=== PATIENT | female | born 1990 | race Caucasian/White ===

== ENCOUNTER 2022-05-02 11:35 | Outpatient (CLI) | payer OTHER, SELFPAY ==
[2022-05-02] VITALS (16 sets, daily range): BP systolic 132–166; BP diastolic 73–90; PULSE 69–88; TEMP 36.7; O2SAT 97; BMI 46.3
[2022-05-02 12:42] LABS: Hemoglobin 9.8 g/dL (12.0-15.0); Mean Corp Hgb Conc 31.6 g/dL (32-36); Mean Corpuscular Hgb 28.2 pg (27.0-32.0); Mean Corpuscular Volume 89.1 fL (81-99); Mean Platelet Vol. 10.1 fl (6.2-12.0); Platelet Count 236 K/mm3 (150-450); RBC Distribution Width CV 14.1 % (11.6-14.6); RBC Distribution Width SD 45.1 fl (35.1-43.9); Red Blood Count 3.48 M/mm3 (4.2-5.4)
[2022-05-02 12:54] LABS: Protein, Urine (Random) 7.8 mg/dL (<11.9); Protein:Creat Ratio 371 mg/g CRE (0-200)
[2022-05-02 13:00] LABS: AST(SGOT) 11 U/L (15-37); Alanine Aminotransfer ALT/SGPT 17 U/L (13-56); Creatinine, Serum 0.53 mg/dL (0.55-1.02); EST Glomerular Filtration Rate 143 mL/min (>60); Est Glom Filt Rate - Afr Amer 174 mL/min (>60); Estimated Creatinine Clearance 116.06 ml/min; Uric Acid 4.1 mg/dL (2.6-6.0)
--- NOTE | 2022-05-02 14:06 | OB.TRI.NOTE ---
HPI - General General Date of Service: 05/02/22 Chief Complaint: headaches HPI Narrative JANET DUNN, is a 31 F @ 35.5 WEEKS who presents c/o headache since yesterday with intermittent visual changes. pt reports tried rest and tylenol without improvement. pt reports no abdominal pain, vaginal bleeding, cramping. PFSH PFSH Home Medications aspirin 81 mg chewable tablet 81 mg PO DAILY 05/02/22 [History Last Taken 05/01/22 22:00] ferrous sulfate 143 mg PO DAILY 05/02/22 [History Last Taken 05/01/22 22:00] vitamn-iron carb-folic acid-docusate 95 mg-1 mg-50 mg capsule 1 cap PO DAILY 05/02/22 [History Last Taken 05/01/22 22:00] Allergy/AdvReac Type Severity Reaction Status Date / Time No Known Allergies Allergy Verified 05/02/22 12:17 NST FHR Rate Baby A Baseline: 145 Variability:: Moderate Accelerations:: 15 x 15 Decelerations:: Variable (occasional ) NST Reactive:: Yes FHR Category:: Category I Uterine Activity:: irregular Assessment & Plan (1) 35 weeks gestation of : (2) Headache in : (3) Preeclampsia: PLAN: Plan @ 35.5 weeks- Preeclampsia 1) one severe range pressure- I was in the room personally discussing the plan of care with patient when it was elevated pt reports she might have been nervous discussion delivery at 37 weeks 2) celestone today and repeat tomorrow 3) OFFICE visit thursday scheduled and twice weekly testing until delivery 4) will check BPs at home - instructed when to call or come in 5) will continue to monitor at this time and decide if she will be dc home if no further severe range pressures.
[2022-05-02] MEDS: Betamethasone/Betamethasone 30 MG/5 ML Vial 12 MG IM (15:15)
--- NOTE | 2022-05-02 15:57 | OB.TRI.PN ---
Progress Notes Date of Service: 05/02/22 Progress Note: seen at bedside again- doing well. Laboratory Studies: Laboratory Tests 05/02/22 05/02/22 05/02/22 Range/Units 12:30 12:30 12:30 WBC 11.0 (4.4-11.0) K/mm3 RBC 3.48 L (4.2-5.4) M/mm3 Hgb 9.8 L (12.0-15.0) g/dL Hct 31.0 L (37-47) % MCV 89.1 (81-99) fL MCH 28.2 (27.0-32.0) pg MCHC 31.6 L (32-36) g/dL RDW Std Deviation 45.1 H (35.1-43.9) fl RDW Coeff of Aniket 14.1 (11.6-14.6) % Plt Count 236 (150-450) K/mm3 MPV 10.1 (6.2-12.0) fl Creatinine 0.53 L (0.55-1.02) mg/dL Estim Creat Clear Calc 116.06 ml/min Est GFR (MDRD) Af Amer 174 (>60) mL/min Est GFR (MDRD) Non-Af 143 (>60) mL/min Uric Acid 4.1 (2.6-6.0) mg/dL AST 11 L (15-37) U/L ALT 17 (13-56) U/L U Random Total Protein 7.8 (<11.9) mg/dL Urine Creatinine 21.00 (NO RANGE EST.) mg/dL Protein/Creatinin Ratio 371 H (0-200) mg/g CRE Assessment & Plan (1) Preeclampsia: (2) Headache in : (3) 35 weeks gestation of : PLAN: Plan @ 35.5 weeks- PRE E 1) VS - only one severe range BP (documented when i was discussing plan of care with patient) all other BPs mild range. decision at this time for dc home. Tracing remains CAT 1 reactive. pt was instruted by myself and nursing when to return to hospital - worsening symptoms. Will return for celestone tomorrow and BP check. OFFICE thursday. Pt agrees with PLAN and will monitor BP at home.
== END 2022-05-02 15:59 | disposition home or self-care (01) ==
LOC: WPOUT 11:51 → WP 11:53
PROVIDERS: Referring Provider Advanced Practice Midwife; Visit Provider Advanced Practice Midwife
DX: O14.93 Unspecified pre-eclampsia, third trimester (principal); R51.9 Headache, unspecified; Z3A.35 35 weeks gestation of pregnancy; H53.8 Other visual disturbances
CPT/HCPCS: 36415; 59025; 59050; 82565; 82570; 84156; 84450; 84460; 84550; 85027; 96372; 99221; G0378; J0702

== ENCOUNTER 2022-05-03 16:15 | Inpatient (IN) | payer OTHER, SELFPAY ==
[2022-05-03] VITALS (35 sets, daily range): BP systolic 116–148; BP diastolic 65–82; PULSE 64–95; RESP 16; TEMP 36.8–37.3; O2SAT 84–99; BMI 44.9
[2022-05-03] MEDS: Betamethasone/Betamethasone 30 MG/5 ML Vial 12 MG IM (16:31)
[2022-05-03] MEDS: Lactated Ringers 1,000 ML 50 ML IV (17:00)
[2022-05-03] MEDS: Labetalol (Prefilled) 20 MG/4 ML IV (17:09)
[2022-05-03] MEDS: Magnesium Sulfate 4gm/100mL 4 GM/100 ML IV.SOLN. IV (17:11)
[2022-05-03 17:19] LABS: Absolute Lymphocyte Count 2.35 X10^3/uL (0.83-4.51); Absolute Neutrophil Count 11.1 X10^3/uL (2.0-7.7); Basophil# 0.03 X10^3/uL; Basophil% 0.2 % (0-1); Eosinophil# 0.03 X10^3/uL; Eosinophils% 0.2 % (0-5); Hemoglobin 10.3 g/dL (12.0-15.0); Lymphocyte # 2.35 X10^3/ul (0.83-4.51); Lymphocyte % 16.2 % (19-41); Mean Corp Hgb Conc 31.2 g/dL (32-36); Mean Corpuscular Hgb 27.8 pg (27.0-32.0); Mean Corpuscular Volume 88.9 fL (81-99); Mean Platelet Vol. 10.2 fl (6.2-12.0); Monocyte# 0.92 X10^3/uL; Monocyte% 6.3 % (0-10); NRBC Flagged by Analyzer 0 % (0-5); Neutrophil # 11.09 X10^3/uL (2.7-7.7); Neutrophil % 76.3 % (47-70); Platelet Count 286 K/mm3 (150-450); RBC Distribution Width CV 14.4 % (11.6-14.6); Red Blood Count 3.71 M/mm3 (4.2-5.4); White Blood Count 14.5 K/mm3 (4.4-11.0)
[2022-05-03 17:34] LABS: AST(SGOT) 16 U/L (15-37); Alanine Aminotransfer ALT/SGPT 24 U/L (13-56); Creatinine, Serum 0.61 mg/dL (0.55-1.02); EST Glomerular Filtration Rate 120 mL/min (>60); Est Glom Filt Rate - Afr Amer 146 mL/min (>60); Estimated Creatinine Clearance 105.69 ml/min; Uric Acid 3.8 mg/dL (2.6-6.0)
[2022-05-03] MEDS: Magnesium Sulfate 4gm/100mL 2 GM/50 ML IV.SOLN. IV (17:37)
[2022-05-03] MEDS: Magnesium Sulfate 20 GM/500 ML BAG IV (18:00)
[2022-05-03] MEDS: Labetalol 100 MG Tablet PO ×2 (18:09→22:04)
--- NOTE | 2022-05-03 18:16 | HP.PCM.OB_ITS ---
HPI - General General Date of Admission: 05/03/22 HPI Narrative JANET DUNN, is a 31 F who presents at 35w4d for blood pressure check and 2nd dose of celestone due to preeclampsia. Upon arrival initial BP severe BP range with repeat blood pressure in severe range. Asymptomatic. Decision made for admission due to preeclampsia with severe features and induction of labor. complicated by obesity, history of anxiety, history of SAB Maternal Data Information KEARA Calculator Estimated Delivery Date Method Current WG Current Estimate 06/03/22 Manual 35w 5d Final KEARA: 06/03/22 Final KEARA Source: US <20 weeks [facility] Medical History (Updated 05/04/22 @ 14:15 by Nadiya Anders CNM) Pre-eclampsia Psychiatric disorder Home Medications aspirin 81 mg chewable tablet 81 mg PO DAILY 05/02/22 [History Last Taken 05/02/22 19:00] ferrous sulfate 143 mg PO DAILY anemia 05/02/22 [History Last Taken 05/02/22 21:30] vitamn-iron carb-folic acid-docusate 95 mg-1 mg-50 mg capsule 1 cap PO DAILY pregnanvy 05/02/22 [History Last Taken 05/03/22 01:00] Allergy/AdvReac Type Severity Reaction Status Date / Time No Known Allergies Allergy Verified 05/02/22 12:17 Family History no significant family his Surgical History no surgical history Social History Smoking Status: Never smoker History Elective abortions Hx Para 0 Spontaneous abortions Hx # Term Pregnancies Ectopic pregnancies Hx # Pregnancies Multiple births # of living children Visit Details OB Flowsheet Initial Weight: Not Recorded Date -?-?-?-?-?-?-?-?-?-?-?-?- EGA Weight BP Urine Prot -?-?-?-?-?-?-?-?-?-?-?-?- Glucose FHR FuHt Pres Dilation -?-?-?-?-?-?-?-?-?-?-?-?- Effaced St Visit Note 05/03/22 -?-?-?-?-?-?-?-?-?-?-?-?- 35w 4d 246 lb 148/82 148/82 138/65 138/65 137/74 132/71 132/71 134/70 125/70 125/70 122/70 133/66 128/67 130/66 117/73 117/73 116/68 116/68 125/75 125/71 128/74 128/74 127/77 128/74 128/74 120/77 128/74 131/73 131/73 126/73 126/73 124/69 124/69 119/70 114/67 114/67 108/57 108/57 115/60 115/60 101/53 101/53 124/64 124/64 129/68 129/68 116/61 116/61 118/67 118/67 -?-?-?-?-?-?-?-?-?-?-?-?- -?-?-?-?-?-?-?-?-?-?-?-?- NST FHR Rate Baby A Baseline: 125 Variability:: Moderate Accelerations:: 15 x 15 Decelerations:: None NST Reactive:: Yes FHR Category:: Category I Uterine Activity:: None ROS Constitutional Constitutional: Reports systems reviewed and no addt'l complaints, except as documented; Denies headache(s) Eyes Eyes: Denies acute decrease in peripheral vision, blurry vision or change in vision ENT HEENT: Reports systems reviewed and no addt'l complaints, except as documented Cardiovascular Cardiovascular: Denies chest pain or dizziness Respiratory/Chest Respiratory/Chest: Denies cough, dyspnea, dyspnea on exertion, shortness of breath at rest or shortness of breath with exertion Gastrointestinal Gastrointestinal: Denies abdominal pain, diarrhea, nausea or vomiting Genitourinary Genitourinary: Denies abdominal discomfort Musculoskeletal Musculoskeletal: Denies limited range of motion Integumentary Integumentary: Reports systems reviewed and no addt'l complaints, except as documented Neurologic Neurologic: Reports systems reviewed and no addt'l complaints, except as documen bessy Psychiatric Psychiatric: Reports systems reviewed and no addt'l complaints, except as documented Endocrine Endocrinology: Reports systems reviewed and no addt'l complaints, except as documented Hematologic/Lymphatic Hematologic/Lymphatic: Reports systems reviewed and no addt'l complaints, except as documented Allergic/Immunologic Allergic/Immunologic: Reports systems reviewed and no addt'l complaints, except as documented Vital Signs Vital Signs Vital Signs: 05/03/22 17:08 05/03/22 17:08 05/03/22 17:13 Temperature Temperature Source Pulse Rate 77 Respiratory Rate Respiratory Effort Respiratory Depth Respiratory Pattern Blood Pressure 148/82 H Blood Pressure Mean BP Systolic 148 BP Diastolic 82 Blood Pressure Source Blood Pressure Position Blood Pressure Location Pulse Ox 99 Oxygen Delivery Method 05/03/22 17:13 05/03/22 17:13 05/03/22 17:13 Temperature Temperature Source Pulse Rate 64 69 Respiratory Rate Respiratory Effort Respiratory Depth Respiratory Pattern Blood Pressure Blood Pressure Mean BP Systolic BP Diastolic Blood Pressure Source Blood Pressure Position Blood Pressure Location Pulse Ox 99 Oxygen Delivery Method 05/03/22 17:18 05/03/22 17:18 05/03/22 17:21 Temperature Temperature Source Pulse Rate 83 Respiratory Rate Respiratory Effort Respiratory Depth Respiratory Pattern Blood Pressure 138/65 H Blood Pressure Mean BP Systolic 138 BP Diastolic 65 Blood Pressure Source Blood Pressure Position Blood Pressure Location Pulse Ox 98 Oxygen Delivery Method 05/03/22 17:21 05/03/22 17:23 05/03/22 17:23 Temperature Temperature Source Pulse Rate 79 77 Respiratory Rate Respiratory Effort Respiratory Depth Respiratory Pattern Blood Pressure Blood Pressure Mean BP Systolic BP Diastolic Blood Pressure Source Blood Pressure Position Blood Pressure Location Pulse Ox 97 Oxygen Delivery Method 05/03/22 17:28 05/03/22 17:28 05/03/22 17:31 Temperature Temperature Source Pulse Rate 74 Respiratory Rate Respiratory Effort Respiratory Depth Respiratory Pattern Blood Pressure 137/74 H Blood Pressure Mean BP Systolic 137 BP Diastolic 74 Blood Pressure Source Blood Pressure Position Blood Pressure Location Pulse Ox 99 Oxygen Delivery Method 05/03/22 17:31 05/03/22 17:33 05/03/22 17:33 Temperature Temperature Source Pulse Rate 80 73 Respiratory Rate Respiratory Effort Respiratory Depth Respiratory Pattern Blood Pressure Blood Pressure Mean BP Systolic BP Diastolic Blood Pressure Source Blood Pressure Position Blood Pressure Location Pulse Ox 98 Oxygen Delivery Method 05/03/22 17:38 05/03/22 17:38 05/03/22 17:41 Temperature Temperature Source Pulse Rate 83 Respiratory Rate Respiratory Effort Respiratory Depth Respiratory Pattern Blood Pressure 132/71 H Blood Pressure Mean BP Systolic 132 BP Diastolic 71 Blood Pressure Source Blood Pressure Position Blood Pressure Location Pulse Ox 98 Oxygen Delivery Method 05/03/22 17:41 05/03/22 17:43 05/03/22 17:43 Temperature Temperature Source Pulse Rate 70 77 Respiratory Rate Respiratory Effort Respiratory Depth Respiratory Pattern Blood Pressure Blood Pressure Mean BP Systolic BP Diastolic Blood Pressure Source Blood Pressure Position Blood Pressure Location Pulse Ox 98 Oxygen Delivery Method 05/03/22 17:51 05/03/22 17:51 05/03/22 18:02 Temperature Temperature Source Pulse Rate 86 Respiratory Rate Respiratory Effort Respiratory Depth Respiratory Pattern Blood Pressure 134/70 H 125/70 H Blood Pressure Mean BP Systolic 134 125 BP Diastolic 70 70 Blood Pressure Source Blood Pressure Position Blood Pressure Location Pulse Ox Oxygen Delivery Method 05/03/22 18:02 05/03/22 18:11 05/03/22 18:11 Temperature Temperature Source Pulse Rate 85 85 Respiratory Rate Respiratory Effort Respiratory Depth Respiratory Pattern Blood Pressure 122/70 H Blood Pressure Mean BP Systolic 122 BP Diastolic 70 Blood Pressure Source Blood Pressure Position Blood Pressure Location Pulse Ox Oxygen Delivery Method 05/03/22 17:05 05/03/22 17:20 05/03/22 17:50 Temperature 99.2 F H Temperature Source Temporal Pulse Rate 71 Respiratory Rate 16 16 Respiratory Effort Normal Non-Labored Respiratory Depth Normal Respiratory Pattern Normal Blood Pressure 148/82 H 138/65 H 132/71 H Blood Pressure Mean 104 89 91 BP Systolic BP Diastolic Blood Pressure Source Monitor Monitor Monitor Blood Pressure Position Semi-Fowlers Semi-Fowlers Semi-Fowlers Blood Pressure Location Left Arm Left Arm Left Arm Pulse Ox 98 98 Oxygen Delivery Method Room Air Room Air 05/03/22 18:07 Temperature Temperature Source Pulse Rate Respiratory Rate 16 Respiratory Effort Normal Respiratory Depth Normal Respiratory Pattern Normal Blood Pressure 125/70 H Blood Pressure Mean 88 BP Systolic BP Diastolic Blood Pressure Source Monitor Blood Pressure Position Semi-Fowlers Blood Pressure Location Left Arm Pulse Ox Oxygen Delivery Method Room Air Weight Weight: 246 lb Body Mass Index (BMI) 44.9 Physical Exam Const alert and oriented x3 General Appearance: cooperative Orientation / Consciousness: awake, oriented to person, oriented to place and oriented to time Exam Limitations: no limitations HEENT normocephalic Head and Scalp: normal to inspection, normocephalic and atraumatic Face and Sinus: normal facial exam Eyes General Eye: normal appearance of both eyes Neck full ROM Chest Chest: symmetrical chest wall rise Resp normal respiratory effort and normal air movement Auscultation: clear to auscultation bilaterally Cardio regular rate, regular rhythm, S1 normal heart sound, S2 normal heart sound, no murmurs, no rub, no gallops and no clicks GI normal to inspection, nondistended, normoactive bowel sounds and non-tender appearance of the vagina normal Bladder / Kidney Exam: no CVA tenderness Back/Spine normal ROM Extremity normal to inspection and full ROM Skin no rashes or lesions noted Neuro oriented x3, CN's II-XII intact bilaterally and moves all extremities Sensorium / Orientation: awake, alert and oriented to person Motor Exam: clonus absent Deep Tendon Reflexes: Rt Patellar (L4): 2+ and Lt Patellar (L4): 2+ Labs Labs Labs: Blood Type O POSITIVE Antibody Screen NEGATIVE Hct 33.0 % (37-47) L Hgb 10.3 g/dL (12.0-15.0) L GC/CT negative GBS positive RPR negative HIV negative Rubella Immune HepC negative HBsAG negative Assessment & Plan (1) 35 weeks gestation of : (2) Preeclampsia: (3) Preeclampsia, severe: (4) Obesity: PLAN: Plan 1) Admit to labor and delivery 2) Routine labs 3) Preeclampsia labs 4) Continuous EFM 5) Epidural for pain management 6) Labetalol protocol for severe range BP 7) Magnesium 6gram loading dose with 2gram maintenance 8) Fluid restriction 150ml 9) Cytotec 25mcg PO q4hr, will place valentin for cervical ripening once cervix softer 10) GBS positive, will start PCN once pitocin is started 11) collaborative physician and notified of patient status and severe range BP. Referral of care.
[2022-05-03] MEDS: miSOPROStol 25 MCG TABLET PO ×2 (18:54→22:49)
[2022-05-03 21:45] LABS: Creatinine, Urine (random) < 13.00 mg/dL (NO RANGE EST.); Protein, Urine (Random) 9.9 mg/dL (<11.9)
[2022-05-04] VITALS (64 sets, daily range): BP systolic 101–139; BP diastolic 52–77; PULSE 67–124; RESP 16–18; TEMP 36.4–37.2; O2SAT 83–98
[2022-05-04] MEDS: miSOPROStol 25 MCG TABLET PO ×2 (03:24→07:25)
[2022-05-04] MEDS: Magnesium Sulfate 20 GM/500 ML BAG IV ×3 (03:57→22:58)
[2022-05-04] MEDS: Labetalol 100 MG Tablet PO ×2 (10:18→21:27)
[2022-05-04] MEDS: 0.9% Normal Saline Single 100 ML IV.SOLN. INTRA-UTER (11:20)
--- NOTE | 2022-05-04 11:51 | PCM.PN.OB ---
Subjective Subjective Resting in bed, at bedside. feeling off with magnesium and labetalol. Denies chest pain, shortness of breath. Objective Data Objective Data Vital Signs: Vital Signs Temp Pulse Resp BP Pulse Ox O2 Del Method 98.9 F 74 16 129/68 H 98 Room Air 05/04/22 10:55 05/04/22 10:55 05/04/22 10:55 05/04/22 10:55 05/04/22 10:55 05/04/22 10:55 Oxygen Delivery Method Room Air Weight: 246 lb Body Mass Index (BMI) 44.9 Intake & Output: Intake and Output for Last 24 Hours 05/02/22 05/03/22 05/04/22 23:59 23:59 23:59 Intake Total 225 / 225 1177.5 / 1177.5 Output Total 500 / 500 1950 / 1950 Balance -275 / -275 -772.5 / -772.5 Lab / Micro Data Result Diagrams: 05/03/22 17:00 05/03/22 17:00 Labs: Laboratory Results - last 24 hr 05/03/22 17:00: WBC 14.5 H, RBC 3.71 L, Hgb 10.3 L, Hct 33.0 L, MCV 88.9, MCH 27.8, MCHC 31.2 L, RDW Std Deviation 46.0 H, RDW Coeff of Aniket 14.4, Plt Count 286, MPV 10.2, Immature Gran % (Auto) 0.800, Neut % (Auto) 76.3 H, Lymph % (Auto) 16.2 L, [place] % (Auto) 6.3, Eos % (Auto) 0.2, Baso % (Auto) 0.2, Absolute Neuts (auto) 11.1 H, Absolute Lymphs (auto) 2.35, Nucleated RBC % 0 05/03/22 17:00: Blood Type O POSITIVE, Antibody Screen NEGATIVE 05/03/22 17:00: Creatinine 0.61, Estim Creat Clear Calc 105.69, Est GFR (MDRD) Af Amer 146, Est GFR (MDRD) Non-Af 120, Uric Acid 3.8, AST 16, ALT 24 05/03/22 21:25: U Random Total Protein 9.9, Urine Creatinine < 13.00, Protein/Creatinin Ratio TNP Physical Exam Narrative cervical os dimple. Wasserman catheter placed with stylet through cervix, 30mlNS instilled. patient tolerated well. NST FHR Rate Baby A Baseline: 145 Accelerations:: 15 x 15 Decelerations:: None NST Reactive:: Yes FHR Category:: Category I Uterine Activity:: None Assessment & Plan (1) Obesity: (2) Preeclampsia, severe: (3) 35 weeks gestation of : (4) Encounter for induction of labor: PLAN: Plan 1) Wasserman bulb and cytotec for cervical ripening. Will give cytotec 50mcg PO once 2) Pitocin to start at 8pm after last dose of cytotec. 3) Eat dinner 4) Category 1 5) collaborative physician and management of care.
[2022-05-04] MEDS: miSOPROStol 25 MCG TABLET 50 MCG PO (12:44)
[2022-05-04] MEDS: Ondansetron 4 MG/2 ML Vial IV (14:47)
[2022-05-04] MEDS: Oxytocin 15 Units/NS 250ml 15 UNITS/250 ML IV.SOLN 2 UNITS IV (20:37)
[2022-05-04] MEDS: Penicillin G 3,000,000 Units 50 ML 100 UNITS IV (21:26)
[2022-05-05] VITALS (171 sets, daily range): BP systolic 102–157; BP diastolic 59–82; PULSE 58–100; RESP 12–18; TEMP 36.1–37.1; O2SAT 65–99
--- NOTE | 2022-05-05 | PLAC_PTH ---
PATIENT: JANET DUNN LOC: [facility] U#:[id number] AGE/SX: 31/F ROOM: WP007 RE05/03/[address]: Dr. Janie Bales MD : 1990 BED: 1 DIS: 05/09/2022 SPEC #: [id number] RECD: 05/05/22 17:41 STATUS: YANIRA REKeshia #: [id number] RAY: 05/05/22 00:[address]: Janie Bales DEPT: SURGICAL PATHOLOGY RECD BY: Bipin Tracy ENTERED: 05/06/22 09:09 SP TYPE: PLACENTA OTHR DR: No Primary Care Phys Tissues: Placenta, NOS Procedures: Surgery Specimen Level V HEADER OPERATION: Primary section PRE-OP DIAGNOSIS: Preeclampsia TISSUE SUBMITTED: Placenta MICROSCOPIC DIAGNOSIS Placenta: Placental disc - third trimester placenta (522 gm). Membranes - no pathologic diagnosis. Umbilical cord - three blood vessels and no pathologic diagnosis. SJ:janel 05/08/2022 MICROSCOPIC DESCRIPTION Slides are reviewed. GROSS DESCRIPTION SPECIMEN: PLACENTA / CLINICAL INFORMATION: A. Weight: 2.91 kg B. Gestational Age: 35 weeks C. Sex: Male PLACENTAL WEIGHT (POST FIXATION): 522 gm PLACENTAL DIMENSIONS: 19 x 17 x 3 cm PLACENTAL SHAPE: Usual ovoid PLACENTAL WEIGHT FOR GESTATIONAL AGE: Within 10-99th percentile MEMBRANES - Present A. Insertion: Marginal B. Site of rupture from edge: At edge of placental disc C. Color of membrane: Summers-medina D. Abnormalities: None UMBILICAL CORD - Present A. Color: Summers-medina B. Insertion: Eccentric C. Length: 51 cm D. Diameter: 1.3 cm E. Number of vessels: Three F. Abnormalities: None PLACENTAL DISC - Present A. Color of surface: Summers-medina B. surface abnormalities: None C. Maternal cotyledons: Intact with minimal tears D. Attached retro placental clot: No clot E. Cut surface: Dark red and spongy F. Lesions: None G. Separate clot: Absent SECTIONS SUBMITTED: 1. Umbilical cord ( end notched) 2. Umbilical cord, placental end 3. Membrane roll 4. Placental disc, and maternal surfaces 5. Placental disc, and maternal surfaces 6. Placental disc, and maternal surfaces AM:janel 05/07/2022 TC:4 CPT: 94598
[2022-05-05] MEDS: Penicillin G 3,000,000 Units 50 ML 100 UNITS IV ×2 (03:37→06:00)
[2022-05-05] MEDS: Magnesium Sulfate 20 GM/500 ML BAG IV ×2 (09:04→19:46)
[2022-05-05] MEDS: Labetalol 100 MG Tablet PO ×2 (10:43→22:22)
[2022-05-05] MEDS: Sodium Citrate/Citric Acid 30 ML UDC PO (11:50)
[2022-05-05] MEDS: Acetaminophen 500 MG Tablet PO (11:50)
[2022-05-05 12:15] LABS: Hematocrit 30.7 % (37-47); Mean Corp Hgb Conc 32.6 g/dL (32-36); Mean Corpuscular Hgb 29.1 pg (27.0-32.0); Mean Corpuscular Volume 89.2 fL (81-99); Mean Platelet Vol. 9.8 fl (6.2-12.0); Platelet Count 279 K/mm3 (150-450); RBC Distribution Width CV 14.8 % (11.6-14.6); RBC Distribution Width SD 48.2 fl (35.1-43.9); Red Blood Count 3.44 M/mm3 (4.2-5.4); White Blood Count 14.2 K/mm3 (4.4-11.0)
[2022-05-05] MEDS: Cefazolin 2 GM in 0.9% Normal Saline 100 ML IV (12:20)
--- NOTE | 2022-05-05 13:04 | EX.PCM.OBRPT ---
Assessment & Plan (1) Failed induction of labor: (2) 35 weeks gestation of : Maternal Data Information KEARA Calculator Estimated Delivery Date Method Current WG Current Estimate 06/03/22 Manual 35w 6d Final KEARA: 07/01/22 Gestational age: 35 6/7 Details Operative Information Date of Procedure: 05/05/22 Pre-Operative Diagnosis: failed induction Post-Operative Diagnosis: same Classification: Scheduled Procedure Type: low transverse operations processor #1: Kandi Marinelli Type of Anesthesia: Spinal Special Medications: duramorph Antibiotic Given: Ancef 2 grams IV x1 Drain: Wasserman to straight drain Estimated Blood Loss: 900 Fluids Replaced: 500 Procedure Start Time: 12:38 Procedure Stop Time: 13:16 Time of Delivery: 12:43 Findings Description of Procedure: I arrived to labor and delivery this morning and assessed prior patient approximately 8 AM. She was still found to be fingertip external os and closed internal cervical os. Thick, high and heading unengaged. She had undergone Cytotec and Pitocin induction of labor. She had a Wasserman placed at 1 point but it came out and her cervical exam per nursing was 2 cm. I discussed with the patient that despite 40 hours of attempted induction, her cervix remained fingertip external os closed internal os and the head was unengaged. I offered Wasserman for cervical ripening at this point and continued induction. I cannot perform artificial rupture membranes. However, I recommended section as patient was remote from delivery with unfavorable cervix and has severe preeclampsia on magnesium. Patient elected to proceed. Pitocin was stopped and decision was made to proceed with section at noon as long as heart tones were reassuring The patient was taken to the operating room. She was prepped and draped in the dorsal supine position with a leftward tilt. A Pfannenstiel skin incision was made approximately 2 cm above the symphysis pubis and carried through to underlying layer fascia with the scalpel. The fascia was incised incised in the midline and extended laterally with blunt dissection. The rectus muscles were in the midline and the peritoneum was entered bluntly. The peritoneal incision was stretched and the bladder blade was placed. The uterine incision was made in a low transverse fashion with the scalpel and extended superiorly and inferiorly with blunt dissection. The amniotic membranes were ruptured bluntly and clear amniotic fluid returned. The infant's head was brought to the incision in the flexed position but there was a large amount of fluid and it would not flex and delivered through the incision. Vacuum was placed on the flexion point and pulled with 1 pull 1 pop-off. The vacuum was then again created to 550 mmHg and pulled with 1 pull and fundal pressure and the head delivered easily. The vacuum was removed. The remainder the infant was delivered with gentle traction only.. The mouth and nares were bulb suctioned. The cord was clamped and cut as the infant was stimulated. The was vigorous cord clamping was delayed approximately 30 seconds. The was handed off to the waiting nursing staff. The placenta was delivered with fundal massage and gentle traction in the standard fashion. The uterus was exteriorized and cleared of all clots and debris. The cervix was dilated with a ring forcep. The uterine incision was closed with #1 Vicryl in a running locked fashion. A second layer of the same suture was used in an imbricating fashion. The incision was examined and was found to be hemostatic. Some Alan was placed over the uterine incision. The uterus was placed back into the peritoneal cavity and hemostasis was again confirmed. The rectus muscles were examined and any bleeding was Bovie cauterized. Alan was placed over the rectus muscles. The parietal peritoneum and rectus muscles were closed en bloc with an 0 Vicryl running suture. The rectus fascia was examined and any bleeding was Bovie cauterized and the rectus fascia was closed with #1 looped PDS suture in a running standard fashion. The subcutaneous tissue was examining and any bleeding was Bovie cauterized some Alan was placed in this layer. The subcutaneous tissue was reapproximated with 3-0 Vicryl suture. The skin was closed in a subcuticular fashion by the CAUSE ANALYST with me present in the labor and delivery suite. I performed the remainder of the procedure with assistance. All sponge, lap, and needle counts were correct. The patient was taken to her room for recovery in a stable condition. Presentation: Positive for Vertex Amniotic Membrane Rupture Type: Artificial Amniotic Fluid Description: Clear Placental Delivery Description: Expressed Placenta Disposition: Sent to Pathology Cord Vessel Description: 3 Vessels Cord Entanglement: None Cord Gases: ABG and VBG Infant A Gender: Male (Steinberg Almas) (1 minute): 9 (5 minute): 9 Delayed Cord Clamping: Yes Complications Complications: none
[2022-05-05] MEDS: Ketorolac 30 MG/ML Syringe IV ×2 (13:43→18:50)
[2022-05-05] MEDS: Oxytocin 15 Units/NS 250ml 15 UNITS/250 ML IV.SOLN 83 UNITS IV (13:43)
[2022-05-05] MEDS: Lactated Ringers 1,000 ML 15 ML IV (14:00)
[2022-05-05] MEDS: Acetaminophen 500 MG Tablet 1000 MG PO (18:50)
[2022-05-06] VITALS (155 sets, daily range): BP systolic 106–142; BP diastolic 61–78; PULSE 56–85; RESP 15–16; TEMP 36.4–36.6; O2SAT 85–100
[2022-05-06] MEDS: Acetaminophen 500 MG Tablet 1000 MG PO ×4 (00:21→18:53)
[2022-05-06] MEDS: Ketorolac 30 MG/ML Syringe IV ×2 (00:21→06:54)
[2022-05-06] MEDS: Magnesium Sulfate 20 GM/500 ML BAG IV (04:55)
[2022-05-06 05:57] LABS: Hematocrit 27.5 % (37-47); Hemoglobin 8.6 g/dL (12.0-15.0); Mean Corp Hgb Conc 31.3 g/dL (32-36); Mean Corpuscular Hgb 28.3 pg (27.0-32.0); Mean Corpuscular Volume 90.5 fL (81-99); Mean Platelet Vol. 9.9 fl (6.2-12.0); Platelet Count 273 K/mm3 (150-450); RBC Distribution Width CV 14.9 % (11.6-14.6); RBC Distribution Width SD 49.1 fl (35.1-43.9); Red Blood Count 3.04 M/mm3 (4.2-5.4); White Blood Count 11.5 K/mm3 (4.4-11.0)
[2022-05-06] MEDS: Senna/Docusate Sodium 1 Tablet PO (10:26)
[2022-05-06] MEDS: Labetalol 100 MG Tablet PO ×2 (10:26→21:59)
--- NOTE | 2022-05-06 12:24 | PCM.PN.OB ---
Subjective Subjective Denies complaints Objective Data Objective Data Vital Signs: Vital Signs Temp Pulse Resp BP Pulse Ox O2 Del Method 97.5 F L 76 16 130/74 H 97 Room Air 05/06/22 11:15 05/06/22 11:17 05/06/22 11:15 05/06/22 11:17 05/06/22 11:16 05/06/22 11:15 Oxygen Delivery Method Room Air Weight: 246 lb Body Mass Index (BMI) 44.9 Intake & Output: Intake and Output for Last 24 Hours 05/04/22 05/05/22 05/06/22 23:59 23:59 23:59 Intake Total 3054.29 / 3054.29 2509.53 / 2509.53 1300.75 / 1300.75 Output Total 3950 / 3950 1775 / 1775 200 / 200 Balance -895.71 / -895.71 734.53 / 734.53 1100.75 / 1100.75 Lab / Micro Data Result Diagrams: 05/06/22 05:40 05/03/22 17:00 Labs: Laboratory Results - last 24 hr 05/06/22 05:40: WBC 11.5 H, RBC 3.04 L, Hgb 8.6 L, Hct 27.5 L, MCV 90.5, MCH 28.3, MCHC 31.3 L, RDW Std Deviation 49.1 H, RDW Coeff of Aniket 14.9 H, Plt Count 273, MPV 9.9 Physical Exam Const alert, oriented x3 and no apparent distress HEENT normocephalic GI soft to palpation, non-tender and non-distended GI Narrative: fundus firm, mid & below umbilicus Incision - bandage c/d/i Extremity normal to inspection and no calf tenderness Assessment & Plan (1) Preeclampsia, severe: COMMENT: POD#1 (2) Failed induction of labor: PLAN: Plan S/p magnesium sulfate. Continue labetalol. Monitor BP's. Start iron for acute blood loss anemia. Routine PP care
[2022-05-06] MEDS: Ibuprofen 600 MG Tablet PO ×2 (14:11→20:05)
[2022-05-06] MEDS: Ferrous Sulfate 325 MG Tablet PO (17:31)
[2022-05-07 01:08] VITALS: BP 156/89; PULSE 70; RESP 15; O2SAT 98
[2022-05-07] MEDS: Acetaminophen 500 MG Tablet 1000 MG PO ×4 (01:13→18:06)
[2022-05-07] MEDS: Ibuprofen 600 MG Tablet PO ×4 (03:08→21:15)
[2022-05-07 08:01] VITALS: BP 142/83; PULSE 55; RESP 16; O2SAT 98
--- NOTE | 2022-05-07 08:36 | PCM.PROGNOTE ---
Subjective Subjective patient seen at bedside, doing well. Patient reports good pain control. lochia mild. denies TSAI, visual changes or epigastric pain. Objective Data Objective Data Vital Signs: Vital Signs Temp Pulse Resp BP Pulse Ox O2 Del Method 97.6 F L 55 L 16 142/83 H 98 Room Air 05/06/22 20:15 05/07/22 08:01 05/07/22 08:01 05/07/22 08:01 05/07/22 08:01 05/07/22 08:01 Oxygen Delivery Method Room Air Weight: 111.584 kg Body Mass Index (BMI) 44.9 Intake & Output: Intake and Output for Last 24 Hours 05/05/22 05/06/22 05/07/22 23:59 23:59 23:59 Intake Total 2509.53 / 2509.53 1300.75 / 1300.75 Output Total 1775 / 1775 1200 / 1200 Balance 734.53 / 734.53 100.75 / 100.75 Lab / Micro Data Result Diagrams: 05/06/22 05:40 05/03/22 17:00 Physical Exam Const alert and oriented x3 General Appearance: cooperative HEENT normocephalic Neck General: normal visual inspection GI soft to palpation and non-distended GI Narrative: Fundus firm Extremity normal to inspection and no calf tenderness Skin no rashes or lesions noted Neuro oriented x3 and CN's II-XII intact bilaterally Psych mental status grossly normal Assessment & Plan Assessment/Plan (1) Obesity: (2) Preeclampsia, severe: (3) Psychiatric disorder: (4) Delivery by section: PLAN: Plan POD#2 , Doing well- pre E with severe features Routine care pain mgmt monitor VS ambulation continue labetalol 100 bid possible dc home tomorrow if BPs remian stable
[2022-05-07] MEDS: Labetalol 100 MG Tablet PO (10:17)
[2022-05-07] MEDS: Ferrous Sulfate 325 MG Tablet PO ×2 (11:55→18:07)
[2022-05-07 15:01] VITALS: BP 141/76; PULSE 82; RESP 16; O2SAT 98
--- NOTE | 2022-05-07 15:47 | CASEMGMT ---
Social Work Assessment Labor and Delivery Unit Date of Referral: 05/06/2022 Time of Referral: 09:56 Referred By: Dr. Janie Bales Date of Intervention: 05/07/2022 Time of Intervention: 15:47 Reason for Referral: Mother of baby (MOB) with history of anxiety and OCD History obtained from: MOB, Chart, nursing Household composition: MOB lives with significant other and now this in a private home. Patient's parent/guardian status: MOB and Father of baby (FOB), Sergey Love have been together for 15 years. MOB reports that was planned and accepted. Medical History: MOB with at 35 weeks due to preeclampsia on 05/05/2022. born on 05/05/2022 with apgars of 9 and 9 at 1min and 10min. to be named Idris Love. MOB plans to breastfeed infant and reports that is going well. Infant to follow with [facility] for medical care after hospitalization. Educational Status: MOB denies any issues/concerns with comprehension or understanding Financial Status: MOB denies any financial concerns. MOB and FOB both work full-time. FOB to have 2-3 weeks leave from work and MOB to have 12 weeks maternity leave. Supplies: MOB reports to have needed infant supplies in the home including a car seat and crib. Childcare/Caregiver(s): MOB plans to be primary caregiver for infant until returning to work. MOB to set up child care cook for infant when MOB returns to work and reports no concerns with this. Transportation: MOB denies concerns. Programs/Agencies Involved: No active community services/resources. Children Services/Legal Issues: No history. Mental Health History: MOB reports history of anxiety and OCD. MOB reports to have been in counseling and on Celexa for 6 months in 2020 but to have decided that it was not the right fit. MOB reports to believe that MOB did better when MOB was not in counseling or on medications. MOB reports no counseling or medications currently. MOB denies suicidal thoughts, plans, intents or history of. This social media marketing analyst able to facilitate conversation with MOB about signs and symptoms of depression. MOB able to identify positive coping skills and reports to have positive support from FOB and family/friends. Substance Use History: Denies current use or history of. PHQ9: Did not trigger Family/Social Stressors: MOB denies any current family/social stressors. Support Systems: MOB reports to have support from FOB and both our families. MOB reports to have positive support from friends as well. Depression and Anxiety/Shaken Baby/Safe Sleeping: This social media marketing analyst provided MOB with resources for [facility] general resources, information on depression/anxiety, safe sleeping and shaken baby. This social media marketing analyst also provided MOB with list of local counseling agencies if MOB would want to try counseling again. MOB reports to believe that MOB will reach out for help and support if symptoms of depression/anxiety start. MOB responding appropriately to prompts for safe sleeping and shaken baby. ASSESSMENT: This social media marketing analyst met with MOB and FOB in room. Introduced self and social media marketing analyst role. MOB agreeable to speak with this social media marketing analyst. MOB provided verbal permission for this social media marketing analyst to speak openly with FOB present. resting in bassinet on back with nothing in the crib. MOB gazing at infant often during assessment and appears to have a connection with . MOB and FOB have engaged and pleasant affect. MOB denies needs/concerns on returning to the community. PLAN: Infant to discharge to home with MOB and FOB. No other services requested or indicated. Catie OLSON, OSCAR
[2022-05-07 20:00] VITALS: BP 149/70; PULSE 71; RESP 17; TEMP 36.8; O2SAT 98
[2022-05-07] MEDS: Labetalol 100 MG Tablet 200 MG PO (21:48)
[2022-05-08] VITALS (8 sets, daily range): BP systolic 134–162; BP diastolic 78–94; PULSE 63–82; RESP 16–18; TEMP 36.7–37; O2SAT 97–100
[2022-05-08] MEDS: Acetaminophen 500 MG Tablet 1000 MG PO ×4 (01:06→21:52)
[2022-05-08] MEDS: Ibuprofen 600 MG Tablet PO ×4 (03:04→23:35)
[2022-05-08] MEDS: NIFEdipine 30 MG Tablet PO ×2 (05:25→20:19)
[2022-05-08] MEDS: Labetalol 100 MG Tablet 200 MG PO (05:25)
[2022-05-08] MEDS: Labetalol 100 MG Tablet 300 MG PO ×2 (14:12→22:36)
[2022-05-08] MEDS: Ferrous Sulfate 325 MG Tablet PO ×2 (14:15→17:22)
--- NOTE | 2022-05-08 15:40 | PCM.PN.OB ---
Subjective Subjective Pt is doing well. She offers no complaints. She denies headache, vision changes, upper abdominal pain. She is ambulating and voiding without difficulty. Passing flatus. Pain is controlled. She has no lightheadedness or dizziness when she is up walking. She denies chest pain, shortness of breath, swelling. Lochia normal. Objective Data Objective Data Vital Signs: Vital Signs Temp Pulse Resp BP Pulse Ox O2 Del Method 98.1 F 71 18 159/91 H 97 Room Air 05/08/22 09:14 05/08/22 13:11 05/08/22 13:11 05/08/22 13:11 05/08/22 13:11 05/08/22 13:11 Oxygen Delivery Method Room Air Weight: 246 lb Body Mass Index (BMI) 44.9 Intake & Output: Intake and Output for Last 24 Hours 05/06/22 05/07/22 05/08/22 23:59 23:59 23:59 Intake Total 1300.75 / 1300.75 Output Total 1200 / 1200 Balance 100.75 / 100.75 Lab / Micro Data Result Diagrams: 05/06/22 05:40 05/03/22 17:00 Physical Exam Const alert and no apparent distress Constitutional Narrative: Holding baby General Appearance: comfortable Assessment & Plan (1) Delivery by section: PLAN: POD#3 s/p primary section. No symptoms of pre e this AM. S/p mag gtt. BP's remain elevated: Procardia 30 mg XR started this AM, Labetalol increased to 300 mg TID this afternoon. Continue to closely monitor. Anticipate discharge tomorrow if BP's improved. Otherwise meeting milestones for discharge. Will need incision and BP check next week (2) Failed induction of labor: (3) Obesity: (4) Preeclampsia, severe: COMMENT: POD#3 (5) Psychiatric disorder: COMMENT: ocd and general anxiety disorder
--- NOTE | 2022-05-08 23:07 | NURSING ---
Pt informed this RN around 2229 that her incision area felt uncomfortable. This RN inspected and dressing is dry and intact with no drainage present. Redness is present around dressing which arose earlier in the day. Does not look too much more red then before but pt stated it was starting to get itchy. Will recheck back at 29 and inspect dressing and surrounding area.
[2022-05-09 03:42] VITALS: BP 154/86; PULSE 70; RESP 16; TEMP 36.7
[2022-05-09] MEDS: Acetaminophen 500 MG Tablet 1000 MG PO ×2 (04:05→10:54)
[2022-05-09] MEDS: Ibuprofen 600 MG Tablet PO ×2 (05:51→12:45)
[2022-05-09] MEDS: Labetalol 100 MG Tablet 300 MG PO (05:51)
[2022-05-09 08:09] VITALS: BP 138/84; RESP 18; TEMP 36.7; O2SAT 98
[2022-05-09] MEDS: NIFEdipine 30 MG Tablet PO (08:18)
--- NOTE | 2022-05-09 08:39 | NURSING ---
reddened areas on abdomen proximal and eith8oln to incision bilaterally in the abdominal fold. Will notofy physician to evaluate
[2022-05-09 12:00] VITALS: BP 125/77; PULSE 82; RESP 18; TEMP 36.7
[2022-05-09] MEDS: Ferrous Sulfate 325 MG Tablet PO (12:45)
--- NOTE | 2022-05-09 13:13 | PCM.PN.OB ---
Subjective Subjective Denies complaints Objective Data Objective Data Vital Signs: Vital Signs Temp Pulse Resp BP Pulse Ox O2 Del Method 98.1 F 82 18 125/77 H 98 Room Air 05/09/22 12:00 05/09/22 12:00 05/09/22 12:00 05/09/22 12:00 05/09/22 08:09 05/09/22 08:09 Oxygen Delivery Method Room Air Weight: 246 lb Body Mass Index (BMI) 44.9 Lab / Micro Data Result Diagrams: 05/06/22 05:40 05/03/22 17:00 Physical Exam Const alert, oriented x3 and no apparent distress HEENT normocephalic GI soft to palpation, non-tender and non-distended GI Narrative: fundus firm, mid & below umbilicus Incision - bandage c/d/i Extremity normal to inspection and no calf tenderness Assessment & Plan (1) Delivery by section: PLAN: Routine PP care (2) Preeclampsia, severe: COMMENT: POD#4 PLAN: BP's better controlled since medications adjusted. Plan for d/c to home. Patient advised to follow up Thursday or Thursday for a BP check.
--- NOTE | 2022-05-09 13:15 | DS.PCM_ITS ---
Providers Date of Admission: 05/03/22 Primary Care Physician: No Primary Care Phys Reason For Visit: PRIMARY C SECTION Diagnosis Discharge Diagnosis (1) Delivery by section: Status: Acute Plan: Routine PP care (2) Preeclampsia, severe: Status: Acute Code(s): O14.10 - Severe pre-eclampsia, unspecified trimester Plan: BP's better controlled since medications adjusted. Plan for d/c to home. Patient advised to follow up Thursday or Thursday for a BP check. Medications at Discharge Home Medications ferrous sulfate 143 mg PO DAILY anemia 05/02/22 vitamn-iron carb-folic acid-docusate 95 mg-1 mg-50 mg capsule 1 cap PO DAILY pregnanvy 05/02/22 acetaminophen 500 mg tablet 1,000 mg PO Q6 #0 tabs 05/09/22 ibuprofen 600 mg tablet 600 mg PO Q6 #0 tabs 05/09/22 labetalol 100 mg tablet 300 mg PO TID #100 tabs 05/09/22 nifedipine 30 mg tablet,extended release 24 hr 30 mg PO 0800,2000 #60 tabs 05/09/22 nystatin 100,000 unit/gram topical ointment 1 applic topical BID #30 grams 05/09/22 triamcinolone acetonide 0.1 % topical ointment 1 applic topical BID #30 grams 05/09/22 Hospital Course Operations section Summary of Care Provided Hospital Course: Patient admitted with severe preeclampsia. SHe had a - see operative report. In the post-op period she received magnesium sulfate and then medications were adjusted to control her BP. on POD#4 she was discharged home. Physical Exam Const alert, oriented x3 and no apparent distress HEENT normocephalic GI soft to palpation, non-tender and non-distended GI Narrative: fundus firm, mid & below umbilicus Incision - bandage c/d/i Extremity normal to inspection and no calf tenderness Weight / BMI Weight Weight: 246 lb Body Mass Index (BMI) 44.9 ABG / Lab / Microbiology Data Result Diagrams: 05/06/22 05:40 05/03/22 17:00 D/C Instructions Discharge Diet: No restrictions Discharge Activity: May Shower May resume sexual activity in: 6 weeks Weight Bearing Status: Weight bearing as tolerated Call your doctor if your incision/area has: Continuous Slow Oozing, Sudden Increased Bleeding, Increased Pain/ Swelling, Increased Redness, Foul Smelling Discharge and Swelling at the incision site Call your doctor if you observe: Fever of 101 or Higher, Numbness or Tingling, Change in Color, Inability to urinate, Using more than 1 pad per hour, Di zziness, Fainting spells, Chest pain, Prolonged hiccupping, Increased palpitations (irregular heartbeat), Calf discomfort and Uncontrolled pain Suture Line Care: Avoid Pulling/Pushing Remove Dressing in: 1 week Cleanse incision/area with: Soap & Water Please Follow Up With: Jazmin Neil, DO Meaningful Use Info Meaningful Use Diagnoses (Choose all that apply): None applicable Discharge Plan Admission Admit Date/Time: 05/03/22 16:15 Primary Reason for Your Visit: section Attending Provider: Janie Bales Primary Care Provider: Betzaida Lam Primary Discharge Orders/Prescriptions Prescriptions: New acetaminophen 500 mg Tablet 1,000 mg PO Q6 Qty: 0 0RF ibuprofen 600 mg Tablet 600 mg PO Q6 Qty: 0 0RF labetalol 100 mg Tablet 300 mg PO TID Qty: 100 0RF nifedipine 30 mg Tablet Extended Release 24hr 30 mg PO 0800,2000 Qty: 60 0RF nystatin 100,000 unit/gram ointment 1 applic topical BID Qty: 30 0RF triamcinolone acetonide 0.1 % ointment 1 applic topical BID Qty: 30 0RF Continued prenat vit-iron la-MX-whnptbte 95-1-50 mg Capsule 1 cap PO DAILY ferrous sulfate 47.5 mg iron Tablet Extended Release 143 mg PO DAILY Discontinued aspirin [Baby Aspirin] 81 mg Tablet,Chewable 81 mg PO DAILY Referrals / Follow Up: Care Physician,No Primary [Primary Care Provider] - Disposition Disposition (needs filled in before D/C Order can be placed): Home, Self Care
[2022-05-09 15:49] LABS: Pathology Specimen OB SEE PATHOLOGY REPORT
== END 2022-05-09 14:40 | disposition home or self-care (01) | DRG 787 ==
LOC: WPOUT 05-05 11:14
PROVIDERS: Advanced Practice Midwife; Anesthesiology; Admitting Provider Obstetrics & Gynecology; Referring Provider Obstetrics & Gynecology; Visit Provider Obstetrics & Gynecology
DX: O14.14 Severe pre-eclampsia complicating childbirth (principal); D62 Acute posthemorrhagic anemia; O61.9 Failed induction of labor, unspecified; O99.824 Streptococcus B carrier state complicating childbirth; O99.214 Obesity complicating childbirth; E66.9 Obesity, unspecified; Z3A.35 35 weeks gestation of pregnancy; O99.344 Other mental disorders complicating childbirth; F41.1 Generalized anxiety disorder; F42.9 Obsessive-compulsive disorder, unspecified; Z37.0 Single live birth; Z79.82 Long term (current) use of aspirin
CPT/HCPCS: 59050; 82565; 82570; 84156; 84450; 84460; 84550; 85025; 85027; 86850; 86900; 86901; 88307; 99221; J7120; G0378; J0702; J2405

== ENCOUNTER 2024-09-12 16:45 | Outpatient (CLI) | payer BC, SELFPAY ==
[2024-09-12 17:06] VITALS: BP 125/69; PULSE 72; RESP 17; TEMP 36.7
[2024-09-12 17:07] VITALS: O2SAT 96
[2024-09-12 17:09] VITALS: BMI 43.8
[2024-09-12 17:42] LABS: Absolute Lymphocyte Count 2.41 X10^3/uL (0.83-4.51); Absolute Neutrophil Count 8.2 X10^3/uL (2.0-7.7); Basophil# 0.04 X10^3/uL; Basophil% 0.3 % (0-1); Eosinophil# 0.12 X10^3/uL; Hemoglobin 9.4 g/dL (12.0-15.0); Lymphocyte # 2.41 X10^3/ul (0.83-4.51); Mean Corp Hgb Conc 32.4 g/dL (32-36); Mean Corpuscular Hgb 28.5 pg (27.0-32.0); Mean Corpuscular Volume 87.9 fL (81-99); Mean Platelet Vol. 10.4 fl (6.2-12.0); Monocyte# 0.61 X10^3/uL; Monocyte% 5.3 % (0-10); NRBC Flagged by Analyzer 0 % (0-5); Neutrophil % 71.5 % (47-70); Platelet Count 215 K/mm3 (150-450); RBC Distribution Width CV 14.2 % (11.6-14.6); RBC Distribution Width SD 45.1 fl (35.1-43.9); White Blood Count 11.5 K/mm3 (4.4-11.0)
[2024-09-12] MEDS: Silver Nitrate (BKC) 1 EACH TOPICAL (18:00)
--- NOTE | 2024-09-12 18:18 | OB.TRI.NOTE ---
HPI - General General Date of Admission: 09/12/24 Date of Service: 09/12/24 Chief Complaint: vaginal bleeding HPI Narrative JANET DUNN, is a 34 F who presents with bright red vaginal bleeding after using the restroom. She feels the bleeding has improved since getting to L&D. She describes it as similar to a light period. No abdominal pain or ctx. No lof. No recent falls, trauma, or intercourse. Good FM. PFSH PFS Medical History (Updated 09/12/24 @ 18:[address] Jazmin Neil, DO) Psychiatric disorder Pre-eclampsia Home Medications ?Medication ?Instructions ?Recorded ?Last Taken ?Type ferrous sulfate 143 mg PO DAILY anemia 05/02/22 09/11/24 20:00 History vitamn-iron carb-folic 1 cap PO DAILY pregnanvy 05/02/22 09/11/24 20:00 History acid-docusate 95 mg-1 mg-50 mg capsule acetaminophen 500 mg tablet 1,000 mg (2 x 500 mg) PO Q6 #0 tabs 05/09/22 Unknown Rx Allergy/AdvReac Type Severity Reaction Status Date / Time No Known Allergies Allergy Verified 09/12/24 17:01 Social History Smoking Status: Never smoker History Elective abortions Hx Para 0 Spontaneous abortions Hx # Term Pregnancies Ectopic pregnancies Hx # Pregnancies Multiple births # of living children Physical Exam Const alert and no apparent distress General Appearance: comfortable Resp normal respiratory effort GI soft to palpation and non-tender GI Narrative: Obese Narrative: Speculum exam: Cervix closed and long with minimal white discharge. No bleeding or old blood noted in the vagina. External exam shows a 1 cm open superficial laceration/cut inside the left labia minora that is actively bleeding. No other skin changes noted. No swelling, erythema, or signs of infection NST FHR Rate Baby A Baseline: 140 Variability:: Moderate Accelerations:: 15 x 15 Decelerations:: None NST Reactive:: Yes FHR Category:: Category I Uterine Activity:: no ctx's Assessment & Plan (1) 30 weeks gestation of : (2) Skin tear: PLAN: Patient presented with vaginal bleeding. Bedside TAUS shows subjectively normal fluid and a normal placenta with active fetus. Hgb stable from recent office visit. Taking oral iron. There was no vaginal bleeding or old blood in vagina on exam. There was a skin tear present inside the left labia minora that was bleeding. The tear looked to be mechanical in nature. No evidence of infection, PTL or abruption. Patient worried about seeing continued bleeding at home. Tear superficial and suture not indicated. Discussed r/b/a silver nitrate application and patient desires to proceed. Silver nitrate applied followed by pressure, and no further bleeding noted. Discussed vulvar care and hygeine measures. Discussed pelvic rest for 1 week. Has growth US and OB visit next week. (3) Obesity affecting :
[2024-09-12 18:24] LABS: Fibrinogen 605 mg/dl (203-444); Prothrombin Time (Protime)PT. 13.3 SECONDS (11.7-14.9)
[2024-09-12 18:25] LABS: Partial Thromboplast Time 27.8 Seconds (24.1-36.2)
== END 2024-09-12 18:25 | disposition home or self-care (01) ==
LOC: WPOUT 16:57 → WP 16:58
PROVIDERS: Referring Provider Obstetrics & Gynecology; Visit Provider Obstetrics & Gynecology
DX: O9A.213 Injury, poisoning and certain other consequences of external causes complicating pregnancy, third trimester (principal); S31.41XA Laceration without foreign body of vagina and vulva, initial encounter; O99.213 Obesity complicating pregnancy, third trimester; Z3A.30 30 weeks gestation of pregnancy; X58.XXXA Exposure to other specified factors, initial encounter
CPT/HCPCS: 36415; 59025; 59050; 76815; 85025; 85384; 85610; 85730; 86850; 86900; 86901; 99221; G0378

== ENCOUNTER 2024-10-29 11:05 | Outpatient (CLI) | payer BC, SELFPAY ==
[2024-10-29] VITALS (12 sets, daily range): BP systolic 104–125; BP diastolic 53–80; PULSE 68–102; RESP 16; TEMP 36.8; O2SAT 93–98; BMI 44.4
[2024-10-29 11:34] LABS: Hematocrit 31.1 % (37-47); Hemoglobin 10.3 g/dL (12.0-15.0); Mean Corp Hgb Conc 33.1 g/dL (32-36); Mean Corpuscular Volume 88.9 fL (81-99); Mean Platelet Vol. 11.4 fl (6.2-12.0); Platelet Count 175 K/mm3 (150-450); RBC Distribution Width CV 15.4 % (11.6-14.6); RBC Distribution Width SD 49.3 fl (35.1-43.9); Red Blood Count 3.50 M/mm3 (4.2-5.4); White Blood Count 10.1 K/mm3 (4.4-11.0)
[2024-10-29 12:04] LABS: Creatinine, Urine (random) 47.10 mg/dL (28.00-217.00); Protein, Urine (Random) 7.2 mg/dL (0.0-12.0); Protein:Creat Ratio 152 mg/g CRE (0-200)
[2024-10-29 12:05] LABS: AST(SGOT) 21 U/L (<=31); Alanine Aminotransfer ALT/SGPT 23 U/L (<=34); Estimated Creatinine Clearance 171.63 ml/min (50-250); Uric Acid 4.1 mg/dL (2.6-6.0)
== END 2024-10-29 15:20 | disposition home or self-care (01) ==
LOC: WPOUT 11:07 → WP 11:11
PROVIDERS: Referring Provider Obstetrics & Gynecology; Visit Provider Obstetrics & Gynecology
DX: O99.891 Other specified diseases and conditions complicating pregnancy (principal); R03.0 Elevated blood-pressure reading, without diagnosis of hypertension; Z3A.37 37 weeks gestation of pregnancy; R51.9 Headache, unspecified; Z79.82 Long term (current) use of aspirin
CPT/HCPCS: 36415; 59025; 59050; 82565; 82570; 84156; 84450; 84460; 84550; 85027; 99221; G0378

== ENCOUNTER 2024-11-10 09:32 | Inpatient (IN) | payer BC, SELFPAY ==
--- NOTE | 2024-11-03 11:21 | PCM.HP.BLA ---
History and Physical Date of Admission: 11/10/24 HPI: The patient is a 34 year old female presenting for pre-operative visit. She is scheduled for , for previous c/s on 11/10/24. Procedure discussed along with risks, benefits and complications. Other alternatives discussed for management. Consent form signed? Yes. ? ? PAST MEDICAL HISTORY PAST MEDICAL HISTORYDiagnosisDate?Anemia??Generalized anxiety disorder??History of gestational hypertension??History of gestational ablovqncpytr13/16/2024?Hx of preeclampsia, prior , currently ([facility])05/01/2022?Induced Delivery - Resulting in Premature Delivery at 35w6d?Hx of preeclampsia, prior , currently ([facility])??Miscarriage ([facility])??OCD (obsessive compulsive disorder)??PMH - PAST MEDICAL HISTORY OF??normal color vision ? ? PAST SURGICAL HISTORY PAST SURGICAL HISTORYProcedureLateralityDate? DELIVERY ONLY?05/05/2022?[facility]?EXCIS UTERINE FIBROID,VAG APPRCH?May 2021?Missed Miscarriage during first ?EXTRACTION, ERUPTED TOOTH OR EXPOSED ROOT (ELEVATION AND/OR FORCEPS REMOVAL)?04/27/2007?wisdom teeth x 4?[facility] (OFFICE [facility])? CURRENT MEDICATIONS Current Outpatient MedicationsMedicationSigDispenseRefill?aspirin, enteric coated (ECOTRIN LOW STRENGTH) 81 mg EC tabletTake 2 Aspirin 81mg by mouth once daily after 12 weeks60 tablet5? 21/iron fu/folic acid ( COMPLETE ORAL)Take by mouth.???ferrous sulfate (IRON ORAL)Take by mouth. (Patient not taking: Reported on 10/26/2024)???No current facility-administered medications for this visit. ? ? ALLERGIES: Patient has no known allergies. ? PERSONAL HISTORY: SOCIAL HISTORY Social History?Tobacco Use?Smoking status:Never?Smokeless tobacco:NeverVaping Use?Vaping status:Never UsedSubstance Use Topics?Alcohol use:Not Currently??Comment: No ETOH since 2020?Drug use:No ? FAMILY HISTORY: FAMILY HISTORY FAMILY HISTORY ProblemRelationAge of Onset?No Known ProblemsMother??No Known ProblemsFather??No Known ProblemsBrother??EmphysemaMaternal Grandmother?? Smoker?No Known ProblemsMaternal Grandfather??No Known ProblemsPaternal Grandmother??No Known ProblemsPaternal Grandfather??other (hypospadia)Son??Breast CancerMaternal [id number] ? ? REVIEW OF SYMPTOMS: GENERAL: denies fevers or chills ENDOCRINOLOGY: has not been on steroids Cardiology : denies palpitations or chest pain Respiratory: denies SOB or cough Hematology: denies history of prolonged bleeding or easy bruising or VTE Allergy: Denies history of personal or family history of allergy to anesthesia ? PHYSICAL EXAMINATION: ? VITALS: Blood pressure 138/80, pulse 90, weight 107 kg (236 lb), last menstrual period 02/10/2024, SpO2 99%. ? GENERAL: The patient is well nourished, well hydrated in no acute distress. , The patient is oriented to time, place, and person. NECK: Supple. No lynphadenopathy, normal thyroid, no thyromegaly. LUNGS: Clear to auscultation bilaterally. no wheezes, rhonchi or rales HEART: Regular rate and rhythm, Normal heart sounds, and No murmurs or gallops abd- soft, nontender, gravid ? IMPRESSION: Estimated Date of Delivery: 11/16/24 w/ h/o previous c/s ? PLAN: The risks/benefits/alternatives and personal involved for the planned were reviewed with the patient. Her questions were answered to her satisfaction and she desires to proceed. Consent was signed. I reviewed with her postop instructions and expectations. ? Assessment & Plan Assessment/Plan (1) 39 weeks gestation of : (2) High-risk in third trimester: (3) Previous delivery affecting : (4) Maternal obesity syndrome in third trimester: (5) BMI 40.0-44.9, adult:
[2024-11-10] VITALS (19 sets, daily range): BP systolic 100–122; BP diastolic 50–81; PULSE 58–93; RESP 16; TEMP 35.8–36.8; O2SAT 95–100; BMI 44.5
[2024-11-10] MEDS: Lactated Ringers 1,000 ML 999 ML IV (10:00)
[2024-11-10 10:19] LABS: Hematocrit 31.1 % (37-47); Hemoglobin 10.3 g/dL (12.0-15.0); Immature Granulocytes Count 0.060 X10^3/uL (0.0-0.0); Mean Corp Hgb Conc 33.1 g/dL (32-36); Mean Corpuscular Volume 88.9 fL (81-99); Mean Platelet Vol. 11.0 fl (6.2-12.0); NRBC Flagged by Analyzer 0 % (0-5); Platelet Count 175 K/mm3 (150-450); RBC Distribution Width CV 15.6 % (11.6-14.6); RBC Distribution Width SD 50.4 fl (35.1-43.9); Red Blood Count 3.50 M/mm3 (4.2-5.4); White Blood Count 9.7 K/mm3 (4.4-11.0)
[2024-11-10] MEDS: Lactated Ringers 1,000 ML 150 ML IV (11:00)
[2024-11-10 11:07] LABS: Syphilis Antibodies Nonreactive (Nonreactive)
[2024-11-10] MEDS: TRANEXAMIC ACID 1,000 MG in 0.9% Normal Saline (100mL Bag) 100 ML 440 MG IV (12:22)
--- NOTE | 2024-11-10 12:58 | EX.PCM.OBRPT ---
Assessment & Plan (1) BMI 40.0-44.9, adult: (2) Maternal obesity syndrome in third trimester: (3) Previous delivery affecting : (4) High-risk in third trimester: (5) 39 weeks gestation of : Maternal Data Information Final KEARA: 11/16/24 Gestational age: 39 05/03 Operative Report (OB) Details Procedure Type: low transverse Date of Procedure: 11/10/24 Procedure Start Time: 12:21 Procedure Stop Time: 12:58 Time of Delivery: 12:24 Pre-Operative Diagnosis: Repeat Elective Post-Operative Diagnosis: Same as Pre-operative diagnosis Classification: Scheduled Type of Anesthesia: Spinal Antibiotic Given: Ancef 2 grams IV x1 Drain: Wasserman to straight drain Estimated Blood Loss: 800 Fluids Replaced: 1500 Findings Description of surgery: The patient was taken to the operating room. She was prepped and draped in the dorsal supine position with a leftward tilt. A Pfannenstiel skin incision was made approximately 2 cm above the symphysis pubis and carried through to underlying layer fascia with the scalpel. The fascia was incised incised in the midline and extended laterally with the Carter scissors. The fascia was dissected off the rectus muscles with blunt and sharp dissection. The rectus muscles were in the midline and the peritoneum was entered bluntly. The peritoneal incision was stretched and the bladder blade was placed. The uterine incision was made in a low transverse fashion with the scalpel and extended superiorly and inferiorly with blunt dissection. The amniotic membranes were ruptured bluntly and clear amniotic fluid returned. The infant's head was brought to the incision in the flexed position and delivered without difficulty. The remainder of the was delivered with gentle traction and fundal pressure in the standard fashion. The mouth and nares were bulb suctioned. The cord was clamped and cut as the was stimulated. Cord clamping was delayed. The infant was handed off to the waiting nursing staff. The placenta was delivered with fundal massage and gentle traction in the standard fashion. The uterus was exteriorized and cleared of all clots and debris. The cervix was dilated with a ring forcep. The uterine incision was closed with #1 Vicryl in a running locked fashion. A second layer of the same suture was used in an imbricating fashion. The incision was examined and was found to be hemostatic. The uterus was placed back into the peritoneal cavity and hemostasis was again confirmed. The rectus muscles were examined and any bleeding was Bovie cauterized. The parietal peritoneum and rectus muscles were closed en bloc with an 0 Vicryl running suture. The surgical teams outer gloves were then changed. The rectus fascia was examined and any bleeding was Bovie cauterized and the rectus fascia was closed with looped #1 PDS suture in a running standard fashion. The subcutaneous tissue was examining and any bleeding was Bovie cauterized. The subcutaneous tissue was reapproximated with 3-0 Vicryl suture. The skin was closed in a subcuticular fashion by the COMPUTER SYSTEMS DESIGNER with me present in the labor and delivery suite. I performed the remainder of the procedure with assistance. All sponge, lap, and needle counts were correct. The patient was taken to her room for recovery in a stable condition. Surgical findings: normal uterus, tubes and ovaries, normal placent Presentation: Vertex Amniotic Membrane Rupture Type: Artificial Amniotic Fluid Description: Clear Placental Delivery Description: Expressed Placenta Disposition: [facility] Specimen collected: No Cord Vessel Description: 3 Vessels Cord Entanglement: None A gender: Female (8lb 0oz Jimena) (1 minute): 9 (5 minute): 9 Delayed Cord Clamping: Yes Cabin Agent incident response lead: Yes Dietary Server: Ezra Esparza Tasks completed by surveyor's assistant: Closing, Altering tissue and Retracting Additional faculty research assistant?: No Complications Complications: No
[2024-11-10] MEDS: Oxytocin 15 Units/NS 250ml 15 UNITS/250 ML IV.SOLN 83 UNITS IV (13:20)
[2024-11-10] MEDS: Ketorolac 30 MG/ML Syringe IV ×2 (14:06→20:06)
[2024-11-10] MEDS: 0.9% Saline Lock 10 ML Syringe IV ×2 (16:20→20:06)
--- OUTSIDE RECORDS SUMMARY | 2024-11-10 18:25 | XMS RPT_ITS | CCD ---
Author Organization [facility] Care Team Providers Care [employer] Area Supervisor Name Role Phone [facility], [facility] Primary Care Provid er Care Physician, No Primary Primary Care Provider Unavailable Dr. Jose Neil DO Attending Provider Dr. Jose Neil DO Referring Provider [phone] Daniel BING[place], [facility] Primary Care [facility] er Isael Gandara Admitting Unavailable Isael Gandara Attending Unavailable Care Physician, No Primary Primary Care Unava ilable Jose Neil Attending Unavailable Jose Neil Referring Unavailable Care Physician, No Primary Primary Care Unava ilable Jose Neil Attending Unavailable Jose Neil Referring Unavailable Care Physician, No Primary Primary Care Unava ilable ISAEL GANDARA Referring Unavailable [facility] Primary Care ISAEL Jay Referring Unavailable [facility] Care ISAEL Jay Attending Unavailable ISAEL GANDARA Referring Unavailable [facility] Primary Care Unavai VENU Childs Attending Unavailable ISAEL GANDARA Referring Unavailable [facility] Primary Care Unavai ISAEL Gutierrez Attending Unavailable [facility] Primary Care SteffvaISAEL Sabillon Referring Unavailable [facility] Primary Care Unavai ISAEL Camargo Referring Unavailable [facility] Primary Care UnavaISAEL Mayer Attending Unavailable [facility] Primary Care Unavai AYLIN Crenshaw Attending Unavailable [facility] Primary Care Unavai lable DANIEL, [facility] Primary Care UnavaVENU Rubio Referring Unavailable [facility] Primary Care NADIYA Sagastume Attending Unavailable [facility] Primary [facility] Unavai lable DANIEL, [facility] Primary Care UnavaNADIYA Ramirez Referring Unavailable ISAEL GANDARA Referring Unavailable [facility] ISAEL Jay Referring Unavailable [facility] Primary Care ISAEL Jay Attending Unavailable ISAEL GANDARA Referring Unavailable [facility] Primary [facility] KATHY Rg Referring Unavailable [facility] Primary [facility] KATHY Rg Referring Unavailable [facility] Primary [facility] ISAEL Jay Referring Unavailable [facility] Primary [facility] JASON Carcamo Attending Unavailable [facility] JASON Carcamo Referring Unavailable [facility] Primary Care ISAEL Jay Referring Unavailable [facility] Primary [facility] Unavai SHERRY Arthur Attending Unavail able ISAEL GANDARA Referring Unavailable [facility] Primary [facility] Unavai SHERRY Arthur Referring Unavail able [facility] Primary [facility] KATHY Rg Referring Unavailable [facility] Primary Care Unavai lable [facility], [facility] Primary Care RADHA Ramirez Attending Unavailable ISAEL GANDARA Referring Unavailable SHERRY BEARDEN Referring Unavail able [facility] Primary [facility] Unavai VENU Childs Referring Unavailable [facility] Primary Care Unavai lable DANIEL, [facility] Primary Care UnaNADIYA Medeiros Attending Unavailable NADYIA ANDERS Referring Unavailable [facility] Primary Care UnavaNADIYA Ramirez Attending [facility] ISALE Jay Attending [facility] ISAEL Jay Referring [facility] ISAEL Jay Referring [facility] SHERRY Sorensen Attending Unavail [facility] KATHY Rg Referring [facility] AYLIN Howard Attending [facility] ISAEL Jay Referring [facility] PIERCE Law Attending [facility] KATHY Rg Referring [facility] ISAEL Jay Referring [facility] ISAEL Jay Attending [facility] jenelle Medications Current Medications Medication Drug Class(es) Dates Sig (Normalized) Sig (Original) aspirin 81 mg delayed release oral tablet (20 sources) Platelet Aggregation Inhibitor, Nonsteroidal Anti-inflammatory Drug Start: 04-06-2024 take 2 tablets by mouth once daily aspirin, enteric coated (ECOTRIN LOW STRENGTH) 81 mg EC tablet Indications: Supervision of high risk in first trimester (HCC) Take 2 Aspirin 81mg by mouth once daily after 12 weeks 60 tablet 5 04/06/2024 Active Start: 04-06-2024 End: 04-06-2024 take 1 tablet by mouth once daily aspirin, enteric coated (ECOTRIN LOW STRENGTH) 81 mg EC tablet Indications: Supervision of high risk in first trimester Take 1 tablet by mouth once daily. 90 tablet 3 04/06/2024 04/06/2024 Discontinued Start: 05-02-2022 End: 05-09-2022 take 1 tablet by mouth once daily Aspirin (Baby Aspirin) 81 mg Tablet,Chewable Discontinued 81 mg PO DAILY May 02, 2022 1:00am May 09, 2022 2:18pm End: 05-15-2022 BABY ASPIRIN ORAL BABY ASPIRIN ORA L ferrous sulfate 143 mg extended release oral tablet (20 sources) Start: 05-02-2022 take 143 mg by mouth once daily Ferrous Sulfate Active 143 MG PO DAILY May 02, 2022 12:00am ferrous sulfate (IRON ORAL) Take by mouth. Active End: 04-11-2024 ferrous sulfate (SLOW FE ORA L) Take by mouth. 04/11/2024 Discontinued (Course of therapy completed) ferrous sulfate (SLOW FE ORAL) Take by mouth. Active ferrous sulfate (SLOW FE ORAL) Take by mouth. 0 Active Comment on above: Take by mouth. Ferrous Sulfate (Slow Fe) 47.5 mg iron Tablet Extended Release (1 source) Start: 05-02-19 Ferrous Sulfate (Slow Fe) 47.5 mg iron Tablet Extended Release Active 143 MG PO DAILY May 02, 2022 12:00am metoclopramide 10 mg oral tablet (5 sources) Dopamine-2 Receptor Antagonist Start: 05-06-19 End: 06-05-19 take 1 tablet by mouth every eight hours as needed metoclopramide HCl (REGLAN) 10 mg tablet Take 1 tablet by mouth three times a day as needed. 90 tablet 05/06/2024 06/05/2024 Active Prenat Vit-Iron Wq-Fr-Ilrfejem (1 source) Start: 05-02-19 take 1 capsule by mouth once daily Prenat Vit-Iron Cl-Ys-Thartcpp Active 1 CAP PO DAILY May 02, 2022 12:00am Prenat Vit-Iron Kv-Oj-Qitaywvh (Prena-Cap) 95-1-50 mg Capsule (1 source) Start: 05-02-19 take 1 capsule by mouth once daily Prenat Vit-Iron Fn-Jm-Qltvuhru (Prena-Cap) 95-1-50 mg Capsule Active 1 CAP PO DAILY May 02, 2022 12:00am Prenat Vit-Iron Xp-Gb-Pxgadlbu 95-1-50 mg Capsule (2 sources) Start: 05-02-19 Prenat Vit-Iron Xi-Wj-Gsquuhsp 95-1-50 mg Capsule Active 1 NMA PO DAILY May 02, 2022 1:00am pregnanvy Start: 05-02-2022 Prenat Vit-Iro n En-Hd-Eetdyedz 95-1-50 mg Capsule Active 1 NMA PO DAILY May 02, 2022 1:00am 21/iron fu/folic ac id ( COMPLETE ORAL) (20 sources) 21/iron fu/folic acid ( COMPLETE ORAL) Take by mouth. Active 21/iron fu/folic acid ( COMPLETE ORAL) Take by mouth. 0 Active Comment on above: Take by mouth. Completed/Discontinued Medications Medication Drug Class(es) Dates Sig (Normalized) Sig (Original) acetaminophen 500 mg oral tablet (13 sources) Start: 05-09-2022 End: 10-29-2024 take 2 tablets by mouth every six hours Acetaminophen 500 mg Tablet Discontinued 1000 mg PO EVERY 6 HOURS 0 May 09, 2022 1:00am October 29, 2024 11:39am Start: 05-09-2022 take 1000 mg by mout h every six hours Acetaminophen Active 1000 MG PO EVERY 6 HOURS 0 May 09, 2022 12:00am End: 04-11-2024 acetaminophen (TYLENOL ORAL) Take by mouth. 04/11/2024 Discontinued (Course of therapy completed) acetaminophen (T YLENOL ORAL) Take by mouth. Active acetaminophen (T YLENOL ORAL) Take by mouth. 0 Active Comment on above: Take by mouth. Breast Pump (3 sources) Start: 07-01-2024 End: 07-25-2024 Breast Pump Indications: 20 weeks gestation of (HCC) Double electric breast pump as covered by insurance. 1 Each 07/01/2024 07/25/2024 Discontinued Start: 07-01-2024 End: 07-01-2025 Breast Pump Indications: 20 weeks gestation of Double electric breast pump as covered by insurance. 1 Each 07/01/2024 07/01/2025 Active citalopram 20 mg oral tablet (2 sources) Serotonin Reuptake Inhibitor Start: 05-08-2021 take 1 tablet by mouth once daily citalopram (CELEXA) 20 mg tablet Indications: MANNY (generalized anxiety disorder) Take 1 tablet by mouth once daily. 90 tablet 1 05/08/2021 Active Start: 01-16-2021 End: 02-22-2021 take 0.5 tablet by mouth once daily, then take 1 tablet by mouth once daily citalopram (CELEXA) 20 mg tablet Indications: MANNY (generalized anxiety disorder) Take 0.5 tablets by mouth once daily for 7 days, THEN 1 tablet once daily. 34 tablet 5 01/16/2021 02/22/2021 Active Comment on above: Take 0.5 tablets by mouth once daily for 7 days, THEN 1 tablet once daily. Take 1 tablet by stefani th once daily. Desogestrel / Ethinyl Estradiol (1 source) Progestin, Estrogen Start: 07-07-2014 take 1 tablet by mouth once daily Desogestrel-Ethinyl Estradiol (APRI) 0.15-30 mg-mcg per tablet Take 1 tablet by mouth once daily. 3 Package 4 07/07/2014 Active Comment on above: Take 1 tablet by stefani th once daily. Ferrous Sulfate 47.5 mg iron Tablet Extended Release (2 sources) Start: 05-02-2022 End: 10-29-2024 Ferrous Sulfate 47.5 mg iron Tablet Extended Release Discontinued 143 mg PO DAILY May 02, 2022 1:00am October 29, 2024 11:39am anemia Start: 05-02-2022 Ferrous Sulfat e 47.5 mg iron Tablet Extended Release Active 143 mg PO DAILY May 02, 2022 1:00am ferrous sulfate(SLOW FE 47.5 MG (IRON) TAB) (1 source) Start: 09-21-2009 ferrous sulfate(SLOW FE 47.5 MG (IRON) TAB) Take one(1) tablet daily. 0 09/21/2009 Active Comment on above: Take one(1) tablet d aily. fluocinolone acetonide 0.04943 mg/mg topical ointment (8 sources) Corticosteroid Start: 03-31-2023 End: 04-11-2024 fluocinolone (SYNALAR) 0.025 % ointment Apply to affected area as directed. APPLY TO AFFECTED AREA THREE TIMES DAILY FOR 2 WEEKS THEN TWICE A DAY FOR TWO WEEKS THEN ONCE A DAY FOR A MONTH THEN PRN 60 g 03/31/2023 04/11/2024 Discontinued (Course of therapy completed) Comment on above: Apply to affected ar ea as directed. APPLY TO AFFECTED AREA THREE TIMES DAILY FOR 2 WEEKS THEN TWICE A DAY FOR TWO WEEKS THEN ONCE A DAY FOR A MONTH THEN PRN ibuprofen 600 mg oral tablet (13 sources) Nonsteroidal Anti-inflammatory Drug Start: 05-09-2022 End: 09-12-2024 take 1 tablet by mouth every six hours Ibuprofen 600 mg Tablet Discontinued 600 mg PO EVERY 6 HOURS 0 May 09, 2022 1:00am September 12, 2024 5:10pm End: 04-11-2024 IBUPROFEN ORAL Take by mouth . 04/11/2024 Discontinued (Course of therapy completed) IBUPROFEN ORAL T jaimie by mouth. Active IBUPROFEN ORAL T jaimie by mouth. 0 Active Comment on above: Take by mouth. 10 ml iron sucrose 20 mg/ml injection (4 sources) Parenteral Iron Replacement Start: 10-31-2024 End: 10-31-2024 200 mg, INTRAVENOUS, ONCE, 1 dose, On Thu10/31/24 at 1330, May administer up to 200 mg via IV push over 5-10 minutes. Start: 10-25-2024 End: 10-25-2024 200 mg, INTRAVENOUS, ONCE, 1 dose, On Thu10/25/24 at 1500, May administer up to 200 mg via IV push over 5-10 minutes. Start: 10-21-2024 End: 10-21-2024 200 mg, INTRAVENOUS, ONCE, 1 dose, On Thu10/21/24 at 1400, May administer up to 200 mg via IV push over 5-10 minutes. Start: 10-19-2024 End: 10-19-2024 200 mg, INTRAVENOUS, ONCE, 1 dose, On Thu10/19/24 at 1000, May administer up to 200 mg via IV push over 5-10 minutes. labetalol hydrochloride 100 mg oral tablet (6 sources) beta-Adrenergic Saulo Start: 05-09-2022 End: 05-15-2022 take 1 tablet by mouth three times daily labetalol (TRANDATE) 100 mg tablet Take 100 mg by mouth three times daily. 0 05/09/2022 05/15/2022 Discontinued Start: 05-09-2022 End: 09-12-2024 take 3 tablets by mouth three times daily Labetalol 100 mg Tablet Discontinued 300 mg PO THREE TIMES A DAY May 09, 2022 1:00am September 12, 2024 5:10pm Start: 05-09-2022 take 300 mg by mouth three times daily Labetalol Active 300 MG PO THREE TIMES A DAY May 09, 2022 12:00am Comment on above: Take 3 tablets by mo uth three times daily. Take 100 mg by mouth three times daily. LORazepam 1 mg oral tablet (1 source) Benzodiazepine Start: 01-17-20 End: 01-20-20 take 1 tablet by mouth every six hours as needed LORazepam (ATIVAN) 1 mg tablet Indications: MANNY (generalized anxiety disorder) Take 1 tablet by mouth every 6 hours as needed for up to 3 days. 12 tablet 0 01/16/2021 01/19/2021 Comment on above: Take 1 tablet by stefani every 6 hours as needed for up to 3 days. MEDICATION, NON-DATABASE (2 sources) MEDICATION, NON-DATABASE nutrafol for women vitamin 0 Active Comment on above: nutrafol for women v itamin NIFEdipine 30 mg osmotic 24 hr extended release oral tablet (6 sources) Dihydropyridine Calcium Channel Saulo Start: 05-15-19 End: 06-26-19 take 1 tablet by mouth twice daily NIFEdipine ER (PROCARDIA XL) 30 mg 24 hr tablet Take 1 tablet by mouth twice daily. 0 05/15/2022 06/25/2022 Discontinued Start: 05-09-2022 End: 09-12-2024 take 1 tablet by mouth every twenty-four hours Nifedipine 30 mg Tablet Extended Release 24hr Discontinued 30 mg PO 60 May 09, 2022 1:00am September 12, 2024 5:11pm Comment on above: Take 1 tablet by [facility] twice daily. Take by mouth. nystatin 100 unt/mg topical ointment (3 sources) Polyene Antifungal Start: 05-09-2022 End: 09-12-2024 Nystatin 100,000 unit/gram ointment Discontinued 1 NMA TOPICAL TWICE A DAY May 09, 2022 1:00am September 12, 2024 5:11pm Start: 05-09-2022 Nystatin Activ e 1 APPLIC TOPICAL TWICE A DAY May 09, 2022 12:00am PNV no.153/FA/om3/dha/epa/fish ( GUMMIES ORAL) (1 source) take 2 tablets by mouth once daily PNV no.153/FA/om3/dha/epa/fish ( GUMMIES ORAL) Take 2 tablets by mouth once daily. 0 Active Comment on above: Take 2 tablets by mo [facility] once daily. triamcinolone acetonide 0.00 1 mg/mg topical ointment (3 sources) Corticosteroid St ar t: En d: Triamcinolone Acetonide 0.1 % ointment Discontinued 1 NMA TOPICAL TWICE A DAY 30 0 May 09, 2022 1:00am September 12, 2024 5:11pm Problems Active Problems Problem Classification Problem Date Documented Da te Episodic/Chronic Allergic reactions (1 source) Allergic contact dermatitis; Translations: [Allergic contact dermatitis, unspecified cause] 03-31-2023 Episodic Anxiety disorders (20 sources) Generalized anxiety disorder; Translations: [Generalized anxiety disorder] Onset: 01-16-2021 Chronic Bacterial infection; unspecified site (7 sources) Bacteria present; Translations: [Streptococcus, group B, as the cause of diseases classified elsewhere] Onset: 10-24-2024 10-24-2024 Episodic Deficiency and other anemia (1 source) Iron deficiency anemia, unspecified; Translations: [Maternal iron deficiency anemia complicating , third trimester (HCC)] Onset: 10-10-2024 Episodic Disorders of lipid metabolism (20 sources) Mixed hyperlipidemia; Translations: [Mixed hyperlipidemia] Onset: 01-30-2021 01-30-2021 Chronic Gastrointestinal hemorrhage (1 source) Rectal hemorrhage; Translations: [Hemorrhage of anus and rectum] Episodic Hemorrhage during ; abruptio placenta; placenta previa (2 sources) Antepartum hemorrhage; Translations: [Hemorrhage in early , unspecified] Onset: 09-16-2024 Episodic Immunizations and screening for infectious disease (2 sources) Vaccination needed; Translations: [Encounter for immunization] Onset: 08-22-2024 Episodic Malposition; malpresentation (20 sources) Breech presentation; Translations: [Maternal care for breech presentation, not applicable or unspecified] Onset: 09-21-2024 09-21-2024 Episodic Miscellaneous mental health disorders (4 sources) Mental disorder; Translations: [Mental disorder, not otherwise specified] Chronic Comment on above: ocd and general anxi ety disorder Open wounds of head; neck; and trunk (4 sources) Tear of skin; Translations: [Open wound(s) (multiple) of unspecified site(s), without mention of complication] 09-12-2024 Episodic Other complications of ; puerperium affecting management of mother (4 sources) Deliveries by ; Translations: [Delivery by section] Episodic Other complications of ; puerperium affecting management of mother (3 sources) Failed induction of labor; Translations: [Failed induction of labor, unspecified] 05-10-2022 Episodic Other complications of ; puerperium affecting management of mother (1 source) Failed induction of labor, unspecified; Translations: [Failed medical or unspecified induction of labor, unspecified as to episode of care or not applicable] Episodic Other complications of (20 sources) Obesity; Translations: [Obesity complicating , unspecified trimester] Onset: 05-29-2021 Resolved: 06-25-2022 05-29-2021 Chronic Other complications of (14 sources) Maternal obesity complicating , childbirth and the puerperium, antepartum; Translations: [Obesity complicating , second trimester] Chronic Other complications of (18 sources) Anemia during - baby not yet delivered; Translations: [Anemia complicating , third trimester] Onset: 03-10-2022 03-10-2022 Chronic Other complications of (20 sources) Anemia of ; Translations: [Anemia complicating , third trimester] Onset: 03-10-2022 Resolved: 06-25-2022 06-25-2022 Chronic Other complications of (20 sources) Anemia in mother complicating , childbirth AND/OR puerperium; Translations: [Anemia complicating , third trimester] Onset: 03-10-2022 08-23-2024 Chronic Other complications of (3 sources) Anemia complicating , third trimester; Translations: [Anemia during in third trimester (HCC)] Onset: 09-21-2024 Chronic Other complications of (1 source) Obesity complicating , second trimester; Translations: [Obesity affecting in second trimester, unspecified obesity type (HCC)] Onset: 10-20-2024 Chronic Other complications of (3 sources) Obesity complicating , unspecified trimester; Translations: [Obesity in (HCC)] Onset: 04-11-2024 Chronic Other complications of (1 source) Anemia complicating , second trimester; Translations: [Anemia during in second trimester (HCC)] Onset: 09-06-2024 Chronic Other complications of (3 sources) Abnormal findings on screening of mother; Translations: [Abnormal chromosomal and genetic finding on screening of mother] Episodic Other complications of (6 sources) Headache; Translations: [Other specified related conditions, unspecified trimester] 05-02-2022 Episodic Other complications of (2 sources) Other specified related conditions, unspecified trimester; Translations: [Other specified complications of , unspecified as to episode of care or not applicable] Episodic Other complications of (20 sources) History of pre-eclampsia; Translations: [Supervision of with other poor reproductive or obstetric history, unspecified trimester] 04-11-2024 Episodic Other complications of (1 source) Reduced movement; Translations: [Decreased movements, third trimester, not applicable or unspecified] 10-20-2024 Episodic Other female genital disorders (2 sources) Pruritus of vagina; Translations: [Other specified noninflammatory disorders of vagina] 03-31-2023 Episodic Other lower respiratory disease (2 sources) Snoring; Translations: [Snoring] 08-10-2024 Episodic Other lower respiratory disease (1 source) Snoring; Translations: [Snoring] Onset: 08-11-2024 Episodic Other nutritional; endocrine; and metabolic disorders (1 source) Obesity, unspecified; Translations: [Obesity, unspecified] Chronic Other nutritional; endocrine; and metabolic disorders (3 sources) Body mass index 40+ - severely obese; Translations: [Body mass index (BMI) 40.0-44.9, adult] 05-12-2024 Chronic Other nutritional; endocrine; and metabolic disorders (2 sources) Morbid (severe) obesity due to excess calories; Translations: [Obesity, morbid, BMI 40.0-49.9 ([facility])] Onset: 05-30-2024 Chronic Other nutritional; endocrine; and metabolic disorders (1 source) Body mass index (BMI) 40.0-44.9, adult; Translations: [BMI 40.0-44.9, adult ([facility])] Onset: 05-30-2024 Chronic Residual codes; unclassified (1 source) Unrefreshed by sleep; Translations: [Other sleep disorders] 08-10-2024 Chronic Residual codes; unclassified (1 source) Daytime somnolence; Translations: [Other hypersomnia] 08-10-2024 Chronic Residual codes; unclassified (1 source) Other sleep disorders; Translations: [Non-restorative sleep] Onset: 08-11-2024 Chronic Residual codes; unclassified (1 source) Gestation period, 11 weeks; Translations: [11 weeks gestation of ] Episodic Residual codes; unclassified (3 sources) Gestation period, 15 weeks; Translations: [15 weeks gestation of ] Episodic Residual codes; unclassified (1 source) Gestation period, 17 weeks; Translations: [17 weeks gestation of ] Episodic Residual codes; unclassified (1 source) Gestation period, 19 weeks; Translations: [19 weeks gestation of ] Episodic Residual codes; unclassified (1 source) Gestation period, 21 weeks; Translations: [21 weeks gestation of ] Episodic Residual codes; unclassified (1 source) Gestation period, 27 weeks; Translations: [27 weeks gestation of ] Episodic Residual codes; unclassified (2 sources) Gestation period, 29 weeks; Translations: [29 weeks gestation of ] Episodic Residual codes; unclassified (3 sources) Gestation period, 32 weeks; Translations: [32 weeks gestation of ] Episodic Residual codes; unclassified (2 sources) Gestation period, 33 weeks; Translations: [33 weeks gestation of ] Episodic Residual codes; unclassified (3 sources) Gestation period, 34 weeks; Translations: [34 weeks gestation of ] Episodic Residual codes; unclassified (7 sources) Gestation period, 35 weeks; Translations: [35 weeks gestation of ] Episodic Residual codes; unclassified (4 sources) 35 weeks gestation of ; Translations: [ state, incidental] Onset: 10-14-2024 Episodic Residual codes; unclassified (1 source) Gestation period, 12 weeks; Translations: [12 weeks gestation of ] 05-06-2024 Episodic Residual codes; unclassified (2 sources) Gestation period, 20 weeks; Translations: [20 weeks gestation of ] 07-01-2024 Episodic Residual codes; unclassified (1 source) Gestation period, 23 weeks; Translations: [23 weeks gestation of ] 07-25-2024 Episodic Residual codes; unclassified (1 source) Unrefreshed by sleep 08-10-2024 Episodic Residual codes; unclassified (4 sources) Gestation period, 30 weeks; Translations: [30 weeks gestation of ] 09-12-2024 Episodic Residual codes; unclassified (2 sources) Gestation period, 36 weeks; Translations: [36 weeks gestation of ] 10-20-2024 Episodic Residual codes; unclassified (3 sources) Gestation period, 37 weeks; Translations: [37 weeks gestation of ] 10-26-2024 Episodic Residual codes; unclassified (1 source) Gestation period, 38 weeks; Translations: [38 weeks gestation of ] 11-03-2024 Episodic Residual codes; unclassified (1 source) 38 weeks gestation of ; Translations: [38 weeks gestation of (HCC)] Onset: 11-03-2024 Episodic Residual codes; unclassified (1 source) 37 weeks gestation of ; Translations: [37 weeks gestation of (HCC)] Onset: 10-26-2024 Episodic Residual codes; unclassified (1 source) 36 weeks gestation of ; Translations: [36 weeks gestation of (HCC)] Onset: 10-20-2024 Episodic Residual codes; unclassified (1 source) 34 weeks gestation of ; Translations: [34 weeks gestation of (HCC)] Onset: 10-05-2024 Episodic Residual codes; unclassified (1 source) 33 weeks gestation of ; Translations: [33 weeks gestation of (HCC)] Onset: 09-28-2024 Episodic Residual codes; unclassified (1 source) 29 weeks gestation of ; Translations: [29 weeks gestation of (HCC)] Onset: 09-06-2024 Episodic Residual codes; unclassified (1 source) 27 weeks gestation of ; Translations: [27 weeks gestation of (HCC)] Onset: 08-22-2024 Episodic Residual codes; unclassified (1 source) 23 weeks gestation of ; Translations: [23 weeks gestation of (HCC)] Onset: 08-22-2024 Episodic Unclassified (20 sources) [facility] Education - COMMON Onset: 04-06-2024 04-06-2024 Unclassified (20 sources) Education - [place] Onset: 04-06-2024 04-06-2024 Unclassified (1 source) Other specified diseases and conditions complicating ; Translations: [Other specified diseases and conditions complicating ] Onset: 11-03-2024 Unclassified (1 source) New Patient Onset: 08-10-2024 Past or Other Problems Problem Classification Problem Date Documented Date Episodic/Chronic Diabetes or abnormal glucose tolerance complicating ; childbirth; or the puerperium (20 sources) Abnormal glucose level; Translations: [Abnormal glucose complicating ] Onset: 03-10-2022 Resolved: 06-25-2022 03-10-2022 Episodic Genitourinary symptoms and ill-defined conditions (20 sources) Abnormal urine; Translations: [Unspecified abnormal findings in urine] Onset: 01-30-2021 Resolved: 03-10-2022 01-30-2021 Episodic Hypertension complicating ; childbirth and the puerperium (20 sources) -induced hypertension; Translations: [Gestational [-induced] hypertension without significant proteinuria, third trimester] Onset: 04-29-2022 Resolved: 06-25-2022 Episodic Comment on above: POD#4 Malaise and fatigue (5 sources) Malaise and fatigue; Translations: [Other malaise] Onset: 07-25-2024 07-25-2024 Episodic Menstrual disorders (20 sources) Irregular periods; Translations: [Irregular menstruation, unspecified] Onset: 10-01-2011 Resolved: 03-10-2022 10-01-2011 Chronic Other complications of (20 sources) Spotting per vagina in ; Translations: [Spotting complicating , first trimester] Onset: 05-27-2021 Resolved: 03-10-2022 05-27-2021 Episodic Other complications of (20 sources) H/O: miscarriage; Translations: [Supervision of with other poor reproductive or obstetric history, unspecified trimester] Onset: 10-17-2021 Resolved: 06-25-2022 10-17-2021 Episodic Other complications of (20 sources) High risk ; Translations: [Supervision of high risk , unspecified, first trimester] Onset: 04-11-2024 Episodic Other complications of (20 sources) Excessive growth affecting management of mother; Translations: [Maternal care for excessive growth, third trimester, not applicable or unspecified] Onset: 04-09-2022 Resolved: 06-25-2022 04-09-2022 Episodic Other complications of (2 sources) Supervision of with other poor reproductive or obstetric history, unspecified trimester; Translations: [Hx of preeclampsia, prior , currently ([facility])] Onset: 04-11-2024 Episodic Other complications of (1 source) Supervision of high risk , unspecified, third trimester; Translations: [Supervision of high risk in third trimester ([facility])] Onset: 05-30-2024 Episodic Other complications of (2 sources) Supervision of high risk , unspecified, second trimester; Translations: [Supervision of high risk in second trimester ([facility])] Onset: 05-06-2024 Episodic Other complications of (1 source) Supervision of other high risk pregnancies, first trimester; Translations: [Supervision of other high risk pregnancies, first trimester] Onset: 05-06-2024 Episodic Other complications of (1 source) Supervision of high risk , unspecified, first trimester; Translations: [Supervision of high risk in first trimester] Onset: 05-06-2024 Episodic Other hematologic conditions (20 sources) History of anemia; Translations: [Personal history of diseases of the blood and blood-forming organs and certain disorders involving the immune mechanism] Onset: 10-01-2011 Resolved: 03-10-2022 10-01-2011 Episodic Other inflammatory condition of skin (16 sources) Itching of skin; Translations: [Pruritus, unspecified] Onset: 09-21-2009 09-21-2009 Episodic Other inflammatory condition of skin (20 sources) Pruritus, unspecified; Translations: [Unspecified pruritic disorder] Onset: 09-21-2009 Resolved: 03-10-2022 03-10-2022 Episodic Other and delivery including normal (6 sources) Multigravida; Translations: [Encounter for supervision of other normal , first trimester] Onset: 03-18-2024 Episodic Other screening for suspected conditions (not mental disorders or infectious disease) (20 sources) Patient encounter status; Translations: [Encounter for screening for other suspected endocrine disorder] Onset: 01-16-2021 Resolved: 03-10-2022 Episodic Other skin disorders (20 sources) Telogen effluvium; Translations: [Telogen effluvium] Onset: 09-21-2009 Resolved: 03-10-2022 09-21-2009 Episodic Residual codes; unclassified (20 sources) History of gestational hypertension; Translations: [Personal history of other complications of , childbirth and the puerperium] Onset: 04-11-2024 04-11-2024 Episodic Residual codes; unclassified (1 source) History of uterine scar from previous surgery; Translations: [History of section] Onset: 04-11-2024 Episodic Residual codes; unclassified (1 source) 12 weeks gestation of ; Translations: [12 weeks gestation of ] Onset: 05-06-2024 Episodic Residual codes; unclassified (1 source) Personal history of other complications of , childbirth and the puerperium; Translations: [History of gestational hypertension] Onset: 04-11-2024 Episodic Screening and history of mental health and substance abuse codes (20 sources) H/O: anxiety state; Translations: [Personal history of other mental and behavioral disorders] Onset: 05-29-2021 Resolved: 03-10-2022 05-29-2021 Episodic Results Test Name Value Interpretation Reference Range Facility CBC panel Auto (Bld)on 11-03 Erythrocyte distribution width (RBC) [Ratio] 15.5 % High 11.5 - 15.0 % [facility] Hematocrit (Bld) [Volume fraction] 32.4 % Low 36.0 - 46.0 % [facility] Hemoglobin (Bld) [Mass/Vol] 10.7 g/dL Low 11.5 - 15.5 g/dL [facility] Interpretation and review of laboratory results Abnormal [facility] MCH (RBC) [Entitic mass] 29.6 pg 26.0 - 34.0 pg [facility] MCHC (RBC) [Mass/Vol] 33 g/dL 30.5 - 36.0 g/dL [facility] MCV (RBC) [Entitic vol] 89.8 fL 80.0 - 100.0 fL [facility] Nucleated RBC (Bld) [#/Vol] NINF [facility] Platelet mean volume (Bld) [Entitic vol] 10.8 fL 9.0 - 12.7 fL [facility] Platelets (Bld) [#/Vol] 159 10*3/uL [facility] RBC (Bld) [#/Vol] 3.61 10*6/uL Low 3.90 - 5.2 0 m/uL [facility] WBC (Bld) [#/Vol] 10.48 10*3/uL [facility] Erythrocyte distribution width (RBC) [Ratio] 15.5 % High 11.5-15.[address] [facility] Comment on above: Order Comment: Speci men Type: BLOOD SPECIMEN Ordering Facility: [facility] Address: [address] [place] [address] Performed By: #### 2 1198-7 #### [facility] CLIA [id number] [address] [place] [address] [place] Hematocrit (Bld) [Volume fraction] 32.4 % Low 36.0-46.[address] [facility] Comment on above: Order Comment: Speci men Type: BLOOD SPECIMEN Ordering Facility: [facility] Address: [address] [place] [address] Performed By: #### 2 1198-7 #### [facility] CLIA [id number] [address] [place] [address] [place] Hemoglobin (Bld) [Mass/Vol] 10.7 g/dL Low 11.5-15.[address] [facility] Comment on above: Order Comment: Speci men Type: BLOOD SPECIMEN Ordering Facility: [facility] Address: [address] [place] [address] Performed By: #### 2 1198-7 #### [facility] CLIA [id number] [address] [place] [address] [place] MCH (RBC) [Entitic mass] 29.6 pg Normal 26.0-34.[address] [facility] Comment on above: Order Comment: Speci men Type: BLOOD SPECIMEN Ordering Facility: [facility] Address: [address] [place] [address] Performed By: #### 2 1198-7 #### [facility] CLIA [id number] [address] [place] [address] [place] MCHC (RBC) [Mass/Vol] 33.0 g/dL Normal 30.5-36.0 [facility] Comment on above: Order Comment: Speci men Type: BLOOD SPECIMEN Ordering Facility: [facility] Address: [address] [place] [address] Performed By: #### 2 1198-7 #### [facility] CLIA [id number] [address] [place] [address] [place] MCV (RBC) [Entitic vol] 89.8 fL Normal 80.0-100.0 [facility] Comment on above: Order Comment: Speci men Type: BLOOD SPECIMEN Ordering Facility: [facility] Address: [address] [place] [address] Performed By: #### 2 1198-7 #### [facility] CLIA [id number] [address] [place] [address] [place] Nucleated RBC (Bld) [#/Vol] 10*3/uL Normal <0.[address] [facility] Comment on above: Order Comment: Speci men Type: BLOOD SPECIMEN Ordering Facility: [facility] Address: [address] [place] [address] Performed By: #### 2 1198-7 #### [facility] CLIA [id number] [address] [place] [address] [place] Platelet mean volume (Bld) [Entitic vol] 10.8 fL Normal 9.0-12.[address] [facility] Comment on above: Order Comment: Speci men Type: BLOOD SPECIMEN Ordering Facility: [facility] Address: [address] [place] [address] Performed By: #### 2 1198-7 #### [facility] CLIA [id number] [address] [place] [address] [place] Platelets (Bld) [#/Vol] 159 10*3/uL Normal 150-[address] [facility] Comment on above: Order Comment: Speci men Type: BLOOD SPECIMEN Ordering Facility: [facility] Address: [address] [place] [address] Performed By: #### 2 1198-7 #### [facility] CLIA [id number] [address] [place] [address] [place] RBC (Bld) [#/Vol] 3.61 10*6/uL Low 3.90-5.20 [facility] Comment on above: Order Comment: Speci men Type: BLOOD SPECIMEN Ordering Facility: [facility] Address: [address] [place] [address] Performed By: #### 2 1198-7 #### [facility] CLIA [id number] [address] [place] [address] [place] WBC (Bld) [#/Vol] 10.48 10*3/uL Normal 3.70-11.00 [facility] Comment on above: Order Comment: Speci men Type: BLOOD SPECIMEN Ordering Facility: [facility] Address: [address] [place] [address] Performed By: #### 2 1198-7 #### [facility] CLIA [id number] [address] [place] [address] [place] Comprehensive metabolic 2000 panelOrdered By: Cate Mello on 11-03-2024 Albumin [Mass/Vol] 3.4 g/dL Low 3.9 - 4.9 g/dL [facility] ALP [Catalytic activity/Vol] 136 U/L High 34 - 123 U/L [facility] ALT [Catalytic activity/Vol] 19 U/L 7 - 38 U/L [facility] Anion gap [Moles/Vol] 13 mmol/L 8 - 15 mmol/L [facility] AST [Catalytic activity/Vol] 15 U/L 13 - 35 U/L [facility] Bilirubin [Mass/Vol] 0.2 mg/dL 0.2 - 1 .3 mg/dL [facility] Calcium [Mass/Vol] 9.6 mg/dL 8.5 - 10. 2 mg/dL [facility] Chloride [Moles/Vol] 103 mmol/L 98 - 10 7 mmol/L [facility] CO2 [Moles/Vol] 20 mmol/L Low 22 - 30 mmol/L [facility] Creatinine [Mass/Vol] 0.67 mg/dL 0.58 - 0.96 mg/dL [facility] GFR/1.73 sq M.predicted among non-blacks MDRD (S/P/Bld) [Vol rate/Area] 118 mL/min/{1.73_m2} - PINF [facility] Comment on above: Estimated Glomerular Filtration Rate (eGFR) is calculated using the 2020 CKD-EPI creatinine equation. This equation utilizes serum creatinine, sex, and age as parameters. The creatinine assay has traceable calibration to isotope dilution-mass spectrometry. Refer to KDIGO guidelines for clinical interpretation. In patients with unstable renal function, e.g. those with acute kidney injury, the eGFR may not accurately reflect actual GFR. Glucose [Mass/Vol] 106 mg/dL High 74 - 99 mg/dL [facility] Comment on above: The [place] Diab[employer] Association (ADA) provides guidance for cutoff values for fasting glucose and random glucose. The ADA defines fasting as no caloric intake for at least 8 hours. Fasting plasma glucose results between 100 to 125 mg/dL indicate increased risk for diabetes (prediabetes). Fasting plasma glucose results greater than or equal to 126 mg/dL meet the criteria for diagnosis of diabetes. In the absence of unequivocal hyperglycemia, results should be confirmed by repeat testing. In a patient with classic symptoms of hyperglycemia or hyperglycemic crisis, random plasma glucose results greater than or equal to 200 mg/dL meet the criteria for diagnosis of diabetes. Reference: Standards of Medical Care in Diabetes 2016, [place] [employer]. Diabetes Care. 2016.39(Suppl 1). Interpretation and review of laboratory results Abnormal [facility] Potassium [Moles/Vol] 4.2 mmol/L 3.7 - 5.1 mmol/L [facility] Protein [Mass/Vol] 6.4 g/dL 6.3 - 8.0 g/dL [facility] Sodium [Moles/Vol] 136 mmol/L 136 - 144 mmol/L [facility] Urea nitrogen [Mass/Vol] 8 mg/dL 7 - 21 mg/d L [facility] Comprehensive metabolic 2000 panelon 11-03-2024 Albumin [Mass/Vol] 3.4 g/dL Low 3.9-4.9 [facility] Comment on above: Order Comment: Speci men Type: BLOOD SPECIMENOrdering Facility: [facility] Address: [address] [place] [address] Performed By: #### 2 4323-8 ####[facility]OWNCLIA [id number] [place] [address] [place] ALP [Catalytic activity/Vol] 136 U/L High 34-[address] [facility] Comment on above: Order Comment: Speci men Type: BLOOD SPECIMENOrdering Facility: [facility] Address: [address] [place] [address] Performed By: #### 2 4323-8 ####[facility]ILL[facility]OWNCLIA [id number] [place] [address] [place] ALT [Catalytic activity/Vol] 19 U/L Normal 7-[address] [facility] Comment on above: Order Comment: Speci men Type: BLOOD SPECIMENOrdering Facility: [facility] Address: [address] [place] [address] Performed By: #### 2 4323-8 ####[facility] [id number] [place] [address] [place] Anion gap [Moles/Vol] 13 mmol/L Normal 8-15 [facility] Comment on above: Order Comment: Speci men Type: BLOOD SPECIMENOrdering Facility: [facility] Address: [address] [place] [address] Performed By: #### 2 4323-8 ####[facility]ILL[facility]OWNCLIA [id number] [place] [address] [place] AST [Catalytic activity/Vol] 15 U/L Normal 13-[address] [facility] Comment on above: Order Comment: Speci men Type: BLOOD SPECIMENOrdering Facility: [facility] Address: [address] [place] [address] Performed By: #### 2 4323-8 ####[facility] [id number] [place] [address] [place] Bilirubin [Mass/Vol] 0.2 mg/dL Normal 0.2-1.3 [facility] Comment on above: Order Comment: Speci men Type: BLOOD SPECIMENOrdering Facility: [facility] Address: [address] [place] [address] Performed By: #### 2 4323-8 ####[facility] [id number] [place] [address] [place] Calcium [Mass/Vol] 9.6 mg/dL Normal 8.5-10.2 [facility] Comment on above: Order Comment: Speci men Type: BLOOD SPECIMENOrdering Facility: [facility] Address: [address] [place] [address] Performed By: #### 2 4323-8 ####[facility] [id number] [place] [address] [place] Chloride [Moles/Vol] 103 mmol/L Normal 98-107 [facility] Comment on above: Order Comment: Speci men Type: BLOOD SPECIMENOrdering Facility: [facility] Address: [address] [place] [address] Performed By: #### 2 4323-8 ####[facility] [id number] [place] [address] [place] CO2 [Moles/Vol] 20 mmol/L Low 22-[address] [facility] Comment on above: Order Comment: Speci men Type: BLOOD SPECIMENOrdering Facility: [facility] Address: [address] [place] [address] Performed By: #### 2 4323-8 ####[facility] [id number] [place] [address] [place] Creatinine [Mass/Vol] 0.67 mg/dL Normal 0.58-0.96 [facility] Comment on above: Order Comment: Speci men Type: BLOOD SPECIMENOrdering Facility: [facility] Address: [address] [place] [address] Performed By: #### 2 4323-8 ####[facility] [id number] [place] [address] [place] Creatinine and Glomerular filtration rate.predicted panel (S/P/Bld) 118 mL/min/1.73m??? Normal >=[address] [facility] Comment on above: Order Comment: Sherif malik Type: BLOOD SPECIMENOrdering Facility: [facility] Address: [address] [place] [address] Result Comment: Sherry mated Glomerular Filtration Rate (eGFR) is calculated using the 2020 CKD-EPI creatinine equation. This equation utilizes serum creatinine, sex, and age as parameters. The creatinine assay has traceable calibration to isotope dilution-mass spectrometry. Refer to KDIGO guidelines for clinical interpretation. In patients with unstable renal function, e.g. those with acute kidney injury, the eGFR may not accurately reflect actual GFR. Performed By: #### 2 4323-8 ####[facility] [id number] [place] [address] [place] Glucose [Mass/Vol] 106 mg/dL High 74-99 [facility] Comment on above: Order Comment: Sherif malik Type: BLOOD SPECIMENOrdering Facility: [facility] Address: [address] [place] [address] Result Comment: The [place] Diabetes Association (ADA) provides guidance for cutoff values for fasting glucose and random glucose. The ADA defines fasting as no caloric intake for at least 8 hours. Fasting plasma glucose results between 100 to 125 mg/dL indicate increased risk for diabetes (prediabetes). Fasting plasma glucose results greater than or equal to 126 mg/dL meet the criteria for diagnosis of diabetes. In the absence of unequivocal hyperglycemia, results should be confirmed by repeat testing. In a patient with classic symptoms of hyperglycemia or hyperglycemic crisis, random plasma glucose results greater than or equal to 200 mg/dL meet the criteria for diagnosis of diabetes. Reference: Standards of Medical Care in Diabetes 2016, [place] [employer]. Diabetes Care. 2016.39(Suppl 1). Performed By: #### 2 4323-8 ####[facility]CL[facility] [id number] [place] [address] [place] Potassium [Moles/Vol] 4.2 mmol/L Normal 3.7-5.1 [facility] Comment on above: Order Comment: Speci men Type: BLOOD SPECIMENOrdering Facility: [facility] Address: [address] [place] [address] Performed By: #### 2 4323-8 ####[facility]OWNCL[facility] [id number] [place] [address] [place] Protein [Mass/Vol] 6.4 g/dL Normal 6.3-8.0 [facility] Comment on above: Order Comment: Speci men Type: BLOOD SPECIMENOrdering Facility: [facility] Address: [address] [place] [address] Performed By: #### 2 4323-8 ####[facility] [id number] [place] [address] [place] Sodium [Moles/Vol] 136 mmol/L Normal 136-144 [facility] Comment on above: Order Comment: Speci men Type: BLOOD SPECIMENOrdering Facility: [facility] Address: [address] [place] [address] Performed By: #### 2 4323-8 ####[facility]OWNCL[facility] [id number] [place] [address] [place] Urea nitrogen [Mass/Vol] 8 mg/dL Normal 7-[address] [facility] Comment on above: Order Comment: Speci men Type: BLOOD SPECIMENOrdering Facility: [facility] Address: [address] [place] [address] Performed By: #### 2 4323-8 ####[facility] [id number] [place] [address] [place] HISTORY PHYSICALon 07-10-202 5 HISTORY PHYSICAL HNO ID: [id number] Author: ISAEL GANDARA MD Service: ? Author Type: Physician Type: H&P Filed: 11/03/2024 11:23 Note Text: Pre-Op History and Physical HPI: The patient is a 34 year old female presenting for pre-operative visit. She is scheduled for , for previous c/s on 11/10/24. Procedure discussed along with risks, benefits and complications. Other alternatives discussed for management. Consent form signed? Yes. PAST MEDICAL HISTORY Diagnosis Date Anemia Generalized anxiety disorder History of gestational hypertension History of gestational hypertension 04/11/2024 Hx of preeclampsia, prior , currently ([facility]) 05/01/2022 Induced Delivery - Resulting in Premature Delivery at 35w6d Hx of preeclampsia, prior , currently ([facility]) Miscarriage ([facility]) OCD (obsessive compulsive disorder) PMH - PAST MEDICAL HISTORY OF normal color vision PAST SURGICAL HISTORY Procedure Laterality Date DELIVERY ONLY 05/05/2022 [facility] EXCIS UTERINE FIBROID,VAG APPRCH May 2021 Missed Miscarriage during first EXTRACTION, ERUPTED TOOTH OR EXPOSED ROOT (ELEVATION AND/OR FORCEPS REMOVAL) 04/27/2007 wisdom teeth x 4 [facility] (OFFICE [facility]) Current Outpatient Medications Medication Sig Dispense Refill aspirin, enteric coated (ECOTRIN LOW STRENGTH) 81 mg EC tablet Take 2 Aspirin 81mg by mouth once daily after 12 weeks 60 tablet 5 21/iron fu/folic acid ( COMPLETE ORAL) Take by mouth. ferrous sulfate (IRON ORAL) Take by mouth. (Patient not taking: Reported on 10/26/2024) No current facility-administere d medications for this visit. ALLERGIES: Patient has no known allergies. PERSONAL HISTORY: Social History Tobacco Use Smoking status: Never Smokeless tobacco: Never Vaping Use Vaping status: Never Used Substance Use Topics Alcohol use: Not Currently Comment: No ETOH since 2020 Drug use: No FAMILY HISTORY: FAMILY HISTORY Problem Relation Age of Onset No Known Problems Mother No Known Problems Father No Known Problems Brother Emphysema Maternal Grandmother Smoker No Known Problems Maternal Grandfather No Known Problems Paternal Grandmother No Known Problems Paternal Grandfather other (hypospadia) Son Breast Cancer Maternal cousin 37 REVIEW OF SYMPTOMS: GENERAL: denies fevers or chills ENDOCRINOLOGY: has not been on steroids Cardiology : denies palpitations or chest pain Respiratory: denies SOB or cough Hematology: denies history of prolonged bleeding or easy bruising or VTE Allergy: Denies history of personal or family history of allergy to anesthesia PHYSICAL EXAMINATION: VITALS: Blood pressure 138/80, pulse 90, weight 107 kg (236 lb), last menstrual period 02/10/2024, SpO2 99%. GENERAL: The patient is well nourished, well hydrated in no acute distress. , The patient is oriented to time, place, and person. NECK: Supple. No lynphadenopathy, normal thyroid, no thyromegaly. LUNGS: Clear to auscultation bilaterally. no wheezes, rhonchi or rales HEART: Regular rate and rhythm, Normal heart sounds, and No murmurs or gallops abd- soft, nontender, gravid IMPRESSION: Estimated Date of Delivery: 11/16/24 w/ h/o previous c/s PLAN: The risks/benefits/alter natives and personal involved for the planned were reviewed with the patient. Her questions were answered to her satisfaction and she desires to proceed. Consent was signed. I reviewed with her postop instructions and expectations. I have reviewed and updated past medical and surgical history, medications and allergies Isael Gandara M.D. Normal [facility] Prot/Creat Uron 11-03-2024 Protein/Creatinine (U) [Mass ratio] 0.10 mg/mg Normal <0.[address] [facility] Comment on above: Order Comment: Speci men Type: URINE SPECIMENOrdering Facility: [facility] Address: [address] [place] [address] Result Comment: Adul t Proteinuria Categories: <0.15 mg/mg is considered normal to mildly increased 0.15 - 0.50 mg/mg is considered moderately increased >0.50 mg/mg is considered severely increased KDIGO. (2013). KDIGO 2012 Clinical Practice Guideline for the Evaluation and Management of Chronic Kidney Disease. Official Journal of the International Society of Nephrology, 3(1), 1-150. Performed By: #### 2 890-2 ####[facility] [id number] [address] [place] Protein/Creatinine (U) [Mass ratio]on 11-03-2024 Creatinine (U) [Mass/Vol] 48.5 mg/dL Normal 20.0-300.[address] [facility] Comment on above: Order Comment: Speci men Type: URINE SPECIMENOrdering Facility: [facility] Address: [address] [place] [address] Performed By: #### 2 890-2 ####[facility] [id number] [address] [place] Protein (U) [Mass/Vol] 5 mg/dL Normal 0-20 [facility] Comment on above: Order Comment: Speci men Type: URINE SPECIMENOrdering Facility: [facility] Address: [address] [place] [address] Performed By: #### 2 890-2 ####[facility] [id number] [place] [id number] [place] AST(SGOT)on 10-29-2024 AST [Catalytic activity/Vol] 21 U/L Normal <=31 [facility] Comment on above: Performed By: #### L 501.0900, L501.1105, L501.4405, L501.1400, L100.0500, L501.4100 ####[facility] [address] [place], [place], [id number] Alanine Aminotransferas (SGP T)on 10-29-2024 ALT [Catalytic activity/Vol] 23 U/L Normal <=34 [facility] Comment on above: Performed By: #### L 501.0900, L501.1105, L501.4405, L501.1400, L100.0500, L501.4100 ####[facility] [address] [place], [place], [id number] CBC-Complete Blood Cnt No Di ffon 10-29-2024 Erythrocyte distribution width (RBC) [Ratio] 15.4 % High 11.6-14.6 [facility] Comment on above: Performed By: #### L 501.0900, L501.1105, L501.4405, L501.1400, L100.0500, L501.4100 #### [facility] [address] [place], [address] Hematocrit (Bld) [Volume fraction] 31.1 % Low 37-47 [facility] Comment on above: Performed By: #### L 501.0900, L501.1105, L501.4405, L501.1400, L100.0500, L501.4100 #### [facility] [address] [place], [address] Hemoglobin (Bld) [Mass/Vol] 10.3 g/dL Low 12.0-15.0 [facility] Comment on above: Performed By: #### L 501.0900, L501.1105, L501.4405, L501.1400, L100.0500, L501.4100 #### [facility] [address] [place], [address] MCH (RBC) [Entitic mass] 29.4 pg Normal 27.0-32.0 [facility] Comment on above: Performed By: #### L 501.0900, L501.1105, L501.4405, L501.1400, L100.0500, L501.4100 #### [facility] [address] [place], [address] MCHC (RBC) [Mass/Vol] 33.1 g/dL Normal 32-36 [facility] Comment on above: Performed By: #### L 501.0900, L501.1105, L501.4405, L501.1400, L100.0500, L501.4100 #### [facility] [address] [place], [address] MCV (RBC) [Entitic vol] 88.9 fL Normal 81-99 [facility] Comment on above: Performed By: #### L 501.0900, L501.1105, L501.4405, L501.1400, L100.0500, L501.4100 #### [facility] [address] [place], [address] Platelet mean volume (Bld) [Entitic vol] 11.4 fL Normal 6.2-12.0 [facility] Comment on above: Performed By: #### L 501.0900, L501.1105, L501.4405, L501.1400, L100.0500, L501.4100 #### [facility] [address] [place], [address] Platelets (Bld) [#/Vol] 175 10*3/uL Normal 150-450 [facility] Comment on above: Performed By: #### L 501.0900, L501.1105, L501.4405, L501.1400, L100.0500, L501.4100 #### [facility] [address] [place], [address] RBC (Bld) [#/Vol] 3.50 10*6/uL Low 4.2-5.4 [facility] Comment on above: Performed By: #### L 501.0900, L501.1105, L501.4405, L501.1400, L100.0500, L501.4100 #### [facility] [address] [place], [address] RDW SD 49.3 fl High 35.1-43.9 [facility] Comment on above: Performed By: #### L 501.0900, L501.1105, L501.4405, L501.1400, L100.0500, L501.4100 #### [facility] [address] [place], [address] WBC (Bld) [#/Vol] 10.1 10*3/uL Normal 4.4-11.0 [facility] Comment on above: Performed By: #### L 501.0900, L501.1105, L501.4405, L501.1400, L100.0500, L501.4100 #### [facility] [address] [place], [address] Erythrocyte distribution wid th ratioOrdered By: Jose Neil on 10-29-2024 Erythrocyte distribution width (RBC) [Ratio] 15.4 % High 11.6-14.6 [facility] Erythrocyte distribution wid th standard deviationOrdered By: Jose Neil on 10-29-2024 Erythrocyte distribution width (RBC) [Ratio] 49.3 fl High 35.1-43.9 [facility] Glomerular filtration rate ( GFR) estimation/1.73 sq m using serum, plasma, or whole bOrdered By: Jose Neil on 10-29-2024 GFR/1.73 sq M.predicted among non-blacks MDRD (S/P/Bld) [Vol rate/Area] 125 mL/min/{1.73_m2} >60 [facility] Comment on above: mL/min/1.73m2 CKD-EP I Creatinine Equation (2020) Hematocrit Auto (Bld) [Volum e fraction]Ordered By: Jose Neil on 10-29-2024 Hematocrit (Bld) [Volume fraction] 31.1 % Low 37-47 [facility] Hemoglobin measurementOrdere d By: Jose Neil on 10-29-2024 Hemoglobin (Bld) [Mass/Vol] 10.3 g/dL Low 12.0-15.0 [facility] - Chemistry and C hemistry - challengeOrdered By: Jose Neil 10-29-2024 AST [Catalytic activity/Vol] 21 U/L <32 [facility] MCV (mean corpuscular volume ) determinationOrdered By: Jsoe Neil on 10-29-2024 MCV (RBC) [Entitic vol] 88.9 fL 81-99 [facility] Mean corpuscular hemoglobin (MCH) determinationOrdered By: Jose Neil 10-29-2024 MCH (RBC) [Entitic mass] 29.4 pg 27.0-32.0 [facility] Mean corpuscular hemoglobin concentration (MCHC) determinationOrdered By: Jose Neil on 10-29-2024 MCHC (RBC) [Mass/Vol] 33.1 g/dL 32-36 [facility] Mean platelet volume determi nationOrdered By: Jose Neil on 10-29-2024 Platelet mean volume (Bld) [Entitic vol] 11.4 fL 6.2-12.0 [facility] OB Triage Physician Noteon 0 10-29-2024 OB Triage Physician Note [facility] Medical Records Department [address] [place] [address] OB Triage Physician Note 10/29/24 1524 MR#: [id number] Acct: [id number] Name: SUN CARRERO Rep #: [id number] : 1990 34 From: Jose Neil DO PCP: Care Physician,No Primary Status:REG CLI Y Location: [place] [address] HPI - General General Date of Admission: 10/29/24 Date of Service: 10/29/24 Chief Complaint: elevated BP at home HPI Narrative SUN CARRERO, is a 34 F who presents from home with elevated BP. She reports last night she had a SBP that was in the 160's and on repeat 30 minutes later it was 130's. This morning her SBP was 130's which is higher for her. Typically at home her pressures are 120's/80's. She had a mild TSAI today that resolved. No TSAI currently. No vision changes, RUQ pain, N/V, malaise. No ctx, vb, lof. Good FM. PFSH PFSH Medical History (Updated 10/29/24 @ 15:[address] Jose Neil, DO) Psychiatric disorder Pre-eclampsia Home Medications ???Medication ???Instructions ???Recorded ???Last Taken ???Type vitamn-iron carb-folic 1 cap PO DAILY pregnanvy 05/02/22 09/11/24 20:00 History acid-docusate 95 mg-1 mg-50 mg capsule aspirin 81 mg tablet,delayed 162 mg PO DAILY 10/29/24 Unknown H istory release (Adult Aspirin Regimen) Allergy/AdvReac Type Severity Reaction Status Date / Time No Known Allergies Allergy Verified 09/12/24 17:01 Social History Smoking Status: Never smoker History Elective abortions Hx Para 0 Spontaneous abortions Hx # Term Pregnancies Ectopic pregnancies Hx # Pregnancies Multiple births # of living children Addt'l History: Had severe pre e at 35 weeks with first Physical Exam Const alert and no apparent distress General Appearance: comfortable Resp normal respiratory effort GI soft to palpation, non-tender and non-distended NST FHR Rate Baby A Baseline: 145 Variability:: Moderate Accelerations:: 15 x 15 Decelerations:: Variable (2 variables ) NST Reactive:: Yes FHR Category:: Category I Uterine Activity:: irregular ctx's Assessment Plan (1) 37 weeks gestation of : PLAN: Patient presents from home as her BP's at home are higher than usual. BP this morning 135/81. She had a mild TSAI that resolved. No pre e symptoms at this time. BP's all normal here on L D. Pre e labs normal as well. Bedside RUFUS 19 cm. Patient has appointment for IV iron infusion Thursday and will have her BP checked at that time. Discussed signs and symptoms of pre e and reasons to call. She also has an NST and OB visit this week. (2) History of pre-eclampsia: (3) Headache: PLAN: Her TSAI has resolved 10/29/24 1529 Date Jose Neil DO Cosigner Signature (if applicable): Date _ CC: Dr. Jose Neil, DO; No Primary Care Physician Signed Normal [facility] Platelet countOrdered By: Sa ra Neil on 10-29-2024 Platelets (Bld) [#/Vol] 175 10*3/uL 150-450 [facility] Protein+Creatinine Ratio,Uri neon 10-29-2024 PROT:CRE RATIO 152 mg/g CRE Normal 0-200 [facility] Comment on above: Performed By: #### L 501.0900, L501.1105, L501.4405, L501.1400, L100.0500, L501.4100 #### [facility] [address] [place], [address] Protein (U) [Mass/Vol] 7.2 mg/dL Normal 0.0-12.0 [facility] Comment on above: Performed By: #### L 501.0900, L501.1105, L501.4405, L501.1400, L100.0500, L501.4100 #### [facility] [address] [place], [address] UR CREAT 47.10 mg/dL Normal 28.00-217.00 [facility] Comment on above: Performed By: #### L 501.0900, L501.1105, L501.4405, L501.1400, L100.0500, L501.4100 #### [facility] [address] [facility] [place], [place], [phone] (889) RBC Auto (Bld) [#/Vol]Ordere d By: Jose Neil on 10-29-2024 RBC (Bld) [#/Vol] 3.50 10*6/uL Low 4.2-5.4 [facility] Random urine creatinine laila urement (mass/volume)Ordered By: Jose Neil on 10-29-2024 Creatinine Unsp time (U) [Mass/Vol] 47.10 mg/dL 28.00-217.00 [facility] Serum Creatinine AND GFRon 0 10-29-2024 Creatinine [Mass/Vol] 0.52 mg/dL Low 0.70-1.20 [facility] Comment on above: Performed By: #### L 501.0900, L501.1105, L501.4405, L501.1400, L100.0500, L501.4100 #### [facility] [address] [place], [address] ECRCL 171.63 ml/min Normal 50-250 [facility] Comment on above: Performed By: #### L 501.0900, L501.1105, L501.4405, L501.1400, L100.0500, L501.4100 #### [facility] [address] [place], [address] GFR/1.73 sq M.predicted among non-blacks MDRD (S/P/Bld) [Vol rate/Area] 125 mL/min/{1.73_m2} Normal >60 [facility] Comment on above: Result Comment: mL/m in/1.73m2 CKD-EPI Creatinine Equation (2020) Performed By: #### L 501.0900, L501.1105, L501.4405, L501.1400, L100.0500, L501.4100 #### [facility] [address] [place], [address] Serum creatinine measurement (mass/volume)Ordered By: Jose Neil on 10-29-2024 Creatinine [Mass/Vol] 0.52 mg/dL Low 0.70-1.20 [facility] Serum or plasma alanine moncada otransferase (ALT) measurementOrdered By: Jose Neil on 10-29-2024 ALT [Catalytic activity/Vol] 23 U/L <35 [facility] Serum or plasma uric acid me asurement (mass/volume)Ordered By: Jose Neil on 10-29-2024 Urate [Mass/Vol] 4.1 mg/dL 2.6-6.0 [facility] Comment on above: The drugs N-Acetylcy steine and Metamizole may falsely depress this assay. Uric Acidon 10-29-2024 URIC 4.1 mg/dL Normal 2.6-6.0 [facility] Comment on above: Result Comment: The drugs N-Acetylcysteine and Metamizole may falsely depress this assay. Performed By: #### L 501.0900, L501.1105, L501.4405, L501.1400, L100.0500, L501.4100 ####[facility] [address] [place], [address] Urine protein measurement (m ass/volume)Ordered By: Jose Neil on 10-29-2024 Protein (U) [Mass/Vol] 7.2 mg/dL 0.0-12.0 [facility] Urine protein/creatinine mas s ratioOrdered By: Jose Neil on 10-29-2024 Protein/Creatinine (U) [Mass ratio] 152 mg/g CRE 0-200 [facility] White blood cell (WBC) count Ordered By: Jose Neil on 10-29-2024 WBC (Bld) [#/Vol] 10.1 10*3/uL 4.4-11.0 [facility] CBC panel Auto (Bld)on 10-26 Erythrocyte distribution width (RBC) [Ratio] 15.2 % High 11.5 - 15.0 % [facility] Hematocrit (Bld) [Volume fraction] 33.5 % Low 36.0 - 46.0 % [facility] Hemoglobin (Bld) [Mass/Vol] 11 g/dL Low 11.5 - 15.5 g/dL [facility] Interpretation and review of laboratory results Abnormal [facility] MCH (RBC) [Entitic mass] 29.3 pg 26.0 - 34.0 pg [facility] MCHC (RBC) [Mass/Vol] 32.8 g/dL 30.5 - 36.0 g/dL [facility] MCV (RBC) [Entitic vol] 89.3 fL 80.0 - 100.0 fL [facility] Nucleated RBC (Bld) [#/Vol] NINF [facility] Platelet mean volume (Bld) [Entitic vol] 10.7 fL 9.0 - 12.7 fL [facility] Platelets (Bld) [#/Vol] 190 10*3/uL [facility] RBC (Bld) [#/Vol] 3.75 10*6/uL Low 3.90 - 5.2 0 m/uL [facility] WBC (Bld) [#/Vol] 11.92 10*3/uL High [facility] Erythrocyte distribution width (RBC) [Ratio] 15.2 % High 11.5-15.[address] [facility] Comment on above: Order Comment: Speci men Type: BLOOD SPECIMEN [facility] Address: [address] [place] [address] Performed By: #### 2 1198-7 #### [facility] CLIA [id number] [address] [place] [address] [place] Hematocrit (Bld) [Volume fraction] 33.5 % Low 36.0-46.[address] [facility] Comment on above: Order Comment: Speci men Type: BLOOD SPECIMEN [facility] Address: [address] [place] [address] Performed By: #### 2 1198-7 #### [facility] CLIA [id number] [address] [place] [address] [place] Hemoglobin (Bld) [Mass/Vol] 11.0 g/dL Low 11.5-15.[address] [facility] Comment on above: Order Comment: Speci men Type: BLOOD SPECIMEN [facility] Address: [address] [place] [address] Performed By: #### 2 1198-7 #### [facility] CLIA [id number] [address] [place] [address] [place] MCH (RBC) [Entitic mass] 29.3 pg Normal 26.0-34.[address] [facility] Comment on above: Order Comment: Speci men Type: BLOOD SPECIMEN [facility] Address: [address] [place] [address] Performed By: #### 2 1198-7 #### [facility] CLIA [id number] [address] [place] [address] [place] MCHC (RBC) [Mass/Vol] 32.8 g/dL Normal 30.5-36.0 [facility] Comment on above: Order Comment: Speci men Type: BLOOD SPECIMEN [facility] Address: [address] [place] [address] Performed By: #### 2 1198-7 #### [facility] CLIA [id number] [address] [place] [address] [place] MCV (RBC) [Entitic vol] 89.3 fL Normal 80.0-100.0 [facility] Comment on above: Order Comment: Speci men Type: BLOOD SPECIMEN [facility] Address: [address] [place] [address] Performed By: #### 2 1198-7 #### [facility] CLIA [id number] [address] [place] [address] [place] Nucleated RBC (Bld) [#/Vol] 10*3/uL Normal <0.[address] [facility] Comment on above: Order Comment: Speci men Type: BLOOD SPECIMEN [facility] Address: [address] [place] [address] Performed By: #### 2 1198-7 #### [facility] CLIA [id number] [address] [place] [address] [place] Platelet mean volume (Bld) [Entitic vol] 10.7 fL Normal 9.0-12.[address] [facility] Comment on above: Order Comment: Speci men Type: BLOOD SPECIMEN [facility] Address: [address] [place] [address] Performed By: #### 2 1198-7 #### [facility] CLIA [id number] [address] [place] [address] [place] Platelets (Bld) [#/Vol] 190 10*3/uL Normal 150-[address] [facility] Comment on above: Order Comment: Speci men Type: BLOOD SPECIMEN [facility] Address: [address] [place] [address] Performed By: #### 2 1198-7 #### [facility] CLIA [id number] [address] [place] [address] [place] RBC (Bld) [#/Vol] 3.75 10*6/uL Low 3.90-5.20 [facility] Comment on above: Order Comment: Speci men Type: BLOOD SPECIMEN [facility] Address: [address] [place] [address] Performed By: #### 2 1198-7 #### [facility] CLIA [id number] [address] [place] [address] [place] WBC (Bld) [#/Vol] 11.92 10*3/uL High 3.70-11.00 [facility] Comment on above: Order Comment: Speci men Type: BLOOD SPECIMEN [facility] Address: [address] [place] [address] Performed By: #### 2 1198-7 #### [facility] CLIA [id number] [address] [place] [address] [place] URINE OB DIP B/Oon 5 Glucose Ql (U) Negative Neg mg/dL [facility] Protein.monoclonal (U) [Mass/Vol] Negative Neg mg/dL [facility] Examination level ultrasound on 10-20-2024 [facility] Radiology Study observation (narrative) [facility] ROUTINE, GROUP B ST REPTOCOCCUS BY PCRon 10-20-2024 ROUTINE, GROUP B STREPTOCOCCUS BY PCR Detected Abnormal [facility] Comment on above: Performed By: #### G BPCR ####[facility] [id number] [place] [address] [place] URINE OB DIP B/Oon 5 Glucose Ql (U) Negative Neg mg/dL [facility] Interpretation and review of laboratory results Normal [facility] Protein.monoclonal (U) [Mass/Vol] Negative Neg mg/dL [facility] URINE OB DIP B/Oon 5 Glucose Ql (U) Negative Neg mg/dL [facility] Interpretation and review of laboratory results Normal [facility] Protein.monoclonal (U) [Mass/Vol] Negative Neg mg/dL [facility] URINE OB DIP B/Oon 5 Glucose Ql (U) Negative Neg mg/dL [facility] Interpretation and review of laboratory results Normal [facility] Protein.monoclonal (U) [Mass/Vol] Negative Neg mg/dL [facility] Ferritin SerPl-mCncon 2024 Ferritin [Mass/Vol] 22.8 ng/mL Normal 14.7-205.1 [facility] Comment on above: Order Comment: Speci men Type: BLOOD SPECIMENOrdering Facility: [facility] Address: [address] [place] [address] Performed By: #### 5 0190-8, 2275- ####[facility] [id number] [place] [address] [place] Iron and Iron binding capaci ty panel 10-07-2024 Iron [Mass/Vol] 52 ug/dL Normal 41-[address] [facility] Comment on above: Order Comment: Speci men Type: BLOOD SPECIMENOrdering Facility: [facility] Address: [address] [place] [address] Performed By: #### 5 0190-8, 2275-07 ####[facility] [id number] [place] [address] [place] Iron binding capacity [Mass/Vol] 489 ug/dL High 232-[address] [facility] Comment on above: Order Comment: Speci men Type: BLOOD SPECIMENOrdering Facility: [facility] Address: [address] [place] [address] Performed By: #### 5 0190-8, 2275-07 ####[facility] [id number] [place] [address] [place] Iron/TIBC [Molar ratio] 10.6 % Low 15.0-57.0 [facility] Comment on above: Order Comment: Speci men Type: BLOOD SPECIMENOrdering Facility: [facility] Address: [address] [place] [address] Performed By: #### 5 0190-8, 2276-4 ####[facility] [id number] [place] [address] [place] CBC panel Auto (Bld)on 10-05 Erythrocyte distribution width (RBC) [Ratio] 14.7 % Normal 11.5-15.[address] [facility] Comment on above: Order Comment: Speci men Type: BLOOD SPECIMEN [facility] Address: [address] [place] [address] Performed By: #### 2 1198-7 #### [facility] CLIA [id number] [address] [place] [address] [place] Hematocrit (Bld) [Volume fraction] 28.7 % Low 36.0-46.[address] [facility] Comment on above: Order Comment: Speci men Type: BLOOD SPECIMEN [facility] Address: [address] [place] [address] Performed By: #### 2 1198-7 #### [facility] CLIA [id number] [address] [place] [address] [place] Hemoglobin (Bld) [Mass/Vol] 9.4 g/dL Low 11.5-15.[address] [facility] Comment on above: Order Comment: Speci men Type: BLOOD SPECIMEN [facility]ing [facility] Address: [address] [place] [address] Performed By: #### 2 1198-7 #### [facility] CLIA [id number] [address] [place] [address] [place] MCH (RBC) [Entitic mass] 28.9 pg Normal 26.0-34.[address] [facility] Comment on above: Order Comment: Speci men Type: BLOOD SPECIMEN Ordering Facility: [facility] Address: [address] [place] [address] Performed By: #### 2 1198-7 #### [facility] CLIA [id number] [address] [place] [address] [place] MCHC (RBC) [Mass/Vol] 32.8 g/dL Normal 30.5-36.0 [facility] Comment on above: Order Comment: Speci men Type: BLOOD SPECIMEN Ordering Facility[facility] Address: [address] [place] [address] Performed By: #### 2 1198-7 #### [facility] CLIA [id number] [address] [place] [address] [place] MCV (RBC) [Entitic vol] 88.3 fL Normal 80.0-100.0 [facility] Comment on above: Order Comment: Speci men Type: BLOOD SPECIMEN Ordering Facility[facility] Address: [address] [place] [address] Performed By: #### 2 1198-7 #### [facility] CLIA [id number] [address] [place] [address] [place] Nucleated RBC (Bld) [#/Vol] 10*3/uL Normal <0.[address] [facility] Comment on above: Order Comment: Speci men Type: BLOOD SPECIMEN Ordering Facility: [facility] Address: [address] [place] [address] Performed By: #### 2 1198-7 #### [facility] CLIA [id number] [address] [place] [address] [place] Platelet mean volume (Bld) [Entitic vol] 10.4 fL Normal 9.0-12.[address] [facility] Comment on above: Order Comment: Speci men Type: BLOOD SPECIMEN Ordering Facility: [facility] Address: [address] [place] [address] Performed By: #### 2 1198-7 #### [facility] CLIA [id number] [address] [place] [address] [place] Platelets (Bld) [#/Vol] 171 10*3/uL Normal 150-[address] [facility] Comment on above: Order Comment: Speci men Type: BLOOD SPECIMEN Ordering Facility: [facility] Address: [address] [place] [address] Performed By: #### 2 1198-7 #### [facility] CLIA [id number] [address] [place] [address] [place] RBC (Bld) [#/Vol] 3.25 10*6/uL Low 3.90-5.20 [facility] Comment on above: Order Comment: Speci men Type: BLOOD SPECIMEN Ordering Facility: [facility] Address: [address] [place] [address] Performed By: #### 2 1198-7 #### [facility] CLIA [id number] [address] [place] [address] [place] WBC (Bld) [#/Vol] 11.17 10*3/uL High 3.70-11.00 [facility] Comment on above: Order Comment: Speci men Type: BLOOD SPECIMEN Ordering Facility: [facility] Address: [address] [place] [address] Performed By: #### 2 1198-7 #### [facility] CLIA [id number] [address] [place] [address] [place] URINE OB DIP B/Oon Glucose Ql (U) Negative Neg mg/dL [facility] Protein.monoclonal (U) [Mass/Vol] Negative Neg mg/dL [facility] Examination level ultrasound on 09-21-2024 [facility] Radiology Study observation (narrative) [facility] Absolute lymphocyte countOrd ered By: Jose Neil on 09-12-2024 Lymphocytes Auto (Unsp spec) [#/Vol] 2.41 10*3/uL 0.83-4.51 [facility] Absolute neutrophil countOrd ered By: Jose Neil on 09-12-2024 Neutrophils (Bld) [#/Vol] 8.2 10*3/uL High 2.0-7.7 [facility] Activated partial thrombopla stin time (aPTT) in platelet poor plasma by coagulation aOrdered By: Jose Lynnsurendra on 09-12-2024 aPTT Coag (PPP) [Time] 27.8 s 24.1-36.2 [facility] Automated lymphocyte count a s percentage of total leukocytesOrdered By: Jose Jolynn on 09-12-2024 Lymphocytes/100 WBC Auto (Unsp spec) 21.0 % - [facility] Basophil percentageOrdered B y: Jose Lynnsurendra on 09-12-2024 Basophils/100 WBC (Bld) 0.3 % 0-1 [facility] CBC W/Diff, Automatedon 08-25 Absolute Lymph 2.41 X10 3/uL Normal 0.83-4.51 [facility] Comment on above: Performed By: #### L 100.0100 ####[facility] [address] [place], [address] Absolute Neut 8.2 X10 3/uL High 2.0-7.7 [facility] Comment on above: Performed By: #### L 100.0100 ####[facility] [address] [place], [address] Basophils/100 WBC (Bld) 0.3 % Normal 0-1 [facility] Comment on above: Performed By: #### L 100.0100 ####[facility] [address] [place], [address] Eosinophils/100 WBC (Bld) 1.0 % Normal 0-5 [facility] Comment on above: Performed By: #### L 100.0100 ####[facility] [address] [place], [address] Erythrocyte distribution width (RBC) [Ratio] 14.2 % Normal 11.6-14.6 [facility] Comment on above: Performed By: #### L 100.0100 ####[facility] [address] [place], [address] Hematocrit (Bld) [Volume fraction] 29.0 % Low 37-47 [facility] Comment on above: Performed By: #### L 100.0100 ####[facility] [address] [place], [address] Hemoglobin (Bld) [Mass/Vol] 9.4 g/dL Low 12.0-15.0 [facility] Comment on above: Performed By: #### L 100.0100 ####[facility] [address] [place], [address] IG% 0.900 Normal 0.0-0.9 [facility] Comment on above: Result Comment: IG% - Immature Granulocytes (promyelocytes, myelocytes and metamyelocytes) > 1% indicates that a LEFT SHIFT is Present. Performed By: #### L 100.0100 ####[facility] [address] [place], [address] Lymphocytes/100 WBC (Bld) 21.0 % Normal 19-41 [facility] Comment on above: Performed By: #### L 100.0100 ####[facility] [address] [place], [address] MCH (RBC) [Entitic mass] 28.5 pg Normal 27.0-32.0 [facility] Comment on above: Performed By: #### L 100.0100 ####[facility] [address] [place], [address] MCHC (RBC) [Mass/Vol] 32.4 g/dL Normal 32-36 [facility] Comment on above: Performed By: #### L 100.0100 ####[facility] [address] [place], [address] MCV (RBC) [Entitic vol] 87.9 fL Normal 81-99 [facility] Comment on above: Performed By: #### L 100.0100 ####[facility] [address] [place], [address] Monocytes/100 WBC (Bld) 5.3 % Normal 0-10 [facility] Comment on above: Performed By: #### L 100.0100 ####[facility] [address] [place], [address] Neutrophils/100 WBC (Bld) 71.5 % High 47-70 [facility] Comment on above: Performed By: #### L 100.0100 ####[facility] [address] [place], [address] Nucleated RBC (Bld) [#/Vol] 0 10*3/uL Normal 0-5 [facility] Comment on above: Performed By: #### L 100.0100 ####[facility] [address] [place], [address] Platelet mean volume (Bld) [Entitic vol] 10.4 fL Normal 6.2-12.0 [facility] Comment on above: Performed By: #### L 100.0100 ####[facility] [address] [place], [address] Platelets (Bld) [#/Vol] 215 10*3/uL Normal 150-450 [facility] Comment on above: Performed By: #### L 100.0100 ####[facility] [address] [place], [address] RBC (Bld) [#/Vol] 3.30 10*6/uL Low 4.2-5.4 [facility] Comment on above: Performed By: #### L 100.0100 ####[facility] [address] [place], [address] RDW SD 45.1 fl High 35.1-43.9 [facility] Comment on above: Performed By: #### L 100.0100 ####[facility] [address] [place], [address] WBC (Bld) [#/Vol] 11.5 10*3/uL High 4.4-11.0 [facility] Comment on above: Performed By: #### L 100.0100 ####[facility] [address] [place], [address] CNPNon 09-12-2024 CNPN Telephone (OBGYWM) SUN CARRERO ([id number]) 1990 F Date Time Provider Department 09/12/24 JOSE NEIL During your visit today, we recorded the following information about you: Neli Sommer RN 09/12/2024 4:08 PM Signed 30w5d Patient calling c/o light/moderate bright red bleeding that started within last hour. She stated there were a couple small blood clots with it. No recent intercourse prior to it starting. No contractions, but has had lower back pain all day. She has had positive movement today. Patient tearful on the phone. She is a little over 30 minutes away. Advised to [facility] for evaluation d/t time of day. [facility] notified. Neli Sommer RN Allergies As of Date: 09/12/2024 (No Known Allergies) Date Reviewed: 09/06/2024 Reviewed by: Juliano Andrews MA - Fully Assessed Reason for Visit: OB-Bleeding [Other] Prescriptions as of 09/12/2024 - ferrous sulfate (IRON ORAL) Take by mouth. - aspirin, enteric coated (ECOTRIN LOW STRENGTH) 81 mg EC tablet Take 2 Aspirin 81mg by mouth once daily after 12 weeks - 21/iron fu/folic acid ( COMPLETE ORAL) Take by mouth. Problem List As Of Date 09/12/2024 Noted Resolved Pruritus [L29.9] 09/21/2009 03/10/2022 Telogen effluvium [L65.0] 09/21/2009 03/10/2022 History of anemia [Z86.2] 10/01/2011 03/10/2022 Irregular menses [N92.6] 10/01/2011 03/10/2022 MANNY (generalized anxiety disorder) [F41.1] 01/16/2021 Mixed obsessional thoughts and acts [F42.2] 01/16/2021 Screening for hyperlipidemia [Z13.220] 01/16/2021 03/10/2022 Hyperlipidemia, mixed [E78.2] 01/30/2021 Abnormal urine [R82.90] 01/30/2021 03/10/2022 Spotting complicating , first trimeste*05/27/2021 03/10/2022 Spotting in [O26.859] 05/29/2021 03/10/2022 Obesity in (HCC) [O99.210] 05/29/2021 History of anxiety [Z86.59] 05/29/2021 Patient request for diagnostic testing [Z01.89] 05/29/2021 06/25/2022 Current with history of spontaneous a*10/17/2021 06/25/2022 Abnormal glucose complicating (HCC) [*03/10/2022 Antepartum anemia complicating in thi*03/10/2022 Excessive growth affecting management of *04/09/2022 06/25/2022 Gestational hypertension without significant pr*04/29/2022 06/25/2022 Supervision of high risk in second tr*04/11/2024 History of section [Z98.891] 04/11/2024 History of gestational hypertension [Z87.59] 04/11/2024 Hx of preeclampsia, prior , currently * Encounter Status:Closed by NELI SOMMER on 09/12/24 [facility] Eosinophil percentageOrdered By: Jose Neil on 09-12-2024 Eosinophils/100 WBC (Bld) 1.0 % 0-5 [facility] Erythrocyte distribution wid th ratioOrdered By: Jose Neil on 09-12-2024 Erythrocyte distribution width (RBC) [Ratio] 14.2 % 11.6-14.6 [facility] Erythrocyte distribution wid th standard deviationOrdered By: Jose Neil on 09-12-2024 Erythrocyte distribution width (RBC) [Ratio] 45.1 fl High 35.1-43.9 [facility] Fibrinogenon 09-12-2024 FIBRINOGEN 605 mg/dl High 203-444 [facility] Comment on above: Performed By: #### L 464.1461 #### [facility] [address] [place] [address], [address] Hematocrit Auto (Bld) [Volum e fraction]Ordered By: Jose Neil on 09-12-2024 Hematocrit (Bld) [Volume fraction] 29.0 % Low 37-47 [facility] Hemoglobin measurementOrdere d By: Jose Neil on 09-12-2024 Hemoglobin (Bld) [Mass/Vol] 9.4 g/dL Low 12.0-15.0 [facility] Immature granulocytes/100 WB C Auto (Bld)Ordered By: Jose Neil on 09-12-2024 Immature granulocytes/100 WBC (Bld) 0.900 % 0.0-0.9 [facility] Comment on above: IG% - Immature Granu locytes (promyelocytes, myelocytes and metamyelocytes) > 1% indicates that a LEFT SHIFT is Present. International normalized rat io (INR) calculationOrdered By: Jose Neil on 09-12-2024 INR Coag (Bld) [Relative time] 1.0 {INR} [facility] MCV (mean corpuscular volume ) determinationOrdered By: Jose eNil on 09-12-2024 MCV (RBC) [Entitic vol] 87.9 fL 81-99 [facility] Mean corpuscular hemoglobin (MCH) determinationOrdered By: Jose Neil on 09-12-2024 MCH (RBC) [Entitic mass] 28.5 pg 27.0-32.0 [facility] Mean corpuscular hemoglobin concentration (MCHC) determinationOrdered By: Jose Neil on 09-12-2024 MCHC (RBC) [Mass/Vol] 32.4 g/dL 32-36 [facility] Mean platelet volume determi nationOrdered By: Jose Neil on 09-12-2024 Platelet mean volume (Bld) [Entitic vol] 10.4 fL 6.2-12.0 [facility] Monocyte percentageOrdered B y: Jose Neil on 09-12-2024 Monocytes/100 WBC (Bld) 5.3 % 0-10 [facility] Neutrophil percentageOrdered By: Jose Neil on 09-12-2024 Neutrophils/100 WBC (Bld) 71.5 % High 47-70 [facility] Nucleated red blood cell per centageOrdered By: Jose Neil on 09-12-2024 Nucleated RBC/100 WBC (Bld) [Ratio] 0 % 0-5 [facility] OB Triage Physician Noteon 0 09-12-2024 OB Triage Physician Note [facility] Medical Records Department [address] [place] [address] OB Triage Physician Note 09/12/24 1818 MR#: [id number] Acct: [id number] Name: SUN CARRERO Rep #: [id number] : 1990 34 From: Jose Neil DO PCP: Care Physician,No Primary Status:REG CLI Y Location: [place] [address] HPI - General General Date of Admission: 09/12/24 Date of Service: 09/12/24 Chief Complaint: vaginal bleeding HPI Narrative SUN CARRERO, is a 34 F who presents with bright red vaginal bleeding after using the restroom. She feels the bleeding has improved since getting to [facility]. She describes it as similar to a light period. No abdominal pain or ctx. No lof. No recent falls, trauma, or intercourse. Good FM. PFSH [facility] Medical History (Updated 09/12/24 @ 18:[address] Jose Neil, DO) Psychiatric disorder Pre-eclampsia Home Medications ???Medication ???Instructions ???Recorded ???Last Taken ???Type ferrous sulfate 143 mg PO DAILY anemia 05/02/22 20:00 History vitamn-iron carb-folic 1 cap PO DAILY pregnanvy 05/02/22 09/11/24 20:00 History acid-docusate 95 mg-1 mg-50 mg capsule acetaminophen 500 mg tablet 1,000 mg (2 x 500 mg) PO Q6 #0 tab s 05/09/22 Unknown Rx Allergy/AdvReac Type Severity Reaction Status Date / Time No Known Allergies Allergy Verified 09/12/24 17:01 Social History Smoking Status: Never smoker History Elective abortions Hx Para 0 Spontaneous abortions Hx # Term Pregnancies Ectopic pregnancies Hx # Pregnancies Multiple births # of living children Physical Exam Const alert and no apparent distress General Appearance: comfortable Resp normal respiratory effort GI soft to palpation and non-tender GI Narrative: Obese Narrative: Speculum exam: Cervix closed and long with minimal white discharge. No bleeding or old blood noted in the vagina. External exam shows a 1 cm open superficial laceration/cut inside the left labia m inora that is actively bleeding. No other skin changes noted. No swelling, erythema, or signs of infection NST FHR Rate Baby A Baseline: 140 Variability:: Moderate Accelerations:: 15 x 15 Decelerations:: None NST Reactive:: Yes FHR Category:: Category I Uterine Activity:: no ctx's Assessment Plan (1) 30 weeks gestation of : (2) Skin tear: PLAN: Patient presented with vaginal bleeding. Bedside TAUS shows subjectively normal fluid and a normal placenta with active fetus. Hgb stable from recent office visit. Taking oral iron. There was no vaginal bleeding or old blood in vagina on exam. There was a skin tear present inside the left labia minora that was bleeding. The tear looked to be mechanical in nature. No evidence of infection, PTL or abruption. Patient worried about seeing continued bleeding at home. Tear superficial and suture not indicated. Discussed r/b/a silver nitrate application and patient desires to proceed. Silver nitrate applied followed by pressure, and no further bleeding noted. Discussed vulvar care and hygeine measures. Discussed pelvic rest for 1 week. Has growth US and OB visit next week. (3) Obesity affecting : 09/12/241826 Date Jose Neil DO Cosigner Signature (if applicable): Date _ CC: Dr. Jose Neil, DO; No Primary Care Physician Signed Normal [facility] Partial Thromboplast Timeon 09-12-2024 aPTT Coag (Bld) [Time] 27.8 s Normal 24.1-36.2 [facility] Comment on above: Performed By: #### L 300.3900, L300.4310 #### [facility] [address] [place], [address] Platelet countOrdered By: Sa ra Neil on 09-12-2024 Platelets (Bld) [#/Vol] 215 10*3/uL 150-450 [facility] Prothrombin Time w/INRon INR Coag (PPP) [Relative time] 1.0 {INR} Normal [facility] Comment on above: Performed By: #### L 300.3900, L300.4310 #### [facility] [address] [place], [address] PT Coag (PPP) [Time] 13.3 s Normal 11.7-14.9 [facility] Comment on above: Performed By: #### L 300.3900, L300.4310 #### [facility] [address] [place], [address] Prothrombin timeOrdered By: Jose Neil on 09-12-2024 PT Coag (PPP) [Time] 13.3 s 11.7-14.9 [facility] RBC Auto (Bld) [#/Vol]Ordere d By: Jose Neil on 09-12-2024 RBC (Bld) [#/Vol] 3.30 10*6/uL Low 4.2-5.4 [facility] Type AND Screenon 09-12-2024 ABO and Rh group Nom (Bld) Blood group O Rh(D) positive Normal [facility] Comment on above: Order Comment: Has p t arrived? Y A Performed By: #### B TS #### [facility] [address] [place], [place], [address] White blood cell (WBC) count Ordered By: Jose Neil on 09-12-2024 WBC (Bld) [#/Vol] 11.5 10*3/uL High 4.4-11.0 [facility] B-HCG SerPl-[place]Cn[place] 5 [place] [address].0 m[IU]/mL High <5.[address] [facility] Comment on above: Order Comment: Speci men Type: BLOOD SPECIMEN Ordering Facility: [facility] Address: [address] [place] [address] Result Comment: MACKENZIE TITATIVE HCG NORMAL RANGES Weeks of Gestation (Weeks Since LMP) 3 Weeks (5.8-71.2 mIU/mL) 4 Weeks (9.5-750 mIU/mL) 5 Weeks (217-7138 mIU/mL) 6 Weeks (158-38204 mIU/mL) 7 Weeks (3697-763995 mIU/mL) 8 Weeks (82290-281085 mIU/mL) 9 Weeks (42912-683497 mIU/mL) 10 Weeks (41789-534329 mIU/mL) 12 Weeks (43888-111126 mIU/mL) Referenced to 4th IS of [facility] Performed By: #### 2 1198-7 #### [facility] CLIA [id number] [address] [place] [address] [place] CBC panel Auto (Bld)on 09-06 Erythrocyte distribution width (RBC) [Ratio] 14.1 % 11.5 - 15.0 % [facility] Hematocrit (Bld) [Volume fraction] 30.9 % Low 36.0 - 46.0 % [facility] Hemoglobin (Bld) [Mass/Vol] 10 g/dL Low 11.5 - 15.5 g/dL [facility] Interpretation and review of laboratory results Abnormal [facility] MCH (RBC) [Entitic mass] 28.4 pg 26.0 - 34.0 pg [facility] MCHC (RBC) [Mass/Vol] 32.4 g/dL 30.5 - 36.0 g/dL [facility] MCV (RBC) [Entitic vol] 87.8 fL 80.0 - 100.0 fL [facility] Nucleated RBC (Bld) [#/Vol] NINF [facility] Platelet mean volume (Bld) [Entitic vol] 10.2 fL 9.0 - 12.7 fL [facility] Platelets (Bld) [#/Vol] 175 10*3/uL [facility] RBC (Bld) [#/Vol] 3.52 10*6/uL Low 3.90 - 5.2 0 m/uL [facility] WBC (Bld) [#/Vol] 11.09 10*3/uL High [facility] Erythrocyte distribution width (RBC) [Ratio] 14.1 % Normal 11.5-15.[address] [facility] Comment on above: Order Comment: Speci men Type: BLOOD SPECIMENOrdering Facility: [facility] Address: [address] [place] [address] Performed By: #### 5 8410-2 ####[facility] [id number] [place] [address] [place] Hematocrit (Bld) [Volume fraction] 30.9 % Low 36.0-46.[address] [facility] Comment on above: Order Comment: Speci men Type: BLOOD SPECIMENOrdering Facility: [facility] Address: [address] [place], [place] [address] Performed By: #### 5 8410-2 ####[facility] [id number] [place] [address] [place] Hemoglobin (Bld) [Mass/Vol] 10.0 g/dL Low 11.5-15.[address] [facility] Comment on above: Order Comment: Speci men Type: BLOOD SPECIMENOrdering Facility: [facility] Address: [address] [place] [address] Performed By: #### 5 8410-2 ####[facility] KIMBERLEENCSORAIDA [id number] [address] [place] MCH (RBC) [Entitic mass] 28.4 pg Normal 26.0-34.[address] [facility] Comment on above: Order Comment: Speci men Type: BLOOD SPECIMENOrdering Facility: [facility] Address: [address] [place] [address] Performed By: #### 5 8410-2 ####[facility] GORDANCYum[facility] [id number] [address] [place] MCHC (RBC) [Mass/Vol] 32.4 g/dL Normal 30.5-36.0 [facility] Comment on above: Order Comment: Speci men Type: BLOOD SPECIMENOrdering Facility: [facility] Address: [address] [place] [address] Performed By: #### 5 8410-2 ####[facility] [id number] [address] [place] MCV (RBC) [Entitic vol] 87.8 fL Normal 80.0-100.0 C [facility] Comment on above: Order Comment: Speci men Type: BLOOD SPECIMENOrdering Facility: [facility] Address: [address] [place] [address] Performed By: #### 5 8410-2 ####[facility] [id number] [place] [address] [place] Nucleated RBC (Bld) [#/Vol] 10*3/uL Normal <0.[address] [facility] Comment on above: Order Comment: Speci men Type: BLOOD SPECIMENOrdering Facility: [facility] Address: [address] [place] [address] Performed By: #### 5 8410-2 ####[facility] KIMBERLEENCSCOTTYA [id number] [place] [address] [place] Platelet mean volume (Bld) [Entitic vol] 10.2 fL Normal 9.0-12.[address] [facility] Comment on above: Order Comment: Speci men Type: BLOOD SPECIMENOrdering Facility: [facility] Address: [address] [place] [address] Performed By: #### 5 8410-2 ####[facility] [id number] [place] [address] [place] Platelets (Bld) [#/Vol] 175 10*3/uL Normal 150-[address] [facility] Comment on above: Order Comment: Speci men Type: BLOOD SPECIMENOrdering Facility: [facility] Address: [address] [place] [address] Performed By: #### 5 8410-2 ####[facility] [id number] [place] [address] [place] RBC (Bld) [#/Vol] 3.52 10*6/uL Low 3.90-5.20 [facility] Comment on above: Order Comment: Speci men Type: BLOOD SPECIMENOrdering Facility: [facility] Address: [address] [place], [place] [address] Performed By: #### 5 8410-2 ####[facility] [id number] [place] [address] [place] WBC (Bld) [#/Vol] 11.09 10*3/uL High 3.70-11.00 [facility] Comment on above: Order Comment: Speci men Type: BLOOD SPECIMENOrdering Facility: [facility] Address: [address] [place] [address] Performed By: #### 5 8410-2 ####[facility] [id number] [place] [address] [place] GLUCOSE GESTATIONAL, 1 HOURo n 09-06-2024 Glucose 1 Hr post Unsp challenge [Mass/Vol] 172 mg/dL Normal 74-[address] [facility] Comment on above: Order Comment: Sherif malik Type: BLOOD SPECIMEN Ordering Facility: [facility] Address: [address] [place] [address] Result Comment: [facility] Congress of Obstetricians and [employer]nec[employer] ([facility]) guidelines state gestational diabetes mellitus is present when 2 or more of the plasma glucose concentrations meet or exceed the following levels: fastin mg/dl, 1 hr: 180 mg/dl, 2 hr: 155 mg/dl, and 3 hr: 140 mg/dl. Performed By: #### G TGST1 #### [facility] CLIA [id number] [address] [place] [address] [place] GLUCOSE GESTATIONAL, 2 HOURo n 09-06-2024 Glucose 2 Hr post Unsp challenge [Mass/Vol] 137 mg/dL Normal 74-[address] [facility] Comment on above: Order Comment: Sherif malik Type: BLOOD SPECIMENOrdering Facility: [facility] Address: [address] [place] [address] Result Comment: [facility] Congress of Ob[employer]ians and [employer]nec[employer] ([facility]) guidelines state gestational diabetes mellitus is present when 2 or more of the plasma glucose concentrations meet or exceed the following levels: fastin mg/dl, 1 hr: 180 mg/dl, 2 hr: 155 mg/dl, and 3 hr: 140 mg/dl. Performed By: #### G TGST2 ####[facility] [id number] [place] [address] [place] GLUCOSE GESTATIONAL, 3 HOURo n 09-06-2024 Glucose 3 Hr post Unsp challenge [Mass/Vol] 81 mg/dL Normal 74-[address] [facility] Comment on above: Order Comment: Sherif malik Type: BLOOD SPECIMENOrdering Facility: [facility] Address: [facility] [place] [address] Result Comment: [facility] Congress of Obstetricians and Gynecologists (Payne/Coustan) guidelines state gestational diabetes mellitus is present when 2 or more of the plasma glucose concentrations meet or exceed the following levels: fastin mg/dl, 1 hr: 180 mg/dl, 2 hr: 155 mg/dl, and 3 hr: 140 mg/dl. Performed By: #### G TGST3 ####[facility] [id number] [place] [address] [place] GLUCOSE GESTATIONAL, FASTING on 09-06-2024 Glucose post fast [Mass/Vol] 85 mg/dL Normal 74-[address] [facility] Comment on above: Order Comment: Speci men Type: BLOOD SPECIMENOrdering Facility: [facility] Address: [address] [place] [address] Result Comment: [facility] Congress of Obstetricians and Gynecologists (Payne/Coustan) guidelines state gestational diabetes mellitus is present when 2 or more of the plasma glucose concentrations meet or exceed the following levels: fastin mg/dl, 1 hr: 180 mg/dl, 2 hr: 155 mg/dl, and 3 hr: 140 mg/dl. Performed By: #### G TGSTF ####[facility] [id number] [place] [address] [place] CBC W Auto Differential pane l (Bld)on 08-22-2024 Basophils (Bld) [#/Vol] 0.03 10*3/uL Normal <0.[address] [facility] Comment on above: Order Comment: Speci men Type: BLOOD SPECIMENOrdering Facility: [facility] Address: [address] [place] [address] Performed By: #### 5 7021-8 ####[facility] [id number] [place] [address] [place] Basophils/100 WBC (Bld) 0.3 % Normal [facility] Comment on above: Order Comment: Speci men Type: BLOOD SPECIMENOrdering Facility: [facility] Address: [address] [place] [address] Performed By: #### 5 7021-8 ####[facility] CRYSTALLARRY [id number] [place] [address] [place] Differential cell count method Nom (Bld) Auto Normal [facility] Comment on above: Order Comment: Speci men Type: BLOOD SPECIMENOrdering Facility: [facility] Address: [address] [place] [address] Performed By: #### 5 7021-8 ####[facility] [id number] [place] [address] [place] Eosinophils (Bld) [#/Vol] 0.12 10*3/uL Normal <0.[address] [facility] Comment on above: Order Comment: Speci men Type: BLOOD SPECIMENOrdering Facility: [facility] Address: [address] [place] [address] Performed By: #### 5 7021-8 ####[facility] [id number] [place] [address] [place] Eosinophils/100 WBC (Bld) 1.2 % Normal [facility] Comment on above: Order Comment: Speci men Type: BLOOD SPECIMENOrdering Facility: [facility] Address: [address] [place] [address] Performed By: #### 5 7021-8 ####[facility] [id number] [place] [address] [place] Erythrocyte distribution width (RBC) [Ratio] 14.2 % Normal 11.5-15.[address] [facility] Comment on above: Order Comment: Speci men Type: BLOOD SPECIMENOrdering Facility: [facility] Address: [address] [place] [address] Performed By: #### 5 7021-8 ####[facility] [id number] [place] [address] [place] Hematocrit (Bld) [Volume fraction] 30.2 % Low 36.0-46.[address] [facility] Comment on above: Order Comment: Speci men Type: BLOOD SPECIMENOrdering Facility: [facility] Address: [address] [place] [address] Performed By: #### 5 7021-8 ####[facility] [id number] [place] [address] [place] Hemoglobin (Bld) [Mass/Vol] 9.9 g/dL Low 11.5-15.[address] [facility] Comment on above: Order Comment: Speci men Type: BLOOD SPECIMENOrdering Facility: [facility] Address: [address] [place] [address] Performed By: #### 5 7021-8 ####[facility] [id number] [place] [address] [place] Immature granulocytes (Bld) [#/Vol] 0.08 10*3/uL Normal <0.[address] [facility] Comment on above: Order Comment: Speci men Type: BLOOD SPECIMENOrdering Facility: [facility] Address: [address] [place] [address] Performed By: #### 5 7021-8 ####[facility] [id number] [place] [address] [place] Immature granulocytes/100 WBC (Bld) 0.8 % Normal [facility] Comment on above: Order Comment: Speci men Type: BLOOD SPECIMENOrdering Facility: [facility] Address: [address] [place] [address] Performed By: #### 5 7021-8 ####[facility] [id number] [place] [address] [place] Lymphocytes (Bld) [#/Vol] 1.94 10*3/uL Normal 1.00-4.[address] [facility] Comment on above: Order Comment: Speci men Type: BLOOD SPECIMENOrdering Facility: [facility] Address: [address] [place] [address] Performed By: #### 5 7021-8 ####[facility] [id number] [place] [address] [place] Lymphocytes/100 WBC (Bld) 18.8 % Normal [facility] Comment on above: Order Comment: Speci men Type: BLOOD SPECIMENOrdering Facility: [facility] Address: [address] [place] [address] Performed By: #### 5 7021-8 ####[facility] [id number] [place] [address] [place] MCH (RBC) [Entitic mass] 28.9 pg Normal 26.0-34.[address] [facility] Comment on above: Order Comment: Speci men Type: BLOOD SPECIMENOrdering Facility: [facility] Address: [address] [place] [address] Performed By: #### 5 7021-8 ####[facility] [id number] [place] [address] [place] MCHC (RBC) [Mass/Vol] 32.8 g/dL Normal 30.5-36.0 [facility] Comment on above: Order Comment: Speci men Type: BLOOD SPECIMENOrdering Facility: [facility] Address: [address] [place], [place] [address] Performed By: #### 5 7021-8 ####[facility] [id number] [place] [address] [place] MCV (RBC) [Entitic vol] 88.0 fL Normal 80.0-100.0 [facility] Comment on above: Order Comment: Speci men Type: BLOOD SPECIMENOrdering Facility: [facility] Address: [address] [place] [address] Performed By: #### 5 7021-8 ####[facility] CRYSTALLARRY [id number] [place] [address] [place] Monocytes (Bld) [#/Vol] 0.40 10*3/uL Normal <0.[address] [facility] Comment on above: Order Comment: Speci men Type: BLOOD SPECIMENOrdering Facility: [facility] Address: [address] [place] [address] Performed By: #### 5 7021-8 ####[facility] [id number] [place] [address] [place] Monocytes/100 WBC (Bld) 3.9 % Normal [facility] Comment on above: Order Comment: Speci men Type: BLOOD SPECIMENOrdering Facility: [facility] Address: [address] [place] [address] Performed By: #### 5 7021-8 ####[facility] [id number] [place] [address] [place] Neutrophils (Bld) [#/Vol] 7.77 10*3/uL High 1.45-7.[address] [facility] Comment on above: Order Comment: Speci men Type: BLOOD SPECIMENOrdering Facility: [facility] Address: [address] [place] [address] Performed By: #### 5 7021-8 ####[facility] [id number] [place] [address] [place] Neutrophils/100 WBC (Bld) 75.0 % Normal [facility] Comment on above: Order Comment: Speci men Type: BLOOD SPECIMENOrdering Facility: [facility] Address: [address] [place] [address] Performed By: #### 5 7021-8 ####[facility] MARYWISIAHLIA [id number] [place] [address] [place] Nucleated RBC (Bld) [#/Vol] 10*3/uL Normal <0.[address] [facility] Comment on above: Order Comment: Speci men Type: BLOOD SPECIMENOrdering Facility: [facility] Address: [address] [place] [address] Performed By: #### 5 7021-8 ####[facility] [id number] [place] [address] [place] Nucleated RBC/100 WBC (Bld) [Ratio] 0.0 /100 WBC Normal [facility] Comment on above: Order Comment: Speci men Type: BLOOD SPECIMENOrdering Facility: [facility] Address: [address] [place] [address] Performed By: #### 5 7021-8 ####[facility] [id number] [place] [address] [place] Platelet mean volume (Bld) [Entitic vol] 10.3 fL Normal 9.0-12.[address] [facility] Comment on above: Order Comment: Speci men Type: BLOOD SPECIMENOrdering Facility: [facility] Address: [address] [place] [address] Performed By: #### 5 7021-8 ####[facility] [id number] [place] [address] [place] Platelets (Bld) [#/Vol] 187 10*3/uL Normal 150-[address] [facility] Comment on above: Order Comment: Speci men Type: BLOOD SPECIMENOrdering Facility: [facility] Address: [address] [place] [address] Performed By: #### 5 7021-8 ####[facility] [id number] [place] [address] [place] RBC (Bld) [#/Vol] 3.43 10*6/uL Low 3.90-5.20 [facility] Comment on above: Order Comment: Speci men Type: BLOOD SPECIMENOrdering Facility: [facility] Address: [address] [place] [address] Performed By: #### 5 7021-8 ####[facility] [id number] [place] [address] [place] WBC (Bld) [#/Vol] 10.34 10*3/uL Normal 3.70-11.00 [facility] Comment on above: Order Comment: Speci men Type: BLOOD SPECIMENOrdering Facility: [facility] Address: [address] [place] [address] Performed By: #### 5 7021-8 ####[facility] [id number] [place] [address] [place] Ferritin SerPl-mCncon 2024 Ferritin [Mass/Vol] 21.0 ng/mL Normal 14.7-205.1 [facility] Comment on above: Order Comment: Speci men Type: BLOOD SPECIMEN [facility] Address: [address] [place] [address] Performed By: #### 2 1198-7 #### [facility] CLIA [id number] [address] [place] [address] [place] GESTATIONAL GLUCOSE SCREEN, 1-HOUR, 50 GRAM, NON-FASTINGon 08-22-2024 Glucose [Mass/Vol] 151 mg/dL High 74-134 [facility] Comment on above: Order Comment: Speci men Type: BLOOD SPECIMENOrdering Facility: [facility] Address: [address] [place] [address] Result Comment: [facility] Congress of Obstetricians and Gynecologists (Kerry/Aaron) guidelines state a gestational diabetes mellitus positive screen is made, in women not previously diagnosed with overt diabetes, when the 1 hr plasma glucose level is equal to or above 140 mg/dL. The [facility] [employer] Supervisor and [facility] [place] recommends a 135 mg/dL cutoff. Performed By: #### G LTGST ####[facility] [id number] [place] [id number] [place] Iron and Iron binding capaci ty panelon 08-22-2024 Iron [Mass/Vol] 57 ug/dL Normal 41-[address] [facility] Comment on above: Order Comment: Speci men Type: BLOOD SPECIMEN [facility] Address: [address] [place] [address] Performed By: #### 2 1198-7 #### [facility] CLIA [id number] [address] [place] [address] [place] Iron binding capacity [Mass/Vol] 490 ug/dL High 232-[address] [facility] Comment on above: Order Comment: Speci men Type: BLOOD SPECIMEN [facility] Address: [address] [place] [address] Performed By: #### 2 1198-7 #### [facility] CLIA [id number] [address] [place] [address] [place] Iron/TIBC [Molar ratio] 11.6 % Low 15.0-57.0 [facility] Comment on above: Order Comment: Speci men Type: BLOOD SPECIMEN [facility] Address: [address] [place] [address] Performed By: #### 2 1198-7 #### [facility] CLIA [id number] [address] [place] [address] [place] Prot/Creat Uron 08-22-2024 Protein/Creatinine (U) [Mass ratio] 0.19 mg/mg High <0.[address] [facility] Comment on above: Order Comment: Speci men Type: URINE SPECIMENOrdering Facility: [facility] Address: [address] [place] [address] Result Comment: Adul t Proteinuria Categories: <0.15 mg/mg is considered normal to mildly increased 0.15 - 0.50 mg/mg is considered moderately increased >0.50 mg/mg is considered severely increased KDIGO. (2013). KDIGO 2012 Clinical Practice Guideline for the Evaluation and Management of Chronic Kidney Disease. Official Journal of the International Society of Nephrology, 3(1), 1-150. Performed By: #### 2 890-2 ####[facility] [id number] [place] [address] [place] Protein/Creatinine (U) [Mass ratio]on 08-22-2024 Creatinine (U) [Mass/Vol] 30.8 mg/dL Normal 20.0-300.[address] [facility] Comment on above: Order Comment: Speci men Type: URINE SPECIMENOrdering Facility: [facility] Address: [address] [place] [address] Performed By: #### 2 890-2 ####[facility] [id number] [place] [address] [place] Protein (U) [Mass/Vol] 6 mg/dL Normal 0-20 [facility] Comment on above: Order Comment: Speci men Type: URINE SPECIMENOrdering Facility: [facility] Address: [address] [place] [address] Performed By: #### 2 890-2 ####[facility] [id number] [place] [address] [place] Reagin and Treponema pallidu m IgG and IgM [Interp]on 08-22-2024 T. pallidum IgG+IgM IA Ql (S) Non-Reactive Normal Nonreactive [facility] Comment on above: Order Comment: Speci men Type: BLOOD SPECIMENOrdering Facility: [facility] Address: [address] [place] [address] Performed By: #### 7 3752-8 ####[facility] [id number] [place] [id number] [place] Reagin+T pallidum IgG+IgM Se rPl-Impon 08-22-2024 Reagin and Treponema pallidum IgG and IgM [Interp] Cannot exclude recent Treponemal infection if specimen collected within 7-10 days after appearance of suspect lesions or 2-3 weeks after an exposure. Clinical correlation is required. Normal [facility] Comment on above: Order Comment: Speci men Type: BLOOD SPECIMENOrdering Facility: [facility] Address: [address] [place] [address] Performed By: #### 7 3752-8 ####[facility] [id number] [place] [address] [place] POLYSOMNOGRAM (PSG)/HOME SLE EP APNEA TEST (HSAT)on 08-12-2024 POLYSOMNOGRAM (PSG)/HOME SLEEP APNEA TEST (HSAT) [facility] at [address], [address] [address] ; Home Sleep Apnea Test (HSAT) Study Report Name: SUN CARRERO Date of Study: 08/12/2024 [facility]#: [id number] Age: 34 (: 1990) ESS: Neck Circ. (cm): NA Height (cm): 157 Weight (kg): 103.4 BMI: 41.9 Referring Provider: ISAEL LOUIS Mailcode: Sleep history: The patient is a 34 year old female with a history of snoring, waking up with a dry mouth, breathing from your mouth during sleep. The patient endorses being a habitual side sleeper. The patient is here for assessment of obstructive sleep apnea. Pertinent medical history: Anxiety, Class III obesity, Hyperlipidemia Medications: Aspirin Sleep procedure: PSG unattended Type III, minimum of 4 parameters (48412) Procedure: This study was performed using a Type III ambulatory PSG device and was unattended. The patient was instructed on proper use of the device by a registered cardiac technologist. The monitored parameters included heart rate, oxygen saturation, continuous airflow with thermistor and nasal pressure transducer, snoring via nasal pressure transducer, chest and abdominal effort, and body position. BABAR definition: Respiratory event index (BABAR), calculated as respiratory events x 60 / TRT (total recording time in minutes). Note: the apnea hypopnea index has been replaced by the respiratory event index for home sleep apnea test. Since the home sleep apnea test does not measure sleep, the BABAR is most accurate index of respiratory events. The BABAR is a surrogate of the AHI per the AASM Manual for Scoring of Sleep and Associated Events version 3. Apnea definition: The peak signal excursions drop by >90% of pre-event baseline using an oronasal thermal sensor (diagnostic study), PAP device flow (titration study) or an alternative apnea sensor (diagnostic study). The duration of the >90% drop in signal excursion is >=10 seconds. Hypopnea definition: The peak signal excursions drop by >= 30% of pre-event baseline using nasal pressure (diagnostic study), PAP device flow (titration study) or an alternative hypopnea sensor (diagnostic study). The duration of the >= 30% drop in signal excursion is >=10 seconds. A 3% drop in SaO2 from baseline was used for scoring hypopnea. RESPIRATORY DATA: The study started at 22:09:02 and ended at 03:20:39 and the total recording time was 311 minutes. By convention, sleep is assumed for the whole recording. Snoring was noted. There was a total of 13 respiratory events. Of these events, the total number of apneas was 1 (1 obstructive, 0 mixed, and 0 central (0.0%)) and 12 hypopneas. The central apnea index (CELIA) was 0.0. The respiratory event index (BABAR) was 2.5 events per hour of study time. The mean oxygen saturation during the study was 96.0%, with a minimum oxygen saturation of 91.0%. The patient spent 0.0 minutes at oxygen saturation measured less than 90% (0.0% of recording time) and 0.0 minutes at oxygen saturation measured at or less than 88% (0.0% of recording time). Time BABAR/AHI Supine 240.5 min 3.0 Off-Supine 71.0 min 0.8 Total 311.5 min 2.5 ECG DATA: The average heart rate was 68 bpm with a range of 56 bpm to 104 bpm. ICSD DIAGNOSIS: Primary Snoring [R06.83] Sleep Disorder, Unspecified [G47.9] IMPRESSION/RECOMMEND ATIONS: 1. This study neither confirms nor refutes a diagnosis of obstructive sleep apnea as HSAT does not measure certain types of respiratory events that can only be measured on an in-laboratory polysomnogram 2. Recommend an in-laboratory polysomnogram if sleep apnea remains highly suspected. INTERPRETING PHYSICIAN: Diego Chandler MD I attest that I have performed epoch by epoch review of the entire raw data and have found this study to be technically adequate. Report Digitally Signed By: DIEGO CHANDLER (08/22/2024 8:12:49 AM) Normal [facility] CBC panel Auto (Bld)on 07-25 Erythrocyte distribution width (RBC) [Ratio] 14 % 11.5 - 15.0 % [facility] Hematocrit (Bld) [Volume fraction] 32.9 % Low 36.0 - 46.0 % [facility] Hemoglobin (Bld) [Mass/Vol] 10.8 g/dL Low 11.5 - 15.5 g/dL [facility] Interpretation and review of laboratory results Abnormal [facility] MCH (RBC) [Entitic mass] 28.7 pg 26.0 - 34.0 pg [facility] MCHC (RBC) [Mass/Vol] 32.8 g/dL 30.5 - 36.0 g/dL [facility] MCV (RBC) [Entitic vol] 87.5 fL 80.0 - 100.0 fL [facility] Nucleated RBC (Bld) [#/Vol] NINF [facility] Platelet mean volume (Bld) [Entitic vol] 10.6 fL 9.0 - 12.7 fL [facility] Platelets (Bld) [#/Vol] 207 10*3/uL [facility] RBC (Bld) [#/Vol] 3.76 10*6/uL Low 3.90 - 5.2 0 m/uL [facility] WBC (Bld) [#/Vol] 12.52 10*3/uL [facility] Erythrocyte distribution width (RBC) [Ratio] 14.0 % Normal 11.5-15.[address] [facility] Comment on above: Order Comment: Speci men Type: BLOOD SPECIMENOrdering Facility: [facility] Address: [address] [place] [address] Performed By: #### 5 8410-2 ####[facility]STALBROOKLYNNCSORAIDA [id number] [place] [address] [place] Hematocrit (Bld) [Volume fraction] 32.9 % Low 36.0-46.[address] [facility] Comment on above: Order Comment: Speci men Type: BLOOD SPECIMENOrdering Facility: [facility] Address: [address] [place] [address] Performed By: #### 5 8410-2 ####[facility] [id number] [place] [address] [place] Hemoglobin (Bld) [Mass/Vol] 10.8 g/dL Low 11.5-15.[address] [facility] Comment on above: Order Comment: Speci men Type: BLOOD SPECIMENOrdering Facility: [facility] Address: [address] [place] [address] Performed By: #### 5 8410-2 ####[facility] [id number] [place] [address] [place] MCH (RBC) [Entitic mass] 28.7 pg Normal 26.0-34.[address] [facility] Comment on above: Order Comment: Speci men Type: BLOOD SPECIMENOrdering Facility: [facility] Address: [address] [place] [address] Performed By: #### 5 8410-2 ####[facility] [id number] [place] [address] [place] MCHC (RBC) [Mass/Vol] 32.8 g/dL Normal 30.5-36.0 [facility] Comment on above: Order Comment: Speci men Type: BLOOD SPECIMENOrdering Facility: [facility] Address: [address] [place] [address] Performed By: #### 5 8410-2 ####[facility] MILLBROOKLYNNCLIA [id number] [place] [address] [place] MCV (RBC) [Entitic vol] 87.5 fL Normal 80.0-100.0 [facility] Comment on above: Order Comment: Speci men Type: BLOOD SPECIMENOrdering Facility: [facility] Address: [address] [place] [address] Performed By: #### 5 8410-2 ####[facility] [id number] [place] [address] [place] Nucleated RBC (Bld) [#/Vol] 10*3/uL Normal <0.[address] [facility] Comment on above: Order Comment: Speci men Type: BLOOD SPECIMENOrdering Facility: [facility] Address: [address] [place] [address] Performed By: #### 5 8410-2 ####[facility] [id number] [place] [address] [place] Platelet mean volume (Bld) [Entitic vol] 10.6 fL Normal 9.0-12.[address] [facility] Comment on above: Order Comment: Speci men Type: BLOOD SPECIMENOrdering Facility: [facility] Address: [address] [place] [address] Performed By: #### 5 8410-2 ####[facility] [id number] [place] [address] [place] Platelets (Bld) [#/Vol] 207 10*3/uL Normal 150-[address] [facility] Comment on above: Order Comment: Speci men Type: BLOOD SPECIMENOrdering Facility: [facility] Address: [address] [place] [address] Performed By: #### 5 8410-2 ####[facility] [id number] [place] [address] [place] RBC (Bld) [#/Vol] 3.76 10*6/uL Low 3.90-5.20 [facility] Comment on above: Order Comment: Speci men Type: BLOOD SPECIMENOrdering Facility: [facility] Address: [address] [place] [address] Performed By: #### 5 8410-2 ####[facility] [id number] [place] [address] [place] WBC (Bld) [#/Vol] 12.52 10*3/uL High 3.70-11.00 [facility] Comment on above: Order Comment: Speci men Type: BLOOD SPECIMENOrdering Facility: [facility] Address: [address] [place] [address] Performed By: #### 5 8410-2 ####[facility] [id number] [address] [place] CNPNon 07-04-2024 CNPN Telephone (OBGYWM) SUN CARRERO ([id number]) 1990 F Date Time Provider Department 07/04/24 [facility] OBGYWM During your visit today, we recorded the following information about you: Neli Sommer RN 07/04/2024 11:37 AM Signed Breast pump order received from [facility]. To DM to sign. RADHA Ching Tara, RN 07/05/2024 9:02 AM Signed Faxed. Sam Ruelas RN Allergies As of Date: 07/04/2024 (No Known Allergies) Date Reviewed: 07/01/2024 Reviewed by: Eldon Miranda MA - Fully Assessed Reason for Visit: Breast Pump [Other] Prescriptions as of 07/05/2024 - Breast Pump Double electric breast pump as covered by insurance. - aspirin, enteric coated (ECOTRIN LOW STRENGTH) 81 mg EC tablet Take 2 Aspirin 81mg by mouth once daily after 12 weeks - 21/iron fu/folic acid ( COMPLETE ORAL) Take by mouth. Problem List As Of Date 07/04/2024 Noted Resolved Pruritus [L29.9] 09/21/2009 03/10/2022 Telogen effluvium [L65.0] 09/21/2009 03/10/2022 History of anemia [Z86.2] 10/01/2011 03/10/2022 Irregular menses [N92.6] 10/01/2011 03/10/2022 MANNY (generalized anxiety disorder) [F41.1] 01/16/2021 Mixed obsessional thoughts and acts [F42.2] 01/16/2021 Screening for hyperlipidemia [Z13.220] 01/16/2021 03/10/2022 Hyperlipidemia, mixed [E78.2] 01/30/2021 Abnormal urine [R82.90] 01/30/2021 03/10/2022 Spotting complicating , first trimeste*05/27/2021 03/10/2022 Spotting in [O26.859] 05/29/2021 03/10/2022 Obesity in [O99.210] 05/29/2021 History of anxiety [Z86.59] 05/29/2021 Patient request for diagnostic testing [Z01.89] 05/29/2021 06/25/2022 Current with history of spontaneous a*10/17/2021 06/25/2022 Abnormal glucose complicating [O99.81*03/10/2022 06/25/2022 Anemia during in third trimester [O99*03/10/2022 06/25/2022 Excessive growth affecting management of *04/09/2022 06/25/2022 Gestational hypertension without significant pr*04/29/2022 06/25/2022 Supervision of high risk in second tr*04/11/2024 History of section [Z98.891] 04/11/2024 History of gestational hypertension [Z87.59] 04/11/2024 Hx of preeclampsia, prior , currently * Encounter Status:Closed by SAM RUELAS on 07/05/[address] [facility] Examination level ultrasound on 07-01-2024 Indication Detailed anatomic survey Maternal obesity, BMI >40 Impression REMOTE READ The patient is referred for a detailed anatomic survey. - Single, live, intrauterine . - biometry is consistent with the established gestational age. - No malformations were visualized on a complete detailed anatomic survey. - The amniotic fluid volume is normal amount. - The placenta is posterior, fundal. - The Transabdominal cervical length measures 42.2 mm with no evidence of funneling or other dynamic changes. - Not all structural malformations can be detected by ultrasound examination. Recommendations Additional follow-up as clinically indicated. Maternal Assessment Height 157 cm Height (ft) 5 ft Height (in) 2 in Physical Exam Initial weight (lb) 230 lb Initial BMI 42.07 kg/m Maternal assessment other: 3 Para 1 Method Transabdominal ultrasound examination. View: Suboptimal view: limited by maternal body habitus Cowan . Number of fetuses: 1 Dating LMP on: 02/10/2024 GA by LMP 20 w + 2 d KEARA by LMP: 11/16/2024 GA by prior assessment 20 w + 2 d KEARA by prior assessment: 11/16/2024 Ultrasound examination on: 07/01/2024 GA by U/S based upon: AC, BPD, Femur, HC GA by U/S 20 w + 4 d KEARA by U/S: 11/14/2024 Assigned: based on stated KEARA, selected on 07/01/2024 Assigned GA 20 w + 2 d Assigned KEARA: 11/16/2024 General Evaluation Cardiac activity present. FHR 152 bpm. movements: present. Presentation: transverse head right Placenta: Placental site: posterior, fundal Umbilical cord: Cord vessels: 3 vessel cord Amniotic fluid: Amount of AF: normal amount. MVP 6.6 cm Growth Overview Exam date GA BPD (mm) HC (mm) AC (mm) FL (mm) HL (mm) EFW (g) 05/30/2024 15w 5d 32.6 67% 120 44% 99.5 62% 17.7 32% 130 34% 07/01/2024 20w 2d 49.2 74% 179.8 54% 154.8 57% 31.9 51% 32.1 70% 346 46% Biometry Standard BPD 49.2 mm 20w 6d 74% Hadlock OFD 62.5 mm 20w 1d 62% Nicolaides HC 179.8 mm 20w 3d 54% Jose Cerebellum tr 20.3 mm 19w 3d 43% Hill Nuchal fold 4.2 mm AC 154.8 mm 20w 5d 57% Hadlock Femur 31.9 mm 20w 1d 51% Jose Humerus 32.1 mm 20w 5d 70% Jose EFW 346 g 20w 2d 46% Hadlock EFW (lb) 0 lb EFW (oz) 12 oz EFW by: Hadlock (HC-AC-FL) Extended [employer] 5.9 mm CM 6.1 mm 80% Nicolaides Extremities / Bony Struc FL / HC 0.18 21% Hadlock Other Structures FHR 152 bpm Anatomy Cranium: normal Lateral ventricles: normal Choroid plexus: normal Midline falx: normal Cavum septi pellucidi: normal Cerebellum: normal Cisterna magna: normal Head / Neck Vermis: normal Neck: normal Nuchal fold: normal Lips: normal Profile: normal Nose: normal Face Maxilla: normal Mandible: normal Orbits: normal Lens: normal 4-chamber view: normal RVOT view: normal LVOT view: normal 3-vessel view: normal 5-ovrmsy-bmqtsjj view: normal Heart / Thorax Situs: situs solitus (normal) Aortic arch view: normal SVC: normal IVC: normal Cardiac axis: normal Rt lung: normal Lt lung: normal Diaphragm: normal Cord insertion: normal Stomach: normal Kidneys: normal Bladder: normal Genitals: normal Abdomen Abdom. wall: normal Cervical spine: normal Thoracic spine: normal Lumbar spine: normal Sacral spine: normal Arms: normal Legs: normal Rt upper arm: normal Rt forearm: normal Rt hand: normal Rt fingers: normal Lt upper arm: normal Lt forearm: normal Lt hand: normal Lt fingers: normal Rt upper leg: normal Rt lower leg: normal Rt foot: normal Lt upper leg: normal Lt lower leg: normal Lt foot: normal sex: female Wants to know sex: yes Maternal Structures Uterus / Cervix Uterus: Visualized Cervix: Visualized Approach: Transabdominal Cervical length 42.2 mm Other: Patient declined transvaginal ultrasound for cervical length. Ovaries / Tubes / Adnexa Rt ovary: Visualized Lt ovary: Not visualized Performed By: Rosa Ayers RDMS, RVT Read By: Ely Crespo M.D. MATERNAL MEDICINE [facility] Radiology Study observation (narrative) [facility] Examination level ultrasound on 05-30-2024 Indication Early anatomic survey Maternal obesity, BMI >40 Impression REMOTE READ The patient is referred for an early anatomic survey because of identified risk factors. - Single, live, intrauterine . - biometry is consistent with the established gestational age. - No malformations were visualized on an early anatomic assessment, although some anatomical structures were suboptimally seen as detailed below. - The amniotic fluid volume is normal amount. - The placenta is posterior. - Not all structural malformations can be detected by ultrasound examination. Recommendations Return around 20 weeks for detailed anatomic survey Maternal Assessment Height 157 cm Height (ft) 5 ft Height (in) 2 in Physical Exam Initial weight (lb) 230 lb Initial BMI 42.07 kg/m Maternal assessment other: 3 Para 1 Method Transabdominal ultrasound examination. View: Suboptimal view: limited by early gestational age Cowan . Number of fetuses: 1 Dating LMP on: 02/10/2024 GA by LMP 15 w + 5 d KEARA by LMP: 11/16/2024 GA by prior assessment 15 w + 5 d KEARA by prior assessment: 11/16/2024 Ultrasound examination on: 05/30/2024 GA by U/S based upon: AC, BPD, Femur, HC GA by U/S 15 w + 5 d KEARA by U/S: 11/16/2024 Assigned: based on stated KEARA, selected on 05/30/2024 Assigned GA 15 w + 5 d Assigned KEARA: 11/16/2024 General Evaluation Cardiac activity present. FHR 157 bpm. movements: present. Presentation: cephalic Placenta: Placental site: posterior Umbilical cord: Cord vessels: 3 vessel cord Amniotic fluid: Amount of AF: normal amount Biometry Standard BPD 32.6 mm 16w 1d 67% Hadlock OFD 41.7 mm 14w 6d 26% Nicolaides HC 120.0 mm 15w 4d 44% Jose AC 99.5 mm 16w 0d 62% Hadlock Femur 17.7 mm 15w 1d 32% Jose EFW 130 g 15w 3d 34% Hadlock EFW (lb) 0 lb EFW (oz) 5 oz EFW by: Hadlock (HC-AC-FL) Extremities / Bony Struc FL / HC 0.15 12% Hadlock Other Structures FHR 157 bpm Anatomy Cranium: normal Lateral ventricles: suboptimally visualized Choroid plexus: normal Midline falx: normal Cerebellum: suboptimally visualized Cisterna magna: suboptimally visualized Lips: suboptimally visualized 4-chamber view: suboptimally visualized RVOT view: normal LVOT view: suboptimally visualized 3-vessel view: normal 6-lcsvme-hiyloly view: suboptimally visualized Heart / Thorax Diaphragm: suboptimal Cord insertion: normal Stomach: normal Kidneys: normal Bladder: normal Cervical spine: normal Thoracic spine: normal Lumbar spine: normal Sacral spine: normal Arms: normal Legs: normal Rt upper arm: normal Rt forearm: normal Rt hand: normal Lt upper arm: normal Lt forearm: normal Lt hand: normal Rt upper leg: normal Rt lower leg: normal Rt foot: normal Lt upper leg: normal Lt lower leg: normal Lt foot: normal sex: female Wants to know sex: yes Maternal Structures Uterus / Cervix Uterus: Visualized Approach: Transabdominal Cervical length 42.6 mm Performed By: Rosa Ayers RDMS, RVT Read By: Ely Crespo M.D. MATERNAL MEDICINE [facility] Radiology Study observation (narrative) [facility] nuchal translucency me asured by Jagjit 05-07-2024 Indication First trimester anatomic survey Maternal obesity, BMI >40 Impression REMOTE READ The patient is referred for a first trimester anatomy scan including nuchal translucency measurement as clinically indicated. - Single, live, intrauterine . - [place] rump length measurement is consistent with the established gestational age. - A qualitative screen of the nuchal translucency and other anatomic structures was unremarkable on an incomplete first trimester anatomic assessment. - Not all structural malformations can be detected by ultrasound examination. Recommendations - A standard anatomic survey at 16 weeks and a detailed exam at 20 weeks for increased risk. - Additional follow up as clinically indicated. Maternal Assessment Height 157 cm Height (ft) 5 ft Height (in) 2 in Physical Exam Initial weight (lb) 230 lb Initial BMI 42.07 kg/m Method Transabdominal ultrasound examination Cowan . Number of fetuses: 1 Dating LMP on: 02/10/2024 GA by LMP 12 w + 2 d KEARA by LMP: 11/16/2024 GA by prior assessment 12 w + 2 d KEARA by prior assessment: 11/16/2024 Ultrasound examination on: 05/06/2024 GA by U/S based upon: CRL GA by U/S 12 w + 0 d KEARA by U/S: 11/18/2024 Assigned: based on stated KEARA, selected on 05/06/2024 Assigned GA 12 w + 2 d Assigned KEARA: 11/16/2024 General Evaluation Cardiac activity present Placenta: posterior Cord vessels: 3 vessel cord Amniotic fluid: normal amount Biometry Standard FHR 160 bpm CRL 54.0 mm 12w 0d 18% Hadlock First Trimester Anatomy Calvarium: normal Falx cerebri: normal Choroid plexus: normal Profile: normal Nasal bone: normal Retronasal triangle: normal Maxilla: suboptimal Mandible: suboptimal Nuchal translucency: Unremarkable Situs: normal Cardiac position: normal Cardiac axis: normal 4-chamber view: suboptimal 4-chamber view with color: suboptimal 6-bocypq-fwrhlwo view: suboptimal Abdominal cord insertion: normal Stomach: normal Kidneys: suboptimal, Bladder: normal Color doppler of perivesical umbilical arteries: normal Vertebral alignment: normal Arms: normal Hands: normal Legs: normal Feet: normal Maternal Structures Uterus / Cervix Uterus: Visualized Uterus length 133 mm Uterus width 81 mm Uterus height 65 mm Uterus Vol 361.8 cm Ovaries / Tubes / Adnexa Rt ovary: Not visualized Lt ovary: Visualized Lt ovary D1 27 mm Lt ovary D2 24 mm Lt ovary D3 23 mm Lt ovary Vol 7.9 cm Performed By: Rosa Ayers RDMS, RVT Read By: Serenity Chance M.D. MATERNAL MEDICINE [facility] CARRIER SCREEN, STANDARDon 0 05-06-2024 CARRIER SCREEN RESULTS View results in Scanned Documents link when available. Normal [facility] Comment on above: Order Comment: Speci men Type: BLOOD SPECIMEN [facility] Address: [address] [place] [address] Performed By: #### 2 1198-7 #### [facility] CLIA [id number] [address] [place] [address] [id number], [place] [address] [place] CBC W Auto Differential pane l (Bld)on 05-06-2024 Basophils (Bld) [#/Vol] 0.05 10*3/uL Normal <0.[address] [facility] Comment on above: Order Comment: Speci men Type: BLOOD SPECIMENOrdering Facility: [facility] Address: [address] [place] [address] Performed By: #### 5 7021-8 ####[facility] [id number] [place] [address] [place] Basophils/100 WBC (Bld) 0.5 % Normal [facility] Comment on above: Order Comment: Speci men Type: BLOOD SPECIMENOrdering Facility: [facility] Address: [address] [place] [address] Performed By: #### 5 7021-8 ####[facility] [id number] [place] [address] [place] Differential cell count method Nom (Bld) Auto Normal [facility] Comment on above: Order Comment: Speci men Type: BLOOD SPECIMENOrdering Facility: [facility] Address: [address] [place] [address] Performed By: #### 5 7021-8 ####[facility] [id number] [place] [address] [place] Eosinophils (Bld) [#/Vol] 0.08 10*3/uL Normal <0.[address] [facility] Comment on above: Order Comment: Speci men Type: BLOOD SPECIMENOrdering Facility: [facility] Address: [address] [place] [address] Performed By: #### 5 7021-8 ####[facility] [id number] [place] [address] [place] Eosinophils/100 WBC (Bld) 0.8 % Normal [facility] Comment on above: Order Comment: Speci men Type: BLOOD SPECIMENOrdering Facility: [facility] Address: [address] [place] [address] Performed By: #### 5 7021-8 ####[facility] [id number] [place] [address] [place] Erythrocyte distribution width (RBC) [Ratio] 13.2 % Normal 11.5-15.[address] [facility] Comment on above: Order Comment: Speci men Type: BLOOD SPECIMENOrdering Facility: [facility] Address: [address] [place] [address] Performed By: #### 5 7021-8 ####[facility] [id number] [place] [address] [place] Hematocrit (Bld) [Volume fraction] 37.7 % Normal 36.0-46.[address] [facility] Comment on above: Order Comment: Speci men Type: BLOOD SPECIMENOrdering Facility: [facility] Address: [address] [place] [address] Performed By: #### 5 7021-8 ####[facility] [id number] [place] [address] [place] Hemoglobin (Bld) [Mass/Vol] 12.2 g/dL Normal 11.5-15.[address] [facility] Comment on above: Order Comment: Speci men Type: BLOOD SPECIMENOrdering Facility: [facility] Address: [address] [place] [address] Performed By: #### 5 7021-8 ####[facility] [id number] [place] [address] [place] Immature granulocytes (Bld) [#/Vol] 0.04 10*3/uL Normal <0.[address] [facility] Comment on above: Order Comment: Speci men Type: BLOOD SPECIMENOrdering Facility: [facility] Address: [address] [place] [address] Performed By: #### 5 7021-8 ####[facility] [id number] [place] [address] [place] [facility] Immature granulocytes/100 WBC (Bld) 0.4 % Normal [facility] Comment on above: Order Comment: Speci men Type: BLOOD SPECIMENOrdering Facility: [facility] Address: [address] [place] [address] Performed By: #### 5 7021-8 ####[facility] [id number] [place] [address] [place] Lymphocytes (Bld) [#/Vol] 2.53 10*3/uL Normal 1.00-4.[address] [facility] Comment on above: Order Comment: Speci men Type: BLOOD SPECIMENOrdering Facility: [facility] Address: [address] [place] [address] Performed By: #### 5 7021-8 ####[facility] [id number] [place] [address] [place] Lymphocytes/100 WBC (Bld) 23.8 % Normal [facility] Comment on above: Order Comment: Speci men Type: BLOOD SPECIMENOrdering Facility: [facility] Address: [address] [place] [address] Performed By: #### 5 7021-8 ####[facility] [id number] [place] [address] [place] MCH (RBC) [Entitic mass] 28.6 pg Normal 26.0-34.[address] [facility] Comment on above: Order Comment: Speci men Type: BLOOD SPECIMENOrdering Facility: [facility] Address: [address] [place] [address] Performed By: #### 5 7021-8 ####[facility] [id number] [place] [address] [place] MCHC (RBC) [Mass/Vol] 32.4 g/dL Normal 30.5-36.0 [facility] Comment on above: Order Comment: Speci men Type: BLOOD SPECIMENOrdering Facility: [facility] Address: [address] [place] [address] Performed By: #### 5 7021-8 ####[facility] [id number] [place] [address] [place] MCV (RBC) [Entitic vol] 88.3 fL Normal 80.0-100.0 [facility] Comment on above: Order Comment: Speci men Type: BLOOD SPECIMENOrdering Facility: [facility] Address: [address] [place] [address] Performed By: #### 5 7021-8 ####[facility] [id number] [place] [address] [place] Monocytes (Bld) [#/Vol] 0.52 10*3/uL Normal <0.[address] [facility] Comment on above: Order Comment: Speci men Type: BLOOD SPECIMENOrdering Facility: [facility] Address: [address] [place] [address] Performed By: #### 5 7021-8 ####[facility] [id number] [place] [address] [place] Monocytes/100 WBC (Bld) 4.9 % Normal [facility] Comment on above: Order Comment: Speci men Type: BLOOD SPECIMENOrdering Facility: [facility] Address: [address] [place] [address] Performed By: #### 5 7021-8 ####[facility] [id number] [place] [address] [place] Neutrophils (Bld) [#/Vol] 7.41 10*3/uL Normal 1.45-7.[address] [facility] Comment on above: Order Comment: Speci men Type: BLOOD SPECIMENOrdering Facility: [facility] Address: [address] [place] [address] Performed By: #### 5 7021-8 ####[facility] [id number] [place] [address] [place] Neutrophils/100 WBC (Bld) 69.6 % Normal [facility] Comment on above: Order Comment: Speci men Type: BLOOD SPECIMENOrdering Facility: [facility] Address: [address] [place] [address] Performed By: #### 5 7021-8 ####[facility] [id number] [place] [address] [place] Nucleated RBC (Bld) [#/Vol] 10*3/uL Normal <0.[address] [facility] Comment on above: Order Comment: Speci men Type: BLOOD SPECIMENOrdering Facility: [facility] Address: [address] [place] [address] Performed By: #### 5 7021-8 ####[facility] [id number] [place] [address] [place] Nucleated RBC/100 WBC (Bld) [Ratio] 0.0 /100 WBC Normal [facility] Comment on above: Order Comment: Speci men Type: BLOOD SPECIMENOrdering Facility: [facility] Address: [address] [place] [address] Performed By: #### 5 7021-8 ####[facility] [id number] [place] [address] [place] Platelet mean volume (Bld) [Entitic vol] 10.3 fL Normal 9.0-12.[address] [facility] Comment on above: Order Comment: Speci men Type: BLOOD SPECIMENOrdering Facility: [facility] Address: [address] [place] [address] Performed By: #### 5 7021-8 ####[facility] KIMBERLEENCLIA [id number] [place] [address] [place] Platelets (Bld) [#/Vol] 235 10*3/uL Normal 150-[address] [facility] Comment on above: Order Comment: Speci men Type: BLOOD SPECIMENOrdering Facility: [facility] Address: [address] [place] [address] Performed By: #### 5 7021-8 ####[facility] CRYSTALBROOKLYNNCLIA [id number] [place] [address] [place] RBC (Bld) [#/Vol] 4.27 10*6/uL Normal 3.90-5.20 [facility] Comment on above: Order Comment: Speci men Type: BLOOD SPECIMENOrdering Facility: [facility] Address: [address] [place] [address] Performed By: #### 5 7021-8 ####[facility] [id number] [place] [address] [place] WBC (Bld) [#/Vol] 10.63 10*3/uL Normal 3.70-11.00 [facility] Comment on above: Order Comment: Speci men Type: BLOOD SPECIMENOrdering Facility: [facility] Address: [address] [place] [address] Performed By: #### 5 7021-8 ####[facility] [id number] [place] [address] [facility] [place] Comprehensive metabolic 2000 panelon 05-06-2024 Albumin [Mass/Vol] 3.9 g/dL Normal 3.9-4.9 [facility] Comment on above: Order Comment: Speci men Type: BLOOD SPECIMENOrdering Facility: [facility] Address: [address] [place] [address] Performed By: #### 2 4323-8, 3083- ####[facility] ANGELITA MILLTOWNCLIA [id number] [place] [address] [place] ALP [Catalytic activity/Vol] 85 U/L Normal 34-[address] [facility] Comment on above: Order Comment: Speci men Type: BLOOD SPECIMENOrdering Facility: [facility] Address: [address] [place] [address] Performed By: #### 2 4323-8, 3083- ####[facility] MILLTOWNCLIA [id number] [place] [address] [place] ALT [Catalytic activity/Vol] 15 U/L Normal 7-[address] [facility] Comment on above: Order Comment: Speci men Type: BLOOD SPECIMENOrdering Facility: [facility] Address: [address] [place] [address] Performed By: #### 2 4323-8, 3083-04 ####[facility] [id number] [place] [address] [place] Anion gap [Moles/Vol] 10 mmol/L Normal 8-15 [facility] Comment on above: Order Comment: Speci men Type: BLOOD SPECIMENOrdering Facility: [facility] Address: [address] [place] [address] Performed By: #### 2 4323-8, 3083-04 ####[facility] MILLTOWNCLIA [id number] [place] [address] [place] AST [Catalytic activity/Vol] 11 U/L Low 13-[address] [facility] Comment on above: Order Comment: Speci men Type: BLOOD SPECIMENOrdering Facility: [facility] Address: [address] [place], [place] [address] Performed By: #### 2 4323-8, 3083- ####[facility] MILLTOWNCLIA [id number] [place] [address] [place] Bilirubin [Mass/Vol] 0.2 mg/dL Normal 0.2-1.3 [facility] Comment on above: Order Comment: Speci men Type: BLOOD SPECIMENOrdering Facility: [facility] Address: [address] [place] [address] Performed By: #### 2 4323-8, 3083-1 ####[facility] MILLWISIAHLIA [id number] [place] [address] [place] Calcium [Mass/Vol] 9.3 mg/dL Normal 8.5-10.2 [facility] Comment on above: Order Comment: Speci men Type: BLOOD SPECIMENOrdering Facility: [facility] Address: [address] [place] [address] Performed By: #### 2 4323-8, 3083-1 ####[facility] [id number] [place] [address] [place] Chloride [Moles/Vol] 102 mmol/L Normal 98-107 [facility] Comment on above: Order Comment: Speci men Type: BLOOD SPECIMENOrdering Facility: [facility] Address: [address] [place] [address] Performed By: #### 2 4323-8, 1 ####[facility]HL[facility] [id number] [place] [address] [place] CO2 [Moles/Vol] 22 mmol/L Normal 22-[address] [facility] Comment on above: Order Comment: Speci men Type: BLOOD SPECIMENOrdering Facility: [facility] Address: [address] [place] [address] Performed By: #### 2 4323-8, 3083-1 ####[facility] GORDANCLIA [id number] [place] [address] [place] Creatinine [Mass/Vol] 0.56 mg/dL Low 0.58-0.96 [facility] Comment on above: Order Comment: Sherif malik Type: BLOOD SPECIMENOrdering Facility: [facility] Address: [address] [place] [address] Performed By: #### 2 4323-8, 308-1 ####[facility] [id number] [place] [address] [place] Creatinine and Glomerular filtration rate.predicted panel (S/P/Bld) 124 mL/min/1.73m??? Normal >=[address] [facility] Comment on above: Order Comment: Sherif malik Type: BLOOD SPECIMENOrdering Facility: [facility] Address: [address] [place] [address] Result Comment: Sherry mated Glomerular Filtration Rate (eGFR) is calculated using the 2020 CKD-EPI creatinine equation. This equation utilizes serum creatinine, sex, and age as parameters. The creatinine assay has traceable calibration to isotope dilution-mass spectrometry. Refer to KDIGO guidelines for clinical interpretation. In patients with unstable renal function, e.g. those with acute kidney injury, the eGFR may not accurately reflect actual GFR. Performed By: #### 2 4323-8, 1 ####[facility] [id number] [place] [address] [place] Glucose [Mass/Vol] 118 mg/dL High 74-99 [facility] Comment on above: Order Comment: Sherif malik Type: BLOOD SPECIMENOrdering Facility: [facility] Address: [address] [place] [address] Result Comment: The [place] Diabetes Association (ADA) provides guidance for cutoff values for fasting glucose and random glucose. The ADA defines fasting as no caloric intake for at least 8 hours. Fasting plasma glucose results between 100 to 125 mg/dL indicate increased risk for diabetes (prediabetes). Fasting plasma glucose results greater than or equal to 126 mg/dL meet the criteria for diagnosis of diabetes. In the absence of unequivocal hyperglycemia, results should be confirmed by repeat testing. In a patient with classic symptoms of hyperglycemia or hyperglycemic crisis, random plasma glucose results greater than or equal to 200 mg/dL meet the criteria for diagnosis of diabetes. Reference: Standards of Medical Care in Diabetes 2016, [place] Diabetes Association. Diabetes Care. 2016.39(Suppl 1). Performed By: #### 2 4323-8, 3083-04 ####[facility] [id number] [place] [address] [place] Potassium [Moles/Vol] 3.9 mmol/L Normal 3.7-5.1 [facility] Comment on above: Order Comment: Speci men Type: BLOOD SPECIMENOrdering Facility: [facility] Address: [address] [place] [address] Performed By: #### 2 4323-8, 3083-04 ####[facility] [id number] [place] [address] [place] Protein [Mass/Vol] 6.7 g/dL Normal 6.3-8.0 [facility] Comment on above: Order Comment: Speci men Type: BLOOD SPECIMENOrdering Facility: [facility] Address: [address] [place] [address] Performed By: #### 2 4323-8, 3083-04 ####[facility] [id number] [place] [address] [place] Sodium [Moles/Vol] 134 mmol/L Low 136-144 [facility] Comment on above: Order Comment: Speci men Type: BLOOD SPECIMENOrdering Facility: [facility] Address: [address] [place] [id number] Performed By: #### 2 4323-8, 3083-04 ####[facility] [id number] [place] [address] [place] Urea nitrogen [Mass/Vol] 7 mg/dL Normal 7-[address] [facility] Comment on above: Order Comment: Speci men Type: BLOOD SPECIMENOrdering Facility: [facility] Address: [address] [place] [address] Performed By: #### 2 4323-8, 3084-1 ####[facility] [id number] [place] [id number] [place] nuchal translucency me asured by USon 05-06-2024 Radiology Study observation (narrative) [facility] HBV surface Ag Ser Qlon 04-27 HBV surface Ag Ql (S) Negative Normal Negative [facility] Comment on above: Order Comment: Speci men Type: BLOOD SPECIMENOrdering Facility: [facility] Address: [address] [place] [address] Performed By: #### 7 3752-8, 96072-8, 519-3 ####[facility] [id number] [place] [address] [place] HCV Ab Ser Qlon 05-06-2024 HCV Ab Ql (S) Negative Normal Negative [facility] Comment on above: Order Comment: Speci men Type: BLOOD SPECIMENOrdering Facility: [facility] Address: [address] [place] [address] Result Comment: The result suggests no evidence of active infection with Hepatitis C virus. Should recent infection be suspected, repeat testing may be considered 4-6 weeks after this draw. Performed By: #### 1 6128-1 ####[facility] [id number] [place] [address] [place] HIV 1+2 Ab IA Qlon HIV 1 and 2 Ab IA.rapid Nom (S/P/Bld) Normal [facility] Comment on above: Order Comment: Speci men Type: BLOOD SPECIMENOrdering Facility: [facility] Address: [address] [place] [address] Result Comment: Test not indicated. Performed By: #### 7 3752-8, 33159-8, 5195-3 ####[facility] [id number] [place] [address] [place] HIV 1+2 Ab+HIV1 p24 Ag IA Ql Non-Reactive Normal Nonreactive [facility] Comment on above: Order Comment: Speci men Type: BLOOD SPECIMENOrdering Facility: [facility] Address: [address] [place] [address] Performed By: #### 7 3752-8, 47816-3, 5195-3 ####[facility] [id number] [place] [address] [place] HIV immunoassay testing algorithm interpretation (S/P/Bld) [Interp] Normal [facility] Comment on above: Order Comment: Speci men Type: BLOOD SPECIMENOrdering Facility: [facility] Address: [address] [place] [address] Result Comment: No e vidence of HIV-1 or HIV-2 infection. Should recent infection be suspected, repeat testing may be considered 2-3 weeks after this draw. [place] Rev. Code 3701.243(E): This information has been disclosed to you from confidential records protected from disclosure by state law. ???You shall make no further disclosure of this information without the specific, written, and informed release of the individual to whom it pertains or as otherwise permitted by state law. A general authorization for the release of medical or other information is not sufficient for the purpose of the release of HIV test results or diagnoses. Performed By: #### 7 3752-8, 00569-9, 5195-3 ####[facility] [id number] [place] [address] [place] HbA1c (Bld)on 05-06-2024 Average glucose Estimated from glycated hemoglobin (Bld) [Mass/Vol] 103 mg/dL Normal [facility] Comment on above: Order Comment: Speci men Type: BLOOD SPECIMENOrdering Facility: [facility] Address: [address] [place] [address] Result Comment: eAG: (Estimated average glucose) is a calculated value from HgbA1c and is apprenticeship representative of the average blood glucose level in the last 2-3 month period. Performed By: #### 5 5454-3 ####[facility] [id number] [place] [address] [place] HbA1c (Bld) [Mass fraction] 5.2 % Normal 4.3-5.[address] [facility] Comment on above: Order Comment: Speci men Type: BLOOD SPECIMENOrdering Facility: [facility] Address: [address] [place] [address] Result Comment: [place] Diabetes Association guidelines indicate that patients with HgbA1c in the range 5.7-6.4% are at increased risk for development of diabetes, and intervention by lifestyle modification may be beneficial. HgbA1c greater or equal to 6.5% is considered diagnostic of diabetes. Performed By: #### 5 5454-3 ####[facility] [id number] [place] [address] [place] [id number] PLUSon 05-06-2024 Cell-free DNA./Cell-free DNA.total Dosage of chromosome-specific cfDNA (cfDNA) [Molar fraction] 9% Normal [facility] Comment on above: Order Comment: Speci men Type: BLOOD SPECIMENOrdering Facility: [facility] Address: [address] [place] [address] Performed By: #### M AT21 ####[facility]llM[facility] LABCLIA [id number] [place] [address] Chr 13+18+21+X+Y aneuploidy Dosage of chromosome-specific cfDNA Ql (cfDNA) Negative Normal [facility] Comment on above: Order Comment: Speci men Type: BLOOD SPECIMENOrdering Facility: [facility] Address: [address] [place] [address] Performed By: #### M AT21 ####[facility]llM[facility] LABCLIA [id number] [place] [address] Chr 21 trisomy Dosage of chromosome-specific cfDNA Ql (cfDNA) Negative Normal [facility] Comment on above: Order Comment: Speci men Type: BLOOD SPECIMENOrdering Facility: [facility] Address: [address] [place] [address] Performed By: #### M AT21 ####[facility] LABCLIA [id number] [place] [address] Chr X and Y aneuploidy risk Sequencing Ql (cfDNA) [Interp] Not detected Normal [facility] Comment on above: Order Comment: Speci men Type: BLOOD SPECIMENOrdering Facility: [facility] Address: [address] [place] [address] Result Comment: Not Detected Not Detected Performed By: #### M AT21 ####[facility] LABCLIA [id number] [place] [address] Citation Chivo (Reference lab test) Comment Normal [facility] Comment on above: Order Comment: Speci men Type: BLOOD SPECIMENOrdering Facility: [facility] Address: [address] [place] [address] Result Comment: 1. P sharmaine FLORENTINO, et al. Lindsay Med. 2012;14(3):296-305. 2. Maggy MEJIA et al. Prenat Diag. 2013;33(6):591-597. 3. Thompson C, et al. Clin Chem. 2015 Apr;61(4):608-616. 4. Brady FLORENTINO, et al. Lindsay Med. 2011;13(11):913-920. 5. ACOG/SMFM Practice Bulletin No. 226, Jan 2020. Performed By: #### M AT21 ####[facility] LABCLIA [id number] [place] [address] Gestational age Estimated from conception date Cowan Normal [facility] Comment on above: Order Comment: Speci men Type: BLOOD SPECIMENOrdering Facility: [facility] Address: [address] [place] [address] Performed By: #### M AT21 ####[facility] LABCLIA [id number] [place] [address] GESTATIONALAGE AGE > OR = 9W Yes Normal [facility] Comment on above: Order Comment: Speci men Type: BLOOD SPECIMENOrdering Facility: [facility] Address: [address] [place] [address] Performed By: #### M AT21 ####[facility] LABCLIA [id number] [place] [address] Laboratory comment Chivo (Report) Comment Normal [facility] Comment on above: Order Comment: Sherif malik Type: BLOOD SPECIMENOrdering Facility: [facility] Address: [address] [place] [address] Result Comment: The MaterniT(R) 21 PLUS laboratory-developed test (LDT) analyzes circulating cell-free DNA from a maternal blood sample. This test is used for screening purposes and not diagnostic. Clinical correlation is recommended. Validation data on twin pregnancies is limited and the ability of this test to detect aneuploidy in higher multiple gestations has not yet been validated. Performed By: #### M AT21 ####[facility] LABCLIA [id number] [place] [id number] translation director name Nom (Provider) Comment Normal [facility] Comment on above: Order Comment: Speci men Type: BLOOD SPECIMENOrdering Facility: [facility] Address: [address] [place] [address] Result Comment: This specimen showed an expected representation of chromosome 21, 18 and 13 material. Clinical correlation is suggested. Comment Vinicio Rushing MD, PhD, Director, [employer] Performed By: #### M AT21 ####[facility] LABCLIA [id number] [place] [id number] LIMITATIONS OF THE TEST Comment Normal [facility] Comment on above: Order Comment: Speci helena Type: BLOOD SPECIMENOrdering Facility: [facility] Address: [address] [place] [address] Result Comment: Emanuel jang the results of these tests are highly reliable, discordant results, including inaccurate sex prediction, may occur due to placental, maternal, or mosaicism or neoplasm; vanishing twin; prior maternal organ transplant; or other causes. These tests are screening tests and not diagnostic; they do not replace the accuracy and precision of diagnosis with CVS or amniocentesis. A patient with a positive test result should be referred for genetic counseling and offered invasive diagnosis for confirmation of test results.[5] The results of this testing, including the benefits and limitations, should be discussed with a qualified healthcare provider. management decisions, including termination of the , should not be based on the results of these tests alone. The healthcare provider is responsible for the use of this information in the management of their patient. Sex chromosomal aneuploidies are not reportable for known multiple gestations. A negative result does not ensure an unaffected nor does it exclude the possibility of other chromosomal abnormalities or defects which are not a part of these tests. An uninformative result may be reported, the causes of which may include, but are not limited to, insufficient sequencing coverage, noise or artifacts in the region, amplification or sequencing bias, or insufficient fraction. These tests are not intended to identify pregnancies at risk for neural tube defects or ventral wall defects. Testing for whole chromosome abnormalities (including sex chromosomes) and for subchromosomal abnormalities could lead to the potential discovery of both and maternal genomic abnormalities that could have major, minor, or no, clinical significance. Evaluating the significance of a positive or a non-reportable result may involve both invasive testing and additional studies on the mother. Such investigations may lead to a diagnosis of maternal chromosomal or subchromosomal abnormalities, which on occasion may be associated with benign or malignant maternal neoplasms. These tests may not accurately identify triploidy, balanced rearrangements, or the precise location of subchromosomal duplications or deletions; these may be detected by diagnosis with CVS or amniocentesis. The ability to report results may be impacted by maternal BMI, maternal weight, maternal systemic lupus erythematosus (SLE) and/or by certain pharmaceutical agents such as low molecular weight heparin (for example: Lovenox(R), Xaparin(R), Clexane(R) and Fragmin(R)). Performed By: #### M AT21 ####[facility] LABCLIA [id number] [place] [address] Monosomy X risk Dosage of chromosome-specific cfDNA Ql (Plasma cell-free+WBC DNA) [Interp] Not detected Normal [facility] Comment on above: Order Comment: Speci men Type: BLOOD SPECIMENOrdering Facility: [facility] Address: [facility] [place] [address] Performed By: #### M AT21 ####[facility] PrellM[facility] LABCLIA [id number] [place] [address] NEGATIVE PREDICTIVE VALUE Note Normal [facility] Comment on above: Order Comment: Sherif malik Type: BLOOD SPECIMENOrdering Facility: [facility] Address: [address] [place] [address] Result Comment: The Negative Predictive Value (NPV) for trisomy 21, 18, and 13 is greater than 99%. The NPV for SCA and ESS cannot be calculated as SCA and ESS are only reported when an abnormality is detected. Performed By: #### M AT21 ####[facility] LABCLIA [id number] [place] [address] NOTE Comment Normal [facility] Comment on above: Order Comment: Sherif malik Type: BLOOD SPECIMENOrdering Facility: [facility] Address: [address] [place] [address] Result Comment: See Notes [employer] is a subsidiary of [employer], using the brand [employer]. This test was developed and its performance characteristics determined by [employer]. It has not been cleared or approved by the Food and Drug Administration. This laboratory is certified under the Clinical Laboratory Improvement Amendments (CLIA) as qualified to perform high complexity clinical laboratory testing and accredited by the [employer] [place] [employer] (CAP). If there is future clinical need for adding MaterniT GENOME testing, this specimen will be available until term. [facility] samples will not be retained beyond 60 days. [facility] patients will have to send a new sample for re-sequencing ([facility] Test Code: 899264). Performed By: #### M AT21 ####[facility] LABCLIA [id number] [place] [address] PERFORMANCE CHARACTERISTICS Note Normal [facility] Comment on above: Order Comment: Sherif malik Type: BLOOD SPECIMENOrdering Facility: [facility] Address: [address] [place] [address] Result Comment: ! Sex ! Accuracy: 99.4% ! ! ! ! Region (associated syndrome) ! Est. Sens# ! Est. Spec ! ! ! ! Trisomy 21 (Down Syndrome) ! 99.1% ! 99.9% ! ! ! ! Trisomy 18 (Harrington Syndrome) ! >99.9% ! 99.6% ! ! ! ! Trisomy 13 (Patau Syndrome) ! 91.7% ! 99.7% ! ! ! ! Sex Chromosome Aneuploidies## ! 96.2% ! 99.7% ! ! ! * As reported in [facility] database nstd37 [https://www.ncbi.nlm.nih.gov/dbvar/studies/nstd37/ ] # Estimated Sensitivity. Sensitivity estimated across the observed size distribution of each syndrome [per [employer] database nstd37] and across the range of fractions observed in routine clinical NIPT. Actual sensitivity can also be influenced by other factors such as the size of the event, total sequence counts, amplification bias, or sequence bias. ## Cowan gestation only. Performed By: #### M AT21 ####[employer] 1IA [id number] [place] [address] POSITIVE PREDICTIVE VALUE N/A Normal [facility] Comment on above: Order Comment: Speci men Type: BLOOD SPECIMENOrdering Facility: [facility] Address: [address] [place] [address] Performed By: #### M AT21 ####[facility] LABCLIA [id number] [place] [address] Reference Lab Test Method Comment Normal [facility] Comment on above: Order Comment: Speci men Type: BLOOD SPECIMENOrdering Facility: [facility] Address: [address] [place] [address] Result Comment: See Notes Circulating cell-free DNA was purified from the plasma component of maternal blood. The extracted DNA was then converted into a genomic DNA library for aneuploidy analysis of chromosomes 21, 18, and 13 via next generation sequencing.[1] Optional findings based on the test order include sex chromosome aneuploidy (SCA)[2], and enhanced sequencing series (ESS)[3], which will only be reported on as an additional finding when an abnormality is detected. SCA testing includes information on X and Y representation, while ESS testing includes deletions in selected regions (22q, 15q, 11q, 8q, 5p, 4p, 1p) and trisomy of chromosomes 16 and 22. Performed By: #### M AT21 ####[employer] LABYurpyIA [id number] [place] [address] Sex Dosage of chromosome-specific cfDNA Nom (cfDNA) Comment Normal [facility] Comment on above: Order Comment: Speci men Type: BLOOD SPECIMENOrdering Facility: [facility] Address: [address], [place] [address] Result Comment: Cons istent with Female Performed By: #### M AT21 ####[facility] LABCLIA [id number] [place] [address] Test performance information Chivo (Unsp spec) Comment Normal [facility] Comment on above: Order Comment: Speci men Type: BLOOD SPECIMENOrdering Facility: [facility] Address: [address] [place] [address] Result Comment: The performance characteristics of the MaterniT(R) 21 PLUS laboratory-developed test (LDT) have been determined in a clinical validation study with women at increased risk for chromosomal aneuploidy.[1-4] Performed By: #### M AT21 ####[facility] LABCLIA [id number] [place] [address] Trisomy 13 risk Dosage of chromosome-specific cfDNA Ql (cfDNA) [Interp] Negative Normal [facility] Comment on above: Order Comment: Speci men Type: BLOOD SPECIMENOrdering Facility: [facility] Address: [address] [place] [address] Performed By: #### M AT21 ####[employer] LABCLIA [id number] [place] [address] Trisomy 18 risk Dosage of chromosome-specific cfDNA Ql (Plasma cell-free+WBC DNA) [Interp] Negative Normal [facility] Comment on above: Order Comment: Speci men Type: BLOOD SPECIMENOrdering Facility: [facility] Address: [address] [place] [address] Performed By: #### M AT21 ####[employer] LABCLIA [id number] [place] [address] Prot/Creat Uron 05-06-2024 Protein/Creatinine (U) [Mass ratio] 0.05 mg/mg Normal <0.[address] [facility] Comment on above: Order Comment: Speci men Type: URINE SPECIMENOrdering Facility: [facility] Address: [address] [place] [address] Result Comment: Adul t Proteinuria Categories: <0.15 mg/mg is considered normal to mildly increased 0.15 - 0.50 mg/mg is considered moderately increased >0.50 mg/mg is considered severely increased KDIGO. (2013). KDIGO 2012 Clinical Practice Guideline for the Evaluation and Management of Chronic Kidney Disease. Official Journal of the International Society of Nephrology, 3(1), 1-150. Performed By: #### 2 890-2 ####[facility] [id number] [place] [address] [place] Protein/Creatinine (U) [Mass ratio]on 05-06-2024 Creatinine (U) [Mass/Vol] 118.6 mg/dL Normal 20.0-300.[address] [facility] Comment on above: Order Comment: Speci men Type: URINE SPECIMENOrdering Facility: [facility] Address: [address] [place] [address] Performed By: #### 2 890-2 ####[facility]CL[facility] [id number] [place] [address] [place] Protein (U) [Mass/Vol] 6 mg/dL Normal 0-20 [facility] Comment on above: Order Comment: Speci men Type: URINE SPECIMENOrdering Facility: [facility] Address: [address] [place] [address] Performed By: #### 2 890-2 ####[facility] [id number] [address] [place] RUBELLA IGG ANTIBODYon 05-06 RUBELLA IGG AB, QUAL Positive Normal Positive [facility] Comment on above: Order Comment: Speci men Type: BLOOD SPECIMENOrdering Facility: [facility] Address: [address] [place] [address] Result Comment: The result suggests recent or past exposure to Rubella virus or history of Rubella vaccination. Positive result may also be seen due to presence of passively-transferred antibodies. Please correlate with patient's history. Performed By: #### R UBIGG ####[facility]CL[facility] [id number] [address] [place] [address] [place] Reagin and Treponema pallidu m IgG and IgM [Interp]on 05-06-2024 T. pallidum IgG+IgM IA Ql (S) Non-Reactive Normal Nonreactive [facility] Comment on above: Order Comment: Speci men Type: BLOOD SPECIMENOrdering Facility: [facility] Address: [address] [place] [address] Performed By: #### 7 3752-8, 09526-4, 5195-3 ####[facility]CL[facility] [id number] [place] [address] [place] Reagin+T pallidum IgG+IgM Se rPl-Impon 05-06-2024 Reagin and Treponema pallidum IgG and IgM [Interp] Cannot exclude recent Treponemal infection if specimen collected within 7-10 days after appearance of suspect lesions or 2-3 weeks after an exposure. Clinical correlation is required. Normal [facility] Comment on above: Order Comment: Speci men Type: BLOOD SPECIMENOrdering Facility: [facility] Address: [address] [place] [address] Performed By: #### 7 3752-8, 56121-4, 5194-3 ####[facility]CL[facility] [id number] [place] [address] [place] TYPE + SCREEN PRENATALon ABO O Normal [facility] Comment on above: Order Comment: Speci men Type: BLOOD SPECIMENOrdering Facility: [facility] Address: [address] [place] [address] Performed By: #### T SPN ####[facility] [place] BLOOD BANKCLIA [id number] [place] [address] [place] Rh Nom (Bld) Positive Normal [facility] Comment on above: Order Comment: Speci men Type: BLOOD SPECIMENOrdering Facility: [facility] Address: [address] [place] [address] Performed By: #### T SPN ####CC MAIN BLOOD BANKCLIA [id number] [place] [id number] [place] TYPE AND SCREEN EXPIRATION 05/09/2024 23:[address] [facility] Comment on above: Order Comment: Speci men Type: BLOOD SPECIMENOrdering Facility: [facility] Address: [address] [place] [address] Performed By: #### T SPN ####CC MAIN BLOOD BANKCLIA [id number] [place] [address] [place] [facility] [place] Urate SerPl-mCncon 5 Urate [Mass/Vol] 3.9 mg/dL Normal 2.5-6.6 [facility] Comment on above: Order Comment: Speci men Type: BLOOD SPECIMENOrdering Facility: [facility] Address: [address] [place] [address] Performed By: #### 2 4323-8, 3084-1 ####[facility] [id number] [address] [place] CNPNon 04-28-2024 CNPN Telephone (OBGYWM) SUN CARRERO ([id number]) 1990 F Date Time Provider Department 04/28/24 NADIYA ANDESR OBGYWM During your visit today, we recorded the following information about you: Rosa Green RN 04/28/2024 2:36 PM Signed Patient 11w1d calling requesting order for Ofjybzyj70 and Forsight testing. Patient has NT and OB appointment next Saturday 05/06. Please address and order if appropriate. Patient is aware provider is out of the office until tomorrow. RADHA Dsouza Rebecca L, MD 04/29/2024 7:07 PM Signed orders in. MD Norma Ch Lindsey, RN 05/02/2024 8:19 AM Signed Left message to call office. Rosa Green RN Allergies As of Date: 04/28/2024 (No Known Allergies) Date Reviewed: 04/06/2024 Reviewed by: Angie Waddell LPN - Fully Assessed Reason for Visit: Orders [681] Primary Visit Diagnosis:Supervisio n of other high risk pregnancies, first trimester [O09.891] Other Visit Diagnosis:Encounter for screening of mother [Z36.9] Order(s):[id number] PLUS [SQMAT21] Order #: [id number] FUTURE CARRIER SCREEN, STANDARD [SQCRRSCN] Order #: [id number] FUTURE Prescriptions as of 05/03/2024 - aspirin, enteric coated (ECOTRIN LOW STRENGTH) 81 mg EC tablet Take 2 Aspirin 81mg by mouth once daily after 12 weeks - 21/iron fu/folic acid ( COMPLETE ORAL) Take by mouth. Problem List As Of Date 04/28/2024 Noted Resolved Pruritus [L29.9] 09/21/2009 03/10/2022 Telogen effluvium [L65.0] 09/21/2009 03/10/2022 History of anemia [Z86.2] 10/01/2011 03/10/2022 Irregular menses [N92.6] 10/01/2011 03/10/2022 MANNY (generalized anxiety disorder) [F41.1] 01/16/2021 Mixed obsessional thoughts and acts [F42.2] 01/16/2021 Screening for hyperlipidemia [Z13.220] 01/16/2021 03/10/2022 Hyperlipidemia, mixed [E78.2] 01/30/2021 Abnormal urine [R82.90] 01/30/2021 03/10/2022 Spotting complicating , first trimeste*05/27/2021 03/10/2022 Spotting in [O26.859] 05/29/2021 03/10/2022 Obesity in [O99.210] 05/29/2021 History of anxiety [Z86.59] 05/29/2021 Patient request for diagnostic testing [Z01.89] 05/29/2021 06/25/2022 Current with history of spontaneous a*10/17/2021 06/25/2022 Abnormal glucose complicating [O99.81*03/10/2022 06/25/2022 Anemia during in third trimester [O99*03/10/2022 06/25/2022 Excessive growth affecting management of *04/09/2022 06/25/2022 Gestational hypertension without significant pr*04/29/2022 06/25/2022 Supervision of other high risk pregnancies, fir*04/11/2024 History of section [Z98.891] 04/11/2024 History of gestational hypertension [Z87.59] 04/11/2024 Hx of preeclampsia, prior , currently * Encounter Status:Closed by NELI SOMMER on 05/03/[address] [facility] HIGH RISK HUMAN PAPILLOMA PREETI (HPV), PCR FOR DETECTION AND GENOTYPINGOrdered By: Mayra Coffey on 04-11-2024 HPV 16 Ag Ql (Unsp spec) Not detected Not detec [facility] HPV 18 Ag Ql (Unsp spec) Not detected Not detec [facility] HPV 31+33+35+39+45+51+52+56+ 58+59+66+68 DNA NOEMI+probe Ql (Cvx) Not detected Not detected [facility] Comment on above: High Risk HPV Other Type includes HPV types 31, 33, 35, 39, 45, 51, 52, 56, 58, 59, 66 and 68. Interpretation and review of laboratory results Normal [facility] This test was developed and its performance characteristics determined by [facility]'s [facility] [place] ([facility]). It has not been cleared or approved by the FDA. [facility] is regulated under CLIA as qualified to perform high-complexity testing. This test is used for clinical purposes. It should not be regarded as investigational or for research. [facility] No Panel InformationOrdered By: Mayra Coffey on 04-11-2024 [facility] PAP TESTOrdered By: Heidi anderson on 04-11-2024 Case Report Gynecologic Cytology Report Case: [id number] Authorizing Provider: Nadiya Anders APRN.CNM Collected: 04/06/2024 09:56 AM Ordering Location: OB/Gynecology Received: 04/06/2024 12:09 PM First Screen: Fuad, Heidi, CT, ASCP Specimen: Pap Test, ThinPrep, Cervix [facility] Clinical History Routine Exam [facility] Interpretation Negative [facility] LMP 02/10/2024 [facility] Pap Disclaimer z9tbrNWyTKNgy6lgXGHm bGFuZzEwMzNcZnRuYmpc gXAkHFggngXiQDdoq9Gh C5QuMyNoLAmturCvZFDs SmfoqzkhTLVlRIR3mkBr CBWzWZooOKWhGAbsIf3k oFOtbPeoKhTdFCDez7zf ztWUgmhkcVc2q3rmZYLn KhD0pZPuKJkwH2fqndCh qPMfOWMwLMx2jU84MNSn dB3erIIeSSajylHdZhK5 KIdrJYGgUhI6WJFsbFAc GTJuE9xiUYQxMIsfNWTq WUlzeSCsEIJ0nYtyg3P1 bGVzaGVldHtcZjBcZnMy SfZDt2AwNIp6cAaqU2Cl TMTyQkV1gBYlTWEdMHij HGQyZOEinhY3vC83HNcf yzT1xPOlc0Pqq44ll326 zS1ijTNlDVS9HMXgFOMs bWKvEEYrUCT2DUDxxQEv Q3kwMBLlCF5nuchrGSpk PDfiRNIuhAW7MJVssTQa U7IcFVMmZTzkMSAukrj0 IsLnXa7euLIpaYfyHJjw t0cxn0jrhENwKly4KCMq JvXkSczdCVegi6Gya0xr COZazq6iBBG7zRQjkUqe v0S8cKGsKIBsqNKpwiVp DZDjKwT1ZDrsCW2pyv81 MNCbMZD4xa1dpAJedNez wdRiiZHsVUmdU2DeZXKq t428AVUvD1EoQYKxl0K7 wqVtTrFkPOPolEI8zhC0 KMRmBFb4uCEhgeO4iqEa sFAcZ6jbxI0mHCRhKI2b lsmmt5ijUIzkMDkhWBDv pIT0puZ6VEQpeVEvF2Qi lP6kAMLcCDydAIBqocg1 MuOwQq9ztGFgbLheTVyb YmtwYWdlXHBnbmNvbnRc cGduZGVjXHBsYWluXHBs YWluXGYwXGZzMjRccWxc jYnpkC3dIwSqUdHzDiym YM9oYRScJ4jplTVsUJRk LIXgF3hwEcAdmZ9qmCoj DYbfxyU7GFQfKMJYBYJg A14gDSBsiFSjSGTkU5Jw VO0dappfjSKyyOWfk5Gn U9YibqlaOBluQ8TuI0Gs MxVyHgVpt2AdxnDkBHMp niRkdfNfgCh5xuJtP2T5 jqX9xCFzWLIpcGLwK2Uf ON2dnrqiwFVhiDAyHATu bSwsc8u8fC1cMFHoSCKh ZWVkIGZvciByZXNjcmVl gyiqWsCvkBXcEVPxeN8b bmRlZCBpbnRlcnZhbHMs IGFuZCBjbGluaWNhbCBj c4JtZWwdcBiosc8miAbj hM4mQsQoHjRyLpceOG1t IFFdJ1rhwTPyEZDdBKLn R2hePqNnlF4haYjpKUak suYnLVRkam35 [facility] PAP Electro Mechanical Technician Comment b1smtZLlDPAhy0opZLWa bGFuZzEwMzNcZnRuYmpc dFKeQVjqyfSfOUrjy3Uk P8HyTmAdILcgjyLiGRLp HulgefnuIDVqXUP7wcQj OJTmVIayLXDwQOqbDl0d wBZtqLfzUzBzGLWvd4oe pfKIdfthgCx4n8gcWODc HdW9xECyBYzwZ1zhisOx xZJyVOUhYAs2oY11WQZc rF7lfYXiAFkdutKtUiR4 MZtrRVRgYzZ2XIAnyXEo MMCzK3gcBWTcFHrmVPEo NStslGBfDAZ1jLmhc2Z4 bGVzaGVldHtcZjBcZnMy ZeOLf9PpDEf6iKnkG1Wc XJRkVgP8kLPdPCChEMav TXPgSLJzovV5lX07HXis qiI6pUTxv3Yiv27sp072 uP2djFZmLZU0XPLuCMTc tNWxMPLtVYQ1IUQvpZEn F2szAEBpQL2lbntaEPal SLdwABEfqHF0NKSupKHy I0JpIIVeNWcgRUZxxdx4 YuZlHq1vvRHeqKtwJRen l4qck5gjuLUrAsp2TSFn FmEzMwunWZuwd3Ilx3ah UYXnlj2qWZK0iCYnwAlo h6Q8uCFwSYAxwMFtgxVg LANkSeX7GHeuUY3xvo75 QMTeGRE5wo4dwCIudKyw weTilWMfGFfdU1AoDRLn l235BVZeM1GrRGPnd2F7 kuQwReFwSREriZB1dnF9 TDEtAFk0iMVonsL2imPs tZBsG2aenR1jCBXoTS8a caanq7qoWGwmDUbvXXZc hNP8byC7RVOclFBuH5Uq aD5wYHIzTAcwXFXxxle1 ReMmTs2feGCcbQqoPYlt YmtwYWdlXHBnbmNvbnRc cGduZGVjXHBsYWluXHBs YWluXGYwXGZzMjRccWxc rMsmdJ0uVeCbZfYaZafh RY2jSVPzY2oylMHrXINd SIRoH0rzQrZykQ6uiAxy YCbujnN5ARwfYTekutRz pNEmzK1tadFyDMHqZjBn biBhbmFseXplZCBieSB0 iHHuNEezeuTlEKGsLM3c Y5rhRvOBaEV4WS0zLYFg OUH7gT8wMCIbWZOrvOZv fT9eEXHmVARpWOCvWTfs v6opsOXiKWA1yDaojWUg f0Gsp8RtAZZhYLMjRYHo ffQ2b0Z9XTavZNU5BAs6 GPThyxkeB9TssZWdz34u VGhpblByZXAgUGFwIHRl i5SwTdNqQy5arG35vS7f POS2iB3wKGDbMDZirKGx nA9nCNKrFIadX3UnDSKg aWVsZHMgZnJvbSBldmVy eSBzbGlkZSBhcmUgcmV2 iHO8VIDnCudzUYMuoERb xSWjjK6tgR9tuKZ4Gkob bGFpblxmMVxmczIyXGxh hoyvYADpGUjmT4iyHsPv BSXgcFgdTAzpz0IhRXUg XGZzMjJccGFyfX0= [facility] Performing Lab n4bwfYQoXENej6qvIHBd bGFuZzEwMzNcZnRuYmpc dWMxIHtccnRmMVxhbnNp XGRlZmxhbmcxMDMzXGZ0 icGlLJZvFEL5NFX9HhXz a3E4KBZcBxQtMKIvEQ9o lSijKCTqUI3rMGPdC6sq rK9wpqz1TpDdQQLzGyK2 KZSkzxK8Qzz5IDUnBRfq v7ijf6GmEJLlCLw7pLbd EaEhXGNlu6oxdtLvZaNv UXNgZSUfLDRfwVVjW615 m5vpb4mquxPjoJL0SBBz XKO7RTztqaClpxC6OSeg eOWiKkI1WMkmjuOjINcm jkTkqvYoSjw5OASvD472 OIV7bFtta6mxLZP6WFOb ZQZxQfCnJa5tnJLzW847 HSWwMZAOVXKkiCe6MZLc vdLpcmYxeTBRe895C542 o6rlVLDfvdAyyIgTwfku e2tdK003EDDmaVUbcyRn NkMzKVTfiRYnbHS1ZDAq JQ6ldntnAJfxDNvrIKJm tfR6ZOWcgZJvF0OzWGXl HC9dnvhzBDB2BPbxGMTp LVK4OtYdTCWph6Bxsiq8 GcDetz4lvu10BPI5g9Ix iNotXGR6MLM1JgCsNs1m aSVkMBDzXW9uDjIvpNFp MWBaru44hEwfTLwyiwQv iH0kZeIcZZDbqGDtFKVb KU1eoQYeIWEgeG4duwrm XHBnYnJkcmhlYWRccGdi oeHpFy4gdKcpEBP5PUei R8jdqI5gRvC6GWfpD4sg nY9pLRq8JDyyfTL8SWXp hB3kZN9liztky8tjGSvz MOwsQOWzlhF8ufH2CPSm mJBkY9LnnS9qNYHeRR9f uvapp7zzJDO3MApnCQCc WFQ0YqAuKQRuy0Ptvfo3 MzKge1AyyBGiKYjmA84n o707WBIexfGxC9aeuFIw blxwbGFpblxmMFxmczI0 XHFsXHBsYWluXGYxXGZz MjJcbGFuZzEwMzNcaGlj aFxmMVxkYmNoXGYxXGxv A2koVaDjXyRpKmAYTZCo ccmzXVqlJ05nxE8aJC65 IIDcrAFsnXMgxT1whK5u vMP2CKRowrAdmakgXxAj NDIkq7CmZMLoERJcE5rn gtXrSB3hVKBsqW0iUeTW ZMkaqmvkjxGBf8AyeEQp gMglDEqhYQAwDD0oRQfb EZQ0HVgaQ7flexIsVP4k CRGJWPZ5ZZQkZEQwYBZS YHbPLzHhBgQtElg8QLB3 DIUbexgqAKO6sHkezzPc IQeag3NtR5VlCcTbFQgi bnNpXGRlZmxhbmcxMDMz OXZ8blUdIULaCXheQCKj ZQltVq9ewUShlDhwJzVr GMPjr9vjelCErqjhcHb1 q3gtMKWbWxJ4tDPaXZtm T1tjumJvaLEyTRHaVUy1 bA06TNXpbH2gmDRpPVbz wyGbGnW5EQhlAPWnIxX0 BOMprNVqZLPvK9glIVDx XGdyZWVuMFxibHVlMCA7 gMvke2A5cWEggSNspXmi ItRaKyGxSpVId2OeKWn2 eQmhJ3HsZCIkPfA2kMVc UGFyYWdyYXBoIEZvbnQ7 yT66LMpqhdZ4tNCnl0Dr t34nb630lE8ohUIrQVL9 MTIyNDBccGFwZXJoMTU4 JQVkkQZzT7pzDNChTS7l cmdyMTgwMFxtYXJndDE0 JVBokJRaE2HfUKIdPXbj KRZhjzh6GsBfZo3wqCRf xPbwABwhk9skw7onrCNz Rwt6ARHtLjZgVzcjXPuv h2Tia1jbVWFihe4hFBJ5 mJImuMgkq5K1vTNfYUUg hWJsmqKwMNZvxj76qDJo xVJueQPkcw1usjAryVBb kJHbSNB1oKFqehSyJRJf lMGkOLWjEJLwW5htGuNn xcMvK8bmK2JqROCcDEBf NRPtCfFldzLfs1Jqd5Pg nDIgrTi1u2azWCEgTFLa uPpsb8tdSTL9CNMsD1N6 qIZar6hkKRvmCCFdcAA6 ppU2WYPhfHKnA5ZsjB2l HHNoUX9kmwl7s4ztZAP4 HIyhIDTmIcY0dfT1BITn cKCgKLJecTawPTmua621 CGZ8QeSgPPBzi2RdK2Ig xIcbT22bbMuqY76cWGEf rPusxR9cgPtbsQ4bGbFy ZnMyNFxxbFxwbGFpblxm MVxmczIyXGxhbmcxMDMz JBnxQ8rlOfVfNTXgzWee UXcil6HiTEExRMYoXdEw ZJmnP94rw5NiStCeiuCk cnByZXRhdGlvbiBwZXJm u5PqOVKsTRPqW4zualPj TS7aGKBsyB6sNpVJAWqk keeoxoLXl5BlvBMmjGxj KPpzUGRyLN7hHGjxEZP9 ZWiqG9engxIhYJ9tONSQ TMI8XPYrVLXdDOOHXVmS YrCiAxKpLkv8OHJ9SEHa clxwYXJccGFyZFxwbGFp qfhoYXqzcmG3WXZuLEtf XGYxXGZzMjJcbGFuZzEw MzNcaGljaFxmMVxkYmNo HUWvBRfwE9mdDpBaX2Oq UURfUaDrwBYmZ5bcJTGj x3IxjJ1npUIumHmreO3p TwGoHhFzBfdqDQ4xMIKh S1jmmRAhOXMfTCJzS7je VaEzdK3hjMhvRDbmoaFw BBKfplKrxF7fXxPICTSu MUbsXG6lhKTpNXkbuqxd FZ0UVmmeCOV9pL== [facility] Specimen Adequacy Satisfactory for interpretation. No endocervical component [facility] Bacteria identified Cx Nom ( U)Ordered By: Bryce Ramos on 04-07-2024 [facility] URINE CULTUREOrdered By: Harinder Ramos on 04-07-2024 Bacteria identified Cx Nom (U) <10,000 CFU/ml Normal urogenital don [facility] Bacteria Ur Culton Bacteria identified Cx Nom (U) ORGANISM ID: 1 <10,000 CFU/ml Normal urogenital dno Normal [facility] Comment on above: Performed By: #### 6 30-4 ####[facility] [id number] [place] [address] [place] C. trachomatis+N. gonorrhoea e DNA NOEMI+probe Ql (Unsp spec)on 04-06-2024 C. trachomatis rRNA NOEMI+probe Ql (Unsp spec) Not detected Not detected [facility] Interpretation and review of laboratory results Normal [facility] N. gonorrhoeae rRNA NOEMI+probe Ql (Unsp spec) Not detected Not detected [facility] This FDA-approved assay has been modified to accept rectal swabs self-collected in a healthcare setting. For self-collected rectal swabs, the test was developed and its performance characteristics determined by the [facility] [place] ([facility]). It has not been cleared or approved by the FDA. [facility] is regulated under CLIA as qualified to perform high-complexity testing. This test is used for clinical purposes. It should not be regarded as investigational or for research. [facility] C. trachomatis rRNA NOEMI+probe Ql (Unsp spec) Not detected Normal Not detected [facility] Comment on above: Order Comment: Speci men Type: SWABOrdering Facility: [facility] Address: [address] [place] [address] Performed By: #### 3 6902-5 ####[facility] [id number] [place] [address] [place] N. gonorrhoeae rRNA NOEMI+probe Ql (Unsp spec) Not detected Normal Not detected [facility] Comment on above: Order Comment: Speci men Type: SWABOrdering Facility: [facility] Address: [address] [place] [address] Performed By: #### 3 6902-5 ####[facility] [id number] [place] [address] [place] HIGH RISK HUMAN PAPILLOMA PREETI (HPV), PCR FOR DETECTION AND GENOTYPINGon 04-06-2024 HPV 16 Ag Ql (Unsp spec) Not detected Normal Not detec bessy [facility] Comment on above: Order Comment: Speci men Type: FLUID SPECIMENOrdering Facility: [facility] Address: [address] [place] [address] Performed By: #### H PVHRT ####[facility] [id number] [place] [address] [place] HPV 18 Ag Ql (Unsp spec) Not detected Normal Not detec [facility] Comment on above: Order Comment: Speci men Type: FLUID SPECIMENOrdering Facility: [facility] Address: [address] [place] [address] Performed By: #### H PVHRT ####[facility] [id number] [place] [address] [place] HPV 31+33+35+39+45+51+52+56+ 58+59+66+68 DNA NOEMI+probe Ql (Cvx) Not detected Normal Not detected [facility] Comment on above: Order Comment: Speci men Type: FLUID SPECIMENOrdering Facility: [facility] Address: [address] [place] [address] Result Comment: High Risk HPV Other Type includes HPV types 31, 33, 35, 39, 45, 51, 52, 56, 58, 59, 66 and 68. Performed By: #### H PVHRT ####[facility] [id number] [place] [address] [place] PAP TESTon 04-06-2024 ADEQUACY Normal [facility] Comment on above: Order Comment: Speci men Type: FLUID SPECIMENOrdering Facility: [facility] Address: [address] [place] [address] Result Comment: Sati sfactory for interpretation. No endocervical component Performed By: #### L [id number] ####[facility]ATORYCLIA [id number] [place] [id number] [facility]CLIA [id number] [place] [address] [place] CASE REPORT Normal [facility] Comment on above: Order Comment: Speci men Type: FLUID SPECIMENOrdering Facility: [facility] Address: [address] [place] [address] Result Comment: Gyne cologic Cytology Report Case: [id number] Authorizing Provider: Nadiya Anders APRN.CNM Collected: 04/06/2024 09:56 AM Ordering Location: OB/Gynecology Received: 04/06/2024 12:09 PM First Screen: Fuad, Heidi, CT, ASCP Specimen: Pap Test, ThinPrep, Cervix Performed By: #### L [id number] ####[facility]ORATORYCLIA [id number] [address] LABCLIA [id number] [place] [address] [place] CLINICAL HISTORY, CYTOLOGY, SLITTING AND SHIPPING SUPERVISOR Routine Exam Normal [facility] Comment on above: Order Comment: Speci men Type: FLUID SPECIMENOrdering Facility: [facility] Address: [address] [place] [address] Performed By: #### L [id number] ####[facility]ORATORYCLIA [id number] [place] [id number] [facility] [id number] [address] [place] FINAL PERFORMING LAB Normal [facility] Comment on above: Order Comment: Speci men Type: FLUID SPECIMENOrdering Facility: [facility] Address: [address] [place] [address] Result Comment: Tech nical component, geothermal operations manager screening performed at [facility], [address] [place] [address] CLIA# [id number] Diagnostic interpretation performed at [facility], [address] [place] [address] CLIA# [id number] Deicer Tester: Booker Reza M.D. Performed By: #### L [id number] ####[facility]ORATORYCLIA [id number] [place] [address] [facility]CLIA [id number] [place] [id number] [place] INTERPRETATION, CYTOLOGY, SLITTING AND SHIPPING SUPERVISOR Normal [facility] Comment on above: Order Comment: Speci men Type: FLUID SPECIMENOrdering Facility: [facility] Address: [address] [place] [address] Result Comment: Nega tive for intraepithelial lesion or malignancy. Performed By: #### L [id number] ####[facility]ATORYCLIA [id number] [place] [id number] [facility] [id number] [place] [id number] [place] LMP 02/10/[address] [facility] Comment on above: Order Comment: Speci men Type: FLUID SPECIMENOrdering Facility: [facility] Address: [address] [place] [address] Performed By: #### L [id number] ####[facility]ORATORYCLIA [id number] [place] [address] [facility]CL[facility] [id number] [address] [address] [place] PAP DISCLAIMER COMMENT The Pap Smear is a screening test for cervical cancer. False negative results occur with all screening tests, emphasizing the need for rescreening at recommended intervals, and clinical correlation. Normal [facility] Comment on above: Order Comment: Speci men Type: FLUID SPECIMENOrdering Facility: [facility] Address: [address] [place] [address] Performed By: #### L [id number] ####[facility]ORATORYCLIA [id number] [place] [id number] [facility]CL[facility] [id number] [address] PAP DESIGN LEAD COMMENT This specimen has been analyzed by the ThinPrep Imaging System, an automated imaging and review system, which assists the laboratory in evaluating cells on ThinPrep Pap tests. Following automated imaging, selected baker from every slide are reviewed by a geothermal operations manager. Normal [facility] Comment on above: Order Comment: Speci men Type: FLUID SPECIMENOrdering Facility: [facility] Address: [address] [place] [address] Performed By: #### L [id number] ####[facility]ORATORYCLIA [id number] [place] [id number] [facility] LABCLIA [id number] [address] POC PATIENT SUPPORT SPECIALIST ULTRASOUNDon 04-06-20 Indication Viability; confirm cardiac activity Impression Single intrauterine gestational sac, CRL is appropriate for clinical dates, corresponding to KEARA 11/16/2024. FHR 151 bpm Recommendations Follow up for NT scan if desired Method Transabdominal and transvaginal ultrasound examination [place] . Number of embryos: 1 Dating LMP on: 02/10/2024 GA by LMP 8 w + 0 d KEARA by LMP: 11/16/2024 Ultrasound examination on: 04/06/2024 GA by U/S based upon: CRL GA by U/S 7 w + 3 d KEARA by U/S: 11/20/2024 Assigned: based on the LMP, selected on 04/06/2024 Assigned GA 8 w + 0 d Assigned KEARA: 11/16/2024 Biometry Standard FHR 151 bpm CRL 12.5 mm 7w 3d 9% [place] Assessment Gestational sac: visualized Location: intrauterine Yolk sac: visualized Embryo: visualized CRL 12.5 mm 7w 3d 9% [place] Cardiac activity: present FHR 151 bpm General Evaluation Cardiac activity present. FHR 151 bpm Performed By: Nadiya Anders CNM Read By: Nadiya Anders CNM MATERNAL MEDICINE [facility] Radiology Study observation (narrative) Ramon laura [facility] Praveen 04-04-2024 CNPN Telephone (OBGYWM) SUN CARRERO ([id number]) 1990 F Date Time Provider Department 04/04/24 NADIYA ANDERS During your visit today, we recorded the following information about you: Catrina Villatoro RN 04/04/2024 9:37 AM Signed Left message for patient to return phone call to complete nurse intake questions for her upcoming appointment. Patient has an appointment with Nadiya Jeffries for NOB appointment. I am here all day today and 1/2 day tomorrow in AM Aylin Rubio RN 04/04/2024 9:57 AM Signed Today at 1:00 PM. Aylin Rubio RN Allergies As of Date: 04/04/2024 (No Known Allergies) Date Reviewed: 07/14/2023 Reviewed by: Adalgisa Rand MA - Fully Assessed Reason for Visit: Appointment [186] Prescriptions as of 04/04/2024 - fluocinolone (SYNALAR) 0.025 % ointment Apply to affected area as directed. APPLY TO AFFECTED AREA THREE TIMES DAILY FOR 2 WEEKS THEN TWICE A DAY FOR TWO WEEKS THEN ONCE A DAY FOR A MONTH THEN PRN - ferrous sulfate (SLOW FE ORAL) Take by mouth. - IBUPROFEN ORAL Take by mouth. - acetaminophen (TYLENOL ORAL) Take by mouth. - 21/iron fu/folic acid ( COMPLETE ORAL) Take by mouth. 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] 09/21/2009 03/10/2022 History of anemia [Z86.2] 10/01/2011 03/10/2022 Irregular menses [N92.6] 10/01/2011 03/10/2022 MANNY (generalized anxiety disorder) [F41.1] 01/16/2021 Mixed obsessional thoughts and acts [F42.2] 01/16/2021 Screening for hyperlipidemia [Z13.220] 01/16/2021 03/10/2022 Hyperlipidemia, mixed [E78.2] 01/30/2021 Abnormal urine [R82.90] 01/30/2021 03/10/2022 Spotting complicating , first trimeste*05/27/2021 03/10/2022 Spotting in [O26.859] 05/29/2021 03/10/2022 Obesity in [O99.210] 05/29/2021 06/25/2022 History of anxiety [Z86.59] 05/29/2021 03/10/2022 Patient request for diagnostic testing [Z01.89] 05/29/2021 06/25/2022 Current with history of spontaneous a*10/17/2021 06/25/2022 Abnormal glucose complicating [O99.81*03/10/2022 06/25/2022 Anemia during in third trimester [O99*03/10/2022 06/25/2022 Excessive growth affecting management of *04/09/2022 06/25/2022 Gestational hypertension without significant pr*04/29/2022 06/25/2022 Encounter Status:Closed by CATRINA VILLATORO on 04/04/[address] [facility] B-HCG Elizabeth-Jake 4 HCG.beta subunit Qn 2241.0 m[IU]/mL High <5.[address] [facility] Comment on above: Order Comment: Speci men Type: BLOOD SPECIMEN Ordering Facility: [facility] Address: [address] [place] [address] Result Comment: MACKENZIE TITATIVE HCG NORMAL RANGES Weeks of Gestation (Weeks Since LMP) 3 Weeks (5.8-71.2 mIU/mL) 4 Weeks (9.5-750 mIU/mL) 5 Weeks (217-7138 mIU/mL) 6 Weeks (158-15073 mIU/mL) 7 Weeks (3697-095980 mIU/mL) 8 Weeks (41151-807006 mIU/mL) 9 Weeks (56433-027881 mIU/mL) 10 Weeks (95692-361368 mIU/mL) 12 Weeks (17022-168436 mIU/mL) Referenced to 4th IS of [facility] Performed By: #### 2 1198-7 #### [facility] CLIA [id number] [address] [place] [address] [place] B[facility] 4 HCG.beta subunit Qn 1094.0 m[IU]/mL High <5.[address] [facility] Comment on above: Order Comment: Speci men Type: BLOOD SPECIMEN Ordering Facility: [facility] Address: [address] [place] [address] Result Comment: MACKENZIE TITATIVE HCG NORMAL RANGES Weeks of Gestation (Weeks Since LMP) 3 Weeks (5.8-71.2 mIU/mL) 4 Weeks (9.5-750 mIU/mL) 5 Weeks (217-7138 mIU/mL) 6 Weeks (158-24758 mIU/mL) 7 Weeks (3697-191651 mIU/mL) 8 Weeks (60520-541217 mIU/mL) 9 Weeks (20305-281499 mIU/mL) 10 Weeks (45435-474913 mIU/mL) 12 Weeks (15109-110791 mIU/mL) Referenced to 4th IS of [facility] Performed By: #### 2 1198-7 #### [facility] CLIA [id number] [address] [place] [address] [place] CNPCici 03-16-2024 CNPN Telephone (OBGYWM) GONZALOSUN Santos ([id number]) 1990 F Date Time Provider Department 03/16/24 VENU DHALIWAL During your visit today, we recorded the following information about you: Allergies As of Date: 03/16/2024 (No Known Allergies) Date Reviewed: 07/14/2023 Reviewed by: Adalgisa Rand MA - Fully Assessed Reason for Visit: Orders [681] Primary Visit Diagnosis:Positive test [Z32.01] Order(s):HCG QUANTITATIVE [SQHCGQT] Order #: [id number] STANDING Prescriptions as of 03/16/2024 - fluocinolone (SYNALAR) 0.025 % ointment Apply to affected area as directed. APPLY TO AFFECTED AREA THREE TIMES DAILY FOR 2 WEEKS THEN TWICE A DAY FOR TWO WEEKS THEN ONCE A DAY FOR A MONTH THEN PRN - ferrous sulfate (SLOW FE ORAL) Take by mouth. - IBUPROFEN ORAL Take by mouth. - acetaminophen (TYLENOL ORAL) Take by mouth. - 21/iron fu/folic acid ( COMPLETE ORAL) Take by mouth. Problem List As Of Date 03/16/2024 Noted Resolved Pruritus [L29.9] 09/21/2009 03/10/2022 Telogen effluvium [L65.0] 09/21/2009 03/10/2022 History of anemia [Z86.2] 10/01/2011 03/10/2022 Irregular menses [N92.6] 10/01/2011 03/10/2022 MANNY (generalized anxiety disorder) [F41.1] 01/16/2021 Mixed obsessional thoughts and acts [F42.2] 01/16/2021 Screening for hyperlipidemia [Z13.220] 01/16/2021 03/10/2022 Hyperlipidemia, mixed [E78.2] 01/30/2021 Abnormal urine [R82.90] 01/30/2021 03/10/2022 Spotting complicating , first trimeste*05/27/2021 03/10/2022 Spotting in [O26.859] 05/29/2021 03/10/2022 Obesity in [O99.210] 05/29/2021 06/25/2022 History of anxiety [Z86.59] 05/29/2021 03/10/2022 Patient request for diagnostic testing [Z01.89] 05/29/2021 06/25/2022 Current with history of spontaneous a*10/17/2021 06/25/2022 Abnormal glucose complicating [O99.81*03/10/2022 06/25/2022 Anemia during in third trimester [O99*03/10/2022 06/25/2022 Excessive growth affecting management of *04/09/2022 06/25/2022 Gestational hypertension without significant pr*04/29/2022 06/25/2022 Encounter Status:Closed by VENU DHALIWAL on 03/16/[address] [facility] UA DIP,URINE HCG (POC)on Beta HCG ( test) Ql (U) Negative Negative [facility] Leather Staker (POCT) Internal QC OK [facility] Basophil percentageon 2022 WBC (Bld) [#/Vol] 11.5 10*3/uL 4.4-11.0 [facility] Work Phone: Blood erythrocytes count (nu mber/volume)on 05-06-2022 RBC (Bld) [#/Vol] 3.04 10*6/uL 4.2-5.4 [facility] Work Phone: Blood hemoglobin measurement (mass/volume)on 05-06-2022 Hemoglobin (Bld) [Mass/Vol] 8.6 g/dL 12.0-15.0 [facility] Work Phone: Blood platelet mean volumeon 05-06-2022 Platelet mean volume (Bld) [Entitic vol] 9.9 fL 6.2-12.0 [facility] Work Phone: Determination of erythrocyte mean corpuscular volume (MCV)on 05-06-2022 MCV (RBC) [Entitic vol] 90.5 fL 81-99 [facility] Work Phone: Hematocrit Auto (Bld) [Volum e fraction]on 05-06-2022 Hematocrit (Bld) [Volume fraction] 27.5 % 37-47 [facility] Work Phone: Laboratory - Hematology and Cell countson 05-06-2022 Erythrocyte distribution width (RBC) [Entitic vol] 49.1 fL 35.1-43.9 [facility] Work Phone: Erythrocyte distribution width (RBC) [Ratio] 14.9 % 11.6-14.6 [facility] Work Phone: MCH (RBC) [Entitic mass] 28.3 pg 27.0-32.0 [facility] Work Phone: MCHC Auto (RBC) [Mass/Vol]on 05-06-2022 MCHC (RBC) [Mass/Vol] 31.3 g/dL 32-36 [facility] Work Phone: Platelets bldon 05-06-2022 Platelets (Bld) [#/Vol] 273 10*3/uL 150-450 [facility] Work Phone: Absolute lymphocyte counton 05-03-2022 Lymphocytes Auto (Unsp spec) [#/Vol] 2.35 10*3/uL 0.83-4.51 [facility] Work Phone: Basophil percentageon 2022 Basophils/100 WBC (Bld) 0.2 % 0-1 [facility] Work Phone: Eosinophils/100 WBC (Bld) 0.2 % 0-5 [facility] Work Phone: Neutrophils (Bld) [#/Vol] 11.1 10*3/uL 2.0-7.7 [facility] Work Phone: Neutrophils/100 WBC (Bld) 76.3 % 47-70 [facility] Work Phone: Blood lymphocytes/100 leukoc yteson 05-03-2022 Lymphocytes/100 WBC (Bld) 16.2 % 19-41 [facility] Work Phone: Blood monocytes/100 leukocyt eson 05-03-2022 Monocytes/100 WBC (Bld) 6.3 % 0-10 [facility] Work Phone: Laboratory - Chemistry and C hemistry - challengeon 05-03-2022 ALT [Catalytic activity/Vol] 24 U/L 13-56 [facility] Work Phone: Laboratory - Hematology and Cell countson 05-03-2022 Immature granulocytes/100 WBC (Bld) 0.800 % 0.0-0.9 [facility] Work Phone: Comment on above: IG% - Immature Granu locytes (promyelocytes, myelocytes and metamyelocytes) > 1% indicates that a LEFT SHIFT is Present. Nucleated RBC/100 WBC (Bld) [Ratio] 0 % 0-5 [facility] Work Phone: No Panel Informationon 05-03 Estimated Creatinine Clearance Calc 105.69 ml/min [facility] Work Phone: Estimated GFR (MDRD) Amer 146 mL/min >60 [facility] Work Phone: Comment on above: GFR Calc Estimated GFR (MDRD) Non-Af Amer 120 mL/min >60 [facility] Work Phone: Comment on above: Non- GFR Calc Serum or plasma creatinine m easurement (mass/volume)on 05-03-2022 Creatinine [Mass/Vol] 0.61 mg/dL 0.55-1.02 [facility] Work Phone: Comment on above: The validity of the calculated GFR & GFRAA in patients over 70 years has not been determined. Clinical correlation is essential. Serum or plasma uric acid me asurement (mass/volume)on 05-03-2022 Urate [Mass/Vol] 3.8 mg/dL 2.6-6.0 [facility] Work Phone: Comment on above: The drugs N-Acetylcy steine and Metamizole may falsely depress this assay. Thin prep Papanicolaou smear with manual screeningon 05-03-2022 Thin prep Papanicolaou smear with manual screening 16 U/L 15-37 [facility] Work Phone: Urine creatinine measurement (mass/volume)on 05-03-2022 Creatinine (U) [Mass/Vol] mg/dL NO RANGE EST. [facility] Work Phone: [phone] Urine protein measurement (m ass/volume)on 05-03-2022 Protein (U) [Mass/Vol] 9.9 mg/dL 0.0-11.8 [facility] Work Phone: [phone] Urine protein/creatinine mas s ratioon 05-03-2022 Protein/Creatinine (U) [Mass ratio] TNP [facility] Work Phone: Comment on above: Test not performed Basophil percentageon 2022 WBC (Bld) [#/Vol] 11.0 10*3/uL 4.4-11.0 [facility] Work Phone: Blood erythrocytes count (nu mber/volume)on 05-02-2022 RBC (Bld) [#/Vol] 3.48 10*6/uL 4.2-5.4 [facility] Work Phone: [phone] Blood hemoglobin measurement (mass/volume)on 05-02-2022 Hemoglobin (Bld) [Mass/Vol] 9.8 g/dL 12.0-15.0 [facility] Work Phone: [phone] Blood platelet mean volumeon 05-02-2022 Platelet mean volume (Bld) [Entitic vol] 10.1 fL 6.2-12.0 [facility] Work Phone: [phone] Determination of erythrocyte mean corpuscular volume (MCV)on 05-02-2022 MCV (RBC) [Entitic vol] 89.1 fL 81-99 [facility] Work Phone: [phone] Hematocrit Auto (Bld) [Volum e fraction]on 05-02-2022 Hematocrit (Bld) [Volume fraction] 31.0 % 37-47 [facility] Work Phone: [phone] Laboratory - Chemistry and C hemistry - challengeon 05-02-2022 ALT [Catalytic activity/Vol] 17 U/L 13-56 [facility] Work Phone: [phone] Laboratory - Hematology and Cell countson 05-02-2022 Erythrocyte distribution width (RBC) [Entitic vol] 45.1 fL 35.1-43.9 [facility] Work Phone: [phone] Erythrocyte distribution width (RBC) [Ratio] 14.1 % 11.6-14.6 [facility] Work Phone: [phone] MCH (RBC) [Entitic mass] 28.2 pg 27.0-32.0 [facility] Work Phone: [phone] MCHC Auto (RBC) [Mass/Vol]on 05-02-2022 MCHC (RBC) [Mass/Vol] 31.6 g/dL 32-36 [facility] Work Phone: No Panel Informationon 05-02 Estimated Creatinine Clearance Calc 116.06 ml/min [facility] Work Phone: Estimated GFR (MDRD) Amer 174 mL/min >60 [facility] Work Phone: Comment on above: GFR Calc Estimated GFR (MDRD) Non-Af Amer 143 mL/min >60 [facility] Work Phone: Comment on above: Non- GFR Calc Platelets bldon 05-02-2022 Platelets (Bld) [#/Vol] 236 10*3/uL 150-450 [facility] Work Phone: [phone] Serum or plasma creatinine m easurement (mass/volume)on 05-02-2022 Creatinine [Mass/Vol] 0.53 mg/dL 0.55-1.02 [facility] Work Phone: [phone] Comment on above: The validity of the calculated GFR & GFRAA in patients over 70 years has not been determined. Clinical correlation is essential. Serum or plasma uric acid me asurement (mass/volume)on 05-02-2022 Urate [Mass/Vol] 4.1 mg/dL 2.6-6.0 [facility] Work Phone: Comment on above: The drugs N-Acetylcy steine and Metamizole may falsely depress this assay. Thin prep Papanicolaou smear with manual screeningon 05-02-2022 Thin prep Papanicolaou smear with manual screening 11 U/L 15-37 [facility] Work Phone: Urine creatinine measurement (mass/volume)on 05-02-2022 Creatinine (U) [Mass/Vol] 21.00 mg/dL NO RANGE EST. [facility] Work Phone: Urine protein measurement (m ass/volume)on 05-02-2022 Protein (U) [Mass/Vol] 7.8 mg/dL 0.0-11.8 [facility] Work Phone: Urine protein/creatinine mas s ratioon 05-02-2022 Protein/Creatinine (U) [Mass ratio] 371 mg/g CRE 0-200 [facility] Work Phone: No Panel Informationon 04-29 [facility] PROTEIN CREATININE RATIOon 1 Protein/Creatinine (U) [Mass ratio] High <0.15 mg/mg [facility] Protein/Creatinine (U) [Mass ratio]on 04-24-2022 Creatinine (U) [Mass/Vol] 15.0 mg/dL Low 20.0 - 300.0 mg/dL [facility] Protein (U) [Mass/Vol] 0 - 20 mg/dL [facility] CBC panel Auto (Bld)on 04-23 Erythrocyte distribution width (RBC) [Ratio] 14.0 % 11.5 - 15.0 % [facility] Hematocrit (Bld) [Volume fraction] 31.3 % Low 36.0 - 46.0 % [facility] Hemoglobin (Bld) [Mass/Vol] 10.2 g/dL Low 11.5 - 15.5 g/dL [facility] MCH (RBC) [Entitic mass] 28.3 pg 26.0 - 34.0 pg [facility] MCHC (RBC) [Mass/Vol] 32.6 g/dL 30.5 - 36.0 g/dL [facility] MCV (RBC) [Entitic vol] 86.9 fL 80.0 - 100.0 fL [facility] Nucleated RBC (Bld) [#/Vol] <0.01 k/uL [facility] Platelet mean volume (Bld) [Entitic vol] 9.6 fL 9.0 - 12.7 fL [facility] Platelets (Bld) [#/Vol] 239 10*3/uL 150 - 400 k /uL [facility] RBC (Bld) [#/Vol] 3.60 10*6/uL Low 3.90 - 5.2 0 m/uL [facility] WBC (Bld) [#/Vol] 13.21 10*3/uL High 3.70 - 11 .00 k/uL [facility] Comprehensive metabolic 2000 panelon 04-23-2022 Albumin [Mass/Vol] 3.4 g/dL Low 3.9 - 4.9 g/dL Cl [facility] ALP [Catalytic activity/Vol] 138 U/L High 34 - 123 U/L [facility] ALT [Catalytic activity/Vol] 12 U/L 7 - 38 U/L [facility] Anion gap [Moles/Vol] 10 mmol/L 9 - 18 mmol/L [facility] AST [Catalytic activity/Vol] 12 U/L Low 13 - 35 U/L [facility] Bilirubin [Mass/Vol] 0.2 mg/dL 0.2 - 1 .3 mg/dL [facility] Calcium [Mass/Vol] 9.9 mg/dL 8.5 - 10. 2 mg/dL [facility] Chloride [Moles/Vol] 102 mmol/L 97 - 10 5 mmol/L [facility] CO2 [Moles/Vol] 25 mmol/L 22 - 30 mmol/L [facility] Creatinine [Mass/Vol] 0.63 mg/dL 0.58 - 0.96 mg/dL [facility] Estimated Glomerular Filtration Rate 122 mL/min/1.73m >=60 mL/min/1.73m [facility] Glucose [Mass/Vol] 86 mg/dL 74 - 99 mg/dL [facility] Potassium [Moles/Vol] 3.7 mmol/L 3.7 - 5.1 mmol/L [facility] Protein [Mass/Vol] 6.2 g/dL Low 6.3 - 8.0 g/dL [facility] Sodium [Moles/Vol] 137 mmol/L 136 - 144 mmol/L [facility] Urea nitrogen [Mass/Vol] 7 mg/dL 7 - 21 mg/d L [facility] URINE OB DIP B/Oon 2 Glucose Ql (U) Negative Neg mg/dL [facility] Protein.monoclonal (U) [Mass/Vol] Negative Neg mg/dL [facility] URINE OB DIP B/Oon 2 Glucose Ql (U) Negative Neg mg/dL [facility] Protein.monoclonal (U) [Mass/Vol] Negative Neg mg/dL [facility] OBSTETRIC ULTRASOUND WHIon 1 2021 [facility] URINE OB DIP B/Oon 2 Glucose Ql (U) Negative Neg mg/dL [facility] Protein.monoclonal (U) [Mass/Vol] Negative Neg mg/dL [facility] URINE OB DIP B/Oon 2 Glucose Ql (U) Negative Neg mg/dL [facility] Protein.monoclonal (U) [Mass/Vol] Negative Neg mg/dL [facility] OBSTETRIC ULTRASOUND WHIon 0 01-24-2022 [facility] URINE OB DIP B/Oon 2 Glucose Ql (U) Negative Neg mg/dL [facility] Protein.monoclonal (U) [Mass/Vol] Negative Neg mg/dL [facility] OBSTETRIC ULTRASOUND WHIon 0 12-27-2021 [facility] URINE OB DIP B/Oon 2 Glucose Ql (U) Negative Neg mg/dL [facility] Protein.monoclonal (U) [Mass/Vol] trace Neg mg/dL [facility] NUCHAL TRANSLUCENCY WHIon [facility] URINE OB DIP B/Oon 2 Glucose Ql (U) Negative Neg mg/dL [facility] Protein.monoclonal (U) [Mass/Vol] Negative Neg mg/dL [facility] Bacteria Ur Culton 1 Bacteria identified Cx Nom (U) CULTURE, URINE: No growth (<1,000 CFU/ml) Normal [facility] Comment on above: Performed By: #### 6 30-4 #### [facility] CLIA [id number] [address] [place] [address] [place] CNOVon 01-30-2021 CNOV Office Visit (FPDOYL) SUN CARRERO ([id number]) 1990 F Date Time Provider Department 01/30/21 8:45 AM DANIEL SANCHEZ FPDOYL During your visit today, we recorded the following information about you: Temperature Pulse Blood pressure Weight 98 degrees 85/minute 108/78 92.1 kg Height 1.549 m Daniel Sanchez DO 02/06/2021 10:49 PM Signed [facility] [place] Daniel Sanchez DO [address] [place] [address] Date of Evaluation: 01/30/2021 Patient Name: Sun Carrero : 1990 Chief Complaint: Patient presents with: Follow Up: new medication for anxiety and ocd Nursing Intake: There are no exam notes on file for this visit. Subjective Ms. Carrero is a 30 year old female who presents with the following complaint(s): The history is provided by the patient. No foreign languages department chair was used. Review of Systems Constitutional: Negative for fatigue and unexpected weight change. HENT: Negative for nosebleeds. Eyes: Negative for redness and visual disturbance. Respiratory: Negative for apnea, cough and shortness of breath. Cardiovascular: Negative for chest pain, palpitations and leg swelling. Genitourinary: Negative for hematuria. Neurological: Negative for dizziness, weakness, light-headedness, numbness and headaches. Hematological: Does not bruise/bleed easily. Psychiatric/Behavior al: The patient is nervous/anxious. PAST MEDICAL HISTORY Diagnosis Date - PMH - PAST MEDICAL HISTORY OF normal color vision PAST SURGICAL HISTORY Procedure Laterality Date - EXTRACTION, ERUPTED TOOTH OR EXPOSED ROOT (ELEVATION AND/OR FORCEPS REMOVAL) 2008 wisdom teeth x 4 FAMILY HISTORY Problem Relation Age of Onset - No Known Problems Mother - No Known Problems Father - No Known Problems Brother - Emphysema Maternal Grandmother Smoker Social History Tobacco Use - Smoking status: Never Smoker - Smokeless tobacco: Never Used Vaping Use - Vaping Use: Never used Substance Use Topics - Alcohol use: Yes Comment: Occasionally - Drug use: No Current Medications MEDICATION, NON-DATABASE nutrafol for women vitamin citalopram (CELEXA) 20 mg tablet Take 0.5 tablets by mouth once daily for 7 days, THEN 1 tablet once daily. I have confirmed and edited as necessary the past medical, family and social histories, HPI, and ROS obtained by others. Objective BP 108/78 Pulse 85 Temp 98 Ht 5' 1 (1.55m) Wt 203 lb (92.1kg) SpO2 97% LMP 01/07/2021 BMI 38.38 kg/(m2). Physical Exam Vitals and nursing note reviewed. Constitutional: General: She is not in acute distress. Appearance: Normal appearance. She is well-developed. She is not ill-appearing. HENT: Head: Normocephalic. Right Ear: Tympanic membrane, ear canal and external ear normal. There is no impacted cerumen. Left Ear: Tympanic membrane, ear canal and external ear normal. There is no impacted cerumen. Nose: Nose normal. Mouth/Throat: Mouth: Mucous membranes are moist. Pharynx: Oropharynx is clear. Uvula midline. No oropharyngeal exudate or posterior oropharyngeal erythema. Eyes: General: Lids are normal. Vision grossly intact. Gaze aligned appropriately. No scleral icterus. Right eye: No discharge. Left eye: No discharge. Extraocular Movements: Extraocular movements intact. Conjunctiva/sclera: Conjunctivae normal. Pupils: Pupils are equal, round, and reactive to light. Neck: Thyroid: No thyroid mass, thyromegaly or thyroid tenderness. Vascular: No carotid bruit. Trachea: Trachea and phonation normal. Cardiovascular: Rate and Rhythm: Normal rate and regular rhythm. Pulses: Normal pulses. Heart sounds: Normal heart sounds. Pulmonary: Effort: Pulmonary effort is normal. Breath sounds: Normal breath sounds. Abdominal: General: Abdomen is flat. Bowel sounds are normal. Palpations: Abdomen is soft. Musculoskeletal: General: Normal range of motion. Right shoulder: Normal. Left shoulder: Normal. Cervical back: Normal, full passive range of motion without pain and neck supple. No tenderness. No spinous process tenderness. Thoracic back: Normal. Lumbar back: Normal. Right knee: Normal. Left knee: Normal. Right lower leg: No edema. Left lower leg: No edema. Lymphadenopathy: Cervical: No cervical adenopathy. Skin: General: Skin is warm and dry. Neurological: General: No focal deficit present. Mental Status: She is alert and oriented to person, place, and time. Mental status is at baseline. Cranial Nerves: Cranial nerves are intact. Sensory: Sensation is intact. Motor: Motor function is intact. Psychiatric: Attention and Perception: Attention and perception normal. Mood and Affect: Mood normal. Speech: Speech normal. Behavior: Behav (more content not included)... Normal [facility] CBC W Auto Differential pane l (Bld)on 01-16-2021 Abs Immature Gran 0.04 k/uL <0.10 k/uL [facility] Basophils (Bld) [#/Vol] 0.06 10*3/uL <0.11 k/uL [facility] Basophils/100 WBC (Bld) 0.7 % [facility] Differential cell count method Nom (Bld) Auto [facility] Eosinophils (Bld) [#/Vol] 0.17 10*3/uL <0.46 k/uL [facility] Eosinophils/100 WBC (Bld) 2.0 % [facility] Erythrocyte distribution width (RBC) [Ratio] 12.8 % 11.5 - 15.0 % [facility] Hematocrit (Bld) [Volume fraction] 42.5 % 36.0 - 46.0 % [facility] Hemoglobin (Bld) [Mass/Vol] 13.3 g/dL 11.5 - 15.5 g/dL [facility] Immature Gran % 0.5 % [facility] Lymphocytes (Bld) [#/Vol] 2.70 10*3/uL 1.00 - 4.00 k/uL [facility] Lymphocytes/100 WBC (Bld) 31.3 % [facility] MCH (RBC) [Entitic mass] 29.0 pg 26.0 - 34.0 pg [facility] MCHC (RBC) [Mass/Vol] 31.3 g/dL 30.5 - 36.0 g/dL [facility] MCV (RBC) [Entitic vol] 92.6 fL 80.0 - 100.0 fL [facility] Monocytes (Bld) [#/Vol] 0.46 10*3/uL <0.87 k/uL [facility] Monocytes/100 WBC (Bld) 5.3 % [facility] Neutrophils (Bld) [#/Vol] 5.21 10*3/uL 1.45 - 7.50 k/uL [facility] Neutrophils/100 WBC (Bld) 60.2 % [facility] Nucleated RBC (Bld) [#/Vol] 10*3/uL <0.01 k/uL [facility] Nucleated RBC/100 WBC (Bld) [Ratio] 0.0 /100 WBC 0.0 /100 WBC [facility] Platelet mean volume (Bld) [Entitic vol] 10.1 fL 9.0 - 12.7 fL [facility] Platelets (Bld) [#/Vol] 376 10*3/uL 150 - 400 k /uL [facility] RBC (Bld) [#/Vol] 4.59 10*6/uL 3.90 - 5.2 0 m/uL [facility] WBC (Bld) [#/Vol] 8.64 10*3/uL 3.70 - 11. 00 k/uL [facility] Basophils (Bld) [#/Vol] 0.06 10*3/uL Normal <0.11 [facility] Comment on above: Order Comment: Speci men Type: BLOOD SPECIMEN Performed By: #### 5 7021-8 #### [facility] CLIA [id number] [address] Basophils/100 WBC (Bld) 0.7 % Normal [facility] Comment on above: Order Comment: Speci men Type: BLOOD SPECIMEN Performed By: #### 5 7021-8 #### [facility] CLIA [id number] [address] Differential cell count method Nom (Bld) Auto Normal [facility] Comment on above: Order Comment: Speci men Type: BLOOD SPECIMEN Performed By: #### 5 7021-8 #### [facility] CLIA [id number] [address] Eosinophils (Bld) [#/Vol] 0.17 10*3/uL Normal <0.46 [facility] Comment on above: Order Comment: Speci men Type: BLOOD SPECIMEN Performed By: #### 5 7021-8 #### [facility] CLIA [id number] [address] Eosinophils/100 WBC (Bld) 2.0 % Normal [facility] Comment on above: Order Comment: Speci men Type: BLOOD SPECIMEN Performed By: #### 5 7021-8 #### [facility] CLIA [id number] [address] Erythrocyte distribution width (RBC) [Ratio] 12.8 % Normal 11.5-15.0 [facility] Comment on above: Order Comment: Speci men Type: BLOOD SPECIMEN Performed By: #### 5 7021-8 #### [facility] CLIA [id number] [address] Hematocrit (Bld) [Volume fraction] 42.5 % Normal 36.0-46.0 [facility] Comment on above: Order Comment: Speci men Type: BLOOD SPECIMEN Performed By: #### 5 7021-8 #### [facility] CLIA [id number] [address] Hemoglobin (Bld) [Mass/Vol] 13.3 g/dL Normal 11.5-15.5 [facility] Comment on above: Order Comment: Speci men Type: BLOOD SPECIMEN Performed By: #### 5 7021-8 #### [facility] CLIA [id number] [address] IMMATURE GRAN % 0.5 % Normal [facility] Comment on above: Order Comment: Speci men Type: BLOOD SPECIMEN Performed By: #### 5 7021-8 #### [facility] CLIA [id number] [address] IMMATURE GRAN ABS 0.04 k/uL Normal <0.10 [facility] Comment on above: Order Comment: Speci men Type: BLOOD SPECIMEN Performed By: #### 5 7021-8 #### [facility] CLIA [id number] [address] Lymphocytes (Bld) [#/Vol] 2.70 10*3/uL Normal 1.00-4.00 [facility] Comment on above: Order Comment: Speci men Type: BLOOD SPECIMEN Performed By: #### 5 7021-8 #### [facility] CLIA [id number] [address] Lymphocytes/100 WBC (Bld) 31.3 % Normal [facility] Comment on above: Order Comment: Speci men Type: BLOOD SPECIMEN Performed By: #### 5 7021-8 #### [facility] CLIA [id number] [address] MCH (RBC) [Entitic mass] 29.0 pg Normal 26.0-34.0 [facility] Comment on above: Order Comment: Speci men Type: BLOOD SPECIMEN Performed By: #### 5 7021-8 #### [facility] CLIA [id number] [address] MCHC (RBC) [Mass/Vol] 31.3 g/dL Normal 30.5-36.0 [facility] Comment on above: Order Comment: Speci men Type: BLOOD SPECIMEN Performed By: #### 5 7021-8 #### [facility] CLIA [id number] [address] MCV (RBC) [Entitic vol] 92.6 fL Normal 80.0-100.0 [place] Comment on above: Order Comment: Speci men Type: BLOOD SPECIMEN Performed By: #### 5 7021-8 #### [facility] CLIA [id number] [address] Monocytes (Bld) [#/Vol] 0.46 10*3/uL Normal <0.87 [facility] Comment on above: Order Comment: Speci men Type: BLOOD SPECIMEN Performed By: #### 5 7021-8 #### [facility] CLIA [id number] [address] Monocytes/100 WBC (Bld) 5.3 % Normal [facility] Comment on above: Order Comment: Speci men Type: BLOOD SPECIMEN Performed By: #### 5 7021-8 #### [facility] CLIA [id number] [address] Neutrophils (Bld) [#/Vol] 5.21 10*3/uL Normal 1.45-7.50 [facility] Comment on above: Order Comment: Speci men Type: BLOOD SPECIMEN Performed By: #### 5 7021-8 #### [facility] CLIA [id number] [address] Neutrophils/100 WBC (Bld) 60.2 % Normal [facility] Comment on above: Order Comment: Speci men Type: BLOOD SPECIMEN Performed By: #### 5 7021-8 #### [facility] CLIA [id number] [address] Nucleated RBC (Bld) [#/Vol] 10*3/uL Normal <0.01 [facility] Comment on above: Order Comment: Speci men Type: BLOOD SPECIMEN Performed By: #### 5 7021-8 #### [facility] CLIA [id number] [address] Nucleated RBC/100 WBC (Bld) [Ratio] 0.0 /100 WBC Normal 0.0 [facility] Comment on above: Order Comment: Speci men Type: BLOOD SPECIMEN Performed By: #### 5 7021-8 #### [facility] CLIA [id number] [address] Platelet mean volume (Bld) [Entitic vol] 10.1 fL Normal 9.0-12.7 [facility] Comment on above: Order Comment: Speci men Type: BLOOD SPECIMEN Performed By: #### 5 7021-8 #### [facility] CLIA [id number] [address] Platelets (Bld) [#/Vol] 376 10*3/uL Normal 150-400 [facility] Comment on above: Order Comment: Speci men Type: BLOOD SPECIMEN Performed By: #### 5 7021-8 #### [facility] CLIA [id number] [address] RBC (Bld) [#/Vol] 4.59 10*6/uL Normal 3.90-5.20 [facility] Comment on above: Order Comment: Speci men Type: BLOOD SPECIMEN Performed By: #### 5 7021-8 #### [facility] CLIA [id number] [address] WBC (Bld) [#/Vol] 8.64 10*3/uL Normal 3.70-11.00 [facility] Comment on above: Order Comment: Speci men Type: BLOOD SPECIMEN Performed By: #### 5 7021-8 #### [facility] CLIA [id number] [address] CNOVon 01-16-2021 CNOV Office Visit (FPDOYL) SUN CARRERO ([id number]) 1990 F Date Time Provider Department 01/16/21 8:00 AM DANIEL SANCHEZ During your visit today, we recorded the following information about you: Temperature Pulse Blood pressure Weight 97.2 degrees 77/minute 120/90 93 kg Height 1.549 m Daniel Sanchez DO 01/21/2021 6:33 AM [facility] [address] [facility] [place] [address] Date of Evaluation: 01/16/2021 Patient Name: Sun Carrero : 1990 Chief Complaint: Patient presents with: New Patient Follow Up: after seeing therapist. suggested blood work Nursing Intake: There are no exam notes on file for this visit. Subjective Ms. Carrero is a 30 year old female who presents with the following complaint(s): The history is provided by the patient. No foreign languages department chair was used. Anxiety Pertinent negatives include no weakness. This is a new problem. The current episode started more than 1 month ago. The problem has been gradually worsening since onset. (OCD thoughts and actions. Takes pictures of the doors at night to make sure they are locked . ) Treatments tried: Counseling Improvement on treatment: was advised to discuss SSRI. Review of Systems Constitutional: Negative for fatigue and unexpected weight change. HENT: Negative for nosebleeds. Eyes: Negative for redness and visual disturbance. Respiratory: Negative for apnea, cough and shortness of breath. Cardiovascular: Negative for chest pain, palpitations and leg swelling. Genitourinary: Negative for hematuria. Neurological: Negative for dizziness, weakness, light-headedness, numbness and headaches. Hematological: Does not bruise/bleed easily. Psychiatric/Behavior al: Positive for sleep disturbance. The patient is nervous/anxious. PAST MEDICAL HISTORY Diagnosis Date - PMH - PAST MEDICAL HISTORY OF normal color vision PAST SURGICAL HISTORY Procedure Laterality Date - EXTRACTION, ERUPTED TOOTH OR EXPOSED ROOT (ELEVATION AND/OR FORCEPS REMOVAL) 2008 wisdom teeth x 4 FAMILY HISTORY Problem Relation Age of Onset - No Known Problems Mother - No Known Problems Father - No Known Problems Brother - Emphysema Maternal Grandmother Smoker Social History Tobacco Use - Smoking status: Never Smoker - Smokeless tobacco: Never Used Vaping Use - Vaping Use: Never used Substance Use Topics - Alcohol use: Yes Comment: Occasionally - Drug use: No Current Meds MEDICATION, NON-DATABASE nutrafol for women vitamin citalopram (CELEXA) 20 mg tablet Take 0.5 tablets by mouth once daily for 7 days, THEN 1 tablet once daily. LORazepam (ATIVAN) 1 mg tablet Take 1 tablet by mouth every 6 hours as needed for up to 3 days. Desogestrel-Ethinyl Estradiol (APRI) 0.15-30 mg-mcg per tablet Take 1 tablet by mouth once daily. ferrous sulfate(SLOW FE 47.5 MG (IRON) TAB) Take one(1) tablet daily. I have confirmed and edited as necessary the past medical, family and social histories, HPI, and ROS obtained by others. Objective BP 120/90 Pulse 77 Temp 97.2 Ht 5' 1 (1.55m) Wt 205 lb (93.0kg) SpO2 98% LMP 06/22/2014 BMI 38.75 kg/(m2). Physical Exam Vitals and nursing note reviewed. Constitutional: General: She is not in acute distress. Appearance: Normal appearance. She is well-developed. She is not ill-appearing. HENT: Head: Normocephalic. Right Ear: Tympanic membrane, ear canal and external ear normal. There is no impacted cerumen. Left Ear: Tympanic membrane, ear canal and external ear normal. There is no impacted cerumen. Nose: Nose normal. Mouth/Throat: Mouth: Mucous membranes are moist. Pharynx: Oropharynx is clear. Uvula midline. No oropharyngeal exudate or posterior oropharyngeal erythema. Eyes: General: Lids are normal. Vision grossly intact. Gaze aligned appropriately. No scleral icterus. Right eye: No discharge. Left eye: No discharge. Extraocular Movements: Extraocular movements intact. Conjunctiva/sclera: Conjunctivae normal. Pupils: Pupils are equal, round, and reactive to light. Neck: Thyroid: No thyroid mass, thyromegaly or thyroid tenderness. Vascular: No carotid bruit. Trachea: Trachea and phonation normal. Cardiovascular: Rate and Rhythm: Normal rate and regular rhythm. Pulses: Normal pulses. Heart sounds: Normal heart sounds. Pulmonary: Effort: Pulmonary effort is normal. Breath sounds: Normal breath sounds. Abdominal: General: Abdomen is flat. Bowel sounds are normal. Palpations: Abdomen is soft. Musculoskeletal: General: Normal range of motion. Right shoulder: Normal. Left shoulder: Normal. Cervical back: Normal, full passive range of motion without pain and neck supple. No tenderness (more content not included)... Normal [facility] Comprehensive metabolic 2000 panelon 01-16-2021 Albumin [Mass/Vol] 4.8 g/dL 3.9 - 4.9 g/dL [facility] ALP [Catalytic activity/Vol] 104 U/L 34 - 123 U/L [facility] ALT With P-5'-P [Catalytic activity/Vol] 10 U/L 7 - 38 U/L [facility] Anion gap [Moles/Vol] 12 mmol/L 9 - 18 mmol/L [facility] AST With P-5'-P [Catalytic activity/Vol] 19 U/L 13 - 35 U/L [facility] Bilirubin [Mass/Vol] 0.4 mg/dL 0.2 - 1 .3 mg/dL [facility] Calcium [Mass/Vol] 9.6 mg/dL 8.5 - 10. 2 mg/dL [facility] Chloride [Moles/Vol] 101 mmol/L 97 - 10 5 mmol/L [facility] CO2 [Moles/Vol] 25 mmol/L 22 - 30 mmol/L [facility] Creatinine [Mass/Vol] 0.74 mg/dL 0.58 - 0.96 mg/dL [facility] GFR/1.73 sq M.predicted MDRD (S/P/Bld) [Vol rate/Area] mL/min/{1.73_m2} [facility] Glucose [Mass/Vol] 94 mg/dL 74 - 99 mg/dL [facility] Potassium [Moles/Vol] 4.3 mmol/L 3.7 - 5.1 mmol/L [facility] Protein [Mass/Vol] 7.4 g/dL 6.3 - 8.0 g/dL [facility] Sodium [Moles/Vol] 138 mmol/L 136 - 144 mmol/L [facility] Urea nitrogen [Mass/Vol] 9 mg/dL 7 - 21 mg/d L [facility] Albumin [Mass/Vol] 4.8 g/dL Normal 3.9-4.9 [facility] Comment on above: Order Comment: Speci men Type: BLOOD SPECIMEN Performed By: #### 2 4323-8, LIPB, 3016-3 #### [facility] CLIA [id number] [address] [place] [facility] ALP [Catalytic activity/Vol] 104 U/L Normal 34-123 [facility] Comment on above: Order Comment: Speci men Type: BLOOD SPECIMEN Performed By: #### 2 4323-8, LIPB, 6-3 #### [facility] CLIA [id number] [address] ALT With P-5'-P [Catalytic activity/Vol] 10 U/L Normal 7-38 [facility] Comment on above: Order Comment: Speci men Type: BLOOD SPECIMEN Performed By: #### 2 4323-8, LIPB, 3015-3 #### [facility] CLIA [id number] [address] Anion gap [Moles/Vol] 12 mmol/L Normal 9-18 [facility] Comment on above: Order Comment: Speci men Type: BLOOD SPECIMEN Performed By: #### 2 4323-8, LIPB, 3015-3 #### [facility] CLIA [id number] [address] AST With P-5'-P [Catalytic activity/Vol] 19 U/L Normal 13-35 [facility] Comment on above: Order Comment: Speci men Type: BLOOD SPECIMEN Performed By: #### 2 4323-8, LIPB, 3015-3 #### [facility] CLIA [id number] [address] OF [facility] Bilirubin [Mass/Vol] 0.4 mg/dL Normal 0.2-1.3 [facility] Comment on above: Order Comment: Speci men Type: BLOOD SPECIMEN Performed By: #### 2 4323-8, LIPB, 6-3 #### [facility] CLIA [id number] [address] Calcium [Mass/Vol] 9.6 mg/dL Normal 8.5-10.2 [facility] Comment on above: Order Comment: Speci men Type: BLOOD SPECIMEN Performed By: #### 2 4323-8, LIPB, 3015-3 #### [facility] CLIA [id number] [address] Chloride [Moles/Vol] 101 mmol/L Normal 97-105 [facility] Comment on above: Order Comment: Speci men Type: BLOOD SPECIMEN Performed By: #### 2 4323-8, LIPB, 3016-3 #### [facility] CLIA [id number] [address] CO2 [Moles/Vol] 25 mmol/L Normal 22-30 [facility] Comment on above: Order Comment: Speci men Type: BLOOD SPECIMEN Performed By: #### 2 4323-8, LIPB, 6-3 #### [facility] CLIA [id number] [address] Creatinine [Mass/Vol] 0.74 mg/dL Normal 0.58-0.96 [facility] Comment on above: Order Comment: Speci men Type: BLOOD SPECIMEN Performed By: #### 2 4323-8, LIPB, 6-3 #### [facility] CLIA [id number] [address] GFR/1.73 sq M.predicted MDRD (S/P/Bld) [Vol rate/Area] mL/min/{1.73_m2} Normal [facility] Comment on above: Order Comment: Speci men Type: BLOOD SPECIMEN Result Comment: >60 eGFR (Estimated GFR) Units of measure: mL/min/1.73 meters squared eGFR is derived from the reexpressed MDRD Study equation using the following parameters: serum creatinine, age, gender and race. The creatinine assay has been calibrated to be traceable to IDMS. An eGFR <60 mL/min/1.73m2 for >3 months is consistent with chronic kidney disease. Refer to KDOQI guidelines for clinical interpretation. In patients with unstable renal function, e.g. those with acute kidney injury, the eGFR may not accurately reflect actual GFR. Performed By: #### 2 4323-8, LIPB, 3016-3 #### [facility] CLIA [id number] [address] Glucose [Mass/Vol] 94 mg/dL Normal 74-99 [facility] Comment on above: Order Comment: Speci men Type: BLOOD SPECIMEN Result Comment: The [place] Diabetes Association (ADA) provides guidance for cutoff values for fasting glucose and random glucose. The ADA defines fasting as no caloric intake for at least 8 hours. Fasting plasma glucose results between 100 to 125 mg/dL indicate increased risk for diabetes (prediabetes). Fasting plasma glucose results greater than or equal to 126 mg/dL meet the criteria for diagnosis of diabetes. In the absence of unequivocal hyperglycemia, results should be confirmed by repeat testing. In a patient with classic symptoms of hyperglycemia or hyperglycemic crisis, random plasma glucose results greater than or equal to 200 mg/dL meet the criteria for diagnosis of diabetes. Reference: Standards of Medical Care in Diabetes 2016, [place] [employer]. Diabetes Care. 2016.39(Suppl 1). Performed By: #### 2 4323-8, LIPB, 6-3 #### [facility] CLIA [id number] [address] Potassium [Moles/Vol] 4.3 mmol/L Normal 3.7-5.1 [facility] Comment on above: Order Comment: Speci men Type: BLOOD SPECIMEN Performed By: #### 2 4323-8, LIPB, 6-3 #### [facility] CLIA [id number] [address] Protein [Mass/Vol] 7.4 g/dL Normal 6.3-8.0 [facility] Comment on above: Order Comment: Speci men Type: BLOOD SPECIMEN Performed By: #### 2 4323-8, LIPB, 6-3 #### [facility] CLIA [id number] [address] Sodium [Moles/Vol] 138 mmol/L Normal 136-144 [facility] Comment on above: Order Comment: Speci men Type: BLOOD SPECIMEN Performed By: #### 2 4323-8, LIPB, 6-3 #### [facility] CLIA [id number] [address] Urea nitrogen [Mass/Vol] 9 mg/dL Normal 7-21 [facility] Comment on above: Order Comment: Speci men Type: BLOOD SPECIMEN Performed By: #### 2 4323-8, LIPB, 3015-3 #### [facility] CLIA [id number] [address] [place] LIPID PANEL BASICon 01-17-20 21 Cholesterol [Mass/Vol] 224 mg/dL High <200 [facility] Comment on above: Order Comment: Speci men Type: BLOOD SPECIMEN Result Comment: <200 mg/dL, Desirable 200-239 mg/dL, Borderline high >239 mg/dL, High Performed By: #### 2 4323-8, LIPB, 3015-3 #### [facility] CLIA [id number] [address] Cholesterol in HDL [Mass/Vol] 53 mg/dL Normal >39 [facility] Comment on above: Order Comment: Speci men Type: BLOOD SPECIMEN Result Comment: 40-5 9 mg/dL, Acceptable >59 mg/dL, High: Negative risk factor for coronary heart disease <40 mg/dL, Low: Positive risk factor for coronary heart disease Performed By: #### 2 4323-8, LIPB, 3015-3 #### [facility] CLIA [id number] [address] [place] Cholesterol in LDL [Mass/Vol] 136 mg/dL High <100 [facility] Comment on above: Order Comment: Speci men Type: BLOOD SPECIMEN Result Comment: <100 mg/dL, Optimal 100-129 mg/dL, Near optimal/above optimal 130-159 mg/dL, Borderline high 160-189 mg/dL, High >189 mg/dL, Very high Secondary prevention optimal LDL Cholesterol levels are recommended to be < 70 mg/dL Performed By: #### 2 4323-8, LIPB, 3015-3 #### [facility] CLIA [id number] [address] [place] Cholesterol in LDL/Cholesterol in HDL [Mass ratio] 2.57 {ratio} High <2.54 [facility] Comment on above: Order Comment: Speci men Type: BLOOD SPECIMEN Result Comment: Sharri fox: 1. National Cholesterol Education Program ATP III Guideline At-A-Glance Quick Desk Reference: National Heart, Lung, and Blood [place]. National Institutes of Health. 2001: NIH Publication No. 01-3305. 2. An International Atherosclerosis Society position paper: global recommendations for the management of dyslipidemia: executive summary, Atherosclerosis. 2014: 232(2):410-413. Performed By: #### 2 4323-8, LIPB, 3016-3 #### [facility] CLIA [id number] [address] Cholesterol in VLDL [Mass/Vol] 35 mg/dL High <30 [facility] Comment on above: Order Comment: Speci men Type: BLOOD SPECIMEN Performed By: #### 2 4323-8, LIPB, 3016-3 #### [facility] CLIA [id number] [address] Cholesterol non HDL [Mass/Vol] 171 mg/dL High <130 [facility] Comment on above: Order Comment: Speci men Type: BLOOD SPECIMEN Result Comment: <130 mg/dL, Optimal 130-159 mg/dL, Near optimal/above optimal 160-189 mg/dL, Borderline high 190-219 mg/dL, High >219 mg/dL, Very high Secondary prevention optimal non HDL Cholesterol levels are recommended to be <100 mg/dL Performed By: #### 2 4323-8, LIPB, 3016-3 #### [facility] CLIA [id number] [address] Cholesterol.total/Choles terol in HDL [Mass ratio] 4.23 {ratio} Normal <5.10 [facility] Comment on above: Order Comment: Speci men Type: BLOOD SPECIMEN Performed By: #### 2 4323-8, LIPB, 3016-3 #### [facility] CLIA [id number] [address] FASTING TIME 10 hrs Normal [facility] Comment on above: Order Comment: Speci men Type: BLOOD SPECIMEN Performed By: #### 2 4323-8, LIPB, 3016-3 #### [facility] CLIA [id number] [address] Triglyceride [Mass/Vol] 175 mg/dL High <150 [facility] Comment on above: Order Comment: Speci men Type: BLOOD SPECIMEN Result Comment: <150 mg/dL, Normal 150-199 mg/dL, Borderline high 200-499 mg/dL, High >499 mg/dL, Very high Performed By: #### 2 4323-8, LIPB, 3016-3 #### [facility] CLIA [id number] [address] [place] [id number] [facility] - Chemistry and C hemistry - challengeon 01-16-2021 TSH Qn 1.780 m[IU]/L 0.270 - 4.200 uU/mL [facility] Cholesterol [Mass/Vol] 224 mg/dL High <200 mg/dL [facility] Cholesterol in HDL [Mass/Vol] 53 mg/dL >39 mg/dL [facility] Cholesterol in LDL [Mass/Vol] 136 mg/dL High <100 mg/dL [facility] Cholesterol in LDL/Cholesterol in HDL [Mass ratio] 2.57 {ratio} High <2.54 [facility] Cholesterol in VLDL [Mass/Vol] 35 mg/dL High <30 mg/dL [facility] Cholesterol non HDL [Mass/Vol] 171 mg/dL High <130 mg/dL [facility] Cholesterol.total/Choles terol in HDL [Mass ratio] 4.23 {ratio} <5.10 [facility] Triglyceride [Mass/Vol] 175 mg/dL High <150 mg/dL [facility] No Panel Informationon 01-16 Fasting Time 10 hrs [facility] TSH SerPl-aCncon 01-16-2021 TSH Qn 1.780 m[IU]/L Normal 0.270-4.200 [facility] Comment on above: Order Comment: Speci men Type: BLOOD SPECIMEN Result Comment: If t he patient is , TSH reference range varies by gestational period: First Trimester (weeks 9-12): 0.180-2.990 mcIU/mL Second Trimester: 0.110-3.980 mcIU/mL Third Trimester: 0.480-4.710 mcIU/mL Quincy Kauffman et al. A Practical Approach for the Verifications and Determination of Site- and Trimester-Specific Reference Intervals for Thyroid Function tests in . Thyroid, 2019:29:3:412-420. Luis Alberto Jang, et al. 2017 Guidelines of the [place] [employer] for the Diagnosis and Management of Thyroid Disease during and the . Thyroid, 2017:27:3:315-389. Performed By: #### 2 4323-8, LIPB, 3016-3 #### [facility] CLIA [id number] [address] [place] OF [facility] Urinalysis complete panel (U )on 01-16-2021 Bacteria LM.HPF (Urine sed) [#/Area] None Seen None Seen /HPF [facility] Bilirubin Ql (U) Negative Negative [facility] Calcium Oxalate Crystals Moderate Abnormal None Seen / HPF [facility] Clarity (Unsp spec) Turbid Abnormal Clear [facility] Color (U) Dark Yellow Abnormal Yellow [facility] Epithelial cells LM.HPF (Urine sed) [#/Area] 3.7 /[HPF] [facility] Glucose Test strip (U) [Mass/Vol] Negative Negative [facility] Hemoglobin Ql (U) Negative Negative [facility] Hyaline casts (Urine sed) [#/Area] 1-3 /LPF Abnormal 0 /LPF [facility] Ketones Ql (U) Trace Abnormal Negative [facility] Leukocyte esterase Test strip Ql (U) Small Abnormal Negative [facility] Nitrite Ql (U) Negative Negative [facility] pH (U) 5.5 [pH] 5.0 - 8.0 [facility] Protein (U) [Mass/Vol] Negative Negative [facility] RBC LM.HPF (Urine sed) [#/Area] 0-3 /HPF 0-3 /HPF [facility] Specific gravity (U) [Rel density] 1.029 1.005 - 1.030 [facility] Urobilinogen Ql (U) 0.2 EU/dL 0.2-1.0 EU/dL Cl [facility] WBC LM.HPF (Urine sed) [#/Area] 6-10 /HPF Abnormal 0-5 /HPF [facility] Bacteria LM.HPF (Urine sed) [#/Area] None Seen Normal None Seen [facility] Comment on above: Order Comment: Speci men Type: URINE SPECIMEN Performed By: #### 2 4356-8 #### [facility] CLIA [id number] [address] Bilirubin Ql (U) Negative Normal Negative [facility] Comment on above: Order Comment: Speci men Type: URINE SPECIMEN Performed By: #### 2 4356-8 #### [facility] CLIA [id number] [address] CALCIUM OXALATE CRYSTALS (UA) Moderate Abnormal None Seen [facility] Comment on above: Order Comment: Speci men Type: URINE SPECIMEN Performed By: #### 2 4356-8 #### [facility] CLIA [id number] [address] Clarity (Unsp spec) Turbid Abnormal Clear [facility] Comment on above: Order Comment: Speci men Type: URINE SPECIMEN Performed By: #### 2 4356-8 #### [facility] CLIA [id number] [address] Color (U) Dark Yellow Abnormal Yellow [facility] Comment on above: Order Comment: Speci men Type: URINE SPECIMEN Performed By: #### 2 4356-8 #### [facility] CLIA [id number] [address] Epithelial cells LM.HPF (Urine sed) [#/Area] 3.7 /[HPF] Normal [facility] Comment on above: Order Comment: Speci men Type: URINE SPECIMEN Performed By: #### 2 4356-8 #### [facility] CLIA [id number] [address] Glucose Test strip (U) [Mass/Vol] Negative Normal Negative [facility] Comment on above: Order Comment: Speci men Type: URINE SPECIMEN Performed By: #### 2 4356-8 #### [facility] CLIA [id number] [address] Hemoglobin Ql (U) Negative Normal Negative [facility] Comment on above: Order Comment: Speci men Type: URINE SPECIMEN Performed By: #### 2 4356-8 #### [facility] CLIA [id number] [address] Hyaline casts (Urine sed) [#/Area] 1-3 /LPF Abnormal 0 /LPF [facility] Comment on above: Order Comment: Speci men Type: URINE SPECIMEN Performed By: #### 2 4356-8 #### [facility] CLIA [id number] [address] Ketones Ql (U) Trace Abnormal Negative [facility] Comment on above: Order Comment: Speci men Type: URINE SPECIMEN Performed By: #### 2 4356-8 #### [facility] CLIA [id number] [address] Leukocyte esterase Test strip Ql (U) Small Abnormal Negative [facility] Comment on above: Order Comment: Speci men Type: URINE SPECIMEN Performed By: #### 2 4356-8 #### [facility] CLIA [id number] [address] Nitrite Ql (U) Negative Normal Negative [facility] Comment on above: Order Comment: Speci men Type: URINE SPECIMEN Performed By: #### 2 4356-8 #### [facility] CLIA [id number] [address] pH (U) 5.5 [pH] Normal 5.0-8.0 [facility] Comment on above: Order Comment: Speci men Type: URINE SPECIMEN Performed By: #### 2 4356-8 #### [facility] CLIA [id number] [address] Protein (U) [Mass/Vol] Negative Normal Negative [facility] Comment on above: Order Comment: Speci men Type: URINE SPECIMEN Performed By: #### 2 4356-8 #### [facility] CLIA [id number] [address] RBC LM.HPF (Urine sed) [#/Area] 0-3 /HPF Normal 0-3 /HPF [facility] Comment on above: Order Comment: Speci men Type: URINE SPECIMEN Performed By: #### 2 4356-8 #### [facility] CLIA [id number] [address] Specific gravity (U) [Rel density] 1.029 Normal 1.005-1.030 [facility] Comment on above: Order Comment: Speci men Type: URINE SPECIMEN Performed By: #### 2 4356-8 #### [facility] CLIA [id number] [address] Urobilinogen Ql (U) 0.2 EU/dL Normal 0.2-1.0 EU/dL [facility] Comment on above: Order Comment: Speci men Type: URINE SPECIMEN Performed By: #### 2 4356-8 #### [facility] CLIA [id number] [address] WBC LM.HPF (Urine sed) [#/Area] 6-10 /HPF Abnormal 0-5 /HPF [facility] Comment on above: Order Comment: Speci men Type: URINE SPECIMEN Performed By: #### 2 4356-8 #### [facility] CLIA [id number] [address] Vital Signs Date Time Vital Sign Value Performing Clinician Facility 11-03-2024 10:54-0400 Diastolic blood pressure 80 mm[Hg] Isael Gandara MD Work Phone: [facility] Comment on above: SHANIQUE BP average 11-03-2024 10:54-0400 Systolic blood pressure 118 mm[Hg] Isael Gandara MD Work Phone: [facility] Comment on above: SHANIQUE BP average 11-03-2024 09:58-0400 Body mass index (BMI) [Ratio] 43.16 kg/m2 Isael Gandara MD Work Phone: [facility] 11-03-2024 09:58-0400 Body weight 107.05 kg Isael Gandara MD Work Phone: [facility] 11-03-2024 09:58-0400 Heart rate 90 /min Isael Gandara MD Work Phone: [facility] 11-03-2024 09:58-0400 SaO2% (BldA) [Mass fraction] 99 % Isael Gandara MD Work Phone: [facility] 10-31-2024 13:00-0400 Body temperature 98.01 [degF] Treatment Wstr Work Phone: [facility] 10-31-2024 13:00-0400 Diastolic blood pressure 80 mm[Hg] Treatment Wstr Work Phone: [facility] 10-31-2024 13:00-0400 Heart rate 102 /min Treatment Wstr Work Phone: [facility] 10-31-2024 13:00-0400 Systolic blood pressure 129 mm[Hg] Treatment Wstr Work Phone: [facility] 10-29-2024 12:43-0400 Heart rate 73 /min No Primary Care Physician [facility] 10-29-2024 12:43-0400 SaO2% (BldA) [Mass fraction] 98 % No Primary Care Physician [facility] 10-29-2024 12:40-0400 Diastolic blood pressure 68 mm[Hg] No Primary Care Physician [facility] 10-29-2024 12:40-0400 Systolic blood pressure 119 mm[Hg] No Primary Care Physician [facility] 10-29-2024 11:40-0400 Body height 154.94 cm No Primary Care Physician [facility] 10-29-2024 11:40-0400 Body mass index (BMI) [Ratio] 44.4 kg/m2 No Primary Care Physician [facility] 10-29-2024 11:40-0400 Body weight 106.59 kg No Primary Care Physician [facility] 10-29-2024 11:19-0400 Body temperature 98.2 [degF] No Primary Care Physician [facility] 10-29-2024 11:19-0400 Respiratory rate 16 /min No Primary Care Physician [facility] 10-26-2024 08:42-0400 Body mass index (BMI) [Ratio] 42.25 kg/m2 Jason Marshall MD Work Phone: [facility] 10-26-2024 08:42-0400 Body weight 104.78 kg Jason Marshall MD Work Phone: [facility] 10-26-2024 08:42-0400 Diastolic blood pressure 81 mm[Hg] Jason Marshall MD Work Phone: [facility] 10-26-2024 08:42-0400 Systolic blood pressure 125 mm[Hg] Jason Marshall MD Work Phone: [facility] 10-25-2024 14:30-0400 Body temperature 98.1 [degF] Treatment Wstr Work Phone: [facility] 10-25-2024 14:30-0400 Diastolic blood pressure 82 mm[Hg] Treatment Wstr Work Phone: [facility] 10-25-2024 14:30-0400 Heart rate 84 /min Treatment Wstr Work Phone: [facility] 10-25-2024 14:30-0400 Respiratory rate 16 /min Treatment Wstr Work Phone: [facility] 10-25-2024 14:30-0400 SaO2% (BldA) [Mass fraction] 98 % Treatment Wstr Work Phone: [facility] 10-25-2024 14:30-0400 Systolic blood pressure 122 mm[Hg] Treatment Wstr Work Phone: [facility] 10-21-2024 13:52-0400 Body temperature 98.29 [degF] Treatment Wstr Work Phone: [facility] 10-21-2024 13:52-0400 Diastolic blood pressure 74 mm[Hg] Treatment Wstr Work Phone: [facility] 10-21-2024 13:52-0400 Heart rate 75 /min Treatment Wstr Work Phone: [facility] 10-21-2024 13:52-0400 Respiratory rate 20 /min Treatment Wstr Work Phone: [facility] 10-21-2024 13:52-0400 SaO2% (BldA) [Mass fraction] 97 % Treatment Wstr Work Phone: [facility] 10-21-2024 13:52-0400 Systolic blood pressure 125 mm[Hg] Treatment Wstr Work Phone: [facility] 10-20-2024 15:40-0400 Body mass index (BMI) [Ratio] 43.16 kg/m2 Isael Gandara MD Work Phone: [facility] 10-20-2024 15:40-0400 Body weight 107.05 kg Isael Gandara MD Work Phone: [facility] 10-20-2024 15:40-0400 Diastolic blood pressure 78 mm[Hg] Isael Gandara MD Work Phone: [facility] 10-20-2024 15:40-0400 Systolic blood pressure 124 mm[Hg] Isael Gandara MD Work Phone: [facility] 10-19-2024 09:38-0400 Body temperature 98.2 [degF] Treatment Wstr Work Phone: [facility] 10-19-2024 09:38-0400 Diastolic blood pressure 79 mm[Hg] Treatment Wstr Work Phone: [facility] 10-19-2024 09:38-0400 Heart rate 76 /min Treatment Wstr Work Phone: [facility] 10-19-2024 09:38-0400 SaO2% (BldA) [Mass fraction] 98 % Treatment Wstr Work Phone: [facility] 10-19-2024 09:38-0400 Systolic blood pressure 119 mm[Hg] Treatment Wstr Work Phone: [facility] 10-18-2024 15:17-0400 Body mass index (BMI) [Ratio] 43.35 kg/m2 Pierce Salazar MD Work Phone: [facility] 10-18-2024 15:17-0400 Body weight 107.5 kg Pierce Salazar MD Work Phone: [facility] 10-14-2024 11:51-0400 Body mass index (BMI) [Ratio] 42.43 kg/m2 Aylin Francois MD Work Phone: [facility] 10-14-2024 11:51-0400 Body weight 105.23 kg Aylin Francois MD Work Phone: [facility] 10-14-2024 11:51-0400 Diastolic blood pressure 76 mm[Hg] Aylin Francois MD Work Phone: [facility] 10-14-2024 11:51-0400 Systolic blood pressure 129 mm[Hg] Aylin Francois MD Work Phone: [facility] 10-11-2024 10:00-0400 Body mass index (BMI) [Ratio] 42.25 kg/m2 Aylin Francois MD Work Phone: [facility] 10-11-2024 10:00-0400 Body weight 104.78 kg Aylin Francois MD Work Phone: [facility] 10-11-2024 10:00-0400 Diastolic blood pressure 81 mm[Hg] Aylin Francois MD Work Phone: [facility] 10-11-2024 10:00-0400 Systolic blood pressure 127 mm[Hg] Aylin Francois MD Work Phone: [facility] 10-05-2024 15:07-0400 Body mass index (BMI) [Ratio] 43.16 kg/m2 Sherry Nash MD Work Phone: [facility] 10-05-2024 15:07-0400 Body weight 107.05 kg Sherry Nash MD Work Phone: [facility] 10-05-2024 15:07-0400 Diastolic blood pressure 75 mm[Hg] Sherry Nash MD Work Phone: [facility] 10-05-2024 15:07-0400 Systolic blood pressure 117 mm[Hg] Sherry Nash MD Work Phone: [facility] 09-28-2024 09:44-0400 Body mass index (BMI) [Ratio] 42.62 kg/m2 Nst Wstr Work Phone: [facility] 09-28-2024 09:44-0400 Body weight 105.69 kg Nst Wstr Work Phone: [facility] 09-28-2024 09:44-0400 Diastolic blood pressure 76 mm[Hg] Nst Wstr Work Phone: [facility] 09-28-2024 09:44-0400 Systolic blood pressure 120 mm[Hg] Nst Wstr Work Phone: [facility] 09-21-2024 08:41-0400 Body mass index (BMI) [Ratio] 42.62 kg/m2 Isael Gandara MD Work Phone: [facility] 09-21-2024 08:41-0400 Body weight 105.69 kg Isael Gandara MD Work Phone: [facility] 09-21-2024 08:41-0400 Diastolic blood pressure 72 mm[Hg] Isael Gandara MD Work Phone: [facility] 09-21-2024 08:41-0400 Systolic blood pressure 116 mm[Hg] Isael Gandara MD Work Phone: [facility] 09-12-2024 17:09-0400 Body height 154.94 cm No Primary Care Physician [facility] 09-12-2024 17:09-0400 Body mass index (BMI) [Ratio] 43.8 kg/m2 No Primary Care Physician [facility] 09-12-2024 17:09-0400 Body weight 105.23 kg No Primary Care Physician [facility] 09-12-2024 17:07-0400 SaO2% (BldA) [Mass fraction] 96 % No Primary Care Physician [facility] 09-12-2024 17:06-0400 Body temperature 98 [degF] No Primary Care Physician [facility] 09-12-2024 17:06-0400 Diastolic blood pressure 69 mm[Hg] No Primary Care Physician [facility] 09-12-2024 17:06-0400 Heart rate 72 /min No Primary Care Physician [facility] 09-12-2024 17:06-0400 Respiratory rate 17 /min No Primary Care Physician [facility] 09-12-2024 17:06-0400 Systolic blood pressure 125 mm[Hg] No Primary Care Physician [facility] 09-06-2024 08:13-0400 Body mass index (BMI) [Ratio] 41.88 kg/m2 Sherry Nash MD Work Phone: [facility] 09-06-2024 08:130400 Body weight 103.87 kg Sherry Nash MD Work Phone: [facility] 09-06-2024 08:13-0400 Diastolic blood pressure 72 mm[Hg] Sherry Nash MD Work Phone: [facility] 09-06-2024 08:13-0400 Systolic blood pressure 120 mm[Hg] Sherry Nash MD Work Phone: [facility] 07-25-2024 08:29-0400 Body mass index (BMI) [Ratio] 41.7 kg/m2 Isael Gandara MD Work Phone: [facility] 07-25-2024 08:29-0400 Body weight 103.42 kg Isael Gandara MD Work Phone: [facility] 07-25-2024 08:29-0400 Diastolic blood pressure 70 mm[Hg] Isael Gandara MD Work Phone: [facility] 07-25-2024 08:29-0400 Systolic blood pressure 122 mm[Hg] Isael Gandara MD Work Phone: [facility] 07-01-2024 10:44-0500 Body mass index (BMI) [Ratio] 41.7 kg/m2 Nadiya Anders PROJECT BUILDER.CNM Work Phone: [facility] 07-01-2024 10:44-0500 Body weight 103.42 kg Nadiya Anders PROJECT BUILDER.CNM Work Phone: [facility] 07-01-2024 10:44-0500 Diastolic blood pressure 74 mm[Hg] Nadiya Anders PROJECT BUILDER.CNM Work Phone: [facility] 07-01-2024 10:44-0500 Systolic blood pressure 116 mm[Hg] Nadiya Anders PROJECT BUILDER.CNM Work Phone: [facility] 05-30-2024 13:39-0500 Body mass index (BMI) [Ratio] 41.52 kg/m2 Venu Hanita PROJECT BUILDER.CERAMICS TECHNICIAN Work Phone: [facility] 05-30-2024 13:39-0500 Body weight 102.97 kg Venu Haury PROJECT BUILDER.CERAMICS TECHNICIAN Work Phone: [facility] 05-30-2024 13:39-0500 Diastolic blood pressure 72 mm[Hg] Venu Haury PROJECT BUILDER.CERAMICS TECHNICIAN Work Phone: [facility] 05-30-2024 13:39-0500 Systolic blood pressure 120 mm[Hg] Venu Haury PROJECT BUILDER.CERAMICS TECHNICIAN Work Phone: [facility] 05-06-2024 15:17-0500 Body mass index (BMI) [Ratio] 41.88 kg/m2 Nadiya Anders PROJECT BUILDER.CNM Work Phone: [facility] 05-06-2024 15:17-0500 Body weight 103.87 kg Nadiya Anders PROJECT BUILDER.CNM Work Phone: [facility] 05-06-2024 15:17-0500 Diastolic blood pressure 72 mm[Hg] Nadiya Anders PROJECT BUILDER.CNM Work Phone: [facility] 05-06-2024 15:17-0500 Systolic blood pressure 114 mm[Hg] Nadiya Anders PROJECT BUILDER.CNM Work Phone: [facility] 04-06-2024 09:13-0500 Body mass index (BMI) [Ratio] 42.62 kg/m2 Nadiyabrice Anders PROJECT BUILDER.CNM Work Phone: [facility] 04-06-2024 09:13-0500 Body weight 105.69 kg Nadiya Anders PROJECT BUILDER.CNM Work Phone: [facility] 04-06-2024 09:13-0500 Diastolic blood pressure 78 mm[Hg] Nadiyabrice Anders PROJECT BUILDER.CNM Work Phone: [facility] 04-06-2024 09:13-0500 Systolic blood pressure 124 mm[Hg] Nadiyabrice Anders APRN.CNM Work Phone: [facility] 07-14-2023 10:59-0400 Body weight 102.06 kg Isael Gandara MD Work Phone: [facility] 07-14-2023 10:59-0400 Diastolic blood pressure 82 mm[Hg] Isael Gandara MD Work Phone: [facility] 07-14-2023 10:59-0400 Systolic blood pressure 124 mm[Hg] Isael Gandara MD Work Phone: [facility] 03-31-2023 13:09-0500 Body weight 102.06 kg Isael Gandara MD Work Phone: [facility] 03-31-2023 13:09-0500 Diastolic blood pressure 82 mm[Hg] Isael Gandara MD Work Phone: [facility] 03-31-2023 13:09-0500 Systolic blood pressure 114 mm[Hg] Isael Gandara MD Work Phone: [facility] 06-25-2022 15:06-0500 Body weight 97.98 kg Sherry Nash MD Work Phone: [facility] 06-25-2022 15:06-0500 Diastolic blood pressure 94 mm[Hg] Sherry Nash MD Work Phone: [facility] 06-25-2022 15:06-0500 Systolic blood pressure 128 mm[Hg] Sherry Nash MD Work Phone: [facility] 05-15-2022 10:51-0500 Diastolic blood pressure 80 mm[Hg] Pierce Salazar MD Work Phone: [facility] 05-15-2022 10:51-0500 Systolic blood pressure 125 mm[Hg] Pierce Salazar MD Work Phone: [facility] 05-15-2022 10:45-0500 Body weight 98.61 kg Pierce Salazar MD Work Phone: [facility] 05-09-2022 12:00-0500 Body temperature 98.1 [degF] [facility] Work Phone: 05-09-2022 12:00-0500 Diastolic blood pressure 77 mm[Hg] [facility] Work Phone: 05-09-2022 12:00-0500 Heart rate 82 /min [facility] Work Phone: 05-09-2022 12:00-0500 Respiratory rate 18 /min [facility] Work Phone: 05-09-2022 12:00-0500 Systolic blood pressure 125 mm[Hg] [facility] Work Phone: 05-09-2022 08:09-0500 SaO2% (BldA) [Mass fraction] 98 % [facility] Work Phone: 05-03-2022 15:58-0500 Body height 157.48 cm [facility] Work Phone: 05-03-2022 15:58-0500 Body mass index (BMI) [Ratio] 44.9 kg/m2 [facility] Work Phone: 05-03-2022 15:58-0500 Body weight 111.58 kg [facility] Work Phone: 05-02-2022 15:46-0500 Diastolic blood pressure 74 mm[Hg] [facility] Work Phone: 05-02-2022 15:46-0500 Heart rate 88 /min [facility] Work Phone: 05-02-2022 15:46-0500 Systolic blood pressure 150 mm[Hg] [facility] Work Phone: 05-02-2022 12:14-0500 Body height 154.94 cm [facility] Work Phone: 05-02-2022 12:14-0500 Body mass index (BMI) [Ratio] 46.3 kg/m2 [facility] Work Phone: 05-02-2022 12:14-0500 Body weight 111.13 kg [facility] Work Phone: 05-02-2022 12:07-0500 SaO2% (BldA) [Mass fraction] 97 % [facility] Work Phone: 05-02-2022 12:06-0500 Body temperature 98.1 [degF] [facility] Work Phone: 04-29-2022 10:34-0500 Body weight 110.5 kg Nadiya Anders APRN.CNM Work Phone: [facility] 04-29-2022 10:34-0500 Diastolic blood pressure 85 mm[Hg] Ndaiya Anders APRN.CNNoah Work Phone: [facility] 04-29-2022 10:34-0500 Systolic blood pressure 142 mm[Hg] Nadiya Anders APRN.CNNoah Work Phone: [facility] 04-23-2022 14:37-0500 Diastolic blood pressure 83 mm[Hg] Sherry Nash MD Work Phone: [facility] 04-23-2022 14:37-0500 Systolic blood pressure 126 mm[Hg] Sherry Nash MD Work Phone: [facility] 04-23-2022 14:35-0500 Body weight 109.32 kg Sherry Nash MD Work Phone: [facility] 04-17-2022 11:03-0500 Diastolic blood pressure 79 mm[Hg] Jose Neil MD Work Phone: [facility] 04-17-2022 11:03-0500 Systolic blood pressure 114 mm[Hg] Jose Neil MD Work Phone: [facility] 04-17-2022 10:16-0500 Body weight 108.41 kg Jose Neil MD Work Phone: [facility] 04-09-2022 10:17-0500 Body weight 107.5 kg Nadiya Anders PROJECT BUILDER.CNM Work Phone: [facility] 04-09-2022 10:17-0500 Diastolic blood pressure 68 mm[Hg] Nadiya Anders PROJECT BUILDER.CNM Work Phone: [facility] 04-09-2022 10:17-0500 Systolic blood pressure 120 mm[Hg] Nadiya Anders PROJECT BUILDER.CNM Work Phone: [facility] 03-24-2022 10:16-0500 Body weight 108.41 kg Sherry Nash MD Work Phone: [facility] 03-24-2022 10:16-0500 Diastolic blood pressure 84 mm[Hg] Sherry Nash MD Work Phone: [facility] 03-24-2022 10:16-0500 Systolic blood pressure 136 mm[Hg] Sherry Nash MD Work Phone: [facility] 03-07-2022 10:46-0500 Body weight 107.5 kg Sherry Nash MD Work Phone: [facility] 03-07-2022 10:46-0500 Diastolic blood pressure 72 mm[Hg] Sherry Neyhart Nash MD Work Phone: [facility] 03-07-2022 10:46-0500 Systolic blood pressure 124 mm[Hg] Sherry Nash MD Work Phone: [facility] 01-09-2022 10:05-0400 Body weight 104.33 kg Sherry Nash MD Work Phone: [facility] 01-09-2022 10:05-0400 Diastolic blood pressure 82 mm[Hg] Sherry Nash MD Work Phone: [facility] 01-09-2022 10:05-0400 Systolic blood pressure 130 mm[Hg] Sherry Nash MD Work Phone: [facility] 12-16-2021 08:33-0400 Body weight 103.42 kg Sherry Nash MD Work Phone: [facility] 12-16-2021 08:33-0400 Diastolic blood pressure 76 mm[Hg] Sherry Nash MD Work Phone: [facility] 12-16-2021 08:33-0400 Systolic blood pressure 122 mm[Hg] Sherry Nash MD Work Phone: [facility] 10-30-2021 14:55-0400 Body weight 102.06 kg Isael Gandara MD Work Phone: [facility] 10-30-2021 14:55-0400 Diastolic blood pressure 80 mm[Hg] Isael Gandara MD Work Phone: [facility] 10-30-2021 14:55-0400 Systolic blood pressure 136 mm[Hg] Isael Gandara MD Work Phone: [facility] 01-16-2021 08:15-0400 Body height 154.9 cm [facility] Work Phone: [facility] 01-16-2021 08:15-0400 Body temperature 97.2 [degF] Farrell Daniel DO Work Phone: [facility] 01-16-2021 08:15-0400 Body weight 92.99 kg Dainel Daniel DO Work Phone: [facility] 01-16-2021 08:15-0400 Diastolic blood pressure 90 mm[Hg] Farrell Daniel DO Work Phone: [facility] 01-16-2021 08:15-0400 Heart rate 77 /min Daniel Daniel DO Work Phone: [facility] 01-16-2021 08:15-0400 SaO2% (BldA) [Mass fraction] 98 % Farrell Daniel DO Work Phone: [facility] 01-16-2021 08:15-0400 Systolic blood pressure 120 mm[Hg] Farrell Daniel DO Work Phone: [facility] Encounters Encounter Date Encounter Type Care Provider Facility Start: 11-03-2024 End: 11-03-2024 Patient encounter procedure Isael Gandara MD Work Phone: OB/Gynecology Comment on above: Supervision of high risk in third trimester (HCC) (Primary Dx); Obesity in ([facility]); Hx of preeclampsia, prior , currently ([facility]); History of section; Anemia during in third trimester ([facility]); 38 weeks gestation of ([facility]) Start: 11-03-2024 End: 11-03-2024 ambulatory ISAEL GANDARA Facility:[facility] Start: 11-03-2024 End: 11-03-2024 ambulatory ISAEL GANDARA Facility:[facility] Start: 10-31-2024 End: 10-31-2024 ambulatory Treatment Rm 18 Terry [facility] Work Phone: Hematology/Oncology Comment on above: Maternal iron defici ency anemia complicating , third trimester (HCC) (Primary Dx) Start: 10-29-2024 End: 10-29-2024 ambulatory No Primary Care Physician [facility] Start: 10-29-2024 End: 10-29-[address] Jose Neil -[facility] Work Phone: Start: 10-26-2024 End: 10-26-2024 ambulatory JASON MARSHALL Facility:[facility] Start: 10-26-2024 End: 10-26-2024 Patient encounter procedure Jason Marshall MD Work Phone: OB/Gynecology Comment on above: Supervision of high risk in third trimester (HCC) (Primary Dx); Obesity in (HCC); Hx of preeclampsia, prior , currently (HCC); History of section; Anemia during in third trimester (HCC); 37 weeks gestation of (HCC) Start: 10-26-2024 End: 10-26-2024 ambulatory JASON MARSHALL Facility:[facility] Start: 10-25-2024 End: 10-25-2024 ambulatory Treatment Rm 14 Terry [facility] Work Phone: Hematology/Oncology Comment on above: Maternal iron defici ency anemia complicating , third trimester (HCC) (Primary Dx) Start: 10-21-2024 End: 10-21-2024 ambulatory Treatment Rm 15 Terry [facility] Work Phone: Hematology/Oncology Comment on above: Maternal iron defici ency anemia complicating , third trimester (HCC) (Primary Dx) Start: 10-20-2024 End: 10-20-2024 Patient encounter procedure i Tech 1 Medical Billing Specialist [facility] Maternal Medicine Comment on above: Encounter for ultras ound to check growth (HCC) (Primary Dx); 36 weeks gestation of (HCC); Obesity affecting in second trimester, unspecified obesity type (HCC) Supervision of high risk in third trimester (HCC) (Primary Dx); Obesity in (HCC); Hx of preeclampsia, prior , currently (HCC); History of section; 36 weeks gestation of (HCC); Anemia during in third trimester (HCC) Start: 10-20-2024 End: 10-20-2024 ambulatory ISAEL GANDARA Facility:[facility] Start: 10-19-2024 End: 10-19-2024 ambulatory Treatment Rm 15 Terry [facility] Work Phone: Hematology/Oncology Comment on above: Maternal iron defici ency anemia complicating , third trimester (HCC) (Primary Dx) Daily Iron w/ Iron I V Start: 10-18-2024 End: 10-18-2024 Patient encounter procedure Pierce Salazar MD Work Phone: OB/Gynecology Comment on above: 35 weeks gestation o f (HCC) (Primary Dx); Supervision of high risk in third trimester (HCC); Obesity in (HCC); Decreased movements in third trimester, single or unspecified fetus (HCC) Start: 10-18-2024 End: 10-18-2024 ambulatory PIERCE SALAZAR Facility:[facility] Start: 10-14-2024 End: 10-14-2024 Patient encounter procedure Aylin Francois MD Work Phone: OB/Gynecology Comment on above: Supervision of high risk in third trimester (HCC) (Primary Dx); Obesity in (HCC); 35 weeks gestation of (HCC) Start: 10-14-2024 End: 10-19-2024 ambulatory Aylin Francois MD Work Phone: OB/Gynecology Comment on above: Iron IV Start: 10-11-2024 End: 10-11-2024 ambulatory AYLIN FRANCOIS Facility:[facility] Start: 10-11-2024 End: 10-11-2024 Patient encounter procedure Aylin Francois MD Work Phone: OB/Gynecology Comment on above: Supervision of high risk in third trimester (HCC) (Primary Dx); Hx of preeclampsia, prior , currently (HCC); Obesity in (HCC); Antepartum anemia complicating in third trimester (HCC); 34 weeks gestation of (HCC) Start: 10-10-2024 End: 10-10-2024 ambulatory Bryce Marin RNdivision leader [facility] Comment on above: Blood Management Maternal iron defici ency anemia complicating , third trimester (HCC) (Primary Dx) Start: 10-07-2024 End: 10-07-2024 E-mail encounter from caregiver Lexus Barnes RN BLOOD MANAGEMENT Start: 10-07-2024 End: 10-07-2024 Patient encounter procedure Lexus Barnes RN BLOOD MANAGEMENT Comment on above: lab appointment Start: 10-07-2024 End: 10-07-2024 ambulatory KATHY URENA Facility:[facility] Start: 10-06-2024 End: 10-07-2024 Orders Only Lexus Barnes RN BLOOD MANAGEMENT Comment on above: Anemia during pregna ncy in third trimester (HCC) (Primary Dx) Start: 10-05-2024 End: 10-05-2024 Patient encounter procedure Sherry Nash MD Work Phone: OB/Gynecology Comment on above: Supervision of high risk in third trimester (HCC) (Primary Dx); Hx of preeclampsia, prior , currently (HCC); Obesity in (HCC); Antepartum anemia complicating in third trimester (HCC); History of section; 34 weeks gestation of (HCC) Start: 10-05-2024 End: 10-05-2024 ambulatory SHERRY NASH Facility:[facility] Start: 09-28-2024 End: 09-28-2024 ambulatory DANIEL SANCHEZ Facility:[facility] Start: 09-28-2024 End: 09-28-2024 Patient encounter procedure Radha Mart APRN.CNM Work Phone: OB/Gynecology Comment on above: 33 weeks gestation o f (HCC) (Primary Dx); Supervision of high risk in third trimester (HCC); Obesity in (HCC); Hx of preeclampsia, prior , currently (HCC) Start: 09-21-2024 End: 09-21-2024 Patient encounter procedure Isael Gandara MD Work Phone: OB/Gynecology Comment on above: Supervision of high risk in third trimester (HCC) (Primary Dx); Obesity in (HCC); Hx of preeclampsia, prior , currently (HCC); Breech presentation with problem, single or unspecified fetus (HCC); Antepartum anemia complicating in third trimester (HCC) Encounter for ultras ound to check growth (HCC) (Primary Dx); 32 weeks gestation of (HCC); Obesity affecting in second trimester, unspecified obesity type (HCC) Start: 09-21-2024 End: 09-21-2024 ambulatory ISAEL GANDARA Facility:[facility] Start: 09-12-2024 End: 09-12-2024 ambulatory No Primary Care Physician [facility] Work Phone: Start: 09-12-2024 End: 09-12-[address] Jose Neil DO [facility] Work Phone: Start: 09-12-2024 End: 09-12-2024 Telephone encounter Jose Neil MD Work Phone: OB/Gynecology Comment on above: OB-Bleeding Start: 09-07-2024 End: 11-07-2024 Orders Only Venu Dhaliwal APRN.CERAMICS TECHNICIAN Work Phone: OB/Gynecology Start: 09-06-2024 End: 11-06-2024 Follow-up encounter Isael Gandara MD Work Phone: OB/Gynecology Start: 09-06-2024 End: 09-06-2024 Patient encounter procedure Sherry Nash MD Work Phone: OB/Gynecology Comment on above: Supervision of high risk in third trimester (HCC) (Primary Dx); Obesity in (HCC); Hx of preeclampsia, prior , currently (HCC); History of section; Anemia during in second trimester (HCC); 29 weeks gestation of (HCC) Anemia during pregna ncy in third trimester (HCC) (Primary Dx) Start: 09-06-2024 End: 09-06-2024 ambulatory SHERRY NASH Facility:[facility] Start: 08-22-2024 End: 10-22-2024 Follow-up encounter Isael Louis APRN.CNP Work Phone: Neurology Start: 08-22-2024 End: 08-22-2024 ambulatory ISAEL GANDARA Facility:[facility] Start: 08-11-2024 End: 08-12-2024 ambulatory ISAEL LOUIS Facility:[facility] Start: 08-10-2024 End: 08-10-2024 Telemedicine consultation with patient Isael Louis AMANDA Work Phone: Neurology Start: 08-10-2024 End: 08-10-2024 ambulatory Isael Louis AMANDA Work Phone: Neurology Comment on above: Snoring (Primary Dx) ; Non-restorative sleep; Obesity, morbid, BMI 40.0-49.9 (HCC); Excessive daytime sleepiness Start: 08-01-2024 End: 08-08-2024 ambulatory Isael Gandara MD Work Phone: OB/Gynecology Comment on above: Sleep study Start: 07-29-2024 End: 11-09-2024 ambulatory [facility] Provider OB/Gynecology Comment on above: Section Start: 07-29-2024 End: 11-09-2024 E-mail encounter from caregiver [facility] Provider OB/Gynecology Start: 07-25-2024 End: 08-01-2024 Follow-up encounter Isael Gandara MD Work Phone: OB/Gynecology Start: 07-25-2024 End: 07-25-2024 ambulatory ISAEL GANDARA Facility:[facility] Start: 07-25-2024 End: 07-25-2024 Patient encounter procedure Isael Gandara MD Work Phone: OB/Gynecology Comment on above: Supervision of high risk in second trimester (Primary Dx); Obesity affecting in second trimester, unspecified obesity type; 23 weeks gestation of ; Screening for diabetes mellitus; Malaise and fatigue Start: 07-04-2024 End: 07-05-2024 Telephone encounter Sherry Nash MD Work Phone: OB/Gynecology Comment on above: Breast Pump Start: 07-01-2024 End: 08-31-2024 Follow-up encounter Nadiya Anders APRN.CNM Work Phone: OB/Gynecology Start: 07-01-2024 End: 07-01-2024 ambulatory DANIEL SANCHEZ Facility:[facility] Start: 07-01-2024 End: 07-01-2024 Patient encounter procedure Nadiya Anders APRN.CNM Work Phone: OB/Gynecology Comment on above: Supervision of high risk in second trimester (Primary Dx); 20 weeks gestation of ; Obesity affecting in second trimester, unspecified obesity type; Hx of preeclampsia, prior , currently ; History of section; History of gestational hypertension; MANNY (generalized anxiety disorder) Encounter for anatomic survey (Primary Dx); 20 weeks gestation of ; Obesity affecting in second trimester, unspecified obesity type Start: 05-30-2024 End: 05-30-2024 ambulatory VENU DHALIWAL Facility:[facility] Start: 05-30-2024 End: 05-30-2024 Patient encounter procedure Venu Dhaliwal APRN.CNP Work Phone: OB/Gynecology Comment on above: Supervision of high risk in second trimester (Primary Dx); 15 weeks gestation of ; History of section; Obesity affecting in second trimester, unspecified obesity type; Hx of preeclampsia, prior , currently ; History of gestational hypertension Encounter for antena ericka screening for malformation using ultrasound (Primary Dx); 15 weeks gestation of ; Obesity affecting in second trimester, unspecified obesity type Start: 05-26-2024 End: 05-26-2024 ambulatory Isael Gandara MD Work Phone: OB/Gynecology Comment on above: Tylenol and baby asp rin Start: 05-11-2024 End: 05-12-2024 ambulatory Nadiya Anders APRN.CNM Work Phone: OB/Gynecology Comment on above: Ultrasound reccomend ation Start: 05-06-2024 End: 05-06-2024 Patient encounter procedure Nadiya Anders APRN.CNM Work Phone: OB/Gynecology Comment on above: Supervision of high risk in second trimester (Primary Dx); 12 weeks gestation of ; Obesity in ; Hx of preeclampsia, prior , currently ; History of section; History of gestational hypertension; MANNY (generalized anxiety disorder); Supervision of other high risk pregnancies, first trimester Obesity in (Primary Dx); Supervision of high risk in first trimester; screening for malformation using ultrasonics Start: 05-06-2024 End: 05-06-2024 ambulatory NADIYA ANDERS Facility:[facility] Start: 04-29-2024 End: 04-29-2024 ambulatory Nadiya Anders APRN.CNM Work Phone: OB/Gynecology Comment on above: Headaches Start: 04-28-2024 End: 05-03-2024 Telephone encounter Nadiya Anders APRN.CNM Work Phone: OB/Gynecology Comment on above: Orders Start: 04-11-2024 End: 04-11-2024 ambulatory Nadiya Anders APRN.CNM Work Phone: OB/Gynecology Comment on above: Nausea & Bloodwork Start: 04-06-2024 End: 04-06-2024 ambulatory NADIYA ANDERS Facility:[facility] Start: 04-06-2024 End: 04-06-2024 Patient encounter procedure Nadiya Anders APRN.CNM Work Phone: OB/Gynecology Comment on above: Screening for cervic al cancer (Primary Dx); Encounter for supervision of normal first in first trimester; Screen for STD (sexually transmitted disease); Supervision of high risk in first trimester; Supervision of other high risk pregnancies, first trimester; Obesity in ; History of section; History of gestational hypertension; Hx of preeclampsia, prior , currently ; Telogen effluvium; MANNY (generalized anxiety disorder); History of anxiety Start: 04-04-2024 End: 04-04-2024 Telephone encounter Nadiya Anders APRN.CNM Work Phone: OB/Gynecology Comment on above: Appointment Start: 03-18-2024 End: 03-18-2024 ambulatory VENU DHALIWAL Facility:[facility] Start: 03-16-2024 End: 03-17-2024 Telephone encounter Venu Dhaliwal APRN.CNP Work Phone: OB/Gynecology Comment on above: Orders Spotting in pregnanc y (Primary Dx) Start: 03-16-2024 End: 03-16-2024 ambulatory VENU DHALIWAL Facility:[facility] Start: 03-08-2024 End: 03-08-2024 ambulatory Sherry Nash MD Work Phone: OB/Gynecology Comment on above: Positive T est Start: 07-14-2023 End: 07-14-2023 Patient encounter procedure Isael Gandara MD Work Phone: OB/Gynecology Comment on above: Vaginal itching (Monet vicente Dx) Start: 03-31-2023 End: 03-31-2023 Patient encounter procedure Isael Gandara MD Work Phone: OB/Gynecology Comment on above: Vaginal itching (Monet vicente Dx); Allergic contact dermatitis, unspecified trigger Start: 06-25-2022 End: 06-25-2022 Patient encounter procedure Sherry Nash MD Work Phone: OB/Gynecology Comment on above: care and examination (Primary Dx) Start: 05-15-2022 End: 05-15-2022 Patient encounter procedure Pierce Salazar MD Work Phone: OB/Gynecology Comment on above: care and examination of lactating mother (Primary Dx) Start: 05-09-2022 Telephone encounter Pierce barker MD Work Phone: OB/Gynecology Comment on above: Medication Problem Start: 05-07-2022 Telephone encounter Sherry Nash MD Work Phone: OB/Gynecology Comment on above: breast pump Start: 05-03-2022 End: 05-09-2022 Evaluation and management of inpatient [facility] Start: 05-02-2022 Telephone encounter Nadiya castaneda APRN.CNM Work Phone: OB/Gynecology Comment on above: OB-Headache Start: 05-02-2022 End: 05-02-2022 ambulatory [facility] Work Phone: Start: 05-02-2022 End: 05-02-2022 Patient encounter procedure [facility] Start: 04-29-2022 End: 04-29-2022 Patient encounter procedure Ely Crespo MD Work Phone: Maternal Medicine Comment on above: Non-reactive NST (no n-stress test) (Primary Dx); Gestational hypertension without significant proteinuria in third trimester; Obesity in ; 35 weeks gestation of Gestational hyperten jimenez without significant proteinuria in third trimester Start: 04-23-2022 End: 04-23-2022 Patient encounter procedure Sherry Nash MD Work Phone: OB/Gynecology Comment on above: Gestational hyperten jimenez without significant proteinuria in third trimester (Primary Dx); Obesity in , antepartum; 34 weeks gestation of Start: 04-17-2022 End: 04-17-2022 Patient encounter procedure Jose Neil MD Work Phone: OB/Gynecology Comment on above: 33 weeks gestation o f (Primary Dx); Anemia during in third trimester; Obesity complicating , third trimester; Supervision of high risk in third trimester Start: 04-09-2022 Telephone encounter Sherry Nash MD Work Phone: OB/Gynecology Comment on above: Results Start: 04-09-2022 End: 04-09-2022 Patient encounter procedure Nadiya Anders APRN.CNM Work Phone: OB/Gynecology Comment on above: 32 weeks gestation o f (Primary Dx) Obesity in (Primary Dx); 32 weeks gestation of Start: 04-08-2022 Telephone encounter Isael Gandara MD Work Phone: OB/Gynecology Comment on above: Question (OB Questio n) Start: 03-24-2022 End: 03-24-2022 Patient encounter procedure Sherry Nash MD Work Phone: OB/Gynecology Comment on above: Obesity in (Primary Dx); Anemia during in third trimester; 29 weeks gestation of Start: 03-17-2022 Telephone encounter Nadiya castaneda APRN.CNM Work Phone: OB/Gynecology Comment on above: Orders Start: 03-11-2022 ambulatory Isael melendez MD Work Phone: OB/Gynecology Comment on above: Iron Supplement Start: 03-10-2022 Telephone encounter Isael Gandara MD Work Phone: OB/Gynecology Comment on above: Results Start: 03-07-2022 End: 03-07-2022 Patient encounter procedure Sherry Nash MD Work Phone: OB/Gynecology Comment on above: Obesity in (Primary Dx); 27 weeks gestation of ; Need for vaccination Start: 02-27-2022 Telephone encounter Jose saunders MD Work Phone: OB/Gynecology Comment on above: Question (OB Questio n) Start: 01-24-2022 End: 01-24-2022 Patient encounter procedure Terell Fairbanks MD Work Phone: Maternal Medicine Comment on above: Encounter for follow -up ultrasound of anatomy (Primary Dx); 21 weeks gestation of Start: 01-09-2022 End: 01-09-2022 Patient encounter procedure Sherry Nash MD Work Phone: OB/Gynecology Comment on above: Obesity in (Primary Dx); 19 weeks gestation of Start: 12-27-2021 End: 12-27-2021 Patient encounter procedure Ely Crespo MD Work Phone: Maternal Medicine Comment on above: Encounter for anatomic survey (Primary Dx); Abnormal maternal serum screening test; 17 weeks gestation of ; Obesity complicating , second trimester Start: 12-16-2021 End: 12-16-2021 Patient encounter procedure Sherry Nash MD Work Phone: OB/Gynecology Comment on above: Obesity in (Primary Dx); Supervision of high risk in second trimester; 15 weeks gestation of Start: 12-13-2021 Telephone encounter Randi ROJO Work Phone: Maternal Medicine Comment on above: Appointment Start: 12-11-2021 Telephone encounter Randi pulido [facility] Work Phone: [facility] Comment on above: QNS NIPT Start: 12-09-2021 ambulatory Sherry Nash MD Work Phone: OB/Gynecology Comment on above: Bleeding Question Start: 11-27-2021 Telephone encounter Randi pulido [facility] Work Phone: [facility] Comment on above: Nonreportable NIPT Start: 11-18-2021 End: 11-18-2021 Patient encounter procedure Ely Crespo MD Work Phone: Maternal Medicine Comment on above: Encounter for (NT) n uchal translucency scan (Primary Dx); 11 weeks gestation of ; Obesity in Start: 11-11-2021 Telephone encounter Jose saunders MD Work Phone: OB/Gynecology Comment on above: Orders Start: 10-30-2021 End: 10-30-2021 Patient encounter procedure Isael Gandara MD Work Phone: OB/Gynecology Comment on above: Obesity in (Primary Dx); MANNY (generalized anxiety disorder); Current with history of spontaneous during prior ; High-risk in first trimester Start: 10-30-2021 Telephone encounter Iasel Gandara MD Work Phone: OB/Gynecology Comment on above: Question (OB Questio n) Start: 10-17-2021 Patient requested procedure Isael Gandara MD Work Phone: [facility] Work Phone: Start: 10-02-2021 ambulatory Sherry Nash MD Work Phone: OB/Gynecology Comment on above: Light [place] Spotting Start: 05-29-2021 End: 06-25-2022 Patient requested procedure Sherry Nash MD Work Phone: [facility] Work Phone: Start: 01-16-2021 End: 01-16-2021 Patient encounter procedure Daniel Sanchez DO Work Phone: [facility] [place] Comment on above: MANNY (generalized anx iety disorder) (Primary Dx); Mixed obsessional thoughts and acts; Screening for thyroid disorder; Screening for hyperlipidemia Procedures Date Procedure Procedure Detail Performing Clinician Start: 10-29-2024 Estimated creatinine clearance No Primary Care Physician Start: 10-26-2024 Urnls dip stick/tabl et rgnt non-auto w/o micrscp Jason Marshall MD Work Phone: Start: 10-20-2024 Urnls dip stick/tabl et rgnt non-auto w/o micrscp Isael Gandara MD Work Phone: Start: 10-20-2024 Us preg uterus after 1st trimest 04/27 gestation Isael Gandara MD Work Phone: Start: 10-14-2024 Urnls dip stick/tabl et rgnt non-auto w/o micrscp Aylin Francois MD Work Phone: Start: 10-11-2024 Urnls dip stick/tabl et rgnt non-auto w/o micrscp Aylin Francois MD Work Phone: Start: 10-05-2024 Urnls dip stick/tabl et rgnt non-auto w/o micrscp Sherry Nash MD Work Phone: Start: 09-21-2024 Us preg uterus after 1st trimest / gestation Isael Gandara MD Work Phone: Start: 09-12-2024 Fibrinogen assay, quantitative No Primary Care Physician Start: 07-01-2024 Us preg uterus after 1st trimest /1st gestation Isael Gandara MD Work Phone: Start: 05-30-2024 Us preg uterus after 1st trimest 04/27 gestation Isael Gandara MD Work Phone: Start: 05-06-2024 Us nuchal translucency 1st gestation Nadiya Anders APRN.CNM Work Phone: Start: 05-06-2024 Antibody screen ISAEL GANDARA Comment on above: Order Comment: Speci men Type: BLOOD SPECIMENOrdering Facility: [facility] Address: [address] [place] [address] Performed By: #### T SPN ####CC MAIN BLOOD BANKCLIA [id number] CRISTAL MOLINA [id number] [id number] [place] Start: 04-11-2024 H/O: section History of section Nadiya Chago SMARTCNM Work Phone: Start: 04-06-2024 Cytp c/v auto thin l yr prepj scr mnl rescr phys Nadiya Anders DOMINGA.CNM Work Phone: Start: 04-06-2024 Iadna chlamydia trac homatis amplified probe tq Nadiya Anders DOMINGA.CNM Work Phone: Start: 04-06-2024 Us uterus l imited 1/> fetuses Nadiya Chago SMARTCNM Work Phone: Start: 07-14-2023 UA DIP,URINE HCG (POC) Isael Gandara MD Work Phone: Start: 04-29-2022 biophysical pr ofile non-stress testing Nadiya Chago SMARTCNM Work Phone: Start: 04-23-2022 URINE OB DIP B/O Sherry Nash MD Work Phone: Start: 04-17-2022 URINE OB DIP B/O Jose diaz MD Work Phone: Start: 04-09-2022 URINE OB DIP B/O Sherry Nash MD Work Phone: Start: 04-09-2022 Us preg uterus after 1st trimest 1/ gestation Sherry Nash MD Work Phone: Start: 03-07-2022 URINE OB DIP B/O Sherry Nash MD Work Phone: Start: 01-24-2022 Us preg uterus after 1st trimest 1/1st gestation Sherry Nash MD Work Phone: Start: 01-09-2022 URINE OB DIP B/O Sherry Nash MD Work Phone: Start: 12-27-2021 Us preg uterus after 1st trimest 1 gestation Randi Lim [facility] Work Phone: Start: 12-16-2021 URINE OB DIP B/O Sherry Nash MD Work Phone: Start: 11-18-2021 Us nuchal translucency 1st gestation Sherry Nash MD Work Phone: Start: 10-30-2021 URINE OB DIP B/O Massimo Gandara MD Work Phone: Start: 01-16-2021 Adult depression scr eening assessment [facility] Work Phone: H/O: section History of section Nadiya Anders PROJECT BUILDER.CNM Work Phone: H/O: section History of section Nadiya Anders PROJECT BUILDER.CNM Work Phone: H/O: section History of section Nadiya Anders PROJECT BUILDER.CNM Work Phone: H/O: section History of section Venu Dhaliwal PROJECT BUILDER.CERAMICS TECHNICIAN Work Phone: H/O: section History of section Nadiya Anders PROJECT BUILDER.CNM Work Phone: H/O: section History of section Sherry Nash MD Work Phone: H/O: section History of section Isael Gandara MD Work Phone: H/O: section History of section Sherry Nash MD Work Phone: H/O: section History of section Iseal Gandara MD Work Phone: H/O: section History of section Jason Marshall MD Work Phone: H/O: section History of section Isael Gandara MD Work Phone: Plan of Treatment Date Care Activity Detail Author Start: 08-22-2034 Urine microalbumin profile DTaP,Tdap,Td Vaccine (9 - Td or Tdap) [facility] Start: 03-07-2032 Urine microalbumin profile [facility] Start: 04-06-2029 Screening for malign ant neoplasm of cervix Cervical Cancer Screening [facility] Start: 01-28-2026 HPV TESTING HPV TESTING [facility] Start: 01-28-2026 PAP TESTING PAP TESTING [facility] Start: 01-28-2026 Screening for malign ant neoplasm of cervix [facility] Start: 12-26-2024 Influenza vaccination [facility] Start: 11-17-2024 End: 11-17-2024 Patient encounter procedure 11/17/2024 9:20 AM EDT Office Visit OB/Gynecology [address] [place] [address] Jose Neil MD [address] [place] [address] 1 week Incision check OB/Gynecology Comment on above: 1 week Incision chec k Start: 11-10-2024 ambulatory Ambulatory Facility:[facility] Start: 11-03-2024 End: 02-02-2025 Protein/Creatinine [Mass Ratio] in Urine [facility] Comment on above: Expected: 11/03/2024 , Expires: 02/02/2025 Start: 11-03-2024 End: 11-03-2024 Patient encounter procedure 11/03/2024 10:50 AM EDT Routine Office Visit OB/Gynecology [address] [place] [id number] Isael Gandara MD [address] [place] [address] OB Pre Op C/S 11/[address] [facility] OB/Gynecology Comment on above: OB Pre Op C/S 11/[address] [facility] Start: 10-31-2024 End: 10-31-2024 ambulatory 10/31/2024 1:30 PM EDT Infusion Center Hematology/Oncology [address] [place] [address] 2ND FLOOR Hematology/Oncology Comment on above: 2ND FLOOR Start: 10-29-2024 Nonstress test [facility] Start: 10-29-2024 Obstetric monitoring [facility] Start: 10-29-2024 Vital signs measurements [facility] Start: 10-29-2024 [facility] Start: 10-26-2024 End: 10-26-2024 Patient encounter procedure OB/Gynecology Comment on above: NST OB Start: 10-25-2024 End: 10-25-2024 ambulatory 10/25/2024 2:30 PM EDT Infusion Center Hematology/Oncology [address] [place] [address] 2ND FLOOR Hematology/Oncology Comment on above: 2ND FLOOR Start: 10-21-2024 End: 10-21-2024 ambulatory 10/21/2024 2:00 PM EDT Infusion Center Hematology/Oncology [address] [place] [address] 2ND FLOOR Hematology/Oncology Comment on above: 2ND FLOOR Start: 10-20-2024 End: 10-20-2024 Patient encounter procedure Maternal Medicine Comment on above: Growth ob BPP Start: 10-14-2024 End: 10-14-2024 Patient encounter procedure OB/Gynecology Comment on above: NST nst/ ob Start: 10-13-2024 End: 01-12-2025 Ferritin [Mass/volume] in Serum or Plasma FERRITIN Lab Routine Anemia during in third trimester (HCC) Expected: 10/13/2024, Expires: 01/12/2025 [facility] Work Phone: Comment on above: Expected: 10/13/2024 , Expires: 01/12/2025 Start: 10-13-2024 End: 01-12-2025 Iron and Iron binding capacity panel - Serum or Plasma IRON AND TIBC Lab Routine Anemia during in third trimester (HCC) Expected: 10/13/2024, Expires: 01/12/2025 [facility] Comment on above: Expected: 10/13/2024 , Expires: 01/12/2025 Start: 10-07-2024 End: 10-07-2024 ambulatory 10/07/2024 1:15 PM EDT Results Only [facility] [address] [place] [address] In preparation for this test, do not take multivitamins or dietary supplements containing biotin (vitamin B7) for at least 12 hours. Biotin is commonly found in hair, skin, and nail supplements and multivitamins. Tell your [place] [facility] Comment on above: In preparation for t his test, do not take multivitamins or dietary supplements containing biotin (vitamin B7) for at least 12 hours. Biotin is commonly found in hair, skin, and nail supplements and multivitamins. Tell your Start: 10-05-2024 End: 10-05-2024 Patient encounter procedure OB/Gynecology Comment on above: NST / OB OB Start: 10-05-2024 End: 01-04-2025 Ferritin [Mass/volume] in Serum or Plasma FERRITIN Lab Routine Antepartum anemia complicating in third trimester (HCC) Expected: 10/05/2024, Expires: 01/04/2025 [facility] Comment on above: Expected: 10/05/2024 , Expires: 01/04/2025 Start: 10-05-2024 End: 01-04-2025 Iron and Iron binding capacity panel - Serum or Plasma IRON AND TIBC Lab Routine Antepartum anemia complicating in third trimester (HCC) Expected: 10/05/2024, Expires: 01/04/2025 [facility] Work Phone: Comment on above: Expected: 10/05/2024 , Expires: 01/04/2025 Start: 09-28-2024 End: 09-28-2024 Patient encounter procedure 09/28/2024 9:30 AM EDT Routine Office Visit OB/Gynecology [address] [place] [address] NST ONLY OB/Gynecology Comment on above: NST ONLY Start: 09-21-2024 End: 09-21-2024 Patient encounter procedure Maternal Medicine Comment on above: Growth OB Start: 09-21-2024 End: 09-21-2024 ambulatory 09/21/2024 7:45 AM EDT Results Only [place] [address] [place] [address] [place] [facility] Start: 09-20-2024 End: 12-20-2024 CBC panel - Blood by Automated count COMPLETE BLOOD COUNT Lab Routine Anemia during in third trimester (HCC) Expected: 09/20/2024, Expires: 12/20/2024 [facility] Work Phone: Comment on above: Expected: 09/20/2024 , Expires: 12/20/2024 Start: 09-12-2024 Nonstress test [facility] Start: 09-12-2024 Obstetric monitoring [facility] Start: 09-12-2024 Vital signs measurements [facility] Start: 09-12-2024 [facility] Start: 09-12-2024 Patient discharge [facility] Start: 09-06-2024 End: 09-06-2024 Patient encounter procedure 09/06/2024 8:10 AM EDT Routine Office Visit OB/Gynecology [address] [place] [address] Sheryr Bearden MD [address] [place] [address] OB Routine OB/Gynecology Comment on above: OB Routine Start: 08-22-2024 End: 08-22-2024 Patient encounter procedure 08/22/2024 8:30 AM EDT Routine Office Visit OB/Gynecology [address] [place] [address] Isael Gandara MD [address] [place] [address] OB OB/Gynecology Comment on above: OB Start: 08-12-2024 End: 08-12-2024 Patient encounter procedure 08/12/2024 2:00 PM EDT Office Visit Neurology [address] [place] [address] per Yareli add on Thursday08/12/24 Neurology Comment on above: per Yareli add on Fr iday 08/12/24 Start: 08-10-2024 End: 08-10-2024 ambulatory 08/10/2024 9:00 AM EDT [facility] Neurology [address] [place], [place] [address] Isael Louis, PROJECT BUILDER.CERAMICS TECHNICIAN [address] [address] sleep apnea Neurology Comment on above: sleep apnea Start: 07-25-2024 End: 10-24-2024 ANEMIA REFLEX PANEL ANEMIA REFLEX PANEL Lab Routine Supervision of high risk in second trimester Obesity affecting in second trimester, unspecified obesity type 23 weeks gestation of Screening for diabetes mellitus Expected: 07/25/2024, Expires: 10/24/2024 [facility] Comment on above: Expected: 07/25/2024 , Expires: 10/24/2024 Start: 07-25-2024 End: 07-25-2025 GESTATIONAL GLUCOSE SCREEN, 1-HOUR, 50 GRAM, NON-FASTING GESTATIONAL GLUCOSE SCREEN, 1-HOUR, 50 GRAM, NON-FASTING Lab Routine Supervision of high risk in second trimester Obesity affecting in second trimester, unspecified obesity type 23 weeks gestation of Screening for diabetes mellitus Expected: 07/25/2024, Expires: 07/25/2025 [facility] Work Phone: Comment on above: Expected: 07/25/2024 , Expires: 07/25/2025 Start: 07-25-2024 End: 07-25-2025 SYPHILIS TREPONEMAL W/REFLEX SYPHILIS TREPONEMAL W/REFLEX Lab Routine Supervision of high risk in second trimester Obesity affecting in second trimester, unspecified obesity type 23 weeks gestation of Screening for diabetes mellitus Expected: 07/25/2024, Expires: 07/25/2025 [facility] Comment on above: Expected: 07/25/2024 , Expires: 07/25/2025 Start: 07-25-2024 End: 07-25-2024 Patient encounter procedure 07/25/2024 8:30 AM EDT Routine Office Visit OB/Gynecology [address] [place] [address] Isael Gandara MD [address] [place] [address] OB Routine OB/Gynecology Comment on above: OB Routine Start: 07-01-2024 End: 07-01-2024 Patient encounter procedure Maternal Medicine Comment on above: Anatomy Anatomy/OB Start: 06-03-2024 End: 06-03-2024 Patient encounter procedure 06/03/2024 9:00 AM EST Routine Office Visit OB/Gynecology [address] [place] [address] Radha Mart APRN.CNM [address] [place] [address] OB OB/Gynecology Comment on above: OB Start: 05-30-2024 End: 05-30-2024 Patient encounter procedure Maternal Medicine Comment on above: anatomy scan OB Start: 05-06-2024 End: 05-06-2024 Patient encounter procedure Maternal Medicine Comment on above: Nuchal / Est OB Nuchal/OB Nuchal/Ob- requestin g nipt Start: 05-04-2024 End: 05-04-2024 Patient encounter procedure 05/04/2024 10:20 AM EST Routine Office Visit OB/Gynecology [address] [place] [address] Isael Gandara MD [address] [place] [address] OB/Gynecology Comment on above: Start: 04-29-2024 End: 07-29-2024 CARRIER SCREEN, STANDARD CARRIER SCREEN, STANDARD Lab Routine Supervision of other high risk pregnancies, first trimester Encounter for screening of mother Expected: 04/29/2024, Expires: 07/29/2024 [facility] Comment on above: Expected: 04/29/2024 , Expires: 07/29/2024 Start: 04-29-2024 End: 07-29-2024 Chromosome 21 trisomy [Presence] in Blood or Tissue by Cytogenetics [id number] PLUS Lab Routine Supervision of other high risk pregnancies, first trimester Encounter for screening of mother Expected: 04/29/2024, Expires: 07/29/2024 [facility] Work Phone: Comment on above: Expected: 04/29/2024 , Expires: 07/29/2024 Start: 04-06-2024 End: 07-06-2024 ANEMIA REFLEX PANEL ANEMIA REFLEX PANEL Lab Routine Supervision of high risk in first trimester Expected: 04/06/2024, Expires: 07/06/2024 [facility] Work Phone: Comment on above: Expected: 04/06/2024 , Expires: 07/06/2024 Start: 04-06-2024 End: 07-06-2024 Comprehensive metabolic 2000 panel - Serum or Plasma COMPREHENSIVE METABOLIC PANEL Lab Routine Supervision of high risk in first trimester Expected: 04/06/2024, Expires: 07/06/2024 [facility] Comment on above: Expected: 04/06/2024 , Expires: 07/06/2024 Start: 04-06-2024 End: 07-06-2024 Hemoglobin A1c in Blood HEMOGLOBIN A1C Lab Routine Supervision of high risk in first trimester Expected: 04/06/2024, Expires: 07/06/2024 [facility] Comment on above: Expected: 04/06/2024 , Expires: 07/06/2024 Start: 04-06-2024 End: 07-06-2024 Hepatitis B virus surface Ag [Presence] in Serum HEPATITIS B SURFACE ANTIGEN Lab Routine Supervision of high risk in first trimester Expected: 04/06/2024, Expires: 07/06/2024 [facility] Comment on above: Expected: 04/06/2024 , Expires: 07/06/2024 Start: 04-06-2024 End: 07-06-2024 Hepatitis C virus Ab [Presence] in Serum HEPATITIS C ANTIBODY IA WITH CONFIRMATION Lab Routine Supervision of high risk in first trimester Expected: 04/06/2024, Expires: 07/06/2024 [facility] Comment on above: Expected: 04/06/2024 , Expires: 07/06/2024 Start: 04-06-2024 End: 07-06-2024 HIV 1+2 Ab [Presence] in Serum or Plasma by Immunoassay HIV 1/2 COMBO WITH REFLEX TO DIFFERENTIATION Lab Routine Supervision of high risk in first trimester Expected: 04/06/2024, Expires: 07/06/2024 [facility] Comment on above: Expected: 04/06/2024 , Expires: 07/06/2024 Start: 04-06-2024 End: 04-06-2025 NUCHAL TRANSLUCENCY WHI NUCHAL TRANSLUCENCY WHI Anc Imaging Routine Supervision of high risk in first trimester Expected: 04/06/2024, Expires: 04/06/2025 [facility] Comment on above: Expected: 04/06/2024 , Expires: 04/06/2025 Start: 04-06-2024 End: 07-06-2024 Protein/Creatinine [Mass Ratio] in Urine PROTEIN / CREATININE RATIO Lab Routine Supervision of high risk in first trimester Expected: 04/06/2024, Expires: 07/06/2024 [facility] Comment on above: Expected: 04/06/2024 , Expires: 07/06/2024 Start: 04-06-2024 End: 07-06-2024 RUBELLA IGG ANTIBODY RUBELLA IGG ANTIBODY Lab Routine Supervision of high risk in first trimester Expected: 04/06/2024, Expires: 07/06/2024 [facility] Comment on above: Expected: 04/06/2024 , Expires: 07/06/2024 Start: 04-06-2024 End: 07-06-2024 SYPHILIS TREPONEMAL W/REFLEX SYPHILIS TREPONEMAL W/REFLEX Lab Routine Supervision of high risk in first trimester Expected: 04/06/2024, Expires: 07/06/2024 [facility] Comment on above: Expected: 04/06/2024 , Expires: 07/06/2024 Start: 04-06-2024 End: 07-06-2024 TYPE + SCREEN TYPE + SCREEN Blood Bank Routine Supervision of high risk in first trimester Expected: 04/06/2024, Expires: 07/06/2024 [facility] Comment on above: Expected: 04/06/2024 , Expires: 07/06/2024 Start: 04-06-2024 End: 07-06-2024 Urate [Mass/volume] in Serum or Plasma URIC ACID Lab Routine Supervision of high risk in first trimester Expected: 04/06/2024, Expires: 07/06/2024 [facility] Comment on above: Expected: 04/06/2024 , Expires: 07/06/2024 Start: 04-06-2024 End: 04-06-2024 Patient encounter procedure OB/Gynecology Comment on above: Start: 12-27-2023 Covid-19 Vaccine () Covid-19 Vaccine () [facility] Start: 12-27-2023 Influenza vaccination Influenza Vacc ine (#1) [facility] Start: 04-27-2023 Depression Assessment Depression Ass essment [facility] Start: 12-26-2022 Covid-19 Vaccine () Covid-19 Vaccine () [facility] Start: 12-26-2022 Influenza vaccination Influenza Vacc ine (#1) [facility] Start: 05-09-2022 Patient discharge [facility] Work Phone: Start: 05-08-2022 [facility] Work Phone: Start: 05-06-2022 Application of abdom inal corset [facility] Work Phone: Start: 05-05-2022 [facility] Work Phone: Start: 05-05-2022 Application of intermittent pneumatic compression device [facility] Work Phone: Start: 05-05-2022 Application of abdom inal corset [facility] Work Phone: Start: 05-05-2022 Administration of medication [facility] Work Phone: Start: 05-05-2022 Ambulation therapy management [facility] Work Phone: Start: 05-05-2022 Application of device W [facility] Work Phone: Start: 05-05-2022 Application of intermittent pneumatic compression device [facility] Work Phone: Start: 05-05-2022 Catheterization of vein [facility] Work Phone: Start: 05-05-2022 Deep breathing and coughing exercises [facility] Work Phone: Start: 05-05-2022 Exercises [facility] Work Phone: Start: 05-05-2022 Incentive spirometry [facility] Work Phone: Start: 05-05-2022 Measuring intake and output [facility] Work Phone: Start: 05-05-2022 Procedure discontinued [facility] Work Phone: Start: 05-05-2022 Provision of activit y privileges [facility] Work Phone: Start: 05-05-2022 Vital signs measurements [facility] Work Phone: Start: 05-05-2022 Wound care [facility] Work Phone: Start: 05-05-2022 End: 05-05-2022 [facility] Work Phone: Start: 05-05-2022 Post-anesthesia assessment [facility] Work Phone: Start: 05-05-2022 End: 05-05-2022 Notification [facility] physician [facility] Work Phone: Start: 05-04-2022 End: 05-04-2022 Notification of physician [facility] Work Phone: Start: 05-04-2022 End: 05-04-2022 [facility] Work Phone: Start: 05-04-2022 Notification of physician [facility] Work Phone: Start: 05-04-2022 [facility] Work Phone: Start: 05-03-2022 Notification of physician [facility] Work Phone: Start: 05-03-2022 End: 05-03-2022 [facility] Work Phone: Start: 05-03-2022 Admission procedure [facility] Work Phone: Start: 05-03-2022 Anesthesia consultation [facility] Work Phone: Start: 05-03-2022 acoustic stimulation test [facility] Work Phone: Start: 05-03-2022 Insertion of cathete r into peripheral vein [facility] Work Phone: Start: 05-03-2022 Intrauterine catheterization [facility] Work Phone: Start: 05-03-2022 Obstetric monitoring [facility] Work Phone: Start: 05-03-2022 Provision of activit y privileges [facility] Work Phone: Start: 05-03-2022 Vital signs measurements [facility] Work Phone: Start: 05-03-2022 End: 05-03-2022 [facility] Work Phone: Start: 05-02-2022 Nonstress test [facility] Work Phone: Start: 05-02-2022 Obstetric monitoring [facility] Work Phone: Start: 05-02-2022 Vital signs measurements [facility] Work Phone: Start: 05-02-2022 End: 05-03-2022 [facility] Work Phone: Start: 05-02-2022 Patient discharge [facility] Work Phone: Start: 04-27-2022 DEPRESSION ASSESSMENT DEPRESSION ASS ESSMENT [facility] Start: 01-16-2022 Adult depression screening assessment DEPRESSION SCREENING [facility] Start: 12-26-2021 Influenza vaccination [facility] Start: 12-16-2021 End: 02-15-2022 QUAD SCN BL QUAD SCN BL Lab Routine Supervision of high risk in second trimester Expected: 12/16/2021, Expires: 02/15/2022 [facility] Work Phone: Comment on above: Expected: 12/16/2021 , Expires: 02/15/2022 Start: 11-27-2021 End: 01-27-2022 Chromosome 21 trisomy [Presence] in Blood or Tissue by Cytogenetics [id number] PLUS Lab Routine Multigravida in first trimester Expected: 11/27/2021, Expires: 01/27/2022 [facility] Work Phone: Comment on above: Expected: 11/27/2021 , Expires: 01/27/2022 Start: 11-13-2021 End: 01-13-2022 Chromosome 21 trisomy [Presence] in Blood or Tissue by Cytogenetics [id number] PLUS Lab Routine Encounter for (NT) nuchal translucency scan Expected: 11/13/2021, Expires: 01/13/2022 [facility] Work Phone: Comment on above: Expected: 11/13/2021 , Expires: 01/13/2022 Start: 04-27-2021 DEPRESSION ASSESSMENT DEPRESSION ASS ESSMENT [facility] Start: 02-10-2021 COVID-19 VACCINE (3 - Booster for Moderna series) COVID-19 VACCINE (3 - Booster for Moderna series) [facility] Start: 12-26-2020 Influenza vaccination INFLUENZA (#1) [facility] Start: 11-05-2020 COVID-19 VACCINE (3 - Booster for Moderna series) COVID-19 VACCINE (3 - Booster for Moderna series) [facility] Start: 2020 HPV TESTING HPV TESTING [facility] Start: 07-08-2019 PAP TESTING PAP TESTING [facility] Start: 12-14-2012 Urine microalbumin profile DTAP,TDAP,TD (7 - Tdap) [facility] Start: 2008 Depression Screening Depression Scre ening [facility] Start: 2008 HEPATITIS C SCREENING HEPATITIS C SC LOREN [facility] Start: 2008 HIV SCREENING HIV SCREENING [facility] BACTERIAL VAGINOSIS NAAT BACTERI AL VAGINOSIS NAAT Lab Routine Vaginal itching Ordered: 03/31/2023 [facility] Work Phone: Comment on above: Ordered: 03/31/2023 End: 10-26-2022 BIOPHYSICAL PROFILE US [facility] BIOPHYSICAL PROFILE US [facility] Anc Imaging Routine Gestational hypertension without significant proteinuria in third trimester Once per week for 10 Occurrences starting 04/29/2022 until 10/26/2022, 1 completed [facility] Work Phone: Comment on above: Once per week for 10 Occurrences starting 04/29/2022 until 10/26/2022, 1 completed NIKO/TRICHOMONAS NAAT NIKO /TRICHOMONAS NAAT Lab Routine Vaginal itching Ordered: 03/31/2023 [facility] Work Phone: Comment on above: Ordered: 03/31/2023 End: 10-02-2022 Choriogonadotropin.beta subunit [Units/volume] in Serum or Plasma HCG QUANTITATIVE Lab Routine Bleeding in early 2x per week for 2 Occurrences starting 10/02/2021 until 10/02/2022 [facility] Work Phone: Comment on above: 2x per week for 2 Oc currences starting 10/02/2021 until 10/02/2022 End: 03-16-2025 Choriogonadotropin.beta subunit [Units/volume] in Serum or Plasma HCG QUANTITATIVE Lab Routine Positive test 2x per week for 6 Occurrences starting 03/16/2024 until 03/16/2025 [facility] Work Phone: Comment on above: 2x per week for 6 Oc currences starting 03/16/2024 until 03/16/2025 Choriogonadotropin.b eta subunit [Units/volume] in Serum or Plasma HCG QUANTITATIVE Lab Routine Positive test 03/16/2024 12:54 PM EST [facility] nonstress test NON-S TRESS TEST Procedures Routine 32 weeks gestation of Ordered: 04/09/2022 [facility] Work Phone: Comment on above: Ordered: 04/09/2022 End: 12-20-2024 nonstress test NON-STRESS TEST Procedures Routine Supervision of high risk in third trimester (HCC) Obesity in (HCC) Hx of preeclampsia, prior , currently (HCC) 2x per week for 19 Occurrences starting 09/21/2024 until 12/20/2024 [facility] Work Phone: Comment on above: 2x per week for 19 O ccurrences starting 09/21/2024 until 12/20/2024 End: 08-10-2025 HOME SLEEP APNEA TEST (HSAT) HOME SLEEP APNEA TEST (HSAT) Procedures Routine Snoring Non-restorative sleep Obesity, morbid, BMI 40.0-49.9 (HCC) 1 Occurrences starting 08/10/2024 until 08/10/2025 [facility] Work Phone: Comment on above: 1 Occurrences starti ng 08/10/2024 until 08/10/2025 OBSTETRIC ULTRASOUND [facility] OBSTETR IC ULTRASOUND [facility] Anc Imaging Routine Abnormal genetic test in Ordered: 12/12/2021 [facility] Work Phone: Comment on above: Ordered: 12/12/2021 End: 06-03-2022 OBSTETRIC ULTRASOUND [facility] OBSTETRIC ULTRASOUND [facility] Anc Imaging Routine 27 weeks gestation of Obesity in Once per month for 4 Occurrences starting 03/07/2022 until 06/03/2022 [facility] Work Phone: Comment on above: Once per month for 4 Occurrences starting 03/07/2022 until 06/03/2022 End: 11-28-2024 OBSTETRIC ULTRASOUND WHI OBSTETRIC ULTRASOUND [facility] Anc Imaging Routine History of section Supervision of other high risk pregnancies, first trimester Severe obesity due to excess calories affecting , antepartum (HCC) BMI 40.0-44.9, adult (HCC) Once per month for 6 Occurrences starting 05/12/2024 until 11/28/2024 [facility] Work Phone: Comment on above: Once per month for 6 Occurrences starting 05/12/2024 until 11/28/2024 Patient Education [facility] Work Phone: Patient referral [facility] Work Phone: End: 07-25-2025 Polysomnogram POLYSOMNOGRAM (PSG) Procedures Routine Supervision of high risk in second trimester Obesity affecting in second trimester, unspecified obesity type 23 weeks gestation of Screening for diabetes mellitus Malaise and fatigue 1 Occurrences starting 07/25/2024 until 07/25/2025 [facility] Comment on above: 1 Occurrences starti ng 07/25/2024 until 07/25/2025 ROUTINE, GR OUP B STREPTOCOCCUS BY PCR ROUTINE, GROUP B STREPTOCOCCUS BY PCR Microbiology Routine Supervision of high risk in third trimester ([facility]) Obesity in ([facility]) Hx of preeclampsia, prior , currently ([facility]) History of section 36 weeks gestation of ([facility]) Anemia during in third trimester ([facility]) 10/20/2024 4:15 PM EDT [facility] Work Phone: SURGICAL PATHOLOGY SURGICAL PATH OLOGY Lab Routine Vaginal itching 07/14/2023 11:47 AM EDT [facility] Work Phone: URINE OB DIP B/O URINE OB DIP B/ O Lab Routine 29 weeks gestation of Ordered: 03/24/2022 [facility] Work Phone: Comment on above: Ordered: 03/24/2022 URINE OB DIP B/O URINE OB DIP B/ O Lab Routine Supervision of high risk in third trimester ([facility]) Obesity in ([facility]) Hx of preeclampsia, prior , currently ([facility]) History of section Anemia during in third trimester ([facility]) 38 weeks gestation of ([facility]) Ordered: 11/03/2024 [facility] Work Phone: Comment on above: Ordered: 11/03/2024 [facility] Immunizations Immunization Date Immunization Notes Care Provider Ct juárez 08-22-2024 tetanus toxoid, redu rachel diphtheria toxoid, and acellular pertussis vaccine, adsorbed Sherry Nash MD Work Phone: [facility] 03-07-2022 tetanus toxoid, redu rachel diphtheria toxoid, and acellular pertussis vaccine, adsorbed Sherry Nash MD Work Phone: [facility] 05-27-2007 hepatitis A vaccine, unspecified formulation Farrell Daniel DO Work Phone: [facility] 05-27-2007 human papilloma viru s vaccine, quadrivalent Daniel Daniel DO Work Phone: [facility] 02-20-2007 human papilloma viru s vaccine, quadrivalent Daniel Daniel DO Work Phone: [facility] Work Phone: 11-24-2006 hepatitis A vaccine, unspecified formulation Farrell Daniel DO Work Phone: [facility] Work Phone: 11-24-2006 human papilloma viru s vaccine, quadrivalent Farrell Daniel DO Work Phone: [facility] Work Phone: 11-24-2006 Meningococcal, MCV4, unspecified conjugate formulation(groups A, C, Y and W-135) Farrell Daniel DO Work Phone: [facility] Work Phone: 12-14-2002 diphtheria and tetan us toxoids, adsorbed for pediatric use Daniel Daniel DO Work Phone: [facility] Work Phone: 12-14-2002 measles, mumps and rubella virus vaccine Farrell Daniel DO Work Phone: [facility] Work Phone: 08-31-2000 hepatitis B vaccine, pediatric or pediatric/adolescent dosage Daniel Daniel DO Work Phone: [facility] Work Phone: 03-28-2000 hepatitis B vaccine, pediatric or pediatric/adolescent dosage Farrell Daniel DO Work Phone: [facility] Work Phone: 02-05-2000 hepatitis B vaccine, pediatric or pediatric/adolescent dosage Farrell Daniel DO Work Phone: [facility] Work Phone: 12-21-1995 diphtheria, tetanus toxoids and acellular pertussis vaccine [facility] DO Work Phone: [facility] Work Phone: 12-21-1995 haemophilus influenz ae type b vaccine, HbOC conjugate [facility] DO Work Phone: [facility] Work Phone: 12-21-1995 trivalent poliovirus vaccine, live, oral [facility] DO Work Phone: [facility] Work Phone: 1993 Chicken Pox (disease) [facility] DO Work Phone: [facility] Work Phone: 12-12-1991 diphtheria, tetanus toxoids and pertussis vaccine [facility] DO Work Phone: [facility] Work Phone: 12-12-1991 haemophilus influenz ae type b vaccine, HbOC conjugate [facility] DO Work Phone: [facility] Work Phone: 12-12-1991 trivalent poliovirus vaccine, live, oral [facility] DO Work Phone: [facility] Work Phone: 09-12-1991 measles, mumps and rubella virus vaccine [facility] DO Work Phone: [facility] Work Phone: 1990 diphtheria, tetanus toxoids and pertussis vaccine [facility] DO Work Phone: [facility] Work Phone: 1990 diphtheria, tetanus toxoids and pertussis vaccine [facility] DO Work Phone: [facility] Work Phone: 1990 haemophilus influenz ae type b vaccine, HbOC conjugate [facility] DO Work Phone: [facility] Work Phone: 1990 trivalent poliovirus vaccine, live, oral [facility] DO Work Phone: [facility] Work Phone: 1990 diphtheria, tetanus toxoids and pertussis vaccine [facility] Work Phone: 1990 haemophilus influenz ae type b vaccine, HbOC conjugate [facility] DO Work Phone: [facility] Work Phone: 1990 trivalent poliovirus vaccine, live, oral [facility] DO Work Phone: [facility] Work Phone: Payers Date Payer Category Payer Self-pay [facility] [id number] 2024 Unknown [id number] 2020 Unknown [id number] 2020 Unknown [id number] 2016 Private Health Insurance [facility] [employer]REST [id number] 2016-Present [phone] [address] [place] [id number] PPO [id number] 2016 Private Health Insurance [id number] Unknown [id number] Unknown [id number] Unknown [id number] Social History Date Type Detail Facility Start: 01-16-2021 End: 04-29-2022 Tobacco smoking status NHIS Never smoker [facility] Start: 01-16-2021 End: 04-29-2022 Tobacco use and exposure Never used [facility] Start: 01-16-2021 Alcohol intake Current drinke r of alcohol (finding) [facility] Start: 02-08-2010 Alcohol Comment [facility] Start: 1990 Sex Assigned At Not on file [facility] Start: 10-11-2021 End: 02-07-2022 Exposure to SARS-CoV-2 (event) Not sure [facility] Start: 06-06-2021 End: 07-25-2024 Alcohol intake Ex-drinker (finding) [facility] Start: 05-29-2021 Education 17 [facility] Start: 1990 Sex Assigned At Female [facility] Start: 09-10-2021 [facility] Start: 05-03-2022 Tobacco smoking stat us [facility] Unknown if ever smoked [facility] Work Phone: Start: 03-31-2023 End: 08-09-2024 History of Social function [facility] Start: 03-31-2023 End: 08-09-2024 Tobacco use panel [facility] Adult Depression Screening Assessment 1 [facility] Start: 01-27-2021 Gender identity Identifies as female gender (finding) [facility] Start: 01-27-2021 Sexual orientation Heterosexual (sheree brown) [facility] Start: 04-04-2024 Alcohol Comment No ETOH since 2020 [facility] Goals Date Patient Goal Desired Activity /State Personal health goal Functional Status Date Assessment Result Facility 07-07-2014 Are you deaf, or do you have serious difficulty hearing No 07/07/2014 9:12 AM Rosa Delgado RN No [facility] 07-07-2014 Are you blind, or do you have serious difficulty seeing, even when wearing glasses No 07/07/2014 9:12 AM Rosa Delgado RN No [facility] 07-07-2014 Do you have serious difficulty walking or climbing stairs No 07/07/2014 9:12 AM Rosa Delgado RN No [facility] 07-07-2014 Do you have difficul ty dressing or bathing No 07/07/2014 9:12 AM Rosa Delgado RN No [facility] 07-07-2014 Because of a physica l, mental, or emotional condition, do you have difficulty doing errands alone such as visiting a physician's office or shopping No 07/07/2014 9:12 AM Rosa Delgado RN No [facility] Mental Status Date Assessment Result Facility 05-06-2022 Cognitive function Level Of Cons ciousness Awake;Alert [facility] Work Phone: 07-07-2014 Because of a physica l, mental, or emotional condition, do you have serious difficulty concentrating, remembering, or making decisions No 07/07/2014 9:12 AM Rosa Delgado RN No [facility] Clinical Notes 01-16-2021 to 11-09-2024 Telephone Encounter - Aylin Rubio RN - 11/09/2024 9:48 AM EDTTelephone Encounter - Aylin Rubio RN - 11/09/2024 9:48 AM Adalgisa Barraza MA - 11/03/2024 10:40 AM EDTPatient Instructions Note Date & Type Note Facility 11-09-2024 Telephone encounter Note L&D notified of time change. Aylin Rubio, RN [facility] 11-09-2024 Miscellaneous Notes L&D notified of time change. Aylin Rubio, RN I understand those situations. I have several other surgeries to accommodate and so her surgery may be delayed or done by another physician if I am not available at that time. Thanks. I let OR know. Isael Gandara MD Patient states that she cannot arrive at the hospital for c/s on 11/10/24 before 8:30 am d/t child care centre director Patient asking if c/s can be changed back to 12:00 pm or accommodate 8:30 am arrival time? documented in this encounter [facility] 11-09-2024 Telephone encounter Note I understand those situations. I have several other surgeries to accommodate and so her surgery may be delayed or done by another physician if I am not available at that time. Thanks. I let OR know. Isael Gandara MD [facility] 11-08-2024 Telephone encounter Note Patient states that she cannot arrive at the hospital for c/s on 11/10/24 before 8:30 am d/t child care centre director Patient asking if c/s can be changed back to 12:00 pm or accommodate 8:30 am arrival time? [facility] 11-03-2024 Note [facility] Medical Records Department [address] [place] [address] History Physical Exam 11/03/24 1121 MR#: [id number] Acct: [id number] Name: SUN CARRERO Rep #: [id number] : 1990 34 From: Isael Gandara MD PCP: Care Physician,No Primary Status:PRE IN Location: [facility] History and Physical Date of Admission: 11/10/24 HPI: The patient is a 34 year old female presenting for pre-operative visit. She is scheduled for , for previous c/s on 11/10/24. Procedure discussed along with risks, benefits and complications. Other alternatives discussed for management. Consent form signed? Yes. ? PAST MEDICAL HISTORY PAST MEDICAL HISTORYDiagnosisDate???Anemia?Generalized anxiety disorder?History of gestational hypertension?History of gestational xukedpryrnvt34/16/2024???Hx of preeclampsia, prior , currently ([facility])05/01/2022???Induced Delivery - Resulting in Premature Delivery at 35w6d ???Hx of preeclampsia, prior , currently ([facility])?Miscarriage ([facility])?OCD (obsessive compulsive disorder)?PMH - PAST MEDICAL HISTORY OF?normal color vision ? PAST SURGICAL HISTORY PAST SURGICAL HISTORYProcedureLateralityDate??? DELIVERY ONLY???05/05/2022???[facility]???EXCIS UTERINE FIBROID,VAG APPRCH???May 2021???Missed Miscarriage during first ???EXTRACTION, ERUPTED TOOTH OR EXPOSED ROOT (ELEVATION AND/OR FORCEPS REMOVAL)???04/27/2007???wisdom teeth x 4???[facility] ([facility])? CURRENT MEDICATIONS Current Outpatient MedicationsMedicationSigDispenseR efill???aspirin, enteric coated (ECOTRIN LOW STRENGTH) 81 mg EC tabletTake 2 Aspirin 81mg by mouth once daily after 12 weeks60 tablet5??? 21/iron fu/folic acid ( COMPLETE ORAL)Take by mouth.?ferrous sulfate (IRON ORAL)Take by mouth. (Patient not taking: Reported on 10/26/2024)?No current facility-administered medications for this visit. ? ALLERGIES: Patient has no known allergies. ??? PERSONAL HISTORY: SOCIAL HISTORY Social History???Tobacco Use???Smoking status:Never???Smokeless tobacco:NeverVaping Use???Vaping status:Never UsedSubstance Use Topics???Alcohol use:Not Currently?Comment: No ETOH since 2020???Drug use:No ??? FAMILY HISTORY: FAMILY HISTORY FAMILY HISTORY ProblemRelationAge of Onset???No Known ProblemsMother?No Known ProblemsFather?No Known ProblemsBrother?EmphysemaMat ernal Grandmother? Smoker???No Known ProblemsMaternal Grandfather?No Known ProblemsPaternal Grandmother?No Known ProblemsPaternal Grandfather?other (hypospadia)Son?Breast CancerMaternal [id number] ? REVIEW OF SYMPTOMS: GENERAL: denies fevers or chills ENDOCRINOLOGY: has not been on steroids Cardiology : denies palpitations or chest pain Respiratory: denies SOB or cough Hematology: denies history of prolonged bleeding or easy bruising or VTE Allergy: Denies history of personal or family history of allergy to anesthesia ??? PHYSICAL EXAMINATION: ??? VITALS: Blood pressure 138/80, pulse 90, weight 107 kg (236 lb), last menstrual period 02/10/2024, SpO2 99%. ??? GENERAL: The patient is well nourished, well hydrated in no acute distress. , The patient is oriented to time, place, and person. NECK: Supple. No lynphadenopathy, normal thyroid, no thyromegaly. LUNGS: Clear to auscultation bilaterally. no wheezes, rhonchi or rales HEART: Regular rate and rhythm, Normal heart sounds, and No murmurs or gallops abd- soft, nontender, gravid ??? IMPRESSION: Estimated Date of Delivery: 11/16/24 w/ h/o previous c/s ??? PLAN: The risks/benefits/alternatives and personal involved for the planned were reviewed with the patient. Her questions were answered to her satisfaction and she desires to proceed. Consent was signed. I reviewed with her postop instructions and expectations. ??? Assessment Plan Assessment/Plan (1) 39 weeks gestation of : (2) High-risk in third trimester: (3) Previous delivery affecting : (4) Maternal obesity syndrome in third trimester: (5) BMI 40.0-44.9, adult: 11/03/24 1124 Cosigner Signature (if applicable): CC: Dr. Isael Gandara MD; No Primary Care Physician Signed [facility] 11-03-2024 Note HNO ID: [id number] Author: ADALGISA RAND MA Service: ? Author Type: Automatic Furnace Operator Type: Progress Notes Filed: 11/03/2024 11:23 Note Text: NST SUMMARY PROVIDER ASSESSMENT AND INTERPRETATION Sun Carrero is a 34 year old female, , who is at 38w1d with an KEARA of 11/16/2024, by Last Menstrual Period dating method. Indications for NST: Obesity Baseline: 145 Variability: Moderate Accelerations: Present 15 X 15 Decelerations: None Contractions: TOCO: None Interpretation: Reactive SIGNATURE: Isael Gandara MD [facility] A- 118/80 1-118/82 2-116/81 3-116/79 4-119/79 5-120/80 6-121/[address] [facility] 11-03-2024 History of Present illness Narrative NST SUMMARY PROVIDER ASSESSMENT AND INTERPRETATION Sun Carrero is a 34 year old female, , who is at 38w1d with an KEARA of 11/16/2024, by Last Menstrual Period dating method. Indications for NST: Obesity Baseline: 145 Variability: Moderate Accelerations: Present 15 X 15 Decelerations: None Contractions: TOCO: None Interpretation: Reactive SIGNATURE: Isael L Nii, MD SHANIQUE BP A- 118/80 1-118/82 2-116/81 3-116/79 4-119/79 5-120/80 6-121/81 documented in this encounter [facility] 11-03-2024 Progress note Formatting of t his note might be different from the original. RR- VB No. LOF No. CTXS irreg Movement: present. Other c/o: was in L&D last weekend with elevated BP. At home had 160/90 and 140/90 Thursday night but then on Sat. when she was in it was normal. Had last iron infusion this week. Denies TSAI or visual changes. BP at home 130s/80s this week. None > 140/90 since Thursday Medication list reviewed. SENSITIVE EXAM: Sensitive exam not performed. Physical Exam See Flow Sheet Abd: soft, nontender, gravid Ext: edema: 1+, symetrical: Yes, DTRS: 2+, clonus: Absent A/P 38w1d Estimated Date of Delivery: 11/16/24 Assessment & Plan Supervision of high risk in third trimester ([facility]) Orders: URINE OB DIP B/O Obesity in ([facility]) Orders: URINE OB DIP B/O Hx of preeclampsia, prior , currently ([facility]) Orders: URINE OB DIP B/O History of section Orders: URINE OB DIP B/O Anemia during in third trimester ([facility]) Orders: URINE OB DIP B/O 38 weeks gestation of ([facility]) Orders: URINE OB DIP B/O nst today check labs no signs/symptoms of preeclampsia. Doesn't meet gest HTN criteria at this time. D/w her call if BP >140/90 or symptoms of preeclampsia. Otherwise plan repeat c/s at 39 weeks. See H&P. Isael Gandara M.D. [facility] 11-03-2024 Miscellaneous Notes RR- VB No. LOF No. CTXS irreg Movement: present. Other c/o: was in L&D last weekend with elevated BP. At home had 160/90 and 140/90 Thursday night but then on Sat. when she was in it was normal. Had last iron infusion this week. Denies TSAI or visual changes. BP at home 130s/80s this week. None > 140/90 since Thursday Medication list reviewed. SENSITIVE EXAM: Sensitive exam not performed. Physical Exam See Flow Sheet Abd: soft, nontender, gravid Ext: edema: 1+, symetrical: Yes, DTRS: 2+, clonus: Absent A/P 38w1d Estimated Date of Delivery: 11/16/24 Assessment & Plan Supervision of high risk in third trimester ([facility]) Orders: URINE OB DIP B/O Obesity in ([facility]) Orders: URINE OB DIP B/O Hx of preeclampsia, prior , currently ([facility]) Orders: URINE OB DIP B/O History of section Orders: URINE OB DIP B/O Anemia during in third trimester ([facility]) Orders: URINE OB DIP B/O 38 weeks gestation of ([facility]) Orders: URINE OB DIP B/O nst today check labs no signs/symptoms of preeclampsia. Doesn't meet gest HTN criteria at this time. D/w her call if BP >140/90 or symptoms of preeclampsia. Otherwise plan repeat c/s at 39 weeks. See H&P. Isael Gandara M.D. documented in this encounter [facility] 11-03-2024 History and physical note Pre-Op History and Physical HPI: The patient is a 34 year old female presenting for pre-operative visit. She is scheduled for , for previous c/s on 11/10/24. Procedure discussed along with risks, benefits and complications. Other alternatives discussed for management. Consent form signed? Yes. PAST MEDICAL HISTORY Diagnosis Date Anemia Generalized anxiety disorder History of gestational hypertension History of gestational hypertension 04/11/2024 Hx of preeclampsia, prior , currently ([facility]) 05/01/2022 Induced Delivery - Resulting in Premature Delivery at 35w6d Hx of preeclampsia, prior , currently ([facility]) Miscarriage ([facility]) OCD (obsessive compulsive disorder) PMH - PAST MEDICAL HISTORY OF normal color vision PAST SURGICAL HISTORY Procedure Laterality Date DELIVERY ONLY 05/05/2022 [facility] EXCIS UTERINE FIBROID,VAG APPH May 2021 Missed Miscarriage during first EXTRACTION, ERUPTED TOOTH OR EXPOSED ROOT (ELEVATION AND/OR FORCEPS REMOVAL) 04/27/2007 wisdom teeth x 4 [facility] ([facility]) Current Outpatient Medications Medication Sig Dispense Refill aspirin, enteric coated (ECOTRIN LOW STRENGTH) 81 mg EC tablet Take 2 Aspirin 81mg by mouth once daily after 12 weeks 60 tablet 5 21/iron fu/folic acid ( COMPLETE ORAL) Take by mouth. ferrous sulfate (IRON ORAL) Take by mouth. (Patient not taking: Reported on 10/26/2024) No current facility-administered medications for this visit. ALLERGIES: Patient has no known allergies. PERSONAL HISTORY: Social History Tobacco Use Smoking status: Never Smokeless tobacco: Never Vaping Use Vaping status: Never Used Substance Use Topics Alcohol use: Not Currently Comment: No ETOH since 2020 Drug use: No FAMILY HISTORY: FAMILY HISTORY Problem Relation Age of Onset No Known Problems Mother No Known Problems Father No Known Problems Brother Emphysema Maternal Grandmother Smoker No Known Problems Maternal Grandfather No Known Problems Paternal Grandmother No Known Problems Paternal Grandfather other (hypospadia) Son Breast Cancer Maternal cousin 37 REVIEW OF SYMPTOMS: GENERAL: denies fevers or chills ENDOCRINOLOGY: has not been on steroids Cardiology : denies palpitations or chest pain Respiratory: denies SOB or cough Hematology: denies history of prolonged bleeding or easy bruising or VTE Allergy: Denies history of personal or family history of allergy to anesthesia PHYSICAL EXAMINATION: VITALS: Blood pressure 138/80, pulse 90, weight 107 kg (236 lb), last menstrual period 02/10/2024, SpO2 99%. GENERAL: The patient is well nourished, well hydrated in no acute distress. , The patient is oriented to time, place, and person. NECK: Supple. No lynphadenopathy, normal thyroid, no thyromegaly. LUNGS: Clear to auscultation bilaterally. no wheezes, rhonchi or rales HEART: Regular rate and rhythm, Normal heart sounds, and No murmurs or gallops abd- soft, nontender, gravid IMPRESSION: Estimated Date of Delivery: 11/16/24 w/ h/o previous c/s PLAN: The risks/benefits/alternatives and personal involved for the planned were reviewed with the patient. Her questions were answered to her satisfaction and she desires to proceed. Consent was signed. I reviewed with her postop instructions and expectations. I have reviewed and updated past medical and surgical history, medications and allergies Isael Gandara M.D. [facility] 11-03-2024 History and physical note Pre-Op History and Physical HPI: The patient is a 34 year old female presenting for pre-operative visit. She is scheduled for , for previous c/s on 11/10/24. Procedure discussed along with risks, benefits and complications. Other alternatives discussed for management. Consent form signed? Yes. PAST MEDICAL HISTORY Diagnosis Date Anemia Generalized anxiety disorder History of gestational hypertension History of gestational hypertension 04/11/2024 Hx of preeclampsia, prior , currently ([facility]) 05/01/2022 Induced Delivery - Resulting in Premature Delivery at 35w6d Hx of preeclampsia, prior , currently ([facility]) Miscarriage ([facility]) OCD (obsessive compulsive disorder) PMH - PAST MEDICAL HISTORY OF normal color vision PAST SURGICAL HISTORY Procedure Laterality Date DELIVERY ONLY 05/05/2022 [facility] May 2021 Missed Miscarriage during first EXTRACTION, ERUPTED TOOTH OR EXPOSED ROOT (ELEVATION AND/OR FORCEPS REMOVAL) 04/27/2007 wisdom teeth x 4 [facility] ([facility]) Current Outpatient Medications Medication Sig Dispense Refill aspirin, enteric coated (ECOTRIN LOW STRENGTH) 81 mg EC tablet Take 2 Aspirin 81mg by mouth once daily after 12 weeks 60 tablet 5 21/iron fu/folic acid ( COMPLETE ORAL) Take by mouth. ferrous sulfate (IRON ORAL) Take by mouth. (Patient not taking: Reported on 10/26/2024) No current facility-administered medications for this visit. ALLERGIES: Patient has no known allergies. PERSONAL HISTORY: Social History Tobacco Use Smoking status: Never Smokeless tobacco: Never Vaping Use Vaping status: Never Used Substance Use Topics Alcohol use: Not Currently Comment: No ETOH since 2020 Drug use: No FAMILY HISTORY: FAMILY HISTORY Problem Relation Age of Onset No Known Problems Mother No Known Problems Father No Known Problems Brother Emphysema Maternal Grandmother Smoker No Known Problems Maternal Grandfather No Known Problems Paternal Grandmother No Known Problems Paternal Grandfather other (hypospadia) Son Breast Cancer Maternal cousin 37 REVIEW OF SYMPTOMS: GENERAL: denies fevers or chills ENDOCRINOLOGY: has not been on steroids Cardiology : denies palpitations or chest pain Respiratory: denies SOB or cough Hematology: denies history of prolonged bleeding or easy bruising or VTE Allergy: Denies history of personal or family history of allergy to anesthesia PHYSICAL EXAMINATION: VITALS: Blood pressure 138/80, pulse 90, weight 107 kg (236 lb), last menstrual period 02/10/2024, SpO2 99%. GENERAL: The patient is well nourished, well hydrated in no acute distress. , The patient is oriented to time, place, and person. NECK: Supple. No lynphadenopathy, normal thyroid, no thyromegaly. LUNGS: Clear to auscultation bilaterally. no wheezes, rhonchi or rales HEART: Regular rate and rhythm, Normal heart sounds, and No murmurs or gallops abd- soft, nontender, gravid IMPRESSION: Estimated Date of Delivery: 11/16/24 w/ h/o previous c/s PLAN: The risks/benefits/alternatives and personal involved for the planned were reviewed with the patient. Her questions were answered to her satisfaction and she desires to proceed. Consent was signed. I reviewed with her postop instructions and expectations. I have reviewed and updated past medical and surgical history, medications and allergies Isael Gandara M.D. documented in this encounter [facility] 11-03-2024 Instructions Adalgisa Rand MA - 11/03/2024 9:59 AM EDT SEQUENTIAL SCREENINGS The [facility] offers sequential screenings for women who are interested in screenings for chromosomal abnormalities and certain defects during a . The sequential screen combines ultrasound and blood tests to determine the risk of chromosomal abnormalities, including Down's Syndrome (Trisomy 21) and Trisomy 18, as well as open neural tube defects including spina bifida. Ultrasound examination is performed between 11 weeks and 13 weeks gestational age. Blood tests are drawn after the ultrasound and again later in the between 15 and 21 weeks gestational age. Please let your physician know if you are interested in this testing. It will require an appointment with our mobile service rv technician. This is not an ultrasound performed by a physician in our office during a routine visit. SIGNS AND SYMPTOMS OF LABOR 1. Contractions every 10 minutes or more often 2. Clear, pink, or brownish fluid (water) leaking from vagina 3. Feeling that baby is pushing down, pressure 4. Low, dull backache 5. Cramps that feel like a period 6. Cramps with or without diarrhea If you notice any of the above symptoms, contact our office at [phone] and ask to speak with a nurse. After hours, you can call doctors registry at [phone] OR call [facility] at [phone] and ask to have the doctor car sales consultant paged. If you consider this an emergency, dial 91-4 or go to your nearest emergency department. NEED HELP? Are you dealing with a violent or abusive relationship? Are you a victim of rape or sexual assult? Call [facility] ([place]) 24 hour Crisis Hotline: 429.902.1322 or 524-755-4609. MANUAL Your Guide to a Healthy manual is now on-line. Visit [email or web address] ncyGuide to download your free copy documented in this encounter [facility] 10-29-2024 History and physical note Note Date/Time October 29, 2024 3:29p [facility] Medical Records Department [address] [place] [address] OB Triage Physician Note 10/29/24 1524 MR#: [id number] Acct: [id number] Name: SUN CARRERO Rep #:[id number] : 1990 34 From: Jose Neil DO PCP: Care Physician,No Primary Status :REG CLI Y Location: [id number] HPI - General General Date of Admission: 10/29/24 Date of Service: 10/29/24 Chief Complaint: elevated BP at home HPI Narrative SUN BOZSIK, is a 34 F who presents from home with elevated BP. She reports last night she had a SBP that was in the 160's and on repeat 30 minutes later itwas 130's. This morning her SBP was 130's which is higher for her. Typically at home her pressures are 120's/80's. She had a mild TSAI today that resolved. No TSAI currently. No vision changes, RUQ pain, N/V, malaise. No ctx, vb, lof. Good FM. PFSH PFS Medical History (Updated 10/29/24 @ 15:[address] Jose Neil, DO) Psychiatric disorder Pre-eclampsia Home Medications ?Medication ?Instructions ?Recorded ?Last Taken ?Type vitamn-iron carb-folic 1 cap PO DAILY pregnan vy 05/02/22 09/11/24 20:00 History acid-docusate 95 mg-1 mg-50 mg capsule aspirin 81 mg tablet,delayed 162 mg PO DAILY 10/29/24 Unknown History release (Adult Aspirin Regimen) Allergy/AdvReac Type Severity Reaction Status Date / Time No Known Allergies Allergy Verified 09/12/24 17:01 Social History Smoking Status: Never smoker History Elective abortions Hx Para 0 Spontaneous abortions Hx # Term Pregnancies Ectopic pregnancies Hx # Pregnancies Multiple births # of living children Addt'l History: Had severe pre e at 35 weeks with first Physical Exam Const alert and no apparent distress General Appearance: comfortable Resp normal respiratory effort GI soft to palpation, non-tender and non-distended NST FHR Rate Baby A Baseline: 145 Variability:: Moderate Accelerations:: 15 x 15 Decelerations:: Variable (2 variables ) NST Reactive:: Yes FHR Category:: Category I Uterine Activity:: irregular ctx's Assessment & Plan (1) 37 weeks gestation of : PLAN: Patient presents from home as her BP's at home are higher than usual. BP this morning 135/81. She had a mild TSAI that resolved. No pre e symptoms at this time. BP's all normal here on L&D. Pre e labs normal as well. Bedside RUFUS 19 cm.Patient has appointment for IV iron infusion Thursday and will have her BP checkedat that time. Discussed signs and symptoms of pre e and reasons to call. She also has an NST and OB visit this week. (2) History of pre-eclampsia: (3) Headache: PLAN: Her TSAI has resolved 10/29/24 1529 <Electronically signed by Jose Neil DO> Date _ Jose Neil DO Cosigner Signature (if applicable): Date CC: Dr. Jose Neil DO; No Primary Care Physician ~ Signed [facility] Work Phone: [phone]) 547-722507-05-2025 History and physical note [facility] Medical Records Department [address] [place] [id number] OB Triage Physician Note 10/29/24 1524 MR#: [id number] Acct: [id number] Name: SUN CARRERO Rep #:[id number] : 1990 34 From: Jose Neil DO PCP: Care Physician,No Primary Status :REG CLI Y Location: [place] [id number] HPI - General General Date of Admission: 10/29/24 Date of Service: 10/29/24 Chief Complaint: elevated BP at home HPI Narrative SUN CARRERO, is a 34 F who presents from home with elevated BP. She reports last night she had a SBP that was in the 160's and on repeat 30 minutes later itwas 130's. This morning her SBP was 130'swhich is higher for her. Typically at home her pressures are 120's/80's. She had a mild TSAI today that resolved. No TSAI currently. No vision changes, RUQ pain, N/V, malaise. No ctx, vb, lof. Good FM. PFSH PFSH Medical History (Updated 10/29/24 @ 15:[address] Jose Neil DO) Psychiatric disorder Pre-eclampsia Home Medications ?Medication ?Instructions ?Recorded ?Last Taken ?Type vitamn-iron carb-folic 1 cap PO DAILY pregnan vy 05/02/22 09/11/24 20:00 History acid-docusate 95 mg-1 mg-50 mg capsule aspirin 81 mg tablet,delayed 162 mg PO DAILY 10/29/24 Unknown History release (Adult Aspirin Regimen) Allergy/AdvReac Type Severity Reaction Status Date / Time No Known Allergies Allergy Verified 09/12/24 17:01 Social History Smoking Status: Never smoker History Elective abortions Hx Para 0 Spontaneous abortions Hx # Term Pregnancies Ectopic pregnancies Hx # Pregnancies Multiple births # of living children Addt'l History: Had severe pre e at 35 weeks with first Physical Exam Const alert and no apparent distress General Appearance: comfortable Resp normal respiratory effort GI soft to palpation, non-tender and non-distended NST FHR Rate Baby A Baseline: 145 Variability:: Moderate Accelerations:: 15 x 15 Decelerations:: Variable (2 variables ) NST Reactive:: Yes FHR Category:: Category I Uterine Activity:: irregular ctx's Assessment & Plan (1) 37 weeks gestation of : PLAN: Patient presents from home as her BP's at home are higher than usual. BP this morning 135/81.She had a mild TSAI that resolved. No pre e symptoms at this time. BP's all normal here on L&D. Pre e labs normal as well. Bedside RUFUS 19 cm.Patient has appointment for IV iron infusion Thursday and will have her BP checkedat that time. Discussed signs and symptoms of pre e and reasons to call. Gayle has an NST and OB visit this week. (2) History of pre-eclampsia: (3) Headache: PLAN: Her TSAI has resolved 10/29/24 1529 DO> Date _ Jose Neil DO Rony Signature (if applicable): Date CC: Dr. Jose Neil, DO; No Primary Care Physician ~ Signed [facility]07-02-2025 Note* Addendum Note - Jason Marshall MD - 10/26/2024 9:47 AM EDTAddended by: JASON MARSHALL on: 10/26/2024 09:47 AM Modules accepted: Orders [facility]07-02-2025 Miscellaneous Notes* Addendum Note - Jason Marshall MD - 10/26/2024 9:47 AM EDTAddended by: JASON MARSHALL on: 10/26/2024 09:47 AM Modules accepted: Orders documented in this encounterCoshocton [facility]07-[facility]-2025 NoteHNO ID: [id number] Author: JASON MARSHALL MD Service: ? Author Type: Physician Type: Progress Notes Filed: 10/26/2024 09:47 Note Text: NST SUMMARY PROVIDER ASSESSMENT AND INTERPRETATION Indications for NST: Obesity Baseline: 140 Variability: Moderate Accelerations: Present 15 X 15 Decelerations: None Interpretation: Category I SIGNATURE: Jason Marshall MD Pt reports transient lightheadedness Denies TSAI, vision changes or egress fluid nl DTR and trace edema Jason Marshall MD Orthostatic performed with slight drop in pressure but pulse increased by 50 bpm. [facility] History of Present illness Narrative* Jason Marshall MD - 10/26/2024 9:17 AM EDT NST SUMMARY PROVIDER ASSESSMENT AND INTERPRETATION Indications for NST: Obesity Baseline: 140 Variability: Moderate Accelerations: Present 15 X 15 Decelerations: None Interpretation: Category I SIGNATURE: Jason Marshall MD Pt reports transient lightheadedness Denies TSAI, vision changes or egress fluid nl DTR and trace edema Jason Marshall MD Orthostatic performed with slight drop in pressure but pulse increased by 50 bpm. Will get labs documented in this encounterCos[facility]07-02-2025 Instructions* Patient Instructions* Juliano Andrews MA - 10/26/2024 8:40 AM EDT SEQUENTIAL SCREENINGS The [facility] offers sequential screenings for women who are interested in screenings for chromosomal abnormalities and certain defects during a . The sequential screen combinesultrasound and blood tests to determine the risk of chromosomal abnormalities, including Down's Syndrome (Trisomy 21) and Trisomy 18, as well as open neural tube defects including spina bifida. Ultrasound examination is performed between 11 weeks and 13 weeks gestational age. Blood tests are drawn after the ultrasound and again later in the between 15 and 21 weeks gestational age. Please let your physician know if you are interested in this testing. It will require an appointment withour mobile service rv technician. This is not an ultrasound performed by a physician in our office during a routine visit. SIGNS AND SYMPTOMS OF LABOR 1. Contractions every 10 minutes or more often 2. Clear, pink, or brownish fluid (water) leaking from vagina 3. Feeling that baby is pushing down, pressure 4. Low, dull backache 5. Cramps that feel like a period 6. Cramps with or without diarrhea If you notice any of the above symptoms, contact our office at [phone] and ask to speak with anurse. After hours, you can call doctors registry at [phone] OR call [facility] at [phone] ask to have the doctor car sales consultant paged. If you consider this an emergency, dial 9--1 or go to your nearest emergency department. NEED HELP? Are you dealing with a violent or abusive relationship? Are you a victim of rape or sexual assult? Call [facility] ([place]) 24 hour Crisis Hotline: 941.516.8075 or 148-286-4656. MANUAL Your Guide to a Healthy manual is now on-line. Visit [email or web address] to download your free copy documented in this encounterCos[facility]on [facility]06-[facility]25 Progress note* Quick Notes - Isael Gandara MD - 10/20/2024 3:51 PM EDT RR- VB No. LOF No. CTXS No. Movement: present. Other c/o: No. Medication list reviewed. SENSITIVE EXAM: The sensitive examination was discussed with the Patient or Patient's Authorized Rivet Catcher. As applicable, any other physician, advance practice provider, medical student, or other health professional student that will be observing or involved in the sensitive examination for educational or training purposes was discussed with the Patient or Authorized Rivet Catcher. The Patient or Authorized Rivet Catcher has agreed to proceed with the sensitive examination. (Sensitive examination includes inspection and/or palpation of the breasts, pelvis, prostate and anorectal regions). Physical Exam See Flow Sheet Abd: soft, nontender, gravid Ext: edema: Trace A/P 36w1d Estimated Date of Delivery: 11/16/24 Assessment & Plan Supervision of high risk in third trimester ([facility]) Orders: ROUTINE, GROUP B STREPTOCOCCUS BY PCR URINE OB DIP B/O Obesity in ([facility]) Orders: ROUTINE, GROUP B STREPTOCOCCUS BY PCR URINE OB DIP B/O Hx of preeclampsia, prior , currently ([facility]) no signs/symptomst of preeclampsia today Orders: ROUTINE, GROUP B STREPTOCOCCUS BY PCR URINE OB DIP B/O History of section plans repeat Orders: ROUTINE, GROUP B STREPTOCOCCUS BY PCR URINE OB DIP B/O 36 weeks gestation of ([facility]) Orders: ROUTINE, GROUP B STREPTOCOCCUS BY PCR URINE OB DIP B/O Anemia during in third trimester ([facility]) getting iv fe Orders: ROUTINE, GROUP B STREPTOCOCCUS BY PCR URINE OB DIP B/O Isael Gandara M.D. [facility]06-26-2025 Miscellaneous Notes* Quick Notes - Isael Gandara MD - 10/20/2024 3:51 PM EDT RR- VB No. LOF No. CTXS No. Movement: present. Other c/o: No. Medication list reviewed. SENSITIVE EXAM: The sensitive examination was discussed with the Patient or Patient's Authorized Rivet Catcher. As applicable, any other physician, advance practice provider, medical student, or other health professional student that will be observing or involved in the sensitive examination for educational or training purposes was discussed with the Patient or Authorized Rivet Catcher. The Patient or Authorized Rivet Catcher has agreed to proceed with the sensitive examination. (Sensitive examination includes inspection and/or palpation of the breasts, pelvis, prostate and anorectal regions). Physical Exam See Flow Sheet Abd: soft, nontender, gravid Ext: edema: Trace A/P 36w1d Estimated Date of Delivery: 11/16/24 Assessment & Plan Supervision of high risk in third trimester ([facility]) Orders: ROUTINE, GROUP B STREPTOCOCCUS BY PCR URINE OB DIP B/O Obesity in ([facility]) Orders: ROUTINE, GROUP B STREPTOCOCCUS BY PCR URINE OB DIP B/O Hx of preeclampsia, prior , currently ([facility]) no signs/symptomst of preeclampsia today Orders: ROUTINE, GROUP B STREPTOCOCCUS BY PCR URINE OB DIP B/O History of section plans repeat Orders: ROUTINE, GROUP B STREPTOCOCCUS BY PCR URINE OB DIP B/O 36 weeks gestation of ([facility]) Orders: ROUTINE, GROUP B STREPTOCOCCUS BY PCR URINE OB DIP B/O Anemia during in third trimester ([facility]) getting iv fe Orders: ROUTINE, GROUP B STREPTOCOCCUS BY PCR URINE OB DIP B/O Isael Gandara M.D. documented in this encounterCoshocton [facility]06-[facility]25 Note Indication Evaluation of growth, Evaluation of well-being, Maternal obesity, BMI >40, hx , History of preeclampsia, History of section Impression remote read - Single, live, intrauterine . - presentation is cephalic. - The biometry is consistent with the assigned gestational dating. - The EFW is 3254 g, at the 86%. AC is at the 93%. - The amniotic fluid volume is normal amount with an MVP of 5.6 cm and an RUFUS of 21 cm. - The placenta is posterior, fundal. - BPP 12/02. - No malformations visualized on a limited survey as detailed below. Recommendations Continue planned testing Maternal Assessment Height 157 cm Height (ft) 5 ft Height (in) 2 in Physical Exam Initial weight (lb) 230 lb Initial BMI 42.07 kg/m Method Transabdominal ultrasound examination, Transabdominal ultrasound examination. View: Suboptimal view: limited by maternal body habitus. Suboptimal view: limited by late gestational age Cowan . Number of fetuses: 1 Dating LMP on: 02/10/2024 GA by LMP 36 w + 1 d KEARA by LMP: 11/16/2024 GA by prior assessment 36 w + 1 d KEARA by prior assessment: 11/16/2024 Ultrasound examination on: 10/20/2024 GA by U/S based upon: AC, BPD, Femur GA by U/S 37 w + 0 d KEARA by U/S: 11/10/2024 Assigned: based on stated KEARA, selected on 09/21/2024 Assigned GA 36 w + 1 d Assigned KEARA: 11/16/2024 General Evaluation Cardiac activity present. FHR 130 bpm. movements: present. Presentation: cephalic Placenta: Placental site: posterior, fundal Umbilical cord: Cord vessels: 3 vessel cord. Insertion site: normal insertion Amniotic fluid: Amount of AF: normal amount. MVP 5.6 cm. RUFUS 21.0 cm. Q1 4.2 cm, Q2 5.6 cm, Q3 5.6 cm, Q4 5.6 cm Biophysical Profile 2: breathing movements 2: Gross body movements 2: tone 2: Amniotic fluid volume 8/8 Biophysical profile score Growth Overview Exam date GA BPD (mm) HC (mm) AC (mm) FL (mm) HL (mm) EFW (g) 05/30/2024 15w 5d 32.6 67% 120 44% 99.5 62% 17.7 32% 130 34% 07/01/2024 20w 2d 49.2 74% 179.8 54% 154.8 57% 31.9 51% 32.1 70% 346 46% 09/21/2024 32w 0d 82.7 78% 312 84% 299.9 93% 60.9 49% 2189 82% 10/20/2024 36w 1d 92.4 90% 344.7 90% 338.5 93% 70.3 75% 3254 86% Biometry Standard BPD 92.4 mm 37w 4d 90% Hadlock OFD 123.2 mm -/- 94% Nicolaides HC 344.7 mm -/- 90% Jose AC 338.5 mm 37w 5d 93% Hadlock Femur 70.3 mm 35w 4d 75% Jose EFW 3,254 g 38w 1d 86% Hadlock EFW (lb) 7 lb EFW (oz) 3 oz EFW by: Hadlock (HC-AC-FL) Extended Superintendent [employer] 7.6 mm Extremities / Bony Struc FL / HC 0.20 Other Structures FHR 130 bpm Anatomy Lateral ventricles: normal Cavum septi pellucidi: suboptimally visualized Cerebellum: suboptimally visualized Cisterna magna: suboptimally visualized 4-chamber view: normal RVOT view: normal LVOT view: normal 3-vessel view: normal Heart / Thorax Situs: situs solitus (normal) Diaphragm: normal Stomach: normal Kidneys: normal Bladder: normal Wants to know sex: yes Performed By: Carolann Lemus RDMS Read By: Ely Crespo M.D.MATERNAL [id number] Instructions* Patient Instructions* Adalgisa Rand MA - 10/20/2024 3:39 PM EDT SEQUENTIAL SCREENINGS The [facility] offers sequential screenings for women who are interested in screenings for chromosomal abnormalities and certain defects during a . The sequential screen combinesultrasound and blood tests to determine the risk of chromosomal abnormalities, including Down's Syndrome (Trisomy 21) and Trisomy 18, as well as open neural tube defects including spina bifida. Ultrasound examination is performed between 11 weeks and 13 weeks gestational age. Blood tests are drawn after the ultrasound and again later in the between 15 and 21 weeks gestational age. Please let your physician know if you are interested in this testing. It will require an appointment withour mobile service rv technician. This is not an ultrasound performed by a physician in our office during a routine visit. SIGNS AND SYMPTOMS OF LABOR 1. Contractions every 10 minutes or more often 2. Clear, pink, or brownish fluid (water) leaking from vagina 3. Feeling that baby is pushing down, pressure 4. Low, dull backache 5. Cramps that feel like a period 6. Cramps with or without diarrhea If you notice any of the above symptoms, contact our office at [phone] and ask to speak with anurse. After hours, you can call doctors registry at [phone] OR call [facility] at [phone] ask to have the doctor car sales consultant paged. If you consider this an emergency, dial 9-1- or go to your nearest emergency department. NEED HELP? Are you dealing with a violent or abusive relationship? Are you a victim of rape or sexual assult? Call [facility] ([place]) 24 hour Crisis Hotline: 958.459.7476 or 046-038-3648. MANUAL Your Guide to a Healthy manual is now on-line. Visit [email or web address]/[email or web address] to download your free copy documented in this encounterCoshocton [facility]06-26-2025 History of Present illness Narrative* Pierce Salazar MD - 10/20/2024 12:57 PM EDT NST SUMMARY PROVIDER ASSESSMENT AND INTERPRETATION Sun Carrero is a 34 year old female, , who is at 36w1d with an KEARA of 11/16/2024, by LastMenstrual Period dating method. Indications for NST: Decreased Movement Baseline: 140 Variability: Moderate Accelerations: Present 15 X 15 Decelerations: None Contractions: TOCO: None Interpretation: Reactive SIGNATURE: Pierce Salazar MD documented in this encounterCoshocton [facility] Center06-26-2025 NoteHNO ID: [id number] Author: PIERCE SALAZAR MD Service: ? Author Type: Physician Type: Progress Notes Filed: 10/20/2024 12:59 Note Text: NST SUMMARY PROVIDER ASSESSMENT AND INTERPRETATION Sun Carrero is a 34 year old female, , who is at 36w1d with an KEARA of 11/16/2024, by Last Menstrual Period dating method. Indications for NST: Decreased Movement Baseline: 140 Variability: Moderate Accelerations: Present 15 X 15 Decelerations: None Contractions: TOCO: None Interpretation: Reactive SIGNATURE: Pierce Salazar [facility]06-25-2025 Telephone encounter Note* Telephone Encounter - Rosa Green RN - 10/19/2024 9:18 AM EDT Patient is scheduled for first IV Iron infusion today. Rosa Green RN [facility]06-25-2025 Miscellaneous Notes* Telephone Encounter - Rosa Green RN - 10/19/2024 9:18 AM EDT Patient is scheduled for first IV Iron infusion today. Rosa Green RN documented in this encounterCoshocton [facility]06-24-2025 Instructions* Patient Instructions* Kimberlee Sands MA - 10/18/2024 3:16 PM EDT SEQUENTIAL SCREENINGS The [facility] offers sequential screenings for women who are interested in screenings for chromosomal abnormalities and certain defects during a . The sequential screen combinesultrasound and blood tests to determine the risk of chromosomal abnormalities, including Down's Syndrome (Trisomy 21) and Trisomy 18, as well as open neural tube defects including spina bifida. Ultrasound examination is performed between 11 weeks and 13 weeks gestational age. Blood tests are drawn after the ultrasound and again later in the between 15 and 21 weeks gestational age. Please let your physician know if you are interested in this testing. It will require an appointment withour mobile service rv technician. This is not an ultrasound performed by a physician in our office during a routine visit. SIGNS AND SYMPTOMS OF LABOR 1. Contractions every 10 minutes or more often 2. Clear, pink, or brownish fluid (water) leaking from vagina 3. Feeling that baby is pushing down, pressure 4. Low, dull backache 5. Cramps that feel like a period 6. Cramps with or without diarrhea If you notice any of the above symptoms, contact our office at [phone] and ask to speak with anurse. After hours, you can call doctors registry at [phone] OR call [facility] at [phone] ask to have the doctor car sales consultant paged. If you consider this an emergency, dial 1-7-6 or go to your nearest emergency department. NEED HELP? Are you dealing with a violent or abusive relationship? Are you a victim of rape or sexual assult? Call [facility] ([place]) 24 hour Crisis Hotline: 959.574.8947 or 882-563-6517. MANUAL Your Guide to a Healthy manual is now on-line. Visit [email or web address]/[email or web address] to download your free copy documented in this encounterCoshocton [facility]06-20-2025 Note* Addendum Note - Angie Waddell LPN - 10/14/2024 1:45 PM EDTAddended by: ANGIE WADDELL on: 10/14/2024 01:45 PM Modules accepted: Orders [facility]06-20-2025 Miscellaneous Notes* Addendum Note - Angie Waddell LPN - 10/14/2024 1:45 PM EDTAddended by: ANGIE WADDELL on: 10/14/2024 01:45 PM Modules accepted: Orders * Quick Notes - Aylin Francois MD - 10/14/2024 11:52 AM EDT S: Sun Carrero is a 34 year old female who presents at 11/16/2024, by Last Menstrual Period for a routine visit. Denies headache, visual changes, chest pain, shortness of breath, vaginal bleeding,leakage of fluid, or dysuria. Feeling well, no complaints. Good movement, No contractions O: See flow sheet Gen: No apparent distress Abd: Gravid, nontender Reactive NST Waiting for approval for iron infusion ASSESSMENT/PLAN: 1. Supervision of high risk in third trimester (HCC) - ICD9: V23.9, ICD10: O09.93 (primary diagnosis) 2. Obesity in ([facility]) - ICD9: 649.10, ICD10: O99.210 Weekly NST 3. 35 weeks gestation of ([facility]) - ICD9: V22.2, ICD10: Z3A.35 US next week Aylin Francois MD documented in this encounterCos[facility] NoteHNO ID: [id number] Author: AYLIN FRANCOIS MD Service: ? Author Type: Physician Type: Progress Notes Filed: 10/14/2024 11:53 Note Text: NST SUMMARY PROVIDER ASSESSMENT AND INTERPRETATION Indications for NST: Obesity Baseline: 135 Variability: Moderate Accelerations: Present 15 X 15 Decelerations: None Interpretation: Reactive SIGNATURE: Aylin Francois [facility]06-20-2025 History of Present illness Narrative* Aylin Francois MD - 10/14/2024 11:53 AM EDT NST SUMMARY PROVIDER ASSESSMENT AND INTERPRETATION Indications for NST: Obesity Baseline: 135 Variability: Moderate Accelerations: Present 15 X 15 Decelerations: None Interpretation: Reactive SIGNATURE: Aylin Francois MD documented in this encounterCoshocton [facility]06-20-2025 Progress note* Quick Notes - Aylin Francois MD - 10/14/2024 11:52 AM EDT S: Sun Carrero is a 34 year old female who presents at 11/16/2024, by Last Menstrual Period for a routine visit. Denies headache, visual changes, chest pain, shortness of breath, vaginal bleeding,leakage of fluid, or dysuria. Feeling well, no complaints. Good movement, No contractions O: See flow sheet Gen: No apparent distress Abd: Gravid, nontender Reactive NST Waiting for approval for iron infusion ASSESSMENT/PLAN: 1. Supervision of high risk in third trimester ([facility]) - ICD9: V23.9, ICD10: O09.93 (primary diagnosis) 2. Obesity in (HCC) - ICD9: 649.10, ICD10: O99.210 Weekly NST 3. 35 weeks gestation of ([facility]) - ICD9: V22.2, ICD10: Z3A.35 US next week Aylin Francois MD [facility]06-20-[facility] Instructions* Patient Instructions* Angie Waddell LPN - 10/14/2024 10:13 AM EDT SEQUENTIAL SCREENINGS The [facility] offers sequential screenings for women who are interested in screenings for chromosomal abnormalities and certain defects during a . The sequential screen combinesultrasound and blood tests to determine the risk of chromosomal abnormalities, including Down's Syndrome (Trisomy 21) and Trisomy 18, as well as open neural tube defects including spina bifida. Ultrasound examination is performed between 11 weeks and 13 weeks gestational age. Blood tests are drawn after the ultrasound and again later in the between 15 and 21 weeks gestational age. Please let your physician know if you are interested in this testing. It will require an appointment withour mobile service rv technician. This is not an ultrasound performed by a physician in our office during a routine visit. SIGNS AND SYMPTOMS OF LABOR 1. Contractions every 10 minutes or more often 2. Clear, pink, or brownish fluid (water) leaking from vagina 3. Feeling that baby is pushing down, pressure 4. Low, dull backache 5. Cramps that feel like a period 6. Cramps with or without diarrhea If you notice any of the above symptoms, contact our office at [phone] and ask to speak with anurse. After hours, you can call doctors registry at [phone] OR call [facility] at [phone] ask to have the doctor car sales consultant paged. If you consider this an emergency, dial 9--1 or go to your nearest emergency department. NEED HELP? Are you dealing with a violent or abusive relationship? Are you a victim of rape or sexual assult? Call [facility] ([place]) 24 hour Crisis Hotline: 354.625.9199 or 828-815-8019. MANUAL Your Guide to a Healthy manual is now on-line. Visit [email or web address] to download your free copy SEQUENTIAL SCREENINGS The [facility] offers sequential screenings for women who are interested in screenings for chromosomal abnormalities and certain defects during a . The sequential screen combinesultrasound and blood tests to determine the risk of chromosomal abnormalities, including Down's Syndrome (Trisomy 21) and Trisomy 18, as well as open neural tube defects including spina bifida. Ultrasound examination is performed between 11 weeks and 13 weeks gestational age. Blood tests are drawn after the ultrasound and again later in the between 15 and 21 weeks gestational age. Please let your physician know if you are interested in this testing. It will require an appointment withour mobile service rv technician. This is not an ultrasound performed by a physician in our office during a routine visit. SIGNS AND SYMPTOMS OF LABOR 1. Contractions every 10 minutes or more often 2. Clear, pink, or brownish fluid (water) leaking from vagina 3. Feeling that baby is pushing down, pressure 4. Low, dull backache 5. Cramps that feel like a period 6. Cramps with or without diarrhea If you notice any of the above symptoms, contact our office at [phone] and ask to speak with anurse. After hours, you can call doctors registry at [phone] OR call [facility] at [phone] ask to have the doctor car sales consultant paged. If you consider this an emergency, dial 9-1-1 or go to your nearest emergency department. NEED HELP? Are you dealing with a violent or abusive relationship? Are you a victim of rape or sexual assult? Call [facility] [place] ([facility] 24 hour Crisis Hotline: 297.211.2566 or 499-950-3861. MANUAL Your Guide to a Healthy manual is now on-line. Visit [email or web address] to download your free copy documented in this encounterCoshocton Regional Medical Center06-17-2025 NoteHNO ID: [id number] Author: AYLIN FRANCOIS MD Service: ? Author Type: Physician Type: Progress Notes Filed: 10/11/2024 10:59 Note Text: NST SUMMARY PROVIDER ASSESSMENT AND INTERPRETATION Indications for NST: Decreased Movement and Obesity Baseline: 135 Variability: Moderate Accelerations: Present 15 X 15 Decelerations: None Interpretation: Reactive SIGNATURE: Aylin Francois [facility]06-17-2025 Progress note * Quick Notes - Aylin Francois MD - 10/11/2024 10:58 AM EDT S: Sun Carrero is a 34 year old female who presents at 11/16/2024, by Last Menstrual Period for a routine visit. Denies headache, visual changes, chest pain, shortness of breath, vaginal bleeding,leakage of fluid, or dysuria O: See flow sheet Gen: No apparent distress Abd: Gravid, nontender Decreased movement this AM/ Has improved since arriving at the office. Reactive NST ASSESSMENT/PLAN: 1. Supervision of high risk in third trimester ([facility]) - ICD9: V23.9, ICD10: O09.93 (primary diagnosis) - URINE OB DIP B/O 2. Hx of preeclampsia, prior , currently ([facility]) - ICD9: V23.49, ICD10: O09.299 - URINE OB DIP B/O 3. Obesity in ([facility]) - ICD9: 649.10, ICD10: O99.210 NST on Thursday Repeat US next week - URINE OB DIP B/O 4. Antepartum anemia complicating in third trimester ([facility]) - ICD9: 648.23, 285.9, ICD10: O99.013 - URINE OB DIP B/O 5. 34 weeks gestation of ([facility]) - ICD9: V22.2, ICD10: Z3A.34 - URINE OB DIP B/O Aylin Francois MD [facility]06-17-[facility] History of Present illness Narrative* Aylin Francois MD - 10/11/2024 10:58 AM EDT NST SUMMARY PROVIDER ASSESSMENT AND INTERPRETATION Indications for NST: Decreased Movement and Obesity Baseline: 135 Variability: Moderate Accelerations: Present 15 X 15 Decelerations: None Interpretation: Reactive SIGNATURE: Aylin Francois MD documented in this encounterCoshocton [facility]06-17-2025 Miscellaneous Notes* Quick Notes - Aylin Francois MD - 10/11/2024 10:58 AM EDT S: Sun Carrero is a 34 year old female who presents at 11/16/2024, by Last Menstrual Period for a routine visit. Denies headache, visual changes, chest pain, shortness of breath, vaginal bleeding,leakage of fluid, or dysuria O: See flow sheet Gen: No apparent distress Abd: Gravid, nontender Decreased movement this AM/ Has improved since arriving at the office. Reactive NST ASSESSMENT/PLAN: 1. Supervision of high risk in third trimester ([facility]) - ICD9: V23.9, ICD10: O09.93 (primary diagnosis) - URINE OB DIP B/O 2. Hx of preeclampsia, prior , currently ([facility]) - ICD9: V23.49, ICD10: O09.299 - URINE OB DIP B/O 3. Obesity in ([facility]) - ICD9: 649.10, ICD10: O99.210 NST on Thursday Repeat US next week - URINE OB DIP B/O 4. Antepartum anemia complicating in third trimester ([facility]) - ICD9: 648.23, 285.9, ICD10: O99.013 - URINE OB DIP B/O 5. 34 weeks gestation of ([facility]) - ICD9: V22.2, ICD10: Z3A.34 - URINE OB DIP B/O Aylin Francois MD documented in this encounterCoshocton [facility]06-17-2025 Instructions* Patient Instructions* Niecy Skinner MA - 10/11/2024 9:54 AM EDT SEQUENTIAL SCREENINGS The [facility] offers sequential screenings for women who are interested in screenings for chromosomal abnormalities and certain defects during a . The sequential screen combinesultrasound and blood tests to determine the risk of chromosomal abnormalities, including Down's Syndrome (Trisomy 21) and Trisomy 18, as well as open neural tube defects including spina bifida. Ultrasound examination is performed between 11 weeks and 13 weeks gestational age. Blood tests are drawn after the ultrasound and again later in the between 15 and 21 weeks gestational age. Please let your physician know if you are interested in this testing. It will require an appointment withour mobile service rv technician. This is not an ultrasound performed by a physician in our office during a routine visit. SIGNS AND SYMPTOMS OF LABOR 1. Contractions every 10 minutes or more often 2. Clear, pink, or brownish fluid (water) leaking from vagina 3. Feeling that baby is pushing down, pressure 4. Low, dull backache 5. Cramps that feel like a period 6. Cramps with or without diarrhea If you notice any of the above symptoms, contact our office at [phone] and ask to speak with anurse. After hours, you can call doctors registry at [phone] OR call [facility] at [phone] ask to have the doctor car sales consultant paged. If you consider this an emergency, dial 9-7-2 or go to your nearest emergency department. NEED HELP? Are you dealing with a violent or abusive relationship? Are you a victim of rape or sexual assult? Call [facility] [place] ([facility] 24 hour Crisis Hotline: 521.931.9559 or 791-049-8460. MANUAL Your Guide to a Healthy manual is now on-line. Visit [email or web address] to download your free copy documented in this encounterCoshocton Regional [facility] Center06-16-2025 NoteHNO ID: [id number] Author: KATHY URENA PA-C Service: ? Author Type: Physician Clock Mechanic Type: Progress Notes Filed: 10/10/2024 13:20 Note Text: [facility] MEDICINE DEPARTMENT OF BLOOD MANAGEMENT ORDERS ONLY ENCOUNTER PATIENT NAME: Sun Carrero DATE OF SERVICE: October 10, 2024 REFERRING PROVIDER: Sherry Nash MD Subjective Patient referred to Blood Management for evaluation and treatment of anemia in and iron deficiency anemia. Patient's relevant history, recent diagnostic data, and treatment plan as entered by Bryce Greenberg RN were reviewed. Medical/Surgical History: PAST MEDICAL HISTORY Diagnosis Date Anemia Generalized anxiety disorder History of gestational hypertension History of gestational hypertension 04/11/2024 Hx of preeclampsia, prior , currently ([facility]) 05/01/2022 Induced Delivery - Resulting in Premature Delivery at 35w6d Hx of preeclampsia, prior , currently ([facility]) Miscarriage ([facility]) OCD (obsessive compulsive disorder) PMH - PAST MEDICAL HISTORY OF normal color vision PAST SURGICAL HISTORY Procedure Laterality Date DELIVERY ONLY 05/05/2022 [facility] EXCIS UTERINE FIBROID,VAG APPRCH May 2021 Missed Miscarriage during first EXTRACTION, ERUPTED TOOTH OR EXPOSED ROOT (ELEVATION AND/OR FORCEPS REMOVAL) 04/27/2007 wisdom teeth x 4 [facility] ([facility]) Other significant Medical/Surgical history: - Prior diagnosis of anemia CURRENT MEDICATIONS: Current Outpatient Medications Medication Instructions aspirin, enteric coated (ECOTRIN LOW STRENGTH) 81 mg EC tablet Take 2 Aspirin 81mg by mouth once daily after 12 weeks ferrous sulfate (IRON ORAL) Take by mouth. 21/iron fu/folic acid ( COMPLETE ORAL) Take by mouth. Current medications that may affect iron absorption and/or blood loss: - Aspirin Objective Data Reviewed: WBC (k/uL) Date Value 10/05/2024 11.17 (H) RBC (m/uL) Date Value 10/05/2024 3.25 (L) Hemoglobin (g/dL) Date Value 10/05/2024 9.4 (L) Hematocrit (%) Date Value 10/05/2024 28.7 (L) MCV (fL) Date Value 10/05/2024 88.3 MCH (pg) Date Value 10/05/2024 28.9 MCHC (g/dL) Date Value 10/05/2024 32.8 RDW-CV (%) Date Value 10/05/2024 14.7 Platelet Count (k/uL) Date Value 10/05/2024 171 MPV (fL) Date Value 10/05/2024 10.4 Iron Date Value Ref Range Status 10/07/2024 52 41 - 186 ug/dL Final TIBC Date Value Ref Range Status 10/07/2024 489 (H) 232 - 386 ug/dL Final Ferritin Date Value Ref Range Status 10/07/2024 22.8 14.7 - 205.1 ng/mL Final Transferrin Saturation Date Value Ref Range Status 10/07/2024 10.6 (L) 15.0 - 57.0 % Final Assessment AND Plan Maternal iron deficiency anemia complicating , third trimester (HCC) - Patient referred to blood management for anemia in and iron deficiency anemia - Previously prescribed Ferrous sulfate 140 mg tablet (45 mg elemental iron) PO daily and pre-ino vitamin including iron supplement PO daily - Patient with treatment failure from oral iron supplementation and ongoing iron deficiency anemia noted on most recent labs from 10/07/2024: - Ferritin 22.8, Iron 52, TIBC 489, TSAT 10.6%, and Hgb 9.4 g/dL - Per Ganzoni equation, 884 mg iron deficient utilizing pre- weight (>100kg) and goal Hgb 11 g/dL. - Therapy plan for Venofer (iron sucrose) 200 mg IV infusion x 4 doses was reviewed and signed. - Recommend ongoing monitoring of iron deficiency anemia by referring provider to ensure adequate response to IV iron supplementation. Portions of this note were copied from prior encounter from Bryce Greenberg RN on 10/10/24. The patient's medications, allergies, past medical/surgical hx, and family hx have all been reviewed and updated as appropriate. The interval history and assessment/plan content have been modified and are specific to today's (October 10, 2024) purpose for the visit. Kathy Urena PA-C Department of Blood Management October 10, 2024 CC: Referring Provider: Sherry Nash [facility] 10-10-2024 History of Present illness Narrative* Kathy Urena PA-C - 10/10/2024 1:00 PM EDT [facility] DEPARTMENT OF BLOOD MANAGEMENT ORDERS ONLY ENCOUNTER PATIENT NAME: Sun Carrero DATE OF SERVICE: October 10, 2024 REFERRING PROVIDER: Sherry Nash MD Subjective Patient referred to Blood Management for evaluation and treatment of anemia in and iron deficiency anemia. Patient's relevant history, recent diagnostic data, and treatment plan as entered by Bryce Greenberg RN were reviewed. Medical/Surgical History: PAST MEDICAL HISTORY Diagnosis Date Anemia Generalized anxiety disorder History of gestational hypertension History of gestational hypertension 04/11/2024 Hx of preeclampsia, prior , currently ([facility]) 05/01/2022 Induced Delivery - Resulting in Premature Delivery at 35w6d Hx of preeclampsia, prior , currently ([facility]) Miscarriage ([facility]) OCD (obsessive compulsive disorder) PMH - PAST MEDICAL HISTORY OF normal color vision PAST SURGICAL HISTORY Procedure Laterality Date DELIVERY ONLY 05/05/2022 [facility] EXCIS UTERINE FIBROID,VAG APPRCH May 2021 Missed Miscarriage during first EXTRACTION, ERUPTED TOOTH OR EXPOSED ROOT (ELEVATION AND/OR FORCEPS REMOVAL) 04/27/2007 wisdom teeth x 4 [facility] ([facility]) Other significant Medical/Surgical history: - Prior diagnosis of anemia CURRENT MEDICATIONS: Current Outpatient Medications Medication Instructions aspirin, enteric coated (ECOTRIN LOW STRENGTH) 81 mg EC tablet Take 2 Aspirin 81mg by mouth once daily after 12 weeks ferrous sulfate (IRON ORAL) Take by mouth. 21/iron fu/folic acid ( COMPLETE ORAL) Take by mouth. Current medications that may affect iron absorption and/or blood loss: - Aspirin Objective Data Reviewed: WBC (k/uL) Date Value 10/05/2024 11.17 (H) RBC (m/uL) Date Value 10/05/2024 3.25 (L) Hemoglobin (g/dL) Date Value 10/05/2024 9.4 (L) Hematocrit (%) Date Value 10/05/2024 28.7 (L) MCV (fL) Date Value 10/05/2024 88.3 MCH (pg) Date Value 10/05/2024 28.9 MCHC (g/dL) Date Value 10/05/2024 32.8 RDW-CV (%) Date Value 10/05/2024 14.7 Platelet Count (k/uL) Date Value 10/05/2024 171 MPV (fL) Date Value 10/05/2024 10.4 Iron Date Value Ref Range Status 10/07/2024 52 41 - 186 ug/dL Final TIBC Date Value Ref Range Status 10/07/2024 489 (H) 232 - 386 ug/dL Final Ferritin Date Value Ref Range Status 10/07/2024 22.8 14.7 - 205.1 ng/mL Final Transferrin Saturation Date Value Ref Range Status 10/07/2024 10.6 (L) 15.0 - 57.0 % Final Assessment & Plan Maternal iron deficiency anemia complicating , third trimester (HCC) - Patient referred to blood management for anemia in and iron deficiency anemia - Previously prescribed Ferrous sulfate 140 mg tablet (45 mg elemental iron) PO daily and pre-natalvitamin including iron supplement PO daily - Patient with treatment failure from oral iron supplementation and ongoing iron deficiency anemia noted on most recent labs from 10/07/2024: - Ferritin 22.8, Iron 52, TIBC 489, TSAT 10.6%, and Hgb 9.4 g/dL - Per Ganzoni equation, 884 mg iron deficient utilizing pre- weight (>100kg) and goal Hgb11 g/dL. - Therapy plan for Venofer (iron sucrose) 200 mg IV infusion x 4 doses was reviewed and signed. - Recommend ongoing monitoring of iron deficiency anemia by referring provider to ensure adequate response to IV iron supplementation. Portions of this note were copied from prior encounter from Bryce Greenberg RN on 10/10/24. The patient's medications, allergies, past medical/surgical hx, and family hx have all been reviewed and updatedas appropriate. The interval history and assessment/plan content have been modified and are specific to today's (October 10, 2024) purpose for the visit. Kathy Urena PA-C Department of Blood Management October 10, 2024 CC: Referring Provider: Sherry Nash MD documented in this encounterCoshocton [facility]06-16-2025 NoteHNO ID: [id number] Author: BRYCE MARIN RN Service: ? Author Type: Registered Nurse Type: Progress Notes Filed: 10/10/2024 11:37 Note Text: Patient referred to Blood Management for evaluation and treatment of pre-surgical anemia and/or iron deficiency. Non-surgical: anemia in Date of surgery: NA Medical/Surgical History: PAST MEDICAL HISTORY Diagnosis Date Anemia Generalized anxiety disorder History of gestational hypertension History of gestational hypertension 04/11/2024 Hx of preeclampsia, prior , currently ([facility]) 05/01/2022 Induced Delivery - Resulting in Premature Delivery at 35w6d Hx of preeclampsia, prior , currently ([facility]) Miscarriage ([facility]) OCD (obsessive compulsive disorder) PMH - PAST MEDICAL HISTORY OF normal color vision PAST SURGICAL HISTORY Procedure Laterality Date DELIVERY ONLY 05/05/2022 [facility] EXCIS UTERINE FIBROID,VAG APPRCH May 2021 Missed Miscarriage during first EXTRACTION, ERUPTED TOOTH OR EXPOSED ROOT (ELEVATION AND/OR FORCEPS REMOVAL) 04/27/2007 wisdom teeth x 4 [facility] ([facility]) Other significant Medical/Surgical history: - Prior diagnosis of anemia Current Outpatient Medications Medication Sig ferrous sulfate (IRON ORAL) Take by mouth. aspirin, enteric coated (ECOTRIN LOW STRENGTH) 81 mg EC tablet Take 2 Aspirin 81mg by mouth once daily after 12 weeks 21/iron fu/folic acid ( COMPLETE ORAL) Take by mouth. No current facility-administered medications for this visit. Current medications that may affect iron absorption and/or blood loss: - Aspirin Baseline laboratory values: WBC (k/uL) Date Value 10/05/2024 11.17 (H) RBC (m/uL) Date Value 10/05/2024 3.25 (L) Hemoglobin (g/dL) Date Value 10/05/2024 9.4 (L) Hematocrit (%) Date Value 10/05/2024 28.7 (L) MCV (fL) Date Value 10/05/2024 88.3 MCH (pg) Date Value 10/05/2024 28.9 MCHC (g/dL) Date Value 10/05/2024 32.8 RDW-CV (%) Date Value 10/05/2024 14.7 Platelet Count (k/uL) Date Value 10/05/2024 171 MPV (fL) Date Value 10/05/2024 10.4 Iron Date Value Ref Range Status 10/07/2024 52 41 - 186 ug/dL Final TIBC Date Value Ref Range Status 10/07/2024 489 (H) 232 - 386 ug/dL Final Ferritin Date Value Ref Range Status 10/07/2024 22.8 14.7 - 205.1 ng/mL Final Transferrin Saturation Date Value Ref Range Status 10/07/2024 10.6 (L) 15.0 - 57.0 % Final Assess for the need to augment a patient?s natural red blood cell production: - Blood transfusion avoidance - Iron depletion Recommendations according to Blood Management patient care guidelines: - Iron Sucrose 200 mg, IV infusion, dose(s) 4 Total iron deficit using ganzoni equation = 884 mg (wt >100 kg/goal hgb 11 g/dL) Clinical information is sent to a provider for review and evaluation for treatment.[facility]06-16-2025 History of Present illness Narrative* Bryce Marin RN - 10/10/2024 11:33 AM EDT Patient referred to Blood Management for evaluation and treatment of pre- surgical anemia and/or iron deficiency. Non-surgical: anemia in Date of surgery: NA Medical/Surgical History: PAST MEDICAL HISTORY Diagnosis Date Anemia Generalized anxiety disorder History of gestational hypertension History of gestational hypertension 04/11/2024 Hx of preeclampsia, prior , currently ([facility]) 05/01/2022 Induced Delivery - Resulting in Premature Delivery at 35w6d Hx of preeclampsia, prior , currently ([facility]) Miscarriage ([facility]) OCD (obsessive compulsive disorder) PMH - PAST MEDICAL HISTORY OF normal color vision PAST SURGICAL HISTORY Procedure Laterality Date DELIVERY ONLY 05/05/2022 [facility] EXCIS UTERINE FIBROID,VAG APPRCH May 2021 Missed Miscarriage during first EXTRACTION, ERUPTED TOOTH OR EXPOSED ROOT (ELEVATION AND/OR FORCEPS REMOVAL) 04/27/2007 wisdom teeth x 4 [facility] ([facility]) Other significant Medical/Surgical history: - Prior diagnosis of anemia Current Outpatient Medications Medication Sig ferrous sulfate (IRON ORAL) Take by mouth. aspirin, enteric coated (ECOTRIN LOW STRENGTH) 81 mg EC tablet Take 2 Aspirin 81mg by mouth once daily after 12 weeks 21/iron fu/folic acid ( COMPLETE ORAL) Take by mouth. No current facility-administered medications for this visit. Current medications that may affect iron absorption and/or blood loss: - Aspirin Baseline laboratory values: WBC (k/uL) Date Value 10/05/2024 11.17 (H) RBC (m/uL) Date Value 10/05/2024 3.25 (L) Hemoglobin (g/dL) Date Value 10/05/2024 9.4 (L) Hematocrit (%) Date Value 10/05/2024 28.7 (L) MCV (fL) Date Value 10/05/2024 88.3 MCH (pg) Date Value 10/05/2024 28.9 MCHC (g/dL) Date Value 10/05/2024 32.8 RDW-CV (%) Date Value 10/05/2024 14.7 Platelet Count (k/uL) Date Value 10/05/2024 171 MPV (fL) Date Value 10/05/2024 10.4 Iron Date Value Ref Range Status 10/07/2024 52 41 - 186 ug/dL Final TIBC Date Value Ref Range Status 10/07/2024 489 (H) 232 - 386 ug/dL Final Ferritin Date Value Ref Range Status 10/07/2024 22.8 14.7 - 205.1 ng/mL Final Transferrin Saturation Date Value Ref Range Status 10/07/2024 10.6 (L) 15.0 - 57.0 % Final Assess for the need to augment a patient s natural red blood cell production: - Blood transfusion avoidance - Iron depletion Recommendations according to Blood Management patient care guidelines: - Iron Sucrose 200 mg, IV infusion, dose(s) 4 Total iron deficit using ganzoni equation = 884 mg (wt >100 kg/goal hgb 11 g/dL) Clinical information is sent to a provider for review and evaluation for treatment. documented in this encounterCosho[facility]06-12-2025 NoteHNO ID: [id number] Author: LEXUS BARNES RN Service: ? Author Type: Registered Nurse Type: Progress Notes Filed: 10/07/2024 08:07 Note Text: Iron study specimen clotted, needs to be redrawn. Orders pended for Kathy Urena PA-C. Patient notified.[facility]06-12-2025 History of Present illness Narrative* Lexus Barnes RN - 10/06/2024 8:33 AM EDT Iron study specimen clotted, needs to be redrawn. Orders pended for Kathy Urena PA-C. Patient notified. documented in this encounterCoshocton [facility] Center06-11-2025 NoteHNO ID: [id number] Author: SHERRY BEARDEN MD Service: ? Author Type: Physician Type: Progress Notes Filed: 10/05/2024 15:39 Note Text: NST SUMMARY PROVIDER ASSESSMENT AND INTERPRETATION Sun Carrero is a 34 year old female, , who is at 34w0d with an KEARA of 11/16/2024, by Last Menstrual Period dating method. Indications for NST: Obesity Baseline:145- 150 Variability: Moderate Accelerations: Present 15 X 15 Decelerations: None Contractions: TOCO: None Interpretation: Category I reactive SIGNATURE: [facility] History of Present illness Narrative* Sherry Bearden MD - 10/05/2024 3:36 PM EDT NST SUMMARY PROVIDER ASSESSMENT AND INTERPRETATION Sun Carrero is a 34 year old female, , who is at 34w0d with an KEARA of 11/16/2024, by LastMenstrual Period dating method. Indications for NST: Obesity Baseline:145- 150 Variability: Moderate Accelerations: Present 15 X 15 Decelerations: None Contractions: TOCO: None Interpretation: Category I reactive SIGNATURE: Sherry Thompson MD documented in this encounterCoshocton [facility] Center06-11-2025 Progress note* Quick Notes - Sherry Bearden MD - 10/05/2024 3:29 PM EDT DM-Pt doing well. Denies vaginal Bleeding, Leaking fluid, or regular Contractions. Pt reports good movement- but over last few days movement is decreased Physical Exam: Gen: female in no apparent distress Abd: soft, Gravid. Non tender to palpation. See flow sheet @ 34 weeks Assessment & Plan Supervision of high risk in third trimester ([facility]) Orders: URINE OB DIP B/O Hx of preeclampsia, prior , currently ([facility]) Continue ASA Orders: URINE OB DIP B/O Obesity in ([facility]) Growth us and NSTs Orders: URINE OB DIP B/O Antepartum anemia complicating in third trimester ([facility]) Labs today- still indicated anemia- pt is taking PO iron. Will do referral for iv iron. Orders: URINE OB DIP B/O IRON AND TIBC; Future FERRITIN; Future BLOOD MANAGEMENT REFERRAL History of section Scheduled for repeat cs Orders: URINE OB DIP B/O 34 weeks gestation of ([facility]) RTO 2 weeks Weekly NSTs Orders: URINE OB DIP B/O Sherry Thompson MD [facility]06-11-2025 Miscellaneous Notes* Quick Notes - Sherry Bearden MD - 10/05/2024 3:29 PM EDT DM-Pt doing well. Denies vaginal Bleeding, Leaking fluid, or regular Contractions. Pt reports good movement- but over last few days movement is decreased Physical Exam: Gen: female in no apparent distress Abd: soft, Gravid. Non tender to palpation. See flow sheet @ 34 weeks Assessment & Plan Supervision of high risk in third trimester ([facility]) Orders: URINE OB DIP B/O Hx of preeclampsia, prior , currently ([facility]) Continue ASA Orders: URINE OB DIP B/O Obesity in ([facility]) Growth us and NSTs Orders: URINE OB DIP B/O Antepartum anemia complicating in third trimester ([facility]) Labs today- still indicated anemia- pt is taking PO iron. Will do referral for iv iron. Orders: URINE OB DIP B/O IRON AND TIBC; Future FERRITIN; Future BLOOD MANAGEMENT REFERRAL History of section Scheduled for repeat cs Orders: URINE OB DIP B/O 34 weeks gestation of ([facility]) RTO 2 weeks Weekly NSTs Orders: URINE OB DIP B/O Sherry Thompson MD documented in this encounterCoshocton [facility] Center06-11-2025 Instructions* Patient Instructions* Juliano Andrews MA - 10/05/2024 2:38 PM EDT SEQUENTIAL SCREENINGS The [facility] offers sequential screenings for women who are interested in screenings for chromosomal abnormalities and certain defects during a . The sequential screen combinesultrasound and blood tests to determine the risk of chromosomal abnormalities, including Down's Syndrome (Trisomy 21) and Trisomy 18, as well as open neural tube defects including spina bifida. Ultrasound examination is performed between 11 weeks and 13 weeks gestational age. Blood tests are drawn after the ultrasound and again later in the between 15 and 21 weeks gestational age. Please let your physician know if you are interested in this testing. It will require an appointment withour mobile service rv technician. This is not an ultrasound performed by a physician in our office during a routine visit. SIGNS AND SYMPTOMS OF LABOR 1. Contractions every 10 minutes or more often 2. Clear, pink, or brownish fluid (water) leaking from vagina 3. Feeling that baby is pushing down, pressure 4. Low, dull backache 5. Cramps that feel like a period 6. Cramps with or without diarrhea If you notice any of the above symptoms, contact our office at [phone] and ask to speak with anurse. After hours, you can call doctors registry at [phone] OR call [facility] at [phone] ask to have the doctor car sales consultant paged. If you consider this an emergency, dial or go to your nearest emergency department. NEED HELP? Are you dealing with a violent or abusive relationship? Are you a victim of rape or sexual assult? Call [facility] ([place]) 24 hour Crisis Hotline: 615.870.5359 or 526-312-9329. MANUAL Your Guide to a Healthy manual is now on-line. Visit [email or web address] to download your free copy documented in this encounterCoshocton Regional Medical Center06-04-2025 NoteHNO ID: [id number] Author: RADHA MART APRN.CNM Service: ? Author Type: Merchandise Worker Type: Progress Notes Filed: 09/28/2024 10:09 Note Text: NST SUMMARY PROVIDER ASSESSMENT AND INTERPRETATION Sun Carrero is a 34 year old female, , who is at 33w0d with an KEARA of 11/16/2024, by Last Menstrual Period dating method. Indications for NST: Obesity Baseline: 135 Variability: Moderate Accelerations: Present 15 X 15 Decelerations: None Contractions: TOCO: None Interpretation: Reactive SIGNATURE: Radha Mart APRN.CNMadison Health06-04-2025 History of Present illness Narrative* Radha Mart APRN.CNM - 09/28/2024 10:00 AM EDT NST SUMMARY PROVIDER ASSESSMENT AND INTERPRETATION Sun Carrero is a 34 year old female, , who is at 33w0d with an KEARA of 11/16/2024, by LastMenstrual Period dating method. Indications for NST: Obesity Baseline: 135 Variability: Moderate Accelerations: Present 15 X 15 Decelerations: None Contractions: TOCO: None Interpretation: Reactive SIGNATURE: Radha Mart APRN.CNM documented in this encounterCoshocton [facility] Center06-04-2025 Instructions* Patient Instructions* Kimberlee Sands MA - 09/28/2024 9:44 AM EDT SEQUENTIAL SCREENINGS [facility] offers sequential screenings for women who are interested in screenings for chromosomal abnormalities and certain defects during a . The sequential screen combinesultrasound and blood tests to determine the risk of chromosomal abnormalities, including Down's Syndrome (Trisomy 21) and Trisomy 18, as well as open neural tube defects including spina bifida. Ultrasound examination is performed between 11 weeks and 13 weeks gestational age. Blood tests are drawn after the ultrasound and again later in the between 15 and 21 weeks gestational age. Please let your physician know if you are interested in this testing. It will require an appointment withour mobile service rv technician. This is not an ultrasound performed by a physician in our office during a routine visit. SIGNS AND SYMPTOMS OF LABOR 1. Contractions every 10 minutes or more often 2. Clear, pink, or brownish fluid (water) leaking from vagina 3. Feeling that baby is pushing down, pressure 4. Low, dull backache 5. Cramps that feel like a period 6. Cramps with or without diarrhea If you notice any of the above symptoms, contact our office at [phone] and ask to speak with anurse. After hours, you can call doctors registry at [phone] OR call [facility] at [phone] ask to have the doctor car sales consultant paged. If you consider this an emergency, dial 9-0-4 or go to your nearest emergency department. NEED HELP? Are you dealing with a violent or abusive relationship? Are you a victim of rape or sexual assult? Call [facility] ([place]) 24 hour Crisis Hotline: 914.517.2117 or 795-842-8901. MANUAL Your Guide to a Healthy manual is now on-line. Visit [email or web address] to download your free copy documented in this encounterCoshocton Regional Medical Center06-04-2025 Progress note* Quick Notes - Radha Mart APRN.CNM - 09/28/2024 9:42 AM EDT Patient seen for NST only. Radha Mart APRN.CNM [facility]06-04-2025 Miscellaneous Notes* Quick Notes - Radha Mart APRN.CNM - 09/28/2024 9:42 AM EDT Patient seen for NST only. Radha Mart APRN.CNM documented in this encounterCoshocton Regional Medical Center05-28-2025 Note Indication Evaluation of growth, Evaluation of well-being Maternal obesity, BMI >40 Impression - Single, live, intrauterine . - presentation is breech. - The biometry is consistent with the assigned gestational dating. - The EFW is 2189 g, at the 82%. AC is at the 93%. - The amniotic fluid volume is normal amount with an MVP of 6.2 cm and an RUFUS of 20.3 cm. - The placenta is posterior, fundal. - BPP 8/8. - No malformations visualized on a limited survey as detailed below. Recommendations Continue planned surveillance Maternal Assessment Height 157 cm Height (ft) 5 ft Height (in) 2 in Physical Exam Initial weight (lb) 230 lb Initial BMI 42.07 kg/m Maternal assessment other: 3 Para 1 REMOTE READ Method Transabdominal ultrasound examination [place] . Number of fetuses: 1 Dating LMP on: 02/10/2024 GA by LMP 32 w + 0 d KEARA by LMP: 11/16/2024 GA by prior assessment 32 w + 0 d KEARA by prior assessment: 11/16/2024 Ultrasound examination on: 09/21/2024 GA by U/S based upon: AC, BPD, Femur, HC GA by U/S 33 w + 2 d KEARA by U/S: 11/07/2024 Assigned: based on stated KEARA, selected on 09/21/2024 Assigned GA 32 w + 0 d Assigned KEARA: 11/16/2024 General Evaluation Cardiac activity present. FHR 142 bpm. movements: present. Presentation: breech Placenta: Placental site: posterior, fundal Umbilical cord: Cord vessels: 3 vessel cord Amniotic fluid: Amount of AF: normal amount. MVP 6.2 cm. RUFUS 20.3 cm. Q1 3.2 cm, Q2 6.2 cm, Q3 4.9 cm, Q4 6.1 cm Biophysical Profile 2: breathing movements 2: Gross body movements 2: tone 2: Amniotic fluid volume 12/02 Biophysical profile score Growth Overview Exam date GA BPD (mm) HC (mm) AC (mm) FL (mm) HL (mm) EFW (g) 05/30/2024 15w 5d 32.6 67% 120 44% 99.5 62% 17.7 32% 130 34% 07/01/2024 20w 2d 49.2 74% 179.8 54% 154.8 57% 31.9 51% 32.1 70% 346 46% 09/21/2024 32w 0d 82.7 78% 312 84% 299.9 93% 60.9 49% 2189 82% Biometry Standard BPD 82.7 mm 33w 2d 78% Hadlock OFD 112.4 mm 34w 3d 89% Nicolaides HC 312.0 mm 34w 0d 84% Jose AC 299.9 mm 34w 0d 93% Hadlock Femur 60.9 mm 31w 4d 49% Jose EFW 2,189 g 33w 1d 82% Hadlock EFW (lb) 4 lb EFW (oz) 13 oz EFW by: Hadlock (HC-AC-FL) Extended Superintendent [employer] 5.0 mm Extremities / Bony Struc FL / HC 0.20 Other Structures FHR 142 bpm Anatomy Lateral ventricles: normal Cavum septi pellucidi: normal Cerebellum: normal Cisterna magna: normal 4-chamber view: normal RVOT view: normal LVOT view: normal 3-vessel view: normal Heart / Thorax Situs: situs solitus (normal) Diaphragm: normal Stomach: normal Kidneys: normal Bladder: normal sex: female Wants to know sex: yes Performed By: Rosa Ayers RDMS, RVT Read By: Ely Crespo M.D.MATERNAL [id number] Progress note* Quick Notes - Isael Gandara MD - 09/21/2024 8:57 AM EDT RR- VB No. LOF No. CTXS No. Movement: present. Other c/o: denies TSAI or visual changes Medication list reviewed. SENSITIVE EXAM: Sensitive exam not performed. Physical Exam See Flow Sheet Gen: no accute distress, well appearing A/P 32w0d Estimated Date of Delivery: 11/16/24 Assessment & Plan Supervision of high risk in third trimester ([facility]) Orders: NON-STRESS TEST; Standing Obesity in ([facility]) grwoth scan today Orders: NON-STRESS TEST; Standing Hx of preeclampsia, prior , currently ([facility]) no signs/symptoms of preeclampsai, monitoring BP at home, cont. to follow closely Orders: NON-STRESS TEST; Standing Breech presentation with problem, single or unspecified fetus (HCC) repeat US in 4 weeks Antepartum anemia complicating in third trimester ([facility]) cont. fe and recheck CBC in 2 weeks Isael Gandara M.D. [facility]05-28-2025 Miscellaneous Notes* Quick Notes - Isael Gandara MD - 09/21/2024 8:57 AM EDT RR- VB No. LOF No. CTXS No. Movement: present. Other c/o: denies TSAI or visual changes Medication list reviewed. SENSITIVE EXAM: Sensitive exam not performed. Physical Exam See Flow Sheet Gen: no accute distress, well appearing A/P 32w0d Estimated Date of Delivery: 11/16/24 Assessment & Plan Supervision of high risk in third trimester ([facility]) Orders: NON-STRESS TEST; Standing Obesity in ([facility]) grwoth scan today Orders: NON-STRESS TEST; Standing Hx of preeclampsia, prior , currently ([facility]) no signs/symptoms of preeclampsai, monitoring BP at home, cont. to follow closely Orders: NON-STRESS TEST; Standing Breech presentation with problem, single or unspecified fetus ([facility]) repeat US in 4 weeks Antepartum anemia complicating in third trimester ([facility]) cont. fe and recheck CBC in 2 weeks Isael Gandara M.D. documented in this encounterCoshocton [facility] Center05-28-2025 Instructions* Patient Instructions* Adalgisa Rand MA - 09/21/2024 8:44 AM EDT SEQUENTIAL SCREENINGS The [facility] offers sequential screenings for women who are interested in screenings for chromosomal abnormalities and certain defects during a . The sequential screen combinesultrasound and blood tests to determine the risk of chromosomal abnormalities, including Down's Syndrome (Trisomy 21) and Trisomy 18, as well as open neural tube defects including spina bifida. Ultrasound examination is performed between 11 weeks and 13 weeks gestational age. Blood tests are drawn after the ultrasound and again later in the between 15 and 21 weeks gestational age. Please let your physician know if you are interested in this testing. It will require an appointment withour mobile service rv technician. This is not an ultrasound performed by a physician in our office during a routine visit. SIGNS AND SYMPTOMS OF LABOR 1. Contractions every 10 minutes or more often 2. Clear, pink, or brownish fluid (water) leaking from vagina 3. Feeling that baby is pushing down, pressure 4. Low, dull backache 5. Cramps that feel like a period 6. Cramps with or without diarrhea If you notice any of the above symptoms, contact our office at [phone] and ask to speak with anurse. After hours, you can call doctors registry at [phone] OR call [facility] at [phone] ask to have the doctor car sales consultant paged. If you consider this an emergency, dial 3-2-4 or go to your nearest emergency department. NEED HELP? Are you dealing with a violent or abusive relationship? Are you a victim of rape or sexual assult? Call [facility] ([place]) 24 hour Crisis Hotline: 671.167.4223 or 185-046-3995. MANUAL Your Guide to a Healthy manual is now on-line. Visit [email or web address] to download your free copy documented in this encounterCoshocton Regional Medical Center05-19-2025 Evaluation note* Diagnosis Onset Date Resolution Status Admit Date 30 weeks gestation of acut e September 12, 2024 4:45pm Obesity affecting acute September 12, 2024 4:45pm Skin tear acute September 12, 2024 4:45[facility] Work Phone: 1(930) 912-919005-19-2025 Evaluation note* Diagnosis Onset Date Resolution Status Admit Date 30 weeks gestation of acut e September 12, 2024 4:45pm Obesity affecting acute September 12, 2024 4:45pm Skin tear acute September 12, 2024 4:45pm 37 weeks gestation of acut e October 29, 2024 11:05am Headache acute October 29, 2024 11:05am History of pre-eclampsia acute October 29, 2024 11:05am [facility] Work Phone: 1(741) 301-136105-19-2025 History and physical note [facility] Medical Records Department [address] [place] [address] OB Triage Physician Note 09/12/241817 MR#: [id number] Acct: [id number] Name: SUN CARRERO Rep #:[id number] : 1990 34 From: Jose Neil DO PCP: Care Physician,No Primary Status :REG CLI Y Location: [place] [address]1 HPI - General General Date of Admission: 09/12/24 Date of Service: 09/12/24 Chief Complaint: vaginal bleeding HPI Narrative SUN CARRERO, is a 34 F who presents with bright red vaginal bleeding after using the restroom. She feels the bleeding has improved since getting to L&D. She describes it as similar to a light period. No abdominal pain or ctx. No lof.No recent falls, trauma, or intercourse. Good FM. PFSH PFSH Medical History (Updated 09/12/24 @ 18:[address] Jose Neil, DO) Psychiatric disorder Pre-eclampsia Home Medications ?Medication ?Instructions ?Recorded ?Last Taken ?Type ferrous sulfate 143 mg PO DAILY anemia 05/0209/11/24 20:00 History vitamn-iron carb-folic 1 cap PO DAILY pregnan vy 05/02/22 09/11/24 20:00 History acid-docusate 95 mg-1 mg-50 mg capsule acetaminophen 500 mg tablet 1,000 mg (2 x 500 mg) PO Q 6 #0 tabs 05/09/22 Unknown Rx Allergy/AdvReac Type Severity Reaction Status Date / Time No Known Allergies Allergy Verified 09/12/24 17:01 Social History Smoking Status: Never smoker History Elective abortions Hx Para 0 Spontaneous abortions Hx # Term Pregnancies Ectopic pregnancies Hx # Pregnancies Multiple births # of living children Physical Exam Const alert and no apparent distress General Appearance: comfortable Resp normal respiratory effort GI soft to palpation and non-tender GI Narrative: Obese Narrative: Speculum exam: Cervix closed and long with minimal white discharge. No bleeding or old blood noted in the vagina. External exam shows a 1 cm open superficial laceration/cut inside the left labia minora that is actively bleeding. No other skin changes noted. No swelling, erythema, or signs of infection NST FHR Rate Baby A Baseline: 140 Variability:: Moderate Accelerations:: 15 x 15 Decelerations:: None NST Reactive:: Yes FHR Category:: Category I Uterine Activity:: no ctx's Assessment & Plan (1) 30 weeks gestation of : (2) Skin tear: PLAN: Patient presented with vaginal bleeding. Bedside TAUS shows subjectively normal fluid and a normal placenta with active fetus. Hgb stable from recent office visit. Taking oral iron. There was no vaginal bleeding or old blood in vagina on exam. There was a skin tear present inside the left labia minora that was bleeding. The tear looked to be mechanical in nature. No evidence of infection, PTL or abruption. Patient worried about seeing continued bleeding at home. Tear superficial and suture not indicated. Discussed r/b/a silver nitrate application and patient desires to proceed. Silver nitrate applied followed by pressure, and no further bleeding noted. Discussed vulvar care and hygeine measures. Discussed pelvic rest for 1 week. Has growth US and OB visit next week. (3) Obesity affecting : 09/12/24 1827 DO> Date _ Jose Neil DO Cosigner Signature (if applicable): Date CC: Dr. Jose Neil, DO; No Primary Care Physician ~ Signed [facility]05-19-2025 Telephone encounter Note* Telephone Encounter - Neli Sommer RN - 09/12/2024 4:05 PM EDT 30w5d Patient calling c/o light/moderate bright red bleeding that started within last hour. She stated there were a couple small blood clots with it. No recent intercourse prior to it starting. No contractions, but has had lower back pain all day. She has had positive movement today. Patient tearful on the phone. She is a little over 30 minutes away. Advised to L&D for evaluation d/t time of day. L&D notified. Neli Sommer RN [facility]05-19-2025 Miscellaneous Notes* Telephone Encounter - Neli Sommer RN - 09/12/2024 4:05 PM EDT 30w5d Patient calling c/o light/moderate bright red bleeding that started within last hour. She stated there were a couple small blood clots with it. No recent intercourse prior to it starting. No contractions, but has had lower back pain all day. She has had positive movement today. Patient tearful on the phone. She is a little over 30 minutes away. Advised to L&D for evaluation d/t time of day. L&D notified. Neli Sommer RN documented in this encounterCoshocton Regional Medical Center05-13-2025 Progress note* Quick Notes - Sherry Bearden MD - 09/06/2024 8:20 AM EDT DM-Pt doing well. Denies vaginal Bleeding, Leaking fluid, or regular Contractions. Pt reports good movement- not as much as first . Pt reports extreme fatigue and sometimes numbness in thighs when standing too long- had with first . Physical Exam: Gen: female in no apparent distress Abd: soft, Gravid. Non tender to palpation. See flow sheet @ 29.6 weeks Assessment & Plan Supervision of high risk in third trimester (HCC) Obesity in (HCC) Continue growth us Q4 weeks NSts starting 32 weeks Hx of preeclampsia, prior , currently ([facility]) Continue ASA History of section Repeat cs scheduled on 11/10 with RR Anemia during in second trimester ([facility]) Continue PO iron Recheck CBC in 2 weeks Orders: COMPLETE BLOOD COUNT; Future 29 weeks gestation of ([facility]) Orders: COMPLETE BLOOD COUNT; Future Sherry Thompson MD [facility]05-13-2025 Miscellaneous Notes* Quick Notes - Sherry Bearden MD - 09/06/2024 8:20 AM EDT DM-Pt doing well. Denies vaginal Bleeding, Leaking fluid, or regular Contractions. Pt reports good movement- not as much as first . Pt reports extreme fatigue and sometimes numbness in thighs when standing too long- had with first . Physical Exam: Gen: female in no apparent distress Abd: soft, Gravid. Non tender to palpation. See flow sheet @ 29.6 weeks Assessment & Plan Supervision of high risk in third trimester ([facility]CC) Obesity in (HCC) Continue growth us Q4 weeks NSts starting 32 weeks Hx of preeclampsia, prior , currently ([facility]) Continue ASA History of section Repeat cs scheduled on 11/10 with RR Anemia during in second trimester ([facility]) Continue PO iron Recheck CBC in 2 weeks Orders: COMPLETE BLOOD COUNT; Future 29 weeks gestation of ([facility]) Orders: COMPLETE BLOOD COUNT; Future Sherry Thompson MD documented in this encounterCos[facility]05-[facility] Instructions* Patient Instructions* Juliano Andrews MA - 09/06/2024 8:11 AM EDT SEQUENTIAL SCREENINGS [facility] offers sequential screenings for women who are interested in screenings for chromosomal abnormalities and certain defects during a . The sequential screen combinesultrasound and blood tests to determine the risk of chromosomal abnormalities, including Down's Syndrome (Trisomy 21) and Trisomy 18, as well as open neural tube defects including spina bifida. Ultrasound examination is performed between 11 weeks and 13 weeks gestational age. Blood tests are drawn after the ultrasound and again later in the between 15 and 21 weeks gestational age. Please let your physician know if you are interested in this testing. It will require an appointment withour mobile service rv technician. This is not an ultrasound performed by a physician in our office during a routine visit. SIGNS AND SYMPTOMS OF LABOR 1. Contractions every 10 minutes or more often 2. Clear, pink, or brownish fluid (water) leaking from vagina 3. Feeling that baby is pushing down, pressure 4. Low, dull backache 5. Cramps that feel like a period 6. Cramps with or without diarrhea If you notice any of the above symptoms, contact our office at [phone] and ask to speak with anurse. After hours, you can call doctors registry at [phone] OR call [facility] at [phone] ask to have the doctor car sales consultant paged. If you consider this an emergency, dial [phone] or go to your nearest emergency department. NEED HELP? Are you dealing with a violent or abusive relationship? Are you a victim of rape or sexual assult? Call [facility] ([place]) 24 hour Crisis Hotline: 437.889.5044 or 078-004-6667. MANUAL Your Guide to a Healthy manual is now on-line. Visit [email or web address] to download your free copy documented in this encounterCoshocton [facility] Center04-28-2025 NoteHNO ID: [id number] Author: ADALGISA RAND MA Service: ? Author Type: Automatic Furnace Operator Type: Progress Notes Filed: 08/22/2024 09:31 Note Text: Patient identified by name and date of . Sun Carrero presents today for a vaccination of Tdap. Patient denies an allergy to latex: yes Patient denies a severe (life-threatening) allergy to a previous dose of Tdap, DTP, DTaP, DT or Td vaccine. Yes Patient denies history of epilepsy or neurological problems: Yes Patient is afebrile and denies being moderately or severely ill: Yes Patient denies history of Guillain-[place] Syndrome (a severe paralytic illness): Yes Tdap Adacel injection was given without incident. See immunizations for details of immunizations administered today. VIS sheet provided: Yes Provider Dr Gandara was present in office at time of injection.[facility]04-16-2025 History of Present illness Narrative* Isael Louis APRN.CERAMICS TECHNICIAN - 08/10/2024 9:00 AM EDT Images from the original note were not included. [facility] New Patient Evaluation PATIENT NAME: Sun Carrero DATE OF SERVICE: August 09, 2024 I have communicated my name and active licensure. The patient's identity and physical location wereverified at the time of this visit. Either the patient or their legal apprenticeship representative has been informed of the risks and benefits of -- and alternatives to -- treatment through a remote evaluation andconsents to proceed with the evaluation remotely. CONSULTING PROVIDER: Dr Isael Gandara REASON FOR CONSULT: sends the patient for an opinion about snoring, obesity, , hx pre-eclampsia. My findings and recommendations will be transmitted electronically via shared medical record to the consulting provider. HPI: Sun Carrero is a 34 year old female. Sleep-related history: she reported being exhausted at her 24 wks checkup, started wks, sleep is non-restorative, she has a hx of pre- eclampsia, today she is 26 wks . Hx of C section, is scheduled for C section on 11/10. She has a toddler She was laid off at the end of May SLEEP-WAKE SCHEDULE Bedtime: 1030-11 PM. She does not have a hard time falling asleep. Wake time: 8 AM, sometimes 9 AM After falling asleep: she wakes up 1-2x at the start of the night due to nocturia On weekends, she maintains the same sleep schedule. Average total sleep time (in a 24 hour period): 8-9 AM hours. SLEEP-RELATED DETAILS Preferred sleep position: side Breathing disturbances and other behaviors during sleep: snores when she sleeps supine but currently sleeping on side due to Bruxism: No GERD or aspiration: Yes just started, takes TUMS Waking up with heart pounding or racing: No Anxiety or rumination: No She does not report having an urge to move the legs in the evening (when resting) that is accompanied or caused by uncomfortable and/or unpleasant sensations in the legs. She has not been told that she has leg kicking during sleep. She denies any history of parasomnias. Excessive daytime sleepiness / fatigue is a problem. Excessive Daytime sleepiness/fatigue has been a problem for 6 wks, since 20 wks She does not report sleep paralysis or sleep-related hallucinations or cataplexy WAKE-RELATED DETAILS She does not work. She does not have difficulty with memory but does with concentration. She denies falling asleep or dozing off when driving. She does take naps if she is able to She does drink 1/2 can of pop per day caffeinated beverages per day. There has not been a recent change in weight. Patient Questionnaires Sleep Scores 08/09/2024 Sleep Questions Reason for visit: Sleep apnea Difficulty falling or staying asleep or poor sleep quality On average, hours of sleep in 24 hours: 8 Accidents or near accidents due to drowsy drivin Multiple values from one day are sorted in reverse-chronological order 08/09/2024 [place] Sleepiness Scale Score 10 (No clinically significant daytime sleepiness) 08/09/2024 PROMIS CAT Sleep Disturbance PROMIS Sleep Disturbance T-Score 56 (mild) PROMIS Sleep Disturbance Percentile 27 08/09/2024 Insomnia Severity Index Score 12 08/09/2024 PHQ-9 Score 6 08/09/2024 PROMIS Global Health - (T-Scores - the mean of general population = 50. Five points is a clinicallymeaningful difference.) Physical T-Score 47.7 Mental T-Score 43.5 PAST TREATMENTS: None PRIOR SLEEP STUDIES: None PAST MEDICAL HISTORY Diagnosis Date Anemia Generalized anxiety disorder History of gestational hypertension History of gestational hypertension 04/11/2024 Hx of preeclampsia, prior , currently ([facility]) 05/01/2022 Induced Delivery - Resulting in Premature Delivery at 35w6d Hx of preeclampsia, prior , currently ([facility]) Miscarriage ([facility]) OCD (obsessive compulsive disorder) PMH - PAST MEDICAL HISTORY OF normal color vision PAST SURGICAL HISTORY Procedure Laterality Date DELIVERY ONLY 05/05/2022 [facility] EXCIS UTERINE FIBROID,VAG APPRCH May 2021 Missed Miscarriage during first EXTRACTION, ERUPTED TOOTH OR EXPOSED ROOT (ELEVATION AND/OR FORCEPS REMOVAL) 04/27/2007 wisdom teeth x 4 [facility] (OFFICE [facility]) ACTIVE PROBLEM LIST Manny (Generalized Anxiety Disorder) Mixed Obsessional Thoughts and Acts Hyperlipidemia, Mixed Obesity in ([facility]) History of Anxiety Supervision of High Risk in Second Trimester ([facility]) History of Section History of Gestational Hypertension Hx of Preeclampsia, Prior , Currently ([facility]) Allergies As of Date: 08/10/2024 (No Known Allergies) Fully Assessed 08/10/2024 CURRENT MEDICATIONS: aspirin, enteric coated (ECOTRIN LOW STRENGTH) 81 mg EC tablet Take 2 Aspirin 81mg by mouth once daily after 12 weeks 21/iron fu/folic acid ( COMPLETE ORAL) Take by mouth. Review of Systems Constitutional: Positive for fatigue. Cardiovascular: Negative for palpitations. Gastrointestinal: Positive for heartburn. Genitourinary: Positive for nocturia. Neurological: Positive for headaches (occas morning). SOCIAL HISTORY: Social History Tobacco Use Smoking status: Never Smokeless tobacco: Never Vaping Use Vaping status: Never Used Substance Use Topics Alcohol use: Not Currently Comment: No ETOH since 2020 Drug use: No FAMILY HISTORY: FAMILY HISTORY Problem Relation Age of Onset No Known Problems Mother No Known Problems Father No Known Problems Brother Emphysema Maternal Grandmother Smoker No Known Problems Maternal Grandfather No Known Problems Paternal Grandmother No Known Problems Paternal Grandfather other (hypospadia) Son Breast Cancer Maternal cousin 37 There is no family history of sleep disorders. PHYSICAL EXAMINATION: Vital Signs: Deferred due to virtual visit via Zoom. General appearance: NAD Mental status: awake and alert Constitutional: Well groomed Skin: Dry and intact Neuro: Speech fluent IMPRESSION/PLAN: R06.83 Snoring (primary encounter diagnosis) G47.8 Non-restorative sleep E66.01 Obesity, morbid, BMI 40.0-49.9 ([facility]) G47.19 Excessive daytime sleepiness Sun Carrero is a 34 year old female with excessive daytime sleepiness, snoring, non-restorativesleep, obesity, hx of pre-eclampsia, 26 wks in a high risk . Referred to discuss possible home sleep study to eval for CARLOS A. Her SLITTING AND SHIPPING SUPERVISOR Dr Gandara had ordered PSG, pt preferred HSAT. Pt has a toddler. We discussed CARLOS A, testing for it, discussed possibility of PAP therapy. - Home Sleep Apnea Test (HST) to evaluate for obstructive sleep apnea. I will ask for testing and interpretation to be expedited due to her . - Discussed with the patient the possible diagnosis, causes, and conditions associated with obstructive sleep apnea. - Avoid driving when drowsy. Recommend that if you are dozing off while driving, that you do not drive until your sleepiness is appropriately treated. -Encouraged healthy lifestyle with adequate sleep ( 7-9 hours per night), diet and exercise. - Results are usually available within 7-10 business days. If you do not hear from us within 1-2 weeks after testing, please contact us directly. - Follow up visit TBD. I will contact her with HSAT results, will schedule follow up then. Isael Louis APRN.HANS documented in this encounterCoshocton [facility]04-16-2025 NoteHNO ID: [id number] Author: ISAEL LOUIS APRN.HANS Service: ? Author Type: Nurse Practitioner Type: Progress Notes Filed: 08/10/2024 09:26 Note Text: [facility] New Patient Evaluation PATIENT NAME: Sun Carrero DATE OF SERVICE: August 09, 2024 I have communicated my name and active licensure. The patient's identity and physical location were verified at the time of this visit. Either the patient or their legal apprenticeship representative has been informed of the risks and benefits of -- and alternatives to -- treatment through a remote evaluation and consents to proceed with the evaluation remotely. CONSULTING PROVIDER: Dr Iseal Gandara REASON FOR CONSULT: sends the patient for an opinion about snoring, obesity, , hx pre-eclampsia. My findings and recommendations will be transmitted electronically via shared medical record to the consulting provider. HPI: Sun Carrero is a 34 year old female. Sleep-related history: she reported being exhausted at her 24 wks checkup, started around 20 wks, sleep is non-restorative, she has a hx of pre-eclampsia, today she is 26 wks . Hx of C section, is scheduled for C section on 11/10. She has a toddler She was laid off at the end of May SLEEP-WAKE SCHEDULE Bedtime: 1030-11 PM. She does not have a hard time falling asleep. Wake time: 8 AM, sometimes 9 AM After falling asleep: she wakes up 1-2x at the start of the night due to nocturia On weekends, she maintains the same sleep schedule. Average total sleep time (in a 24 hour period): 8-9 AM hours. SLEEP-RELATED DETAILS Preferred sleep position: side Breathing disturbances and other behaviors during sleep: snores when she sleeps supine but currently sleeping on side due to Bruxism: No GERD or aspiration: Yes just started, takes TUMS Waking up with heart pounding or racing: No Anxiety or rumination: No She does not report having an urge to move the legs in the evening (when resting) that is accompanied or caused by uncomfortable and/or unpleasant sensations in the legs. She has not been told that she has leg kicking during sleep. She denies any history of parasomnias. Excessive daytime sleepiness / fatigue is a problem. Excessive Daytime sleepiness/fatigue has been a problem for 6 wks, since 20 wks She does not report sleep paralysis or sleep-related hallucinations or cataplexy WAKE-RELATED DETAILS She does not work. She does not have difficulty with memory but does with concentration. She denies falling asleep or dozing off when driving. She does take naps if she is able to She does drink 1/2 can of pop per day caffeinated beverages per day. There has not been a recent change in weight. Patient Questionnaires Sleep Scores 08/09/2024 Sleep Questions Reason for visit: Sleep apnea Difficulty falling or staying asleep or poor sleep quality On average, hours of sleep in 24 hours: 8 Accidents or near accidents due to drowsy drivin Multiple values from one day are sorted in reverse-chronological order 08/09/2024 [place] Sleepiness Scale Score 10 (No clinically significant daytime sleepiness) 08/09/2024 PROMIS CAT Sleep Disturbance PROMIS Sleep Disturbance T-Score 56 (mild) PROMIS Sleep Disturbance Percentile 27 08/09/2024 Insomnia Severity Index Score 12 08/09/2024 PHQ-9 Score 6 08/09/2024 PROMIS Global Health - (T-Scores - the mean of general population = 50. Five points is a clinically meaningful difference.) Physical T-Score 47.7 Mental T-Score 43.5 PAST TREATMENTS: None PRIOR SLEEP STUDIES: None PAST MEDICAL HISTORY Diagnosis Date Anemia Generalized anxiety disorder History of gestational hypertension History of gestational hypertension 04/11/2024 Hx of preeclampsia, prior , currently ([facility]) 05/01/2022 Induced Delivery - Resulting in Premature Delivery at 35w6d Hx of preeclampsia, prior , currently ([facility]) Miscarriage ([facility]) OCD (obsessive compulsive disorder) PMH - PAST MEDICAL HISTORY OF normal color vision PAST SURGICAL HISTORY Procedure Laterality Date DELIVERY ONLY 05/05/2022 [facility] EXCIS UTERINE FIBROID,VAG APPRCH May 2021 Missed Miscarriage during first EXTRACTION, ERUPTED TOOTH OR EXPOSED ROOT (ELEVATION AND/OR FORCEPS REMOVAL) 04/27/2007 wisdom teeth x 4 [facility] ([facility]ICE [facility]) ACTIVE PROBLEM LIST Manny (Generalized Anxiety Disorder) Mixed Obsessional Thoughts and Acts Hyperlipidemia, Mixed Obesity in ([facility]) History of Anxiety Supervision of High Risk in Second Trimester ([facility]) History of Section History of Gestational Hypertension Hx of Preeclampsia, Prior , Currently ([facility]) Allergies As of Date: 08/10/2024 (No Known Allergies) Fully Assessed 08/10/2024 CURRENT MEDICATIONS: aspirin, enteric coated (ECOTRIN LOW (more content not included)...[facility]04-14-2025 Telephone encounter Note* Telephone Encounter - Nadiya Barry LPN - 08/08/2024 2:05 PM EDT TC to pt and scheduled with Isael Louis. Nadiya Barry LPN [facility]04-14-2025 Miscellaneous Notes* Telephone Encounter - Nadiya Barry LPN - 08/08/2024 2:05 PM EDT TC to pt and scheduled with Isael Louis. Nadiya Barry LPN * Telephone Encounter - Noah Brown RN - 08/08/2024 12:23 PM EDT Pt reports she was transferred to sleep medicine nurse to schedule sleep consult. Please see below message and call pt to schedule with sleep medicine for consult. * Telephone Encounter - Nadiya Anders APRN.CNM - 08/01/2024 3:11 PM EDT I placed sleep medicine consult for her and they will need to decide on testing. Thank you, MELVA Yates * Telephone Encounter - Rosa Green RN - 08/01/2024 2:11 PM EDT See MyChart message. Does patient need to have in person sleep study or can at home be ordered? Rosa Green RN documented in this encounterCoshocton [facility]04-14-2025 Telephone encounter Note * Telephone Encounter - Noah Brown RN - 08/08/2024 12:23 PM EDT Pt reports she was transferred to sleep medicine nurse to schedule sleep consult. Please see below message and call pt to schedule with sleep medicine for consult. [facility]04-07-20[facility] Telephone encounter Note* Telephone Encounter - Nadiya Anders APRN.CNM - 08/01/2024 4:10 PM EDT Everyday is fine. Thanks, Nadiya Anders APRN.CNM [facility]04-07-2025 Miscellaneous Notes* Telephone Encounter - Nadiya Anders APRN.CNM - 08/01/2024 4:10 PM EDT Everyday is fine. Thanks, Nadiya Anders APRN.CNM * Telephone Encounter - Rosa Green RN - 08/01/2024 1:46 PM EDT Does patient need to take Slow Fe every day or every other day? documented in this encounterCoshocton [facility]04-07-2025 Telephone encounter Note * Telephone Encounter - Nadiya Anders APRN.CNM - 08/01/2024 3:11 PM EDT I placed sleep medicine consult for her and they will need to decide on testing. Thank you, MELVA Yates [facility]04-07-2025 Telephone encounter Note* Telephone Encounter - Rosa Green RN - 08/01/2024 2:11 PM EDT See MyChart message. Does patient need to have in person sleep study or can at home be ordered? Rosa Green RN [facility]04-07-2025 Telephone encounter Note* Telephone Encounter - Rosa Green RN - 08/01/2024 1:46 PM EDT Does patient need to take Slow Fe every day or every other day? [facility]03-31-2025 NoteHNO ID: [id number] Author: ISAEL GANDARA MD Service: ? Author Type: Physician Type: Progress Notes Filed: 07/25/2024 08:55 Note Text: RR- VB No. LOF No. CTXS No. Movement: present. Other c/o: fatigue, gets about 8 hrs in bed a night. Snores. No one has told her that she stops breathing. Wakes up twice to urinate. Doesn't feel rested when she wakes up. Medication list reviewed. SENSITIVE EXAM: Sensitive exam not performed. Physical Exam See Flow Sheet Abd: soft, nontender, gravid Ext: edema: Trace A/P 23w5d Estimated Date of Delivery: 11/16/24 Assessment AND Plan Supervision of high risk in second trimester ([facility]) Orders: GESTATIONAL GLUCOSE SCREEN, 1-HOUR, 50 GRAM, NON-FASTING; Future SYPHILIS TREPONEMAL W/REFLEX; Future ANEMIA REFLEX PANEL; Future POLYSOMNOGRAM (PSG); Future Obesity affecting in second trimester, unspecified obesity type ([facility]) Orders: GESTATIONAL GLUCOSE SCREEN, 1-HOUR, 50 GRAM, NON-FASTING; Future SYPHILIS TREPONEMAL W/REFLEX; Future ANEMIA REFLEX PANEL; Future POLYSOMNOGRAM (PSG); Future 23 weeks gestation of ([facility]) Orders: GESTATIONAL GLUCOSE SCREEN, 1-HOUR, 50 GRAM, NON-FASTING; Future SYPHILIS TREPONEMAL W/REFLEX; Future ANEMIA REFLEX PANEL; Future POLYSOMNOGRAM (PSG); Future Screening for diabetes mellitus Orders: GESTATIONAL GLUCOSE SCREEN, 1-HOUR, 50 GRAM, NON-FASTING; Future SYPHILIS TREPONEMAL W/REFLEX; Future ANEMIA REFLEX PANEL; Future POLYSOMNOGRAM (PSG); Future Malaise and fatigue Orders: COMPLETE BLOOD COUNT; Future POLYSOMNOGRAM (PSG); Future Isael Gandara M.D.[facility]03-31-2025 History of Present illness Narrative* Isael Gandara MD - 07/25/2024 8:45 AM EDT RR- VB No. LOF No. CTXS No. Movement: present. Other c/o: fatigue, gets about 8 hrs in bed a night. Snores. No one has told her that she stops breathing. Wakes up twice to urinate. Doesn't feelrested when she wakes up. Medication list reviewed. SENSITIVE EXAM: Sensitive exam not performed. Physical Exam See Flow Sheet Abd: soft, nontender, gravid Ext: edema: Trace A/P 23w5d Estimated Date of Delivery: 11/16/24 Assessment & Plan Supervision of high risk in second trimester ([facility]) Orders: GESTATIONAL GLUCOSE SCREEN, 1-HOUR, 50 GRAM, NON-FASTING; Future SYPHILIS TREPONEMAL W/REFLEX; Future ANEMIA REFLEX PANEL; Future POLYSOMNOGRAM (PSG); Future Obesity affecting in second trimester, unspecified obesity type ([facility]) Orders: GESTATIONAL GLUCOSE SCREEN, 1-HOUR, 50 GRAM, NON-FASTING; Future SYPHILIS TREPONEMAL W/REFLEX; Future ANEMIA REFLEX PANEL; Future POLYSOMNOGRAM (PSG); Future 23 weeks gestation of ([facility]) Orders: GESTATIONAL GLUCOSE SCREEN, 1-HOUR, 50 GRAM, NON-FASTING; Future SYPHILIS TREPONEMAL W/REFLEX; Future ANEMIA REFLEX PANEL; Future POLYSOMNOGRAM (PSG); Future Screening for diabetes mellitus Orders: GESTATIONAL GLUCOSE SCREEN, 1-HOUR, 50 GRAM, NON-FASTING; Future SYPHILIS TREPONEMAL W/REFLEX; Future ANEMIA REFLEX PANEL; Future POLYSOMNOGRAM (PSG); Future Malaise and fatigue Orders: COMPLETE BLOOD COUNT; Future POLYSOMNOGRAM (PSG); Future Isael Gandara M.D. documented in this encounterCoshocton [facility] Center03-11-2025 Telephone encounter Note * Telephone Encounter - Sam Ruelas RN - 07/05/2024 9:02 AM EDT Faxed. Sam Ruelas RN [facility]03-11-2025 Miscellaneous Notes* Telephone Encounter - Sam Ruelas RN - 07/05/2024 9:02 AM EDT Faxed. Sam Ruelas RN * Telephone Encounter - Neli Sommer RN - 07/04/2024 11:35 AM EDT Breast pump order received from [employer]. To DM to sign. Neli Sommer RN documented in this encounterCoshocton [facility] Center03-10-2025 Telephone encounter Note * Telephone Encounter - Neli Sommer RN - 07/04/2024 11:35 AM EDT Breast pump order received from [employer]. To DM to sign. Neli Sommer RN [facility]03-07-2025 Progress note* Quick Notes - Nadiya Anders APRN.CNM - 07/01/2024 10:49 AM EST JADEN-S: Sun Carrero is a 34 year old female who presents at 20w2d with KEARA:11/16/2024, by Last Menstrual Period for a routine visit. Denies headache, visual changes, chest pain, shortness of breath,vaginal bleeding, leakage of fluid, or dysuria. Feeling well, no complaints. O: See flow sheet Gen: No apparent distress Abd: Gravid, nontender ASSESSMENT/PLAN: 1. Supervision of high risk in second trimester -Continue PNV -Anatomy today 2. 20 weeks gestation of 3. Obesity in -Pregravid BMI 42. -Growth US every 4 weeks -NSTs weekly starting at 32 weeks 4. Hx of preeclampsia, prior , currently -Baseline preeclampsia labs ordered -ASA 162mg PO once daily 5. History of section -Planning repeat Section at 39 weeks 6. History of gestational hypertension -Baseline preeclampsia labs ordered -ASA 162mg PO once daily 7. MANNY (generalized anxiety disorder) -Coping at this time, no medication PTL precautions reviewed and when to call RTO in 4 week Nadiya Anders APRN.CNM [facility]03-07-2025 Miscellaneous Notes* Quick Notes - Nadiya Anders APRN.CNM - 07/01/2024 10:49 AM EST CYDNEYS: Sun Carrero is a 34 year old female who presents at 20w2d with KEARA:11/16/2024, by Last Menstrual Period for a routine visit. Denies headache, visual changes, chest pain, shortness of breath,vaginal bleeding, leakage of fluid, or dysuria. Feeling well, no complaints. O: See flow sheet Gen: No apparent distress Abd: Gravid, nontender ASSESSMENT/PLAN: 1. Supervision of high risk in second trimester -Continue PNV -Anatomy today 2. 20 weeks gestation of 3. Obesity in -Pregravid BMI 42. -Growth US every 4 weeks -NSTs weekly starting at 32 weeks 4. Hx of preeclampsia, prior , currently -Baseline preeclampsia labs ordered -ASA 162mg PO once daily 5. History of section -Planning repeat Section at 39 weeks 6. History of gestational hypertension -Baseline preeclampsia labs ordered -ASA 162mg PO once daily 7. MANNY (generalized anxiety disorder) -Coping at this time, no medication PTL precautions reviewed and when to call RTO in 4 week Nadiya Anders APRN.CNM documented in this encounterCoshocton Regional Medical Center03-07-2025 Instructions* Patient Instructions* Eldon Miranda MA - 07/01/2024 10:12 AM EST SEQUENTIAL SCREENINGS [facility] offers sequential screenings for women who are interested in screenings for chromosomal abnormalities and certain defects during a . The sequential screen combinesultrasound and blood tests to determine the risk of chromosomal abnormalities, including Down's Syndrome (Trisomy 21) and Trisomy 18, as well as open neural tube defects including spina bifida. Ultrasound examination is performed between 11 weeks and 13 weeks gestational age. Blood tests are drawn after the ultrasound and again later in the between 15 and 21 weeks gestational age. Please let your physician know if you are interested in this testing. It will require an appointment withour mobile service rv technician. This is not an ultrasound performed by a physician in our office during a routine visit. SIGNS AND SYMPTOMS OF LABOR 1. Contractions every 10 minutes or more often 2. Clear, pink, or brownish fluid (water) leaking from vagina 3. Feeling that baby is pushing down, pressure 4. Low, dull backache 5. Cramps that feel like a period 6. Cramps with or without diarrhea If you notice any of the above symptoms, contact our office at [phone] and ask to speak with anurse. After hours, you can call doctors registry at [phone] OR call [facility] at [phone] ask to have the doctor car sales consultant paged. If you consider this an emergency, dial [phone] or go to your nearest emergency department. NEED HELP? Are you dealing with a violent or abusive relationship? Are you a victim of rape or sexual assult? Call [facility] ([place]) 24 hour Crisis Hotline: 470.890.3514 or 669-301-6028. MANUAL Your Guide to a Healthy manual is now on-line. Visit [email or web address] to download your free copy documented in this encounterCosho[facility] Progress note* Result Encounter Note - Isael Gandara MD - 05/30/2024 4:21 PM EST Anatomy ultrasound reviewed. No abnormalities identified. Follow up as clinically indicated. Pleaseplace copy in ob chart. Isael Gandara MD [facility]02-03-2025 Miscellaneous Notes* Result Encounter Note - Isael Gandara MD - 05/30/2024 4:21 PM EST Anatomy ultrasound reviewed. No abnormalities identified. Follow up as clinically indicated. Pleaseplace copy in ob chart. Isael Gandara MD * Result Encounter Note - Isael Gandara MD - 05/30/2024 3:47 PM EST Anatomy ultrasound reviewed. No abnormalities identified. Follow up as clinically indicated. Pleaseplace copy in ob chart. Isael Gandara MD documented in this encounterCoshocton [facility] Center02-03-2025 Progress note* Result Encounter Note - Isael Gandara MD - 05/30/2024 3:47 PM EST Anatomy ultrasound reviewed. No abnormalities identified. Follow up as clinically indicated. Pleaseplace copy in ob chart. Isael Gandara MD [facility]02-03-2025 Progress note* Quick Notes - Venu Dhaliwal APRN.HANS - 05/30/2024 1:56 PM EST EH - S: Sun is a 33 year old female who presents at 15w5d for a routine visit. Denies headache, visual changes, chest pain, shortness of breath, vaginal bleeding, leakage of fluid, or dysuria. Feeling well, no complaints. O: See flow sheet Gen: No apparent distress Abd: Gravid, nontender ASSESSMENT/PLAN: 1. Supervision of high risk in second trimester - ICD9: V23.9, ICD10: O09.92 (primary diagnosis) - Nausea resolved 2. 15 weeks gestation of - ICD9: V22.2, ICD10: Z3A.15 - Early anatomy today - Negative [id number] 3. History of section - ICD9: V45.89, ICD10: Z98.891 - Planning for repeat 4. Obesity affecting in second trimester, unspecified obesity type - ICD9: 649.13, ICD10:O99.212 -Pre BMI 42 - Plan for 32 week growth q 4 weeks. - Weekly NSTs at 36 weeks. 5. Hx of preeclampsia, prior , currently - ICD9: V23.49, ICD10: O09.299 - Continue LDA 6. History of gestational hypertension - ICD9: V13.29, ICD10: Z87.59 - Continue LDA PTL precautions reviewed. RTO in 4 weeks or sooner as needed. Venu Dhaliwal APRN.HANS [facility]02-03-2025 Miscellaneous Notes* Quick Notes - Venu Dhaliwal APRN.CNP - 05/30/2024 1:56 PM EST EH - S: Sun is a 33 year old female who presents at 15w5d for a routine visit. Denies headache, visual changes, chest pain, shortness of breath, vaginal bleeding, leakage of fluid, or dysuria. Feeling well, no complaints. O: See flow sheet Gen: No apparent distress Abd: Gravid, nontender ASSESSMENT/PLAN: 1. Supervision of high risk in second trimester - ICD9: V23.9, ICD10: O09.92 (primary diagnosis) - Nausea resolved 2. 15 weeks gestation of - ICD9: V22.2, ICD10: Z3A.15 - Early anatomy today - Negative [id number] 3. History of section - ICD9: V45.89, ICD10: Z98.891 - Planning for repeat 4. Obesity affecting in second trimester, unspecified obesity type - ICD9: 649.13, ICD10:O99.212 -Pre BMI 42 - Plan for 32 week growth q 4 weeks. - Weekly NSTs at 36 weeks. 5. Hx of preeclampsia, prior , currently - ICD9: V23.49, ICD10: O09.299 - Continue LDA 6. History of gestational hypertension - ICD9: V13.29, ICD10: Z87.59 - Continue LDA PTL precautions reviewed. RTO in 4 weeks or sooner as needed. Venu Dhaliwal APRN.HANS documented in this encounterCoshocton [facility] Center02-03-2025 Instructions* Patient Instructions* Niecy Skinner MA - 05/30/2024 1:38 PM EST SEQUENTIAL SCREENINGS The [facility] offers sequential screenings for women who are interested in screenings for chromosomal abnormalities and certain defects during a . The sequential screen combinesultrasound and blood tests to determine the risk of chromosomal abnormalities, including Down's Syndrome (Trisomy 21) and Trisomy 18, as well as open neural tube defects including spina bifida. Ultrasound examination is performed between 11 weeks and 13 weeks gestational age. Blood tests are drawn after the ultrasound and again later in the between 15 and 21 weeks gestational age. Please let your physician know if you are interested in this testing. It will require an appointment withour mobile service rv technician. This is not an ultrasound performed by a physician in our office during a routine visit. SIGNS AND SYMPTOMS OF LABOR 1. Contractions every 10 minutes or more often 2. Clear, pink, or brownish fluid (water) leaking from vagina 3. Feeling that baby is pushing down, pressure 4. Low, dull backache 5. Cramps that feel like a period 6. Cramps with or without diarrhea If you notice any of the above symptoms, contact our office at [phone] and ask to speak with anurse. After hours, you can call doctors registry at [phone] OR call [facility] at [phone] ask to have the doctor car sales consultant paged. If you consider this an emergency, dial [phone] or go to your nearest emergency department. NEED HELP? Are you dealing with a violent or abusive relationship? Are you a victim of rape or sexual assult? Call [facility] ([place]) 24 hour Crisis Hotline: 263.889.3138 or 064-184-2435. MANUAL Your Guide to a Healthy manual is now on-line. Visit [email or web address] to download your free copy documented in this encounterCoshocton [facility] Center01-30-2025 Telephone encounter Note * Telephone Encounter - Radha Mart APRN.CNM - 05/26/2024 2:52 PM EST Agree with plan of care. Radha Mart APRN.CNM [facility] Work Phone: [phone]) 341-656001-30-2025 Miscellaneous Notes* Telephone Encounter - Radha Mart APRN.CNM - 05/26/2024 2:52 PM EST Agree with plan of care. Radha Mart APRN.CNM * Telephone Encounter - Aylin Rubio RN - 05/26/2024 2:50 PM EST 15w1d documented in this encounterCoshocton [facility] Center01-30-2025 Telephone encounter Note * Telephone Encounter - Aylin Rubio RN - 05/26/2024 2:50 PM EST 15w1d [facility]01-10[facility] Progress note* Quick Notes - Nadiya Anders APRN.CNM - 05/06/2024 4:11 PM EST JADEN-S: Sun Carrero is a 33 year old female who presents at 12w2d with KEARA:11/16/2024, by Last Menstrual Period for a routine visit. Denies headache, visual changes, chest pain, shortness of breath,vaginal bleeding, leakage of fluid, or dysuria. Feeling well, no complaints. O: See flow sheet Gen: No apparent distress Abd: Gravid, nontender ASSESSMENT/PLAN: 1. Supervision of high risk in second trimester -Continue PNV -NT US today -Anatomy US at 20 wk 2. 12 weeks gestation of 3. Obesity in -Pregravid BMI 42. Growth US every 4 weeks and NSTs weekly starting at 32 weeks 4. Hx of preeclampsia, prior , currently -Baseline preeclampsia labs ordered -ASA 162mg PO once daily 5. History of section -Planning repeat Section at 39 weeks 6. History of gestational hypertension -Baseline preeclampsia labs ordered -ASA 162mg PO once daily 7. MANNY (generalized anxiety disorder) -Coping at this time, no medication PTL precautions reviewed and when to call RTO in 4 weeks Nadiya Anders APRN.CNM [facility]01-10-2025 Miscellaneous Notes* Quick Notes - Nadiya Anders APRN.CNM - 05/06/2024 4:11 PM EST JADEN-S: Sun Carrero is a 33 year old female who presents at 12w2d with KEARA:11/16/2024, by Last Menstrual Period for a routine visit. Denies headache, visual changes, chest pain, shortness of breath,vaginal bleeding, leakage of fluid, or dysuria. Feeling well, no complaints. O: See flow sheet Gen: No apparent distress Abd: Gravid, nontender ASSESSMENT/PLAN: 1. Supervision of high risk in second trimester -Continue PNV -NT US today -Anatomy US at 20 wk 2. 12 weeks gestation of 3. Obesity in -Pregravid BMI 42. Growth US every 4 weeks and NSTs weekly starting at 32 weeks 4. Hx of preeclampsia, prior , currently -Baseline preeclampsia labs ordered -ASA 162mg PO once daily 5. History of section -Planning repeat Section at 39 weeks 6. History of gestational hypertension -Baseline preeclampsia labs ordered -ASA 162mg PO once daily 7. MANNY (generalized anxiety disorder) -Coping at this time, no medication PTL precautions reviewed and when to call RTO in 4 weeks Nadiya Anders APRN.CNM documented in this encounterCoshocton [facility] Center01-10-2025 Instructions* Patient Instructions* Eldon Miranda MA - 05/06/2024 3:16 PM EST SEQUENTIAL SCREENINGS The [facility] offers sequential screenings for women who are interested in screenings for chromosomal abnormalities and certain defects during a . The sequential screen combinesultrasound and blood tests to determine the risk of chromosomal abnormalities, including Down's Syndrome (Trisomy 21) and Trisomy 18, as well as open neural tube defects including spina bifida. Ultrasound examination is performed between 11 weeks and 13 weeks gestational age. Blood tests are drawn after the ultrasound and again later in the between 15 and 21 weeks gestational age. Please let your physician know if you are interested in this testing. It will require an appointment withour mobile service rv technician. This is not an ultrasound performed by a physician in our office during a routine visit. SIGNS AND SYMPTOMS OF LABOR 1. Contractions every 10 minutes or more often 2. Clear, pink, or brownish fluid (water) leaking from vagina 3. Feeling that baby is pushing down, pressure 4. Low, dull backache 5. Cramps that feel like a period 6. Cramps with or without diarrhea If you notice any of the above symptoms, contact our office at [phone] and ask to speak with anurse. After hours, you can call doctors registry at [phone] OR call [facility] at [phone] ask to have the doctor car sales consultant paged. If you consider this an emergency, dial [phone] or go to your nearest emergency department. NEED HELP? Are you dealing with a violent or abusive relationship? Are you a victim of rape or sexual assult? Call [facility] ([place]) 24 hour Crisis Hotline: 968.162.1643 or 427-129-8659. MANUAL Your Guide to a Healthy manual is now on-line. Visit [email or web address] to download your free copy documented in this encounterCoshocton [facility] Center01-06-2025 Telephone encounter Note * Telephone Encounter - Rosa Green RN - 05/02/2024 8:19 AM EST Left message to call office. Rosa Green RN [facility]01-06-2025 Miscellaneous Notes* Telephone Encounter - Rosa Green RN - 05/02/2024 8:19 AM EST Left message to call office. Rosa Green RN * Telephone Encounter - Isael Gandara MD - 04/29/2024 7:07 PM EST orders in. Isael Gandara MD * Telephone Encounter - Rosa Green RN - 04/28/2024 2:33 PM EST Patient 11w1d calling requesting order for [id number] and Forsight testing. Patient has NT and OB appointment next Saturday 05/06. Please address and order if appropriate. Patient is aware provider is out of the office until tomorrow. Rosa Green RN documented in this encounterCoshocton [facility] Center01-03-2025 Telephone encounter Note * Telephone Encounter - Isael Gandara MD - 04/29/2024 7:07 PM EST orders in. Isael Gandara MD [facility]01-02-2025 Telephone encounter Note* Telephone Encounter - Rosa Green RN - 04/28/2024 2:33 PM EST Patient 11w1d calling requesting order for [id number] and Forsight testing. Patient has NT and OB appointment next Saturday 05/06. Please address and order if appropriate. Patient is aware provider is out of the office until tomorrow. Rosa Green RN [facility]12-16-2024 Progress note* Quick Notes - Nadiya Anders APRN.CNM - 04/11/2024 5:15 PM EST JADEN-See progress note, NOB. Planning repeat C/S. Uncertain about NIPT and carrier screening. [facility]12-16-2024 Miscellaneous Notes* Quick Notes - Nadiya Anders APRN.CNM - 04/11/2024 5:15 PM EST JADEN-See progress note, NOB. Planning repeat C/S. Uncertain about NIPT and carrier screening. * Result Encounter Note - Isael Gandara MD - 04/11/2024 4:03 PM EST Send letter about normal pap if she does not have mychart. Isael Gandara MD documented in this encounterCoshocton Regional Medical Center12-16-2024 Progress note* Result Encounter Note - Isael Gandara MD - 04/11/2024 4:03 PM EST Send letter about normal pap if she does not have mychart. Isael Gandara MD [facility]12-11-2024 Instructions* Patient Instructions* Angie Waddell LPN - 04/06/2024 9:02 AM EST Please select the following link to access the [facility] Your Guide to a Healthy . [email or web address] documented in this encounterCoshocton Regional Medical Center12-09-2024 NoteHNO ID: [id number] Author: NADIYA ANDERS APRN.CNM Service: ? Author Type: Merchandise Worker Type: Progress Notes Filed: 04/11/2024 17:15 Note Text: Patient declined wood heel cementer. *Patient had pink spotting for 2 days beginning on 11/14. Quant hCGs were done. Patient denies any bleeding since then. *History of for failed induction for severe preeclampsia with her last . Patient leaning towards repeat . *Patient has a history of anxiety. Off Celexa since 2021. Believes she is doing well off medication. Patient denies any history of depression. Denies any anxiety or depression. *Patient declines genetic carrier screening testing. Desires aneuploidy screening. Contact information for integrated genetics given to patient to check on insurance coverage. INITIAL OB ASSESSMENT HPI: Sun is a 33 year old White Female here to establish Obstetrical Care. Patient's last menstrual period was 02/10/2024 (exact date). from OB Dating Form. was planned Complaints: (!) Vaginal bleeding (had pink spotting when she wiped for 2 days beginning 03/10/2024) Taking Ritual and happy with this. OB History T0 L1 SAB0 IAB0 Ectopic0 Multiple0 Live Births1 # 1 - Date: 06/06/21, Sex: None, Weight: None, GA: 9w0d, Type: MISSED AB, Apgar1: None, Apgar5: None, Living: None, Comments: IPAS # 2 - Date: 05/05/22, Sex: Male, Weight: 2.92 kg (6 lb 7 oz), GA: 35w6d, Type: , Low Transverse, Apgar1: 9, Apgar5: 9, Living: Living, Comments: induction for severe preeclampsia, c/s for failure to progress (40 hour induction and internal os still closed), EBL 900mL # 3 - Date: None, Sex: None, Weight: None, GA: None, Type: None, Apgar1: None, Apgar5: None, Living: None, Comments: None Previous history: Prior : Yes History of 4th degree laceration: History question Answer Diagnosis Date Comment Perineal Laceration, 3rd or 4th degree No History of perineal laceration 04/04/2024 History of shoulder dystocia: Shoulder Dystocia No History of Hypertensive disorders including pre-eclampsia or gestational hypertension: Gestational Hypertension Yes Preeclampsia Yes History of gestational diabetes: Diabetes in No Patient's Risk Screening for delivery: Have you had a prior cowan between 20w and 36w6d? (!) Yes (induction for pre-eclampsia) Did you present in active spontaneous labor or have ruptured membranes, or advanced cervical dilation (greater than or equal to 4 cm) or effacement? No How many pregnancies have you had before? 2 Did you have a previous baby with a GBS Infection? No Please select all that apply for any prior : Baby large for gestational age MEDICAL/PSYCHOSOCIAL HISTORY: History question Answer Diagnosis Date Comment Severe bleeding with delivery No History of hemorrhage 04/04/2024 History question Answer Diagnosis Date Comment Thyroid Disease No Thyroid disease 05/29/2021 Gestational Hypertension Yes Preeclampsia Yes Diabetes in No ABO/RH(D) Date Value Ref Range Status 06/04/2021 O POSITIVE Final No weight on file for this encounter. Last Pap: 02/06/2021 History of abnormal pap: Abnormal Pap No Prior treatment for cervical dysplasia: none. Last HPV: 01/31/2021 History of STDs: N/A Partner History of STDs: None Did you have a partner with Herpes? No Tobacco use: No E-Cigarette/Vaping Use: No Caffeine use: Yes I soda a week Drug use: No Alcohol use: No Multivitamin with Folic acid: Yes Would refuse blood transfusion if medically necessary: No Social Needs: How often does this describe you? I don't have enough money to pay my bills: Never Within the past 12 months, have you worried that your food would run out before you had money to buy more? Never In the past 12 months, has lack of reliable transportation kept you from going to medical appointments or work, or from getting things needed for daily living? Never In the past 12 months, have you had any concerns about having a place to live, or about the condition or quality of your housing? Never Would you like more information on any of the following (please check all that apply)? Not interested Social History: Do you have any history of depression, anxiety, PTSD, or other mood problems? Yes Do you have a history of abuse or trauma that may impact your experience? No Are you currently employed? Yes Depression/Anxiety Screening: denies symptoms of depression. OB Depression and Anxiety Screening- This Encounter (since 04/03/2024) Over the past 2 weeks have you felt down, depressed, or hopeless? Negative Over the past two weeks, have you felt little interest or pleasure in doing things?? Negative Feeling nervous, anxious or on edge 0-Not at all Not being able to stop or control worrying 0-Not a (more content not included)...[facility]12-09-2024 History of Present illness Narrative* Nadiya Anders APRN.CNM - 04/04/2024 1:27 PM EST Patient declined wood heel cementer. *Patient had pink spotting for 2 days beginning on 03/10. Quant hCGs were done. Patient denies any bleeding since then. *History of for failed induction for severe preeclampsia with her last . Patientleaning towards repeat . *Patient has a history of anxiety. Off Celexa since 2021. Believes she is doing well off medication. Patient denies any history of depression. Denies any anxiety or depression. *Patient declines genetic carrier screening testing. Desires aneuploidy screening. Contact information for integrated genetics given to patient to check on insurance coverage. INITIAL OB ASSESSMENT HPI: Sun is a 33 year old White Female here to establish Obstetrical Care. Patient's last menstrual period was 02/10/2024 (exact date). from OB Dating Form. was planned Complaints: (!) Vaginal bleeding (had pink spotting when she wiped for 2 days beginning 03/10/2024) Taking Ritual and happy with this. OB History T0 L1 SAB0 IAB0 Ectopic0 Multiple0 Live Births1 # 1 - Date: 06/06/21, Sex: None, Weight: None, GA: 9w0d, Type: MISSED AB, Apgar1: None, Apgar5: None, Living: None, Comments: IPAS # 2 - Date: 05/05/22, Sex: Male, Weight: 2.92 kg (6 lb 7 oz), GA: 35w6d, Type: , Low Transverse, Apgar1: 9, Apgar5: 9, Living: Living, Comments: induction for severe preeclampsia, c/s for failure to progress (40 hour induction and internal os still closed), EBL 900mL # 3 - Date: None, Sex: None, Weight: None, GA: None, Type: None, Apgar1: None, Apgar5: None, Living: None, Comments: None Previous history: Prior : Yes History of 4th degree laceration: History question Answer Diagnosis Date Comment Perineal Laceration, 3rd or 4th degree No History of perineal laceration 04/04/2024 History of shoulder dystocia: Shoulder Dystocia No History of Hypertensive disorders including pre-eclampsia or gestational hypertension: Gestational Hypertension Yes Preeclampsia Yes History of gestational diabetes: Diabetes in No Patient's Risk Screening for delivery: Have you had a prior cowan between 20w and 36w6d? (!) Yes (induction for pre-eclampsia) Did you present in active spontaneous labor or have ruptured membranes, or advanced cervical dilation (greater than or equal to 4 cm) or effacement? No How many pregnancies have you had before? 2 Did you have a previous baby with a GBS Infection? No Please select all that apply for any prior : Baby large for gestational age MEDICAL/PSYCHOSOCIAL HISTORY: History question Answer Diagnosis Date Comment Severe bleeding with delivery No History of hemorrhage 04/04/2024 History question Answer Diagnosis Date Comment Thyroid Disease No Thyroid disease 05/29/2021 Gestational Hypertension Yes Preeclampsia Yes Diabetes in No ABO/RH(D) Date Value Ref Range Status 06/04/2021 O POSITIVE Final No weight on file for this encounter. Last Pap: 02/06/2021 History of abnormal pap: Abnormal Pap No Prior treatment for cervical dysplasia: none. Last HPV: 01/31/2021 History of STDs: N/A Partner History of STDs: None Did you have a partner with Herpes? No Tobacco use: No E-Cigarette/Vaping Use: No Caffeine use: Yes I soda a week Drug use: No Alcohol use: No Multivitamin with Folic acid: Yes Would refuse blood transfusion if medically necessary: No Social Needs: How often does this describe you? I don't have enough money to pay my bills: Never Within the past 12 months, have you worried that your food would run out before you had money to buy more? Never In the past 12 months, has lack of reliable transportation kept you from going to medical appointments or work, or from getting things needed for daily living? Never In the past 12 months, have you had any concerns about having a place to live, or about the condition or quality of your housing? Never Would you like more information on any of the following (please check all that apply)? Not interested Social History: Do you have any history of depression, anxiety, PTSD, or other mood problems? Yes Do you have a history of abuse or trauma that may impact your experience? No Are you currently employed? Yes Depression/Anxiety Screening: denies symptoms of depression. OB Depression and Anxiety Screening- This Encounter (since 04/03/2024) Over the past 2 weeks have you felt down, depressed, or hopeless? Negative Over the past two weeks, have you felt little interest or pleasure in doing things? Negative Feeling nervous, anxious or on edge 0-Not at all Not being able to stop or control worrying 0-Not al all Anxiety Pre-Screening Total (If >/= 3 additional questions will be reviewed) 0 Genetic Screening: Partner present: No Patient verbalized knowledge of partner family health history: Yes Do you or your partner have any personal or family history of defects not previously discussed: No Do you have history of a complicated by anomaly, genetic condition, or demise: son born with hypospadia Preeclampsia Risk Screening: Screening for prevention of preeclampsia: High risk factors: History of pre-eclampsia, especially when accompanied by an adverse outcome Moderate risk ractors: Obesity (body mass index greater than 30) and Family history of pre-eclampsia (mother or sister) Mother had preeclampsia OB Risk Screening: Completed, positive findings include: Patient answered 'Yes' they had a prior cowan between 20w and 36w6d. 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 Gender: Male PAST MEDICAL HISTORY Diagnosis Date Anemia Generalized anxiety disorder History of gestational hypertension Hx of preeclampsia, prior , currently 05/01/2022 Induced Delivery - Resulting in Premature Delivery at 35w6d Miscarriage OCD (obsessive compulsive disorder) PMH - PAST MEDICAL HISTORY OF normal color vision PAST SURGICAL HISTORY Procedure Laterality Date DELIVERY ONLY 05/05/2022 [facility] May 2021 Missed Miscarriage during first EXTRACTION, ERUPTED TOOTH OR EXPOSED ROOT (ELEVATION AND/OR FORCEPS REMOVAL) 04/27/2007 wisdom teeth x 4 [facility] (OFFICE [facility]) Current Outpatient Medications Medication Sig Dispense Refill 21/iron fu/folic acid ( COMPLETE ORAL) Take by mouth. fluocinolone (SYNALAR) 0.025 % ointment Apply to affected area as directed. APPLY TO AFFECTED AREA THREE TIMES DAILY FOR 2 WEEKS THEN TWICE A DAY FOR TWO WEEKS THEN ONCE A DAY FOR A MONTH THEN PRN 60g 0 ferrous sulfate (SLOW FE ORAL) Take by mouth. (Patient not taking: Reported on 07/14/2023) IBUPROFEN ORAL Take by mouth. acetaminophen (TYLENOL ORAL) Take by mouth. No current facility-administered medications for this visit. Allergies As of Date: 04/06/2024 (No Known Allergies) Fully Assessed 07/14/2023 Does patient have penicillin allergy: No REVIEW OF SYSTEMS: GENERAL: Negative for: Fever or Chills HEENT: Negative for: Headache, Impaired Vision, Ringing in Ears, Nosebleeds NECK: Negative for: Swelling, Pain, Stiffness RESPIRATORY: Negative for: Cough, Shortness of breath, Wheezing GASTROINTESTINAL: Negative for: Heartburn, Constipation, Diarrhea, Blood in stool, Vomiting MUSCULOSKELETAL: Negative for: Muscle or joint pain, stiffness, Joint swelling NEUROLOGIC/PSYCHIATRIC: Negative for: Weakness, Paralysis, Numbness, Tingling, Tremor, Anxiety, Depression, Memory loss SKIN: Negative for: Rash, Itching GENITOURINARY: Negative for: vaginal itching, vaginal discharge, hematuria or dysuria SENSITIVE EXAM: The sensitive examination was discussed with the Patient or Patient's Authorized Rivet Catcher. As applicable, any other physician, advance practice provider, medical student, or other health professional student that will be observing or involved in the sensitive examination for educational or training purposes was discussed with the Patient or Authorized Rivet Catcher. The Patient or Authorized Rivet Catcher has agreed to proceed with the sensitive examination. (Sensitive examination includes inspection and/or palpation of the breasts, pelvis, prostate and anorectal regions). PHYSICAL EXAM: LMP 02/10/2024 GENERAL: pleasant in no apparent distress DERMATOLOGY: Normal, without lesions, non-icteric, and non-hirsute NECK: Supple, full range of motion, no adenopathy, and thyroid normal CHEST: Normal inspiratory effort BREAST: soft, non-tender, symmetric, no dominant mass, normal nipple-areolar complex, no lymphadenopathy, and no nipple discharge ABDOMEN: soft, non-tender, and no masses NEURO: alert and oriented x3,exam grossly non-focal PELVIS: External genitalia normal without lesions. Perineal body intact. No vaginal or cervical lesions. Cervix closed. Uterus 8 week size. No adnexal masses or tenderness. Clinical Pelvimetry: Pelvimetry clinically assessed as adequate Limited OB ultrasound exam: single intrauterine , positive cardiac activity, crown-rump length 8, and normal bilateral adnexa LMP 8w0d US 7w3d KEARA 11/17/23 by LMP, consistent with US ASSESSMENT: 33 year old at 7w5d wks gestational age PLAN: 1) Patient oriented to practice. Patient given new OB orientation folder. Discussed nutrition, folic acid supplementation, dietary guidelines, exercise, smoking, alcohol, caffeine, and drug use. Discussed gestational weight gain guidelines. Discussed routine OB labs including STD/HIV. Discussed how to access Your guide to a health and the Ceramic Research Engineer. Discussed hemoglobin electrophoresis. Patient: Accepts 2) Screening: Hemoglobin A1C: ordered Baby Aspirin: The patient has been counseled about the potential benefits of low dose aspirin in and our recommendation that this be offered to all patients, regardless of whether they meet the high risk criteria specified above. She Accepts Aneuploidy Screening: Discussed aneuploidy screening, nuchal translucency/first trimester early anatomy ultrasound and NIPT. The risks/benefits and limitations of NIPT/aneuploidy screening were reviewed including the potential for false negative and false positive results. The availability of genetic counseling was reviewed. Information on aneuploidy screening was provided. The patient is uncertain. She will call back if she wants to proceed with screening. Pt aware of timing. Myriad Carrier Screening: Discussed myriad carrier screening. We discussed the availability of professional-society guided carrier screening and reviewed the conditions screened and limitations of screening. The availability of genetic counseling was reviewed. Information on carrier screening was provided. The patient will check insurance 3) Patient offered option of Virtual Visits. Patient prefers in person visits. 4) Obesity (BMI >30), will order early glucose screen or Hemoglobin A1C. Follow up in 4 weeks or sooner prn. Nadiya Anders APRN.CNM documented in this encounterCos[facility]12-[facility]24 Telephone encounter Note * Telephone Encounter - Aylin Rubio RN - 04/04/2024 9:56 AM EST Today at 1:00 PM. Aylin Rubio RN [facility]12-09-2024 Miscellaneous Notes* Telephone Encounter - Aylin Rubio RN - 04/04/2024 9:56 AM EST Today at 1:00 PM. Aylin Rubio RN * Telephone Encounter - Catrina Villatoro RN - 04/04/2024 9:36 AM EST Left message for patient to return phone call to complete nurse intake questions for her upcoming appointment. Patient has an appointment with Nadiya Jeffries for NOB appointment. I am here all day today and 1/2 day tomorrow in AM documented in this encounterCoshocton [facility]12-09-2024 Telephone encounter Note * Telephone Encounter - Catrina Villatoro RN - 04/04/2024 9:36 AM EST Left message for patient to return phone call to complete nurse intake questions for her upcoming appointment. Patient has an appointment with Nadiya Jeffries for NOB appointment. I am here all day today and 1/2 day tomorrow in AM [facility]11-20-2024 NoteHNO ID: [id number] Author: JULIANO ANDREWS MA Service: ? Author Type: Automatic Furnace Operator Type: Progress Notes Filed: 03/17/2024 08:50 Note Text: Patient here to get labs done per my chart message on 03/10/2024[facility] History of Present illness Narrative* Juliano Andrews MA - 03/16/2024 12:37 PM EST Patient here to get labs done per my chart message on 03/10/2024 documented in this encounterCoshocton [facility]11-12-2024 Telephone encounter Note * Telephone Encounter - Sherry Bearden MD - 03/08/2024 12:54 PM EST Congrats! No, does not need any blood work prior unless bleeding. [facility]11-12-2024 Miscellaneous Notes* Telephone Encounter - Sherry Bearden MD - 03/08/2024 12:54 PM EST Congrats! No, does not need any blood work prior unless bleeding. documented in this encounterCoshocton [facility] Center03-19-2024 History of Present illness Narrative* Isael Gandara MD - 07/14/2023 10:58 AM EDT Sun Carrero is a 33 year old female who presents for problem visit 2 for 6 month(s). HPI: Notes some improvement in her symptoms, not completely resolved. Itching still occurs occasionally but not constant like before. Tears are still not completely healing and are painful after reopening but no bleeding. Using steroids and antihistamines PRN. Also has a cousin recently diagnosed with breast cancer and would like breast exam. No breast concerns. OB History T0 L1 SAB0 IAB0 Ectopic0 Multiple0 Live Births1 Insole Coverer History LMP: 03/21/2023 (Exact Date), Having periods Age at Menarche: Age at First : Age at Menopause: Insole Coverer History Comments: Sexual Activity: Yes; Male Contraception: No contraception data on record PAST MEDICAL HISTORY Diagnosis Date Anemia Generalized anxiety disorder Gestational hypertension without significant proteinuria in third trimester 04/29/2022 Miscarriage OCD (obsessive compulsive disorder) PMH - PAST MEDICAL HISTORY OF normal color vision PAST SURGICAL HISTORY Procedure Laterality Date DELIVERY ONLY 05/05/2022 [facility] EXTRACTION, ERUPTED TOOTH OR EXPOSED ROOT (ELEVATION AND/OR FORCEPS REMOVAL) 04/27/2007 wisdom teeth x 4 [facility] (OFFICE [facility]) FAMILY HISTORY Problem Relation Age of Onset No Known Problems Mother No Known Problems Father No Known Problems Brother Emphysema Maternal Grandmother Smoker No Known Problems Maternal Grandfather No Known Problems Paternal Grandmother No Known Problems Paternal Grandfather Social History Tobacco Use Smoking status: Never Smokeless tobacco: Never Vaping Use Vaping Use: Never used Substance Use Topics Alcohol use: Not Currently Comment: Occasionally Drug use: No Current Outpatient Medications Medication Sig fluocinolone (SYNALAR) 0.025 % ointment Apply to affected area as directed. APPLY TO AFFECTED AREA THREE TIMES DAILY FOR 2 WEEKS THEN TWICE A DAY FOR TWO WEEKS THEN ONCE A DAY FOR A MONTH THEN PRN ferrous sulfate (SLOW FE ORAL) Take by mouth. IBUPROFEN ORAL Take by mouth. acetaminophen (TYLENOL ORAL) Take by mouth. 21/iron fu/folic acid ( COMPLETE ORAL) Take by mouth. No current facility-administered medications for this visit. Allergies As of Date: 07/14/2023 (No Known Allergies) Fully Assessed 03/31/2023 REVIEW OF SYSTEMS Bladder: No dysuria, gross hematuria, urinary frequency, urinary urgency, or incontinence. Breast: No breast lumps, nipple d/c, overlying skin changes, redness or skin retraction. Expanded ROS: Allergies and current medication updated:Yes I have confirmed and edited as necessary the relevant HPI, ophthalmic history, ROS, and the neuro exam findings as obtained by others. I have seen and examined Sun Kauffman Wintoby. I have discussed the case and the management of this patient's care with the Resident/Fellow, if applicable. I also have reviewed and agree with the assessment and plan as stated above and agree withall of its relevant components. EXAM: LMP 03/21/2023 GENERAL: pleasant, female in no apparent distress BREAST: soft, non-tender, symmetric, no dominant mass, normal nipple-areolar complex, no lymphadenopathy, and no nipple discharge PELVIC: external genitalia normal, normal Bartholin's glands, urethra, [place]'s glands, no vulvar lesions, no cervical lesions, good vaginal support, physiologic discharge present, normal appearing perineal body and perianal region, slight red area right side posterior forchette, not open, no hyper or hypopigementation ASSESSMENT AND PLAN: vulvar irritation, improved w/ steroid, recommend biopsy today Isael Gandara MD Sun Carrero is a 33 year old female who presents today for a vulvar biopsy. Indication: persistent irritation. UNIVERSAL PROTOCOL / SAFETY CHECKLIST Procedure to be Performed: vulvar biopsy Sign In: A Moment of CARE was completed. Personnel directly involved with the procedure wore the appropriate PPE (Personal Protective Equipment). Patient/Surrogate Stated/Verified: PATIENT VERIFIED(optional for EMERGENT procedures): Patient name, Date of , Relevant allergies, and The intended procedure Time Out Communication: Intended patient and procedure match the source documents. Consent documented and matches the intended procedure. No implant(s) inserted. Sign Out: SIGN OUT (optional for EMERGENT procedures): All specimen containers correctly labeled. All instruments, equipment, possible retained foreign bodies accounted for. Post-procedure follow-up management communicated and Plan of Care Visit completed when applicable. Isael Gandara M.D. PROCEDURE NOTE: GROSS LESIONS: No BIOPSY: Area was cleansed with betadine and anesthetized with 0.2mL 1% lidocaine with 1:100,000 epi. 3mm Fisher punch used to biopsy region. - right of midline and left of midline of posterior forchette HEMOSTASIS: Obtained with silver nitrate, pressure, and bactroban placed over the area Procedure Summary: Patient tolerated procedure well. ASSESSMENT: vulvar biopsy for vular irriataion PLAN: Specimens labeled and sent to Pathology. Will notify patient of results in 1-2 weeks. Post-procedure instructions reviewed and given to the patient. Isael Gandara MD documented in this encounterCoshocton [facility]12-05-2023 History of Present illness Narrative* Isael Gandara MD - 03/31/2023 1:02 PM EST Sun Carrero is a 32 year old female who presents for problem visit for vulvar pruritis. HPI: SEvere pruriits for 3 months. Took monistat and diflucan and felt like it only helped for about 2 days. No change in odor or discharge or dysuria. Menses regular. No pruritus w/ menses. No change in partner. No new exposures. Never had before. OB History T0 L1 SAB0 IAB0 Ectopic0 Multiple0 Live Births1 Insole Coverer History LMP: 03/21/2023 (Exact Date), Having periods Age at Menarche: Age at First : Age at Menopause: Insole Coverer History Comments: Sexual Activity: Yes; Male Contraception: No contraception data on record PAST MEDICAL HISTORY Diagnosis Date Anemia Generalized anxiety disorder Gestational hypertension without significant proteinuria in third trimester 04/29/2022 Miscarriage OCD (obsessive compulsive disorder) PMH - PAST MEDICAL HISTORY OF normal color vision PAST SURGICAL HISTORY Procedure Laterality Date DELIVERY ONLY 05/05/2022 [facility] EXTRACTION, ERUPTED TOOTH OR EXPOSED ROOT (ELEVATION AND/OR FORCEPS REMOVAL) 04/27/2007 wisdom teeth x 4 [facility] (OFFICE [facility]) FAMILY HISTORY Problem Relation Age of Onset No Known Problems Mother No Known Problems Father No Known Problems Brother Emphysema Maternal Grandmother Smoker No Known Problems Maternal Grandfather No Known Problems Paternal Grandmother No Known Problems Paternal Grandfather Social History Tobacco Use Smoking status: Never Smokeless tobacco: Never Vaping Use Vaping Use: Never used Substance Use Topics Alcohol use: Not Currently Comment: Occasionally Drug use: No Current Outpatient Medications Medication Sig ferrous sulfate (SLOW FE ORAL) Take by mouth. IBUPROFEN ORAL Take by mouth. acetaminophen (TYLENOL ORAL) Take by mouth. 21/iron fu/folic acid ( COMPLETE ORAL) Take by mouth. No current facility-administered medications for this visit. Allergies As of Date: 03/31/2023 (No Known Allergies) Fully Assessed 03/31/2023 Allergies and current medication updated:Yes EXAM: BP 114/82 Wt 225 lb (102.1kg) LMP 03/21/2023 GENERAL: pleasant, female in no apparent distress HEENT: Normocephalic, atraumatic, mucus membranes moist, and no lesions PELVIC: normal external genitalia, normal labia, normal mons, introitus normal. perineum w/ thin white skin w/ fissures and some lichenificiation. Vagina w/ pink ruggae, physiological clear/white discharge, cervix pink and nonfriable ASSESSMENT AND PLAN: Encounter Diagnosis ICD-10-CM 1. Vaginal itching N89.8 likely contact dermatintis. Check yeast swab. Insole Coverer skin care reviewed. Steroid taper. Return in 6-8 weeks and will bx if not resolved. If yeast swab + will send rx., She agrees w/ plan. USe antihistamines prn pruritis Isael Gandara MD documented in this encounterCoshocton [facility]03-01-2023 History of Present illness Narrative* Sherry Nash MD - 06/25/2022 3:05 PM EST VISIT Sun Carrero is a 32 year old year old here for visit. She had a baby boy - lAmas. Delivery Summary: Primary C/S due to failure of induction of labor for preeclampsia. M 6 lbs9 oz. ROS/ Recovery: Feeding: Breast feeding, pumping exclusively problems: Sore nipples Menses since delivery: spotting Menstrual pattern prior to : Regular periods [place] since delivery: Not resumed Depression: denies symptoms of depression. OB Depression and Anxiety Screening- This Encounter (since 06/24/2022) Over the past 2 weeks have you felt down, depressed, or hopeless? Negative Over the past two weeks, have you felt little interest or pleasure in doing things? Negative Feeling nervous, anxious or on edge 0-Not at all Not being able to stop or control worrying 0-Not al all Anxiety Pre-Screening Total (If >/= 3 additional questions will be reviewed) 0 Emotional support: Yes Bowel symptoms: Negative for abdominal discomfort, blood in stools or black stools and change in bowel habits Abdomen: She reports no incisional redness, tenderness, erythema Bladder symptoms: No dysuria, gross hematuria, urinary frequency, urinary urgency, or incontinence Other issues: None Last Pap: 2020 normal HPV: negative PAST MEDICAL HISTORY Diagnosis Date Anemia Generalized anxiety disorder Gestational hypertension without significant proteinuria in third trimester 04/29/2022 Miscarriage OCD (obsessive compulsive disorder) PMH - PAST MEDICAL HISTORY OF normal color vision PAST SURGICAL HISTORY Procedure Laterality Date DELIVERY ONLY 05/05/2022 [facility] EXTRACTION, ERUPTED TOOTH OR EXPOSED ROOT (ELEVATION AND/OR FORCEPS REMOVAL) 04/27/2007 wisdom teeth x 4 [facility] (OFFICE IP[facility]) FAMILY HISTORY Problem Relation Age of Onset No Known Problems Mother No Known Problems Father No Known Problems Brother Emphysema Maternal Grandmother Smoker No Known Problems Maternal Grandfather No Known Problems Paternal Grandmother No Known Problems Paternal Grandfather Social History Tobacco Use Smoking status: Never Smokeless tobacco: Never Vaping Use Vaping Use: Never used Substance Use Topics Alcohol use: Not Currently Comment: Occasionally Drug use: No PHYSICAL EXAMINATION: BP 128/94 Wt 216 lb (98.0kg) LMP 08/27/2021 GENERAL: pleasant, female in no apparent distress HEENT: Normocephalic, atraumatic, mucus membranes moist, and no lesions NECK: Supple, full range of motion, no adenopathy, and thyroid normal DERMATOLOGY: Normal, without lesions, non-icteric, and non-hirsute BREAST: pt declines ABDOMEN: soft, non-tender, and no masses. INCISION: No incisional redness, swelling, or drainage PELVIC: external genitalia normal, normal Bartholin's glands, urethra, [place]'s glands, no vulvar lesions, no cervical lesions, good vaginal support, physiologic discharge present, normal appearing perineal body and perianal region BIMANUAL: uterus normal size, shape and consistency, no adnexal masses, and non-tender NEURO: alert and oriented x3,exam grossly non-focal EXTREMITIES: normal ASSESSMENT AND PLAN: 32 year old status post CS with normal course. Contraception plan: condoms Follow up: Pt to check BPs at home- pt stopped BPs meds without checking BPs- advised to check BPs twice daily and send log to office next week. Sherry Thompson MD documented in this encounterCoshocton [facility]01-19-2023 History of Present illness Narrative* Pierce Salazar MD - 05/15/2022 10:38 AM EST EARLY VISIT Obstetric History T0 L1 SAB0 IAB0 Ectopic0 Multiple0 Live Births1 Name of Baby 1: Not recorded Date: 06/06/21 GA: 9w0d Delivery: MISSED AB Apgar1: Not recorded Apgar5: Not recorded Living: Not recorded Name of Baby 2: Idris Coburn Date: 05/05/22 GA: 35w6d Delivery: , Low Transverse Apgar1: 9 Apgar5: 9 Living: Living Sun Carrero is a 31 year old here for 10 day visit. Delivery Summary: ROS: General: Denies any fever or chills Hypertension Screening: Headache? No. Visual Changes? No Epigastric Pain? No Increased Swelling? No Taking any BP medications at home? Yes If applicable, monitoring BP at home? (If Yes, include results) Yes / 130's/80/s Mood: normal Depression: denies symptoms of depression. OB Depression and Anxiety Screening- This Encounter (since 05/14/2022) None Feeding: Breast feeding (pumping) problems: latch Bladder: No dysuria, gross hematuria, urinary frequency, urinary urgency, or incontinence Bowel symptoms: Negative for abdominal discomfort, blood in stools or black stools; occ diarrhea Abdomen: She reports no incisional redness, tenderness, erythema Bleeding: light flow Bottom and Perineum: No issues PHYSICAL EXAMINATION: LMP 08/27/2021 (Exact Date) General: pleasant,female in no apparent distress, A&O x 3. Skin warm and intact. Breast: Deferred Abdomen: soft, non-tender, and no masses /Incision: No incisional redness, swelling, or drainage Pelvic: Deferred Bimanual: Deferred ASSESSMENT AND PLAN: 31 year old status post CS with normal course. and course complicatedby preeclampsia. Contraception plan: undecided . Reinforced 6-week pelvic rest. Encouraged condom usage should patient deviate. Education: resources provided - see MA/RN note PreE - continue procardia & labetalol. Message BP's 1 week. Follow up: Follow-up with provider for 6 week visit and as needed Medical Decision Making Pierce Salazar MD documented in this encounterCoshocton [facility]01-13-2023 Miscellaneous Notes* Telephone Encounter - Neli Sommer RN - 05/09/2022 2:37 PM EST Pharmacy notified. Neli Sommer RN * Telephone Encounter - Pierce Salazar MD - 05/09/2022 2:09 PM EST That dose is correct Pierce Salazar MD * Telephone Encounter - Neli Sommer RN - 05/09/2022 1:36 PM EST [facility] [place] calling to clarify labetalol rx that was sent in. Wanted to double check the dosage. Rx was for 300mg TID. Please advise and we will call back at [phone]. Neli Sommer RN documented in this encounterCoshocton [facility] Center01-11-2023 Miscellaneous Notes* Telephone Encounter - Rosa Green RN - 05/07/2022 3:27 PM EST Order signed and faxed. Rosa Green RN * Telephone Encounter - Rosa Green RN - 05/07/2022 1:52 PM EST Breast pump request received from [email or web address]. Order to provider to sign. Will fax when completed. Rosa Green RN documented in this encounterCoshocton [facility] Center01-06-2023 Miscellaneous Notes* Telephone Encounter - Rosa Green RN - 05/02/2022 10:28 AM EST Patient 35w3d calling with complaints of ongoing headache since yesterday no relived with Tylenol. Patient states she spoke with provider car sales consultant last night d/t headache and was told to call office today if headache was still present. Patient states she has had blurred vision with current headache.Unable to take BP at home, her BP cuff does not arrive until today. Spoke with provider car sales consultant andpatient advised to go to L&D at hospital for monitoring and blood work. Patient verbalizes understanding. States it will take her an hour to get there. L&D notified by provider car sales consultant. Rosa Green RN documented in this encounterCoshocton [facility]01-06-2023 Hospital Discharge instructions Additional Instructions return 05/03 at 1500 for your second celestone shot and BP check; Appt. made for 05/05 in the [facility] office at 3:[address] gandara for a follow up and keep scheduled ultrasound on 05/07; Return to the hospital for any BP reading over 160/110 or if Pre E symptoms get worse or if you develop other Pre E symptoms described on handoutWSelect Medical [facility] Work Phone: 1(306) 269-713201-03-2023 History of Past illness Narrative* Problem Noted Date Resolved Date Gestational hypertension wit hout significant proteinuria in third trimester 04/29/2022 06/25/2022 Excessive growth affec ting management of in third trimester 04/09/2022 06/25/2022 Overview: 04/09/22: EFW 96% at 32 weeks. Repeat growth in 4 weeks. Sherry Nash MD Abnormal glucose complicating 03/10/2006/25/2022 Overview: 03/17/22- 3 hour GTT normal. Radha Mart APRN.CNM March 10, 2022 Needs 3 hr. Isael Gandara MD Anemia during in third trimester 03/1006/25/2022 Overview: March 10, 2022 Anemia. Isael Gandara MD Current with histo ry of spontaneous during prior 10/17/2021 06/25/2022 Overview: 10/17/2021 Patient is 2 para 1 with a history of a miscarriage May 2021. She had sent a [employer] message on October 02 complaining of pink discharge. She denies any bleeding since then. She had quantitative hCGs done. Miscarriage precautions given. Patient is advised to call/come in if she should develop any further bleeding, the development of pain or as needed problems. TKRN Spotting in 05/29/2021 03/10/2022 Overview: 05/29/2021atient was seen by Radha on May 27 for spotting in and slow rising hCG. She states she has intermittent brown spotting that has continued. She denies any pain. Ultrasound done May 27 showed intrauterine at 7 weeks 4 days. TKRN Obesity in 05/29/2021 06/25/2022 Overview: 10/17/2021 Patient is obese. We will plan on early hemoglobin A1c. TKRN History of anxiety 05/29/2021 03/10/2022 Overview: 10/17/2021 Patient has a history of anxiety and OCD treated by Dr. Sanchez. She denies any history of depression. She has been off the Celexa since May and believes she is doing well off medication. TKRN Patient request for diagnostic testing 06/25/2022 Overview: 10/17/2021atient desires aneuploidy screening. I have given her the contact information for [facility] and she is advised to call them for insurance coverage issues. Patient considering genetic carrier screening testing. I have given her contact information for [employer] lab technician to check on insurance coverage.Catrina Villatoro RN Spotting complicating , first trimester 05/27/2021 03/10/2022 Abnormal urine 01/30/2021 03/10/2022 Screening for hyperlipidemia 01/16/2021 History of anemia 10/01/2011 03/10/2022 Irregular menses 10/01/2011 03/10/2022 Pruritus 09/21/2009 03/10/2022 Telogen effluvium 09/21/2009 03/10/2022 documented as of this encounter (statuses as of 06/26/2022) [facility] History of Past illness Narrative* Problem Noted Date Diagnosed Date Resolved Date Gestational hypertension wit hout significant proteinuria in third trimester 04/29/2022 Excessive growth affec ting management of in third trimester 04/09/2022 06/26/19 Overview: 04/09/22: EFW 96% at 32 weeks. Repeat growth in 4 weeks. Sherry Nash MD Abnormal glucose complicating 03/10/2022 06/25/2022 Overview: 03/17/22- 3 hour GTT normal. Radha Mart APRN.CNM March 10, 2022 Needs 3 hr. Isael Gandara MD Anemia during in third trimester 03/10/2022 06/25/2022 Overview: March 10, 2022 Anemia. Isael Gandara MD Current with histo ry of spontaneous during prior 10/17/2021 06/26/19 Overview: 10/17/2021 Patient is 2 para 1 with a history of a miscarriage May 2021. She had sent a [employer] message on October 02 complaining of pink discharge. She denies any bleeding since then. She had quantitative hCGs done. Miscarriage precautions given. Patient is advised to call/come in if she should develop any further bleeding, the development of pain or as needed problems. TKRN Spotting in 05/29/20212021 Overview: 05/29/2021atient was seen by Radha on May 27 for spotting in and slow rising hCG. She states she has intermittent brown spotting that has continued. She denies any pain. Ultrasound done May 27 showed intrauterine at 7 weeks 4 days. TKRN Obesity in 05/29/2021 023 Overview: 10/17/2021 Patient is obese. We will plan on early hemoglobin A1c. TKRN History of anxiety 05/29/2021 Overview: 10/17/2021 Patient has a history of anxiety and OCD treated by Dr. Sanchez. She denies any history of depression. She has been off the Celexa since May and believes she is doing well off medication. TKRN Patient request for diagnostic testing 05/29/2021 06/25/2022 Overview: 10/17/2021atient desires aneuploidy screening. I have given her the contact information for [facility] and she is advised to call them for insurance coverage issues. Patient considering genetic carrier screening testing. I have given her contact information for [employer] lab technician to check on insurance coverage.Catrina Villatoro RN Spotting complicating pregna ncy, first trimester 05/27/2021 03/10/2022 Abnormal urine 01/30/2021 03/10/2022 Screening for hyperlipidemia 01/16/2021 03/10/2022 History of anemia 10/01/2011 03/10/2022 Irregular menses 10/01/2011 03/10/2022 Pruritus 09/21/2009 03/10/2022 Telogen effluvium 09/21/2009 03/10/2022 documented as of this encounter (statuses as of 03/31/2023) [facility] History of Past illness Narrative* Problem Noted Date Diagnosed Date Resolved Date Gestational hypertension wit hout significant proteinuria in third trimester 04/29/2022 Excessive growth affec ting management of in third trimester 04/09/2022 06/26/19 Overview: 04/09/22: EFW 96% at 32 weeks. Repeat growth in 4 weeks. Sherry Nash MD Abnormal glucose complicating 03/10/2022 06/25/2022 Overview: 03/17/22- 3 hour GTT normal. Radha Mart APRN.CNM March 10, 2022 Needs 3 hr. Isael Gandara MD Anemia during in third trimester 03/10/2022 06/25/2022 Overview: March 10, 2022 Anemia. Isael Gandara MD Current with histo ry of spontaneous during prior 10/17/2021 06/26/19 23 Overview: 10/17/2021 Patient is 2 para 1 with a history of a miscarriage May 2021. She had sent a [employer] message on October 02 complaining of pink discharge. She denies any bleeding since then. She had quantitative hCGs done. Miscarriage precautions given. Patient is advised to call/come in if she should develop any further bleeding, the development of pain or as needed problems. TKRN Spotting in 05/29/20212021 Overview: 05/29/2021atient was seen by Radha on May 27 for spotting in and slow rising hCG. She states she has intermittent brown spotting that has continued. She denies any pain. Ultrasound done May 27 showed intrauterine at 7 weeks 4 days. TKRN Obesity in 05/29/2021 023 Overview: 10/17/2021 Patient is obese. We will plan on early hemoglobin A1c. TKRN History of anxiety 05/29/2021 Overview: 10/17/2021 Patient has a history of anxiety and OCD treated by Dr. Sanchez. She denies any history of depression. She has been off the Celexa since May and believes she is doing well off medication. TKRN Patient request for diagnostic testing 05/29/2021 06/25/2022 Overview: 10/17/2021atient desires aneuploidy screening. I have given her the contact information for [facility] and she is advised to call them for insurance coverage issues. Patient considering genetic carrier screening testing. I have given her contact information for [employer] lab technician to check on insurance coverage.Catrina Villatoro RN Spotting complicating pregna ncy, first trimester 05/27/2021 03/10/2022 Abnormal urine 01/30/2021 03/10/2022 Screening for hyperlipidemia 01/16/2021 03/10/2022 History of anemia 10/01/2011 03/10/2022 Irregular menses 10/01/2011 03/10/2022 Pruritus 09/21/2009 03/10/2022 Telogen effluvium 09/21/2009 03/10/2022 documented as of this encounter (statuses as of 07/14/2023) [facility]01-03-2023 Miscellaneous Notes* Quick Notes - Nadiya Anders APRN.CNM - 04/29/2022 10:41 AM EST JADEN-S: Sun Carrero is a 31 year old female who presents at 35w0d with KEARA: 06/03/2022, by Last Menstrual Period for a routine visit. Good FM. Denies headache, visual changes, chest pain, shortness of breath, vaginal bleeding, leakage of fluid, or dysuria. Feeling well, no complaints. NST today. O: See flow sheet Gen: No apparent distress Abd: Gravid, nontender S=D, 23 lb TWG, cephalic ASSESSMENT/PLAN: 1. Gestational hypertension without significant proteinuria in third trimester - P: 1) PTL precautions reviewed and when to call 2) RTO 1 week for growth scan with BPP. BPP weekly,unable to complete NST. 3) Continue ASA and Iron supplements 4) Breast pump 5) BPP 8/8 today 6) Preeclampsia signs and symptoms reviewed. Preeclampsia labs next visit. Currently [place]. Jodi Ferrera, student LEWIS Anders APRN.CNM documented in this encounterCos[facility] History of Present illness Narrative* Sherry Nash MD - 04/23/2022 3:47 PM EST NST SUMMARY PROVIDER ASSESSMENT AND INTERPRETATION Sun Carrero is a 31 year old female, , who is at 34w1d with an KEARA of 06/03/2022, by Last Menstrual Period dating method. Indications for NST: Obesity Baseline: 135 Variability: Moderate Accelerations: Present 15 X 15 Decelerations: None Contractions: TOCO: Irregular Interpretation: Category I and Reactive SIGNATURE: Sherry Thompson MD documented in this encounterCoshocton [facility] Center12-28-2022 Miscellaneous Notes* Quick Notes - Sherry Nash MD - 04/23/2022 3:45 PM EST DM- Pt doing well today. Denies Vaginal Bleeding, Leaking fluid, or contractions. Pt reports good movement. Occasional headaches but nothing severe. Denies changes in vision or RUQ pain. S/Sx PRE E reviewed. Will get labs today. Reviewed Gest HTN - Possible Delivery 37 weeks reviewed if BPs remain elevated. NSTs weekly. When to call reviewed. No RUQ pain on exam today. Abdomen is soft and non tender. Continue ASA. Sherry Thompson MD documented in this encounterCoshocton [facility]12-28-2022 Instructions* Patient Instructions* Juliano Andrews Ma - 04/23/2022 2:27 PM EST SEQUENTIAL SCREENINGS The [facility] offers sequential screenings for women who are interested in screenings for chromosomal abnormalities and certain defects during a . The sequential screen combinesultrasound and blood tests to determine the risk of chromosomal abnormalities, including Down's Syndrome (Trisomy 21) and Trisomy 18, as well as open neural tube defects including spina bifida. Ultrasound examination is performed between 11 weeks and 13 weeks gestational age. Blood tests are drawn after the ultrasound and again later in the between 15 and 21 weeks gestational age. Please let your physician know if you are interested in this testing. It will require an appointment withour mobile service rv technician. This is not an ultrasound performed by a physician in our office during a routine visit. SIGNS AND SYMPTOMS OF LABOR 1. Contractions every 10 minutes or more often 2. Clear, pink, or brownish fluid (water) leaking from vagina 3. Feeling that baby is pushing down, pressure 4. Low, dull backache 5. Cramps that feel like a period 6. Cramps with or without diarrhea If you notice any of the above symptoms, contact our office at [phone] and ask to speak with anurse. After hours, you can call doctors registry at [phone] OR call [facility] at [phone] ask to have the doctor car sales consultant paged. If you consider this an emergency, dial or go to your nearest emergency department. NEED HELP? Are you dealing with a violent or abusive relationship? Are you a victim of rape or sexual assult? Call [facility] ([place]) 24 hour Crisis Hotline: 342.899.9280 or 632-770-4626. MANUAL Your Guide to a Healthy manual is now on-line. Visit [email or web address] to download your free copy documented in this encounterCoshocton Regional Medical Center12-22-2022 History of Present illness Narrative* Jose Neil MD - 04/17/2022 7:21 PM EST NST SUMMARY PROVIDER ASSESSMENT AND INTERPRETATION Sun Carrero is a 31 year old female, , who is at 33w2d with an KEARA of 06/03/2022, by Last Menstrual Period dating method. Indications for NST: Obesity Baseline: 140 Variability: Moderate Accelerations: Present 15 X 15 Decelerations: None Contractions: TOCO: None Interpretation: Reactive SIGNATURE: Jose Neil DO documented in this encounterCoshocton Regional Medical Center12-22-2022 Miscellaneous Notes* Quick Notes - Jose Neil MD - 04/17/2022 7:20 PM EST SW- Here for NST only. Initial BP elevated, but then serial true BP's all completely normal. She denies any symptoms of pre e. She feels well and offers no complaints today. NST reactive today. RTO 1week for OB visit and NST. Jose Neil DO documented in this encounterCoshocton Regional [facility] Center12-22-2022 Instructions* Patient Instructions* Kimberlee Sands MA - 04/17/2022 10:16 AM EST SEQUENTIAL SCREENINGS The [facility] offers sequential screenings for women who are interested in screenings for chromosomal abnormalities and certain defects during a . The sequential screen combinesultrasound and blood tests to determine the risk of chromosomal abnormalities, including Down's Syndrome (Trisomy 21) and Trisomy 18, as well as open neural tube defects including spina bifida. Ultrasound examination is performed between 11 weeks and 13 weeks gestational age. Blood tests are drawn after the ultrasound and again later in the between 15 and 21 weeks gestational age. Please let your physician know if you are interested in this testing. It will require an appointment withour mobile service rv technician. This is not an ultrasound performed by a physician in our office during a routine visit. SIGNS AND SYMPTOMS OF LABOR 1. Contractions every 10 minutes or more often 2. Clear, pink, or brownish fluid (water) leaking from vagina 3. Feeling that baby is pushing down, pressure 4. Low, dull backache 5. Cramps that feel like a period 6. Cramps with or without diarrhea If you notice any of the above symptoms, contact our office at [phone] and ask to speak with anurse. After hours, you can call doctors registry at [phone] OR call [facility] at [phone] ask to have the doctor car sales consultant paged. If you consider this an emergency, dial 9-1-9 or go to your nearest emergency department. NEED HELP? Are you dealing with a violent or abusive relationship? Are you a victim of rape or sexual assult? Call [facility] [place] ([facility] 24 hour Crisis Hotline: 646.279.6426 or 335-354-9416. MANUAL Your Guide to a Healthy manual is now on-line. Visit [email or web address] to download your free copy documented in this encounterCoshocton Regional Medical Center12-14-2022 Miscellaneous Notes* Telephone Encounter - Aylin Rubio RN - 04/09/2022 12:15 PM EST Scheduled * Telephone Encounter - Bertha White LPN - 04/09/2022 11:56 AM EST Attempted to call patient. Voicemail is full. * Telephone Encounter - Bertha White LPN - 04/09/2022 11:54 AM EST ----- Message from Sherry Nash MD sent at 04/09/2022 11:34 AM EST ----- LGA. Results reviewed. Please Place copy in OB chart. Repeat growth in 4 weeks. documented in this encounterCoshocton Regional Medical Center12-14-2022 Miscellaneous Notes* Quick Notes - Nadiya Anders APRN.CNM - 04/09/2022 10:24 AM EST JADEN-S: Sun Carrero is a 31 year old female who presents at 06/03/2022, by Last Menstrual Period for a routine visit. Denies chest pain, shortness of breath, vaginal bleeding, leakage of fluid, or dysuria. Feeling well, no complaints. TSAI yesterday dull, with positional change starsIron, asa O: See flow sheet Gen: No apparent distress Abd: Gravid, nontender BPP 12/02 ASSESSMENT/PLAN: 1. 32 weeks gestation of P: 1) PTL precautions reviewed and when to call 2) RTO in one week for NST 3) NST weekly for BMI >40 4) Growth US today, awaiting results 5) Continue ASA and iron supplement. Repeat CBC next visit. Nadiya Anders APRN.CNM documented in this encounterCoshocton [facility] Center12-14-2022 Instructions* Patient Instructions* Juliano Andrews Ma - 04/09/2022 9:35 AM EST SEQUENTIAL SCREENINGS The [facility] offers sequential screenings for women who are interested in screenings for chromosomal abnormalities and certain defects during a . The sequential screen combinesultrasound and blood tests to determine the risk of chromosomal abnormalities, including Down's Syndrome (Trisomy 21) and Trisomy 18, as well as open neural tube defects including spina bifida. Ultrasound examination is performed between 11 weeks and 13 weeks gestational age. Blood tests are drawn after the ultrasound and again later in the between 15 and 21 weeks gestational age. Please let your physician know if you are interested in this testing. It will require an appointment withour mobile service rv technician. This is not an ultrasound performed by a physician in our office during a routine visit. SIGNS AND SYMPTOMS OF LABOR 1. Contractions every 10 minutes or more often 2. Clear, pink, or brownish fluid (water) leaking from vagina 3. Feeling that baby is pushing down, pressure 4. Low, dull backache 5. Cramps that feel like a period 6. Cramps with or without diarrhea If you notice any of the above symptoms, contact our office at [phone] and ask to speak with anurse. After hours, you can call doctors registry at [phone] OR call [facility] at [phone] ask to have the doctor car sales consultant paged. If you consider this an emergency, dial 8-3-9 or go to your nearest emergency department. NEED HELP? Are you dealing with a violent or abusive relationship? Are you a victim of rape or sexual assult? Call [facility] ([place]) 24 hour Crisis Hotline: 877.634.5733 or 163-372-0813. MANUAL Your Guide to a Healthy manual is now on-line. Visit [email or web address] to download your free copy documented in this encounterCoshocton Regional Medical Center12-13-2022 Miscellaneous Notes* Telephone Encounter - Neli Sommer RN - 04/08/2022 4:55 PM EST Attempted again. Still went straight to voicemail. Neli Sommer RN * Telephone Encounter - Neli Sommer RN - 04/08/2022 4:37 PM EST Attempted to call patient. Unable to leave message-went straight to voicemail and mailbox is full. Neli Sommer RN * Telephone Encounter - Isael Gandara MD - 04/08/2022 4:34 PM EST This does not sound like she needs to be seen acutely in the ER, and I think she should keep appointment in am. Isael Gandara MD * Telephone Encounter - Neli Sommer RN - 04/08/2022 2:10 PM EST 32w0d C/o of headache since this morning and had dizziness once when she went from bending over to standing position. Dizziness has now subsided. Patient concerned with pre-eclampsia. She is on baby aspirin daily already. She has not tried tylenol and stated she probably hasn't drank as much water as normal. She also is a lot more fatigued today d/t not sleeping well at night lately. No vision changes or RUQ pain. She has u/s and OB visit with DM tomorrow at 9:30am. Advised to to continue to monitor symptoms, push fluids and try tylenol. Please advise. Neli Sommer RN documented in this encounterCoshocton [facility] Center11-28-2022 Miscellaneous Notes* Quick Notes - Sherry Nash MD - 03/24/2022 10:27 AM EST DM- Pt doing well today. Denies Vaginal Bleeding, Leaking fluid, or contractions. Pt reports good movement. Growth us scheduled for 32 weeks and NSTs starting around 33 weeks. Will start PO iron supplements. Denies TSAI or visual changes or RUQ Pain. Abd- soft, non tender. Kick counts reviewed.Continue ASA. RTO 2 weeks. Sherry Thompson MD documented in this encounterCoshocton Regional Medical Center11-28-2022 Instructions* Patient Instructions* Juliano Andrews Ma - 03/24/2022 10:14 AM EST SEQUENTIAL SCREENINGS The [facility] offers sequential screenings for women who are interested in screenings for chromosomal abnormalities and certain defects during a . The sequential screen combinesultrasound and blood tests to determine the risk of chromosomal abnormalities, including Down's Syndrome (Trisomy 21) and Trisomy 18, as well as open neural tube defects including spina bifida. Ultrasound examination is performed between 11 weeks and 13 weeks gestational age. Blood tests are drawn after the ultrasound and again later in the between 15 and 21 weeks gestational age. Please let your physician know if you are interested in this testing. It will require an appointment withour mobile service rv technician. This is not an ultrasound performed by a physician in our office during a routine visit. SIGNS AND SYMPTOMS OF LABOR 1. Contractions every 10 minutes or more often 2. Clear, pink, or brownish fluid (water) leaking from vagina 3. Feeling that baby is pushing down, pressure 4. Low, dull backache 5. Cramps that feel like a period 6. Cramps with or without diarrhea If you notice any of the above symptoms, contact our office at [phone] and ask to speak with anurse. After hours, you can call doctors registry at [phone] OR call [facility] at [phone] ask to have the doctor car sales consultant paged. If you consider this an emergency, dial 2--8 or go to your nearest emergency department. NEED HELP? Are you dealing with a violent or abusive relationship? Are you a victim of rape or sexual assult? Call [facility] ([place]) 24 hour Crisis Hotline: 486.113.2013 or 756-667-0124. MANUAL Your Guide to a Healthy manual is now on-line. Visit [email or web address] to download your free copy documented in this encounterCoshocton Regional Medical Center11-21-2022 Miscellaneous Notes* Telephone Encounter - Nadiya Anders APRN.CNM - 03/17/2022 9:58 AM EST Order signed. Nadiya Anders APRN.CNM * Telephone Encounter - Rosa Green RN - 03/17/2022 9:54 AM EST Patient 28w6d at lab to complete her 3 hour GTT, but there is no order. Please file pended order. Rosa Green RN documented in this encounterCoshocton Regional Medical Center11-14-2022 Miscellaneous Notes* Telephone Encounter - Jayshree Castaneda LPN - 03/10/2022 11:41 AM EST Pt returned call and given below results and instructions. Pt voiced understanding. Jayshree Castaneda LPN * Telephone Encounter - Rosa Green RN - 03/10/2022 10:38 AM EST Left message to call office. Rosa Green RN * Telephone Encounter - oRsa Green RN - 03/10/2022 10:37 AM EST ----- Message from Isael Gandara MD sent at 03/10/2022 10:26 AM EST ----- Abnormal 1 hr. Needs 3hr gtt. Order entered. Isael Gandara MD documented in this encounterCoshocton Regional Medical Center11-11-2022 Miscellaneous Notes* Quick Notes - Sherry Neyhart Nash, MD - 03/07/2022 10:56 AM EST DM- Pt doing well today. Denies Vaginal Bleeding, Leaking fluid, or contractions. Pt reports good movement. Growth us 32 weeks (ordered) and every 4 weeks until delivery. NSTs starting 33- 34 weeks. Reviewed IOL 39 weeks for BMI >40. RTO 2 wks. Declines Flu vaccine, Tdap today, 28 week labs today.LARC form signed and declined. Kick counts reviewed. RTO 2 weeks. Sherry Thompson MD documented in this encounterCoshocton Regional Medical Center11-11-2022 History of Present illness Narrative* Juliano Andrews Ma - 03/07/2022 10:46 AM EST Patient identified by name and date of . Sun L Magan presents today for a vaccination of Tdap. Patient denies an allergy to latex: yes Patient denies a severe (life-threatening) allergy to a previous dose of Tdap, DTP, DTaP, DT or Td vaccine. Yes Patient denies history of epilepsy or neurological problems: Yes Patient is afebrile and denies being moderately or severely ill: Yes Patient denies history of Guillain-[place] Syndrome (a severe paralytic illness): Yes Tdap Adacel injection was given without incident. See immunizations for details of immunizations administered today. VIS sheet provided: Yes Provider Erick was present in office at time of injection. Juliano Andrews Ma documented in this encounterCoshocton Regional Medical Center11-11-2022 Instructions* Patient Instructions* Juliano Andrews Ma - 03/07/2022 10:32 AM EST SEQUENTIAL SCREENINGS The [facility] offers sequential screenings for women who are interested in screenings for chromosomal abnormalities and certain defects during a . The sequential screen combinesultrasound and blood tests to determine the risk of chromosomal abnormalities, including Down's Syndrome (Trisomy 21) and Trisomy 18, as well as open neural tube defects including spina bifida. Ultrasound examination is performed between 11 weeks and 13 weeks gestational age. Blood tests are drawn after the ultrasound and again later in the between 15 and 21 weeks gestational age. Please let your physician know if you are interested in this testing. It will require an appointment withour mobile service rv technician. This is not an ultrasound performed by a physician in our office during a routine visit. SIGNS AND SYMPTOMS OF LABOR 1. Contractions every 10 minutes or more often 2. Clear, pink, or brownish fluid (water) leaking from vagina 3. Feeling that baby is pushing down, pressure 4. Low, dull backache 5. Cramps that feel like a period 6. Cramps with or without diarrhea If you notice any of the above symptoms, contact our office at [phone] and ask to speak with anurse. After hours, you can call doctors registry at [phone] OR call [facility] at [phone] ask to have the doctor car sales consultant paged. If you consider this an emergency, dial 9-2-6 or go to your nearest emergency department. NEED HELP? Are you dealing with a violent or abusive relationship? Are you a victim of rape or sexual assult? Call [facility] ([place]) 24 hour Crisis Hotline: 484.272.5271 or 246-131-9250. MANUAL Your Guide to a Healthy manual is now on-line. Visit [email or web address] to download your free copy documented in this encounterCoshocton Regional Medical Center11-03-2022 Miscellaneous Notes* Telephone Encounter - Aylin Rubio RN - 02/27/2022 10:52 AM EDT Spoke with SW. Called patient. Since patient is feeling movement and not having any bleeding, LOF, or pain this is normal. Will discuss kick counts at her 28 week visit. Patient comfortable with this. Has an OB visit next week. Advised to call the office with prn questions or concerns. Aylin Rubio RN * Telephone Encounter - Aylin Rubio RN - 02/27/2022 8:49 AM EDT 26w2d Patient calling with concerns that the baby's movements have been less active since yesterday. Denies LOF, bleeding, or cramping. Has felt the baby move today. States they are in the process of moving and she wants to make sure her recent activity won't hurt the baby. No abdominal trauma and she has been trying to be careful not to lift heavy objects, but that's been difficult. Advised movements are more consistent typically at 28 weeks. Please advise. Aylin Rubio RN documented in this encounterCoshocton Regional Medical Center09-15-2022 Miscellaneous Notes* Quick Notes - Sherry Nash MD - 01/09/2022 10:43 AM EDT DM- Pt doing well today. Denies Vaginal Bleeding, Leaking fluid, or contractions. Pt reports good movement. Early anatomy was done- needs follow up views of heart in 1-2 weeks. Quad screen negative. RTO 4 weeks. Sherry Thompson MD documented in this encounterCoshocton Regional Medical Center09-15-2022 Instructions* Patient Instructions* Juliano Andrews Ma - 01/09/2022 10:02 AM EDT SEQUENTIAL SCREENINGS [facility] offers sequential screenings for women who are interested in screenings for chromosomal abnormalities and certain defects during a . The sequential screen combinesultrasound and blood tests to determine the risk of chromosomal abnormalities, including Down's Syndrome (Trisomy 21) and Trisomy 18, as well as open neural tube defects including spina bifida. Ultrasound examination is performed between 11 weeks and 13 weeks gestational age. Blood tests are drawn after the ultrasound and again later in the between 15 and 21 weeks gestational age. Please let your physician know if you are interested in this testing. It will require an appointment withour mobile service rv technician. This is not an ultrasound performed by a physician in our office during a routine visit. SIGNS AND SYMPTOMS OF LABOR 1. Contractions every 10 minutes or more often 2. Clear, pink, or brownish fluid (water) leaking from vagina 3. Feeling that baby is pushing down, pressure 4. Low, dull backache 5. Cramps that feel like a period 6. Cramps with or without diarrhea If you notice any of the above symptoms, contact our office at [phone] and ask to speak with anurse. After hours, you can call doctors registry at [phone] OR call [facility] at [phone] ask to have the doctor car sales consultant paged. If you consider this an emergency, dial 7-6-7 or go to your nearest emergency department. NEED HELP? Are you dealing with a violent or abusive relationship? Are you a victim of rape or sexual assult? Call [facility] ([place]) 24 hour Crisis Hotline: 416.484.2939 or 860-624-2433. MANUAL Your Guide to a Healthy manual is now on-line. Visit [email or web address] to download your free copy documented in this encounterCoshocton Regional Medical Center08-22-2022 Miscellaneous Notes* Quick Notes - Sherry Nash MD - 12/16/2021 8:45 AM EDT DM- Pt doing well today. Denies Vaginal Bleeding, Leaking fluid, or cramping. Reports some nausea more at night. Maternity 21 unable to be assayed 2 x. Offered Quad screen and early anatomy- pt will schedule. Quad order placed today optimal dates 16-20 weeks. Continue ASA. RTO 4 wks. Sherry Thompson MD documented in this encounterCoshocton Regional Medical Center08-22-2022 Instructions* Patient Instructions* Juliano Andrews Ma - 12/16/2021 8:27 AM EDT SEQUENTIAL SCREENINGS [facility] offers sequential screenings for women who are interested in screenings for chromosomal abnormalities and certain defects during a . The sequential screen combinesultrasound and blood tests to determine the risk of chromosomal abnormalities, including Down's Syndrome (Trisomy 21) and Trisomy 18, as well as open neural tube defects including spina bifida. Ultrasound examination is performed between 11 weeks and 13 weeks gestational age. Blood tests are drawn after the ultrasound and again later in the between 15 and 21 weeks gestational age. Please let your physician know if you are interested in this testing. It will require an appointment withour mobile service rv technician. This is not an ultrasound performed by a physician in our office during a routine visit. SIGNS AND SYMPTOMS OF LABOR 1. Contractions every 10 minutes or more often 2. Clear, pink, or brownish fluid (water) leaking from vagina 3. Feeling that baby is pushing down, pressure 4. Low, dull backache 5. Cramps that feel like a period 6. Cramps with or without diarrhea If you notice any of the above symptoms, contact our office at [phone] and ask to speak with anurse. After hours, you can call doctors registry at [phone] OR call [facility] at [phone] ask to have the doctor car sales consultant paged. If you consider this an emergency, dial 9-1-3 or go to your nearest emergency department. NEED HELP? Are you dealing with a violent or abusive relationship? Are you a victim of rape or sexual assult? Call [facility] [place] ([facility] 24 hour Crisis Hotline: 813.719.9832 or 899-053-2592. MANUAL Your Guide to a Healthy manual is now on-line. Visit [email or web address] to download your free copy documented in this encounterCoshocton Regional Medical Center08-19-2022 Miscellaneous Notes* Telephone Encounter - Zuleyma Villarreal - 12/13/2021 10:33 AM EDT LM for patient to call and schedule an early anatomy as per Randi documented in this encounterCoshocton Regional Medical Center08-18-2022 Miscellaneous Notes* Telephone Encounter - DARREL Abad - 12/12/2021 11:11 AM EDT Received a call back from Ms. Carrero. Informed her that her non-invasive testing (NIPT) redraw was unable to be run: quantity not sufficient (QNS) due to low DNA in the sample. Shared that a third redraw is not recommended by the lab as they were not able to obtain a valid result from 4 analyses over 2 draws. Discussed that a QNS result can be due to multiple reasons such as early gestational age, maternal weight, maternal inflammatory or autoimmune conditions, or maternal medication use such as Lovenox. Ms. Carrero indicated understanding. Shared alternative aneuploidy screening and testing options including quad screen, amniocentesis, or NIPT through a different screen ([facility] [employer]). Discussed the possibility of another non reportable result with [facility] given our experiences with higher no call rates through that NIPT. Ris ks, benefits, limitations, and conditions screened by the various options were reviewed. Ms. Kendricks not interested in diagnostic testing or further NIPT screening, but is interested in a quad screen. Explained that this can be ordered by her OB when she goes in for her appointment on Thursday. Ms. Carrero stated she was hoping for reassuring information from the NIPT result for some peace of mind after her earlier which resulted in a miscarriage. Emotional support was provided andoffered the option of an early anatomy ultrasound between 16-18 weeks to assess for any structural m alformations or subtle signs associated with chromosomal conditions. Ms. Carrero would like this. The orders have been placed and she will be called with an appointment time. Encouraged to call with questions/concerns/etc. Time spent car sales consultant: 18 minutes Randi Lim CGC * Telephone Encounter - DARREL Abad - 12/11/2021 2:32 PM EDT Attempted to call Ms. Carrero to discuss her QNS NIPT results but her VM is full. Sent a [employer] message requesting a call back. Plan to discuss the QNS NIPT and offer genetic counseling and other aneuploidy screening/testing options including quad screen, amniocentesis, or NIPT through [facility] (not strongly recommended givenhigher no call rates in our experience). [employer] does not recommend a third draw given 4 failed analyses over 2 draws. Randi Lim CGC documented in this encounterCoshocton Regional Medical Center08-16-2022 Miscellaneous Notes* Telephone Encounter - Jayshree Castaneda LPN - 12/10/2021 12:52 PM EDT Pt returned call and was transferred to front counter clerk to assist with scheduling consult to general surgery for rectal bleeding. Jayshree Castaneda LPN * Telephone Encounter - Pierce Salazar MD - 12/10/2021 11:22 AM EDT Please help patient schedule with general surgery for rectal bleeding. Pierce Salazar MD * Telephone Encounter - Aylin Rubio RN - 12/09/2021 10:44 AM EDT 14w6d documented in this encounterCoshocton Regional Medical Center08-03-2022 Miscellaneous Notes* Telephone Encounter - DARREL Abad - 11/27/2021 3:51 PM EDT Received a call back from Ms. Carrero. Informed her of the nonreportable non- invasive testing (NIPT) results. Explained that per [employer], the sex chromosome aneuploidy analysis of the screenhad inconclusive data and shared that a redraw typically resolves this. Informed Ms. Carrero of the lab's suggestion to wait two weeks from the original draw date to increase the likelihood of a result on the second draw as the fraction was on the low end with the first draw. Explained that waiting two weeks should increase fraction in the sample, but waiting is not required and the sample could be redrawn before then. Ms. Carrero indicated understanding and opted for a redraw on 12/02/21 to maximize the likelihood of obtaining a result. New orders have been placed. Informed her that she will not be charged for nonreportable attempts. Ms. Carrero had questions regarding the nonreportable result and unclear SCA analysis. Briefly reviewed that sometimes this may be due to maternal factors such as low mosaic Monosomy X. Shared the recommendation for a genetic counseling visit if the redraw is also nonreportable to discuss alternative testing and screening options as well as a maternal chromosome analysis. Ms. Carrero stated understanding and will wait for the outcome of her redraw. Encouraged to call with questions/concerns/etc. Randi Lim CGC * Telephone Encounter - DARREL Abad - 11/27/2021 2:46 PM EDT Attempted to call patient to discuss her nonreportable NIPT results but her voicemail box is full. Will send a [employer] message requesting a call back. Plan to offer a redraw, preferably next week. Spoke to Leann [employer] genetic counselor, who stated the sample was nonreportable due to unclear data in the sex chromosome aneuploidy portion of the analysis. Leann recommended waiting two weeks from the original draw date for a redraw since the original fraction was small and a larger fraction may help clarify results and resolvethe issue. Randi Lim CGC documented in this encounterCoshocton Regional Medical Center07-20-2022 Miscellaneous Notes* Telephone Encounter - Bertha White LPN - 11/13/2021 9:47 AM EDT Patient notified * Telephone Encounter - Catrina Villatoro RN - 11/13/2021 9:35 AM EDT I left a message for patient to call to let her know this was ordered and can be done when she comes in on Thursday for her ultrasound and appointment with Dr Neil. * Telephone Encounter - Jayshree Castaneda LPN - 11/11/2021 3:40 PM EDT Pt calling and stated that she is wanting to have the [id number] please advise. Jayshree Castaneda LPN documented in this encounterCoshocton Regional Medical Center07-06-2022 Miscellaneous Notes* Quick Notes - Isael Gandara MD - 10/30/2021 3:27 PM EDT RR- Loss of symptoms and she had some anxiety b/c had SAB earlier this year. No bleeding.Cont. PNV. Brief tvus DONE, single IUP w/ cardiac activity 170 bpm. reassured. F/u in 2 weeks as scheduled or prn. documented in this encounterCoshocton Regional Medical Center07-06-2022 Instructions* Patient Instructions* Adalgisa Rand Ma - 10/30/2021 3:00 PM EDT SEQUENTIAL SCREENINGS [facility] offers sequential screenings for women who are interested in screenings for chromosomal abnormalities and certain defects during a . The sequential screen combinesultrasound and blood tests to determine the risk of chromosomal abnormalities, including Down's Syndrome (Trisomy 21) and Trisomy 18, as well as open neural tube defects including spina bifida. Ultrasound examination is performed between 11 weeks and 13 weeks gestational age. Blood tests are drawn after the ultrasound and again later in the between 15 and 21 weeks gestational age. Please let your physician know if you are interested in this testing. It will require an appointment withour mobile service rv technician. This is not an ultrasound performed by a physician in our office during a routine visit. SIGNS AND SYMPTOMS OF LABOR 1. Contractions every 10 minutes or more often 2. Clear, pink, or brownish fluid (water) leaking from vagina 3. Feeling that baby is pushing down, pressure 4. Low, dull backache 5. Cramps that feel like a period 6. Cramps with or without diarrhea If you notice any of the above symptoms, contact our office at [phone] and ask to speak with anurse. After hours, you can call doctors registry at [phone] OR call [facility] at [phone] ask to have the doctor car sales consultant paged. If you consider this an emergency, dial 0-7-1 or go to your nearest emergency department. NEED HELP? Are you dealing with a violent or abusive relationship? Are you a victim of rape or sexual assult? Call [facility] ([place]) 24 hour Crisis Hotline: 958.524.7076 or 702-025-3566. MANUAL Your Guide to a Healthy manual is now on-line. Visit [email or web address] to download your free copy documented in this encounterCoshocton Regional Medical Center07-06-2022 Miscellaneous Notes* Telephone Encounter - Neli Sommer RN - 10/30/2021 11:00 AM EDT Patient notified and scheduled appointment for today. Neli Sommer RN * Telephone Encounter - Neli Sommer RN - 10/30/2021 10:57 AM EDT Left message for patient to call office. Neli Sommer RN * Telephone Encounter - Isael Gandara MD - 10/30/2021 10:51 AM EDT ok to add for appointment today or tomorrow to check FHTs but this is not uncommon. I can certainlyunderstand her anxiety. Isael Gandara MD * Telephone Encounter - Neli Sommer RN - 10/30/2021 9:22 AM EDT 9w1d Calling concerned because she has been having significant n/v up until yesterday. Yesterday and today she is feeling normal with no nausea. Has h/o missed ab and concerned that symptoms have resolvedso quickly. No bleeding or cramping. Please advise. Neli Sommer RN documented in this encounterCoshocton Regional Medical Center06-08-2022 Miscellaneous Notes* Telephone Encounter - Nadiya Anders APRN.CNM - 10/02/2021 4:03 PM EDT Could get serum hcg today and repeat Thursday before she leaves for vacation if possible. If only small amount of pink spotting hopefully ok. If increased vaginal bleeding or pain to call. No intercourse and pelvic rest. Notify office when she returns. Thank you, Nadiya Anders APRN.CNM * Telephone Encounter - Neli Sommer RN - 10/02/2021 3:56 PM EDT LMP 08/27/21 - 5w1d today documented in this encounterCoshocton Regional Medical Center02-02-2022 History of Past illness Narrative* Problem Noted Date Resolved Date Spotting in 05/29/2021 03/10/2022 Overview: 05/29/2021atient was seen by Radha on May 27 for spotting in and slow rising hCG. She states she has intermittent brown spotting that has continued. She denies any pain. Ultrasound done May 27 showed intrauterine at 7 weeks 4 days. TKRN History of anxiety 05/29/2021 03/10/2022 Overview: 10/17/2021 Patient has a history of anxiety and OCD treated by Dr. Sanchez. She denies any history of depression. She has been off the Celexa since May and believes she is doing well off medication. TKRN Spotting complicating , first trimester 05/27/2021 03/10/2022 Abnormal urine 01/30/2021 03/10/2022 Screening for hyperlipidemia 01/16/2021 History of anemia 10/01/2011 03/10/2022 Irregular menses 10/01/2011 03/10/2022 Pruritus 09/21/2009 03/10/2022 Telogen effluvium 09/21/2009 03/10/2022 documented as of this encounter (statuses as of 03/10/2022) [facility] of Past illness Narrative* Problem Noted Date Resolved Date Spotting in 05/29/2021 03/10/2022 Overview: 05/29/2021atient was seen by Radha on May 27 for spotting in and slow rising hCG. She states she has intermittent brown spotting that has continued. She denies any pain. Ultrasound done May 27 showed intrauterine at 7 weeks 4 days. TKRN History of anxiety 05/29/2021 03/10/2022 Overview: 10/17/2021 Patient has a history of anxiety and OCD treated by Dr. Sanchez. She denies any history of depression. She has been off the Celexa since May and believes she is doing well off medication. TKRN Spotting complicating , first trimester 05/27/2021 03/10/2022 Abnormal urine 01/30/2021 03/10/2022 Screening for hyperlipidemia 01/16/2021 History of anemia 10/01/2011 03/10/2022 Irregular menses 10/01/2011 03/10/2022 Pruritus 09/21/2009 03/10/2022 Telogen effluvium 09/21/2009 03/10/2022 documented as of this encounter (statuses as of 03/12/2022) [facility] of Past illness Narrative* Problem Noted Date Resolved Date Spotting in 05/29/2021 03/10/2022 Overview: 05/29/2021atient was seen by Radha on May 27 for spotting in and slow rising hCG. She states she has intermittent brown spotting that has continued. She denies any pain. Ultrasound done May 27 showed intrauterine at 7 weeks 4 days. TKRN History of anxiety 05/29/2021 03/10/2022 Overview: 10/17/2021 Patient has a history of anxiety and OCD treated by Dr. Sanchez. She denies any history of depression. She has been off the Celexa since May and believes she is doing well off medication. TKRN Spotting complicating , first trimester 05/27/2021 03/10/2022 Abnormal urine 01/30/2021 03/10/2022 Screening for hyperlipidemia 01/16/2021 History of anemia 10/01/2011 03/10/2022 Irregular menses 10/01/2011 03/10/2022 Pruritus 09/21/2009 03/10/2022 Telogen effluvium 09/21/2009 03/10/2022 documented as of this encounter (statuses as of 03/17/2022) [facility] of Past illness Narrative* Problem Noted Date Resolved Date Spotting in 05/29/2021 03/10/2022 Overview: 05/29/2021atient was seen by Radha on May 27 for spotting in and slow rising hCG. She states she has intermittent brown spotting that has continued. She denies any pain. Ultrasound done May 27 showed intrauterine at 7 weeks 4 days. TKRN History of anxiety 05/29/2021 03/10/2022 Overview: 10/17/2021 Patient has a history of anxiety and OCD treated by Dr. Sanchez. She denies any history of depression. She has been off the Celexa since May and believes she is doing well off medication. TKRN Spotting complicating , first trimester 05/27/2021 03/10/2022 Abnormal urine 01/30/2021 03/10/2022 Screening for hyperlipidemia 01/16/2021 History of anemia 10/01/2011 03/10/2022 Irregular menses 10/01/2011 03/10/2022 Pruritus 09/21/2009 03/10/2022 Telogen effluvium 09/21/2009 03/10/2022 documented as of this encounter (statuses as of 03/24/2022) [facility] of Past illness Narrative* Problem Noted Date Resolved Date Spotting in 05/29/2021 03/10/2022 Overview: 05/29/2021atient was seen by Radha on May 27 for spotting in and slow rising hCG. She states she has intermittent brown spotting that has continued. She denies any pain. Ultrasound done May 27 showed intrauterine at 7 weeks 4 days. TKRN History of anxiety 05/29/2021 03/10/2022 Overview: 10/17/2021 Patient has a history of anxiety and OCD treated by Dr. Sanchez. She denies any history of depression. She has been off the Celexa since May and believes she is doing well off medication. TKRN Spotting complicating , first trimester 05/27/2021 03/10/2022 Abnormal urine 01/30/2021 03/10/2022 Screening for hyperlipidemia 01/16/2021 History of anemia 10/01/2011 03/10/2022 Irregular menses 10/01/2011 03/10/2022 Pruritus 09/21/2009 03/10/2022 Telogen effluvium 09/21/2009 03/10/2022 documented as of this encounter (statuses as of 04/09/2022) [facility] of Past illness Narrative* Problem Noted Date Resolved Date Spotting in 05/29/2021 03/10/2022 Overview: 05/29/2021olivia was seen by Radha on May 27 for spotting in and slow rising hCG. She states she has intermittent brown spotting that has continued. She denies any pain. Ultrasound done May 27 showed intrauterine at 7 weeks 4 days. TKRN History of anxiety 05/29/2021 03/10/2022 Overview: 10/17/2021 Patient has a history of anxiety and OCD treated by Dr. Sanchez. She denies any history of depression. She has been off the Celexa since May and believes she is doing well off medication. TKRN Spotting complicating , first trimester 05/27/2021 03/10/2022 Abnormal urine 01/30/2021 03/10/2022 Screening for hyperlipidemia 01/16/2021 History of anemia 10/01/2011 03/10/2022 Irregular menses 10/01/2011 03/10/2022 Pruritus 09/21/2009 03/10/2022 Telogen effluvium 09/21/2009 03/10/2022 documented as of this encounter (statuses as of 04/09/2022) [facility] of Past illness Narrative* Problem Noted Date Resolved Date Spotting in 05/29/2021 03/10/2022 Overview: 05/29/2021olivia was seen by Radha on May 27 for spotting in and slow rising hCG. She states she has intermittent brown spotting that has continued. She denies any pain. Ultrasound done May 27 showed intrauterine at 7 weeks 4 days. TKRN History of anxiety 05/29/2021 03/10/2022 Overview: 10/17/2021 Patient has a history of anxiety and OCD treated by Dr. Sanchez. She denies any history of depression. She has been off the Celexa since May and believes she is doing well off medication. TKRN Spotting complicating , first trimester 05/27/2021 03/10/2022 Abnormal urine 01/30/2021 03/10/2022 Screening for hyperlipidemia 01/16/2021 History of anemia 10/01/2011 03/10/2022 Irregular menses 10/01/2011 03/10/2022 Pruritus 09/21/2009 03/10/2022 Telogen effluvium 09/21/2009 03/10/2022 documented as of this encounter (statuses as of 04/09/2022) [facility] of Past illness Narrative* Problem Noted Date Resolved Date Spotting in 05/29/2021 03/10/2022 Overview: 05/29/2021atient was seen by Radha on May 27 for spotting in and slow rising hCG. She states she has intermittent brown spotting that has continued. She denies any pain. Ultrasound done May 27 showed intrauterine at 7 weeks 4 days. TKRN History of anxiety 05/29/2021 03/10/2022 Overview: 10/17/2021 Patient has a history of anxiety and OCD treated by Dr. Sanchez. She denies any history of depression. She has been off the Celexa since May and believes she is doing well off medication. TKRN Spotting complicating , first trimester 05/27/2021 03/10/2022 Abnormal urine 01/30/2021 03/10/2022 Screening for hyperlipidemia 01/16/2021 History of anemia 10/01/2011 03/10/2022 Irregular menses 10/01/2011 03/10/2022 Pruritus 09/21/2009 03/10/2022 Telogen effluvium 09/21/2009 03/10/2022 documented as of this encounter (statuses as of 04/18/2022) [facility]02-02-2022 History of Past illness Narrative* Problem Noted Date Resolved Date Spotting in 05/29/2021 03/10/2022 Overview: 05/29/2021atient was seen by Radha on May 27 for spotting in and slow rising hCG. She states she has intermittent brown spotting that has continued. She denies any pain. Ultrasound done May 27 showed intrauterine at 7 weeks 4 days. TKRN History of anxiety 05/29/2021 03/10/2022 Overview: 10/17/2021 Patient has a history of anxiety and OCD treated by Dr. Sanchez. She denies any history of depression. She has been off the Celexa since May and believes she is doing well off medication. TKRN Spotting complicating , first trimester 05/27/2021 03/10/2022 Abnormal urine 01/30/2021 03/10/2022 Screening for hyperlipidemia 01/16/2021 History of anemia 10/01/2011 03/10/2022 Irregular menses 10/01/2011 03/10/2022 Pruritus 09/21/2009 03/10/2022 Telogen effluvium 09/21/2009 03/10/2022 documented as of this encounter (statuses as of 04/30/2022) [facility]02-02-2022 History of Past illness Narrative* Problem Noted Date Resolved Date Spotting in 05/29/2021 03/10/2022 Overview: 05/29/2021atient was seen by Radha on May 27 for spotting in and slow rising hCG. She states she has intermittent brown spotting that has continued. She denies any pain. Ultrasound done May 27 showed intrauterine at 7 weeks 4 days. TKRN History of anxiety 05/29/2021 03/10/2022 Overview: 10/17/2021 Patient has a history of anxiety and OCD treated by Dr. Sanchez. She denies any history of depression. She has been off the Celexa since May and believes she is doing well off medication. TKRN Spotting complicating , first trimester 05/27/2021 03/10/2022 Abnormal urine 01/30/2021 03/10/2022 Screening for hyperlipidemia 01/16/2021 History of anemia 10/01/2011 03/10/2022 Irregular menses 10/01/2011 03/10/2022 Pruritus 09/21/2009 03/10/2022 Telogen effluvium 09/21/2009 03/10/2022 documented as of this encounter (statuses as of 05/01/2022) [facility]02-02-2022 History of Past illness Narrative* Problem Noted Date Resolved Date Spotting in 05/29/2021 03/10/2022 Overview: 05/29/2021atian was seen by Radha on May 27 for spotting in and slow rising hCG. She states she has intermittent brown spotting that has continued. She denies any pain. Ultrasound done May 27 showed intrauterine at 7 weeks 4 days. TKRN History of anxiety 05/29/2021 03/10/2022 Overview: 10/17/2021 Patient has a history of anxiety and OCD treated by Dr. Sanchez. She denies any history of depression. She has been off the Celexa since May and believes she is doing well off medication. TKRN Spotting complicating , first trimester 05/27/2021 03/10/2022 Abnormal urine 01/30/2021 03/10/2022 Screening for hyperlipidemia 01/16/2021 History of anemia 10/01/2011 03/10/2022 Irregular menses 10/01/2011 03/10/2022 Pruritus 09/21/2009 03/10/2022 Telogen effluvium 09/21/2009 03/10/2022 documented as of this encounter (statuses as of 05/01/2022) [facility]2022 History of Past illness Narrative* Problem Noted Date Resolved Date Spotting in 05/29/2021 03/10/2022 Overview: 05/29/2021atian was seen by Radha on May 27 for spotting in and slow rising hCG. She states she has intermittent brown spotting that has continued. She denies any pain. Ultrasound done May 27 showed intrauterine at 7 weeks 4 days. TKRN History of anxiety 05/29/2021 03/10/2022 Overview: 10/17/2021 Patient has a history of anxiety and OCD treated by Dr. Sanchez. She denies any history of depression. She has been off the Celexa since May and believes she is doing well off medication. TKRN Spotting complicating , first trimester 05/27/2021 03/10/2022 Abnormal urine 01/30/2021 03/10/2022 Screening for hyperlipidemia 01/16/2021 History of anemia 10/01/2011 03/10/2022 Irregular menses 10/01/2011 03/10/2022 Pruritus 09/21/2009 03/10/2022 Telogen effluvium 09/21/2009 03/10/2022 documented as of this encounter (statuses as of 05/03/2022) [facility]-02-2022 History of Past illness Narrative* Problem Noted Date Resolved Date Spotting in 05/29/2021 03/10/2022 Overview: 05/29/2021atient was seen by Radha on May 27 for spotting in and slow rising hCG. She states she has intermittent brown spotting that has continued. She denies any pain. Ultrasound done May 27 showed intrauterine at 7 weeks 4 days. TKRN History of anxiety 05/29/2021 03/10/2022 Overview: 10/17/2021 Patient has a history of anxiety and OCD treated by Dr. Sanchez. She denies any history of depression. She has been off the Celexa since May and believes she is doing well off medication. TKRN Spotting complicating , first trimester 05/27/2021 03/10/2022 Abnormal urine 01/30/2021 03/10/2022 Screening for hyperlipidemia 01/16/2021 History of anemia 10/01/2011 03/10/2022 Irregular menses 10/01/2011 03/10/2022 Pruritus 09/21/2009 03/10/2022 Telogen effluvium 09/21/2009 03/10/2022 documented as of this encounter (statuses as of 05/07/2022) [facility]02-02-2022 History of Past illness Narrative* Problem Noted Date Resolved Date Spotting in 05/29/2021 03/10/2022 Overview: 05/29/2021atian was seen by Radha on May 27 for spotting in and slow rising hCG. She states she has intermittent brown spotting that has continued. She denies any pain. Ultrasound done May 27 showed intrauterine at 7 weeks 4 days. TKRN History of anxiety 05/29/2021 03/10/2022 Overview: 10/17/2021 Patient has a history of anxiety and OCD treated by Dr. Sanchez. She denies any history of depression. She has been off the Celexa since May and believes she is doing well off medication. TKRN Spotting complicating , first trimester 05/27/2021 03/10/2022 Abnormal urine 01/30/2021 03/10/2022 Screening for hyperlipidemia 01/16/2021 History of anemia 10/01/2011 03/10/2022 Irregular menses 10/01/2011 03/10/2022 Pruritus 09/21/2009 03/10/2022 Telogen effluvium 09/21/2009 03/10/2022 documented as of this encounter (statuses as of 05/09/2022) [facility]02-02-2022 History of Past illness Narrative* Problem Noted Date Resolved Date Spotting in 05/29/2021 03/10/2022 Overview: 05/29/2021atian was seen by Radha on May 27 for spotting in and slow rising hCG. She states she has intermittent brown spotting that has continued. She denies any pain. Ultrasound done May 27 showed intrauterine at 7 weeks 4 days. TKRN History of anxiety 05/29/2021 03/10/2022 Overview: 10/17/2021 Patient has a history of anxiety and OCD treated by Dr. Sanchez. She denies any history of depression. She has been off the Celexa since May and believes she is doing well off medication. TKRN Spotting complicating , first trimester 05/27/2021 03/10/2022 Abnormal urine 01/30/2021 03/10/2022 Screening for hyperlipidemia 01/16/2021 History of anemia 10/01/2011 03/10/2022 Irregular menses 10/01/2011 03/10/2022 Pruritus 09/21/2009 03/10/2022 Telogen effluvium 09/21/2009 03/10/2022 documented as of this encounter (statuses as of 05/15/2022) [facility]10-06-2021 NoteHNO ID: [id number] Author: Daniel Sanchez, Service: ? Author Type: Physician Type: Progress Notes Filed: 02/06/2021 10:49 PM Note Text: [facility] Doversanto Sanchez DO [address] [place] [address] Date of Evaluation: 01/30/2021 Patient Name: Sun Carrero : 1990 Chief Complaint: Patient presents with: Follow Up: new medication for anxiety and ocd Nursing Intake: There are no exam notes on file for this visit. Subjective Ms. Carrero is a 30 year old female who presents with the following complaint(s): The history is provided by the patient. No foreign languages department chair was used. Review of Systems Constitutional: Negative for fatigue and unexpected weight change. HENT: Negative for nosebleeds. Eyes: Negative for redness and visual disturbance. Respiratory: Negative for apnea, cough and shortness of breath. Cardiovascular: Negative for chest pain, palpitations and leg swelling. Genitourinary: Negative for hematuria. Neurological: Negative for dizziness, weakness, light-headedness, numbness and headaches. Hematological: Does not bruise/bleed easily. Psychiatric/Behavioral: The patient is nervous/anxious. PAST MEDICAL HISTORY Diagnosis Date - PMH - PAST MEDICAL HISTORY OF normal color vision PAST SURGICAL HISTORY Procedure Laterality Date - EXTRACTION, ERUPTED TOOTH OR EXPOSED ROOT (ELEVATION AND/OR FORCEPS REMOVAL) 2008 wisdom teeth x 4 FAMILY HISTORY Problem Relation Age of Onset - No Known Problems Mother - No Known Problems Father - No Known Problems Brother - Emphysema Maternal Grandmother Smoker Social History Tobacco Use - Smoking status: Never Smoker - Smokeless tobacco: Never Used Vaping Use - Vaping Use: Never used Substance Use Topics - Alcohol use: Yes Comment: Occasionally - Drug use: No Current Medications MEDICATION, NON-DATABASE nutrafol for women vitamin citalopram (CELEXA) 20 mg tablet Take 0.5 tablets by mouth once daily for 7 days, THEN 1 tablet once daily. I have confirmed and edited as necessary the past medical, family and social histories, HPI, and ROS obtained by others. Objective BP 108/78 Pulse 85 Temp 98 Ht 5' 1 (1.55m) Wt 203 lb (92.1kg) SpO2 97% LMP 01/07/2021 BMI 38.38 kg/(m2). Physical Exam Vitals and nursing note reviewed. Constitutional: General: She is not in acute distress. Appearance: Normal appearance. She is well-developed. She is not ill-appearing. HENT: Head: Normocephalic. Right Ear: Tympanic membrane, ear canal and external ear normal. There is no impacted cerumen. Left Ear: Tympanic membrane, ear canal and external ear normal. There is no impacted cerumen. Nose: Nose normal. Mouth/Throat: Mouth: Mucous membranes are moist. Pharynx: Oropharynx is clear. Uvula midline. No oropharyngeal exudate or posterior oropharyngeal erythema. Eyes: General: Lids are normal. Vision grossly intact. Gaze aligned appropriately. No scleral icterus. Right eye: No discharge. Left eye: No discharge. Extraocular Movements: Extraocular movements intact. Conjunctiva/sclera: Conjunctivae normal. Pupils: Pupils are equal, round, and reactive to light. Neck: Thyroid: No thyroid mass, thyromegaly or thyroid tenderness. Vascular: No carotid bruit. Trachea: Trachea and phonation normal. Cardiovascular: Rate and Rhythm: Normal rate and regular rhythm. Pulses: Normal pulses. Heart sounds: Normal heart sounds. Pulmonary: Effort: Pulmonary effort is normal. Breath sounds: Normal breath sounds. Abdominal: General: Abdomen is flat. Bowel sounds are normal. Palpations: Abdomen is soft. Musculoskeletal: General: Normal range of motion. Right shoulder: Normal. Left shoulder: Normal. Cervical back: Normal, full passive range of motion without pain and neck supple. No tenderness. No spinous process tenderness. Thoracic back: Normal. Lumbar back: Normal. Right knee: Normal. Left knee: Normal. Right lower leg: No edema. Left lower leg: No edema. Lymphadenopathy: Cervical: No cervical adenopathy. Skin: General: Skin is warm and dry. Neurological: General: No focal deficit present. Mental Status: She is alert and oriented to person, place, and time. Mental status is at baseline. Cranial Nerves: Cranial nerves are intact. Sensory: Sensation is intact. Motor: Motor function is intact. Psychiatric: Attention and Perception: Attention and perception normal. Mood and Affect: Mood normal. Speech: Speech normal. Behavior: Behavior normal. Thought Content: Thought content normal. Judgment: Judgment normal. Data Reviewed: No new labs ASSESSMENT/PLAN: 1. MANNY (generalized anxiety disorder) - ICD9: 300.02, ICD10: F41.1 (primary diagnosis) - Stable, slightly improved on medication. Do not feel patient has bee (more content not included)...[facility]09-22-2021 NoteHNO ID: [id number] Author: Daniel Sanchez DO Service: ? Author Type: Physician Type: Progress Notes Filed: 01/21/2021 6:33 AM Note Text: [facility] Diony Sanchez DO [address] [place] [address] Date of Evaluation: 01/16/2021 Patient Name: Sun Carrero : 1990 Chief Complaint: Patient presents with: New Patient Follow Up: after seeing therapist. suggested blood work Nursing Intake: There are no exam notes on file for this visit. Subjective Ms. Carrero is a 30 year old female who presents with the following complaint(s): The history is provided by the patient. No foreign languages department chair was used. Anxiety Pertinent negatives include no weakness. This is a new problem. The current episode started more than 1 month ago. The problem has been gradually worsening since onset. (OCD thoughts and actions. Takes pictures of the doors at night to make sure they are locked . ) Treatments tried: Counseling Improvement on treatment: was advised to discuss SSRI. Review of Systems Constitutional: Negative for fatigue and unexpected weight change. HENT: Negative for nosebleeds. Eyes: Negative for redness and visual disturbance. Respiratory: Negative for apnea, cough and shortness of breath. Cardiovascular: Negative for chest pain, palpitations and leg swelling. Genitourinary: Negative for hematuria. Neurological: Negative for dizziness, weakness, light-headedness, numbness and headaches. Hematological: Does not bruise/bleed easily. Psychiatric/Behavioral: Positive for sleep disturbance. The patient is nervous/anxious. PAST MEDICAL HISTORY Diagnosis Date - PMH - PAST MEDICAL HISTORY OF normal color vision PAST SURGICAL HISTORY Procedure Laterality Date - EXTRACTION, ERUPTED TOOTH OR EXPOSED ROOT (ELEVATION AND/OR FORCEPS REMOVAL) 2008 wisdom teeth x 4 FAMILY HISTORY Problem Relation Age of Onset - No Known Problems Mother - No Known Problems Father - No Known Problems Brother - Emphysema Maternal Grandmother Smoker Social History Tobacco Use - Smoking status: Never Smoker - Smokeless tobacco: Never Used Vaping Use - Vaping Use: Never used Substance Use Topics - Alcohol use: Yes Comment: Occasionally - Drug use: No Current Meds MEDICATION, NON-DATABASE nutrafol for women vitamin citalopram (CELEXA) 20 mg tablet Take 0.5 tablets by mouth once daily for 7 days, THEN 1 tablet once daily. LORazepam (ATIVAN) 1 mg tablet Take 1 tablet by mouth every 6 hours as needed for up to 3 days. Desogestrel-Ethinyl Estradiol (APRI) 0.15-30 mg-mcg per tablet Take 1 tablet by mouth once daily. ferrous sulfate(SLOW FE 47.5 MG (IRON) TAB) Take one(1) tablet daily. I have confirmed and edited as necessary the past medical, family and social histories, HPI, and ROS obtained by others. Objective BP 120/90 Pulse 77 Temp 97.2 Ht 5' 1 (1.55m) Wt 205 lb (93.0kg) SpO2 98% LMP 06/22/2014 BMI 38.75 kg/(m2). Physical Exam Vitals and nursing note reviewed. Constitutional: General: She is not in acute distress. Appearance: Normal appearance. She is well-developed. She is not ill-appearing. HENT: Head: Normocephalic. Right Ear: Tympanic membrane, ear canal and external ear normal. There is no impacted cerumen. Left Ear: Tympanic membrane, ear canal and external ear normal. There is no impacted cerumen. Nose: Nose normal. Mouth/Throat: Mouth: Mucous membranes are moist. Pharynx: Oropharynx is clear. Uvula midline. No oropharyngeal exudate or posterior oropharyngeal erythema. Eyes: General: Lids are normal. Vision grossly intact. Gaze aligned appropriately. No scleral icterus. Right eye: No discharge. Left eye: No discharge. Extraocular Movements: Extraocular movements intact. Conjunctiva/sclera: Conjunctivae normal. Pupils: Pupils are equal, round, and reactive to light. Neck: Thyroid: No thyroid mass, thyromegaly or thyroid tenderness. Vascular: No carotid bruit. Trachea: Trachea and phonation normal. Cardiovascular: Rate and Rhythm: Normal rate and regular rhythm. Pulses: Normal pulses. Heart sounds: Normal heart sounds. Pulmonary: Effort: Pulmonary effort is normal. Breath sounds: Normal breath sounds. Abdominal: General: Abdomen is flat. Bowel sounds are normal. Palpations: Abdomen is soft. Musculoskeletal: General: Normal range of motion. Right shoulder: Normal. Left shoulder: Normal. Cervical back: Normal, full passive range of motion without pain and neck supple. No tenderness. No spinous process tenderness. Thoracic back: Normal. Lumbar back: Normal. Right knee: Normal. Left knee: Normal. Right lower leg: No edema. Left lower leg: No edema. Lymphadenopathy: Cervical: No cervical adenopathy. Skin: General: Skin is warm and dry. Neurological: (more content not included)...[facility]09-22-2021 Instructions* Patient Instructions* Norma Mitchell - 01/16/2021 8:54 AM EDT Images from the original note were not included. An Overview of Anxiety Disorders What is an anxiety disorder? Anxiety is a normal human emotion. Many people feel anxious, or nervous, when faced with a problem at work, or before taking a test or making an important decision. Anxiety disorders, however, are different. They can cause such distress that it interferes with a person's ability to lead a normal life. An anxiety disorder is a serious mental illness. People with anxiety disorders respond to certain things or situations with fear and dread, as well as physical signs of anxiety such as a pounding heart and sweating. For people with anxiety disorders, worry and fear are constant and overwhelming, and can be crippling. An anxiety disorder is diagnosed if the person's response is not appropriate for the situation, if the person cannot control the response or if the anxiety interferes with normal functioning. Anxiety disorders can get worse if not treated; however, effective treatments are available. What are the types of anxiety disorders? There are several recognized anxiety disorders, including the following: Panic disorder People with this disorder have feelings of terror that strike suddenly and repeatedly with no warning. Other symptoms of a panic attack include sweating, chest pain, palpitations (unpleasant sensations of irregular heartbeats) and a feeling of choking, which might make the person feel like he or she is having a heart attack or going crazy. Obsessive-compulsive disorder (OCD) People with OCD are plagued by constant thoughts or fears that cause them to perform certain rituals or routines. The disturbing thoughts are called obsessions, and the rituals are called compulsions. An example is a person with an unreasonable fear of germs who constantly washes his or her hands. Post-traumatic stress disorder (PTSD) PTSD is a condition that can develop following a traumatic and/or terrifying event, such as a sexual or physical assault, the unexpected of a loved one, or a natural disaster. People with PTSD often have lasting and frightening thoughts and memories of the event, and tend to be emotionally numb. Social anxiety disorder Also called social phobia, social anxiety disorder involves overwhelming worry and self-consciousness about everyday social situations. The worry often centers on a fear of being judged by others, orbehaving in a way that might cause embarrassment or lead to ridicule. Specific phobias A specific phobia is an intense fear of a specific object or situation, such as snakes, heights or flying. The level of fear usually is inappropriate to the situation and might cause the person to avoid common, everyday situations. Generalized anxiety disorder This disorder involves excessive, unrealistic worry and tension, even if there is little or nothingto provoke the anxiety. What are the symptoms of an anxiety disorder? Symptoms vary depending on the type of anxiety disorder, but general symptoms of anxiety include: Feelings of panic, fear and uneasiness Uncontrollable, obsessive thoughts Repeated thoughts or flashbacks of traumatic experiences Nightmares Ritualistic behaviors, such as repeated hand washing Problems sleeping Cold or sweaty hands Shortness of breath Palpitations An inability to be still and calm Dry mouth Numbness or tingling in the hands or feet Nausea Muscle tension What causes anxiety disorders? The exact cause of anxiety disorders is not known; but anxiety disorders like other forms of mentalillness are not the result of personal weakness, a character flaw or poor upbringing. As scientistscontinue their research on mental illness, it is becoming clear that many of these disorders are caused by a combination of factors, including biology and environmental stresses. Like certain illnesses, such as diabetes, anxiety disorders might be caused by chemical imbalances in the body. Studies have shown that severe or long-lasting stress can change the balance of chemicals in the brain that control mood. Studies also have shown that anxiety disorders run in families, which means that they can be inherited from one or both parents, like hair or eye color. In addition,certain environmental factors such as a trauma or significant event might trigger an anxiety disorder in people who have an inherited susceptibility to developing the disorder. How common are anxiety disorders? Anxiety disorders affect about 40 million adult Americans.They are the most common mental illnessesin the [place] Most anxiety disorders begin in childhood, adolescence and early adulthood. They occur more often in women than in men. How are anxiety disorders diagnosed? If symptoms are present, the doctor will begin an evaluation by performing a complete medical history and physical examination. Although there are no laboratory tests to specifically diagnose anxiety disorders, the doctor mightuse various diagnostic tests to rule out physical illness as the cause of the symptoms. If no physical illness is found, the person might be referred to a psychiatrist or psychologist, mental health professionals who are specially trained to diagnose and treat mental illnesses. Psychiatrists and psychologists use specially designed interview and assessment tools to evaluate a person for an anxiety disorder. The doctor bases his or her diagnosis on the patient's report of the intensity and duration of symptoms including any problems with daily functioning caused by the symptoms andthe doctor's observation of the patient's attitude and behavior. The doctor then determines if the patient's symptoms and degree of dysfunction indicate a specific anxiety disorder. The standard refer ence manual used for the diagnosis of recognized mental illnesses in the [place] is the Diagnostic and Statistical Manual of Mental Disorders (DSM-5), published by the [place] [employer]. How are anxiety disorders treated? Anxiety disorders are real disorders that require treatment. Recovery is not simply a matter of will and self-discipline. Fortunately, much progress has been made in the last two decades in the treatment of people with mental illnesses. Although the exact treatment approach depends on the type of disorder, one or a combination of the following therapies might be used for most anxiety disorders: Medication Medicines used to reduce the symptoms of anxiety disorders include antidepressants and anxiety-reducing medications. Psychotherapy Psychotherapy (a type of counseling) addresses the emotional response to mental illness. It is a process in which trained mental health professionals help people by talking through strategies for understanding and dealing with their disorder. Cognitive-behavioral therapy People suffering from anxiety disorders often participate in this type of therapy in which the person learns to recognize and change thought patterns and behaviors that lead to troublesome feelings. What is the outlook for people with anxiety disorders? Early diagnosis and treatment can limit the problems caused by an anxiety disorder and improve the outlook. Unfortunately, many anxiety disorders are not recognized and, as a result, not treated. Can anxiety disorders be prevented? Anxiety disorders cannot be prevented; however, there are some things you can do to control or decrease symptoms: Stop or reduce your consumption of products that contain caffeine, such as coffee, tea, cola and chocolate. Ask your doctor or pharmacist before taking any [id number] medicines or herbal remedies. Manycontain chemicals that can increase anxiety symptoms. Exercise daily and eat a healthy, balanced diet. Seek counseling and support after a traumatic or disturbing experience. References [employer]. Anxiety Accessed 01/26/2014. [employer] [employer]. DSM Accessed 01/26/2014. Copyright 3387-7169 [facility]. All rights reserved This information is provided by the [facility] and is not intended to replace the medical advice of your doctor or health care provider. Please consult your health care provider for advice about a specific medical condition. For additional health information, please contact the Center for Consumer Health Information at the [facility] or toll-free extension [phone]. If you prefer, you may visit [email or web address] or [email or web address]. This document was last reviewed on: 2017 index#[id number] documented in this encounter[facility]09-[facility]21 History of Present illness Narrative* Daniel Sanchez DO - 01/16/2021 8:19 AM EDT Images from the original note were not included. [facility] [place] Daniel Sanchez DO [address] [place] [address] Date of Evaluation: 01/16/2021 Patient Name: Sun Carrero : 1990 Chief Complaint: Patient presents with: New Patient Follow Up: after seeing therapist. suggested blood work Nursing Intake: There are no exam notes on file for this visit. Subjective Ms. Carrero is a 30 year old female who presents with the following complaint(s): The history is provided by the patient. No foreign languages department chair was used. Anxiety Pertinent negatives include no weakness. This is a new problem. The current episode started more than 1 month ago. The problem has been gradually worsening since onset. (OCD thoughts and actions. Takes pictures of the doors at night to make sure they are locked . ) Treatments tried: Counseling Improvement on treatment: was advised to discuss SSRI. Review of Systems Constitutional: Negative for fatigue and unexpected weight change. HENT: Negative for nosebleeds. Eyes: Negative for redness and visual disturbance. Respiratory: Negative for apnea, cough and shortness of breath. Cardiovascular: Negative for chest pain, palpitations and leg swelling. Genitourinary: Negative for hematuria. Neurological: Negative for dizziness, weakness, light-headedness, numbness and headaches. Hematological: Does not bruise/bleed easily. Psychiatric/Behavioral: Positive for sleep disturbance. The patient is nervous/anxious. PAST MEDICAL HISTORY Diagnosis Date PMH - PAST MEDICAL HISTORY OF normal color vision PAST SURGICAL HISTORY Procedure Laterality Date EXTRACTION, ERUPTED TOOTH OR EXPOSED ROOT (ELEVATION AND/OR FORCEPS REMOVAL) 2008 wisdom teeth x 4 FAMILY HISTORY Problem Relation Age of Onset No Known Problems Mother No Known Problems Father No Known Problems Brother Emphysema Maternal Grandmother Smoker Social History Tobacco Use Smoking status: Never Smoker Smokeless tobacco: Never Used Vaping Use Vaping Use: Never used Substance Use Topics Alcohol use: Yes Comment: Occasionally Drug use: No Current Meds MEDICATION, NON-DATABASE nutrafol for women vitamin citalopram (CELEXA) 20 mg tablet Take 0.5 tablets by mouth once daily for 7 days, THEN 1 tablet once daily. LORazepam (ATIVAN) 1 mg tablet Take 1 tablet by mouth every 6 hours as needed for up to 3 days. Desogestrel-Ethinyl Estradiol (APRI) 0.15-30 mg-mcg per tablet Take 1 tablet by mouth once daily. ferrous sulfate(SLOW FE 47.5 MG (IRON) TAB) Take one(1) tablet daily. I have confirmed and edited as necessary the past medical, family and social histories, HPI, and ROS obtained by others. Objective BP 120/90 Pulse 77 Temp 97.2 Ht 5' 1 (1.55m) Wt 205 lb (93.0kg) SpO2 98% LMP 06/22/2014 BMI 38.75 kg/(m^2). Physical Exam Vitals and nursing note reviewed. Constitutional: General: She is not in acute distress. Appearance: Normal appearance. She is well-developed. She is not ill-appearing. HENT: Head: Normocephalic. Right Ear: Tympanic membrane, ear canal and external ear normal. There is no impacted cerumen. Left Ear: Tympanic membrane, ear canal and external ear normal. There is no impacted cerumen. Nose: Nose normal. Mouth/Throat: Mouth: Mucous membranes are moist. Pharynx: Oropharynx is clear. Uvula midline. No oropharyngeal exudate or posterior oropharyngeal erythema. Eyes: General: Lids are normal. Vision grossly intact. Gaze aligned appropriately. No scleral icterus. Right eye: No discharge. Left eye: No discharge. Extraocular Movements: Extraocular movements intact. Conjunctiva/sclera: Conjunctivae normal. Pupils: Pupils are equal, round, and reactive to light. Neck: Thyroid: No thyroid mass, thyromegaly or thyroid tenderness. Vascular: No carotid bruit. Trachea: Trachea and phonation normal. Cardiovascular: Rate and Rhythm: Normal rate and regular rhythm. Pulses: Normal pulses. Heart sounds: Normal heart sounds. Pulmonary: Effort: Pulmonary effort is normal. Breath sounds: Normal breath sounds. Abdominal: General: Abdomen is flat. Bowel sounds are normal. Palpations: Abdomen is soft. Musculoskeletal: General: Normal range of motion. Right shoulder: Normal. Left shoulder: Normal. Cervical back: Normal, full passive range of motion without pain and neck supple. No tenderness. Nospinous process tenderness. Thoracic back: Normal. Lumbar back: Normal. Right knee: Normal. Left knee: Normal. Right lower leg: No edema. Left lower leg: No edema. Lymphadenopathy: Cervical: No cervical adenopathy. Skin: General: Skin is warm and dry. Neurological: General: No focal deficit present. Mental Status: She is alert and oriented to person, place, and time. Mental status is at baseline. Cranial Nerves: Cranial nerves are intact. Sensory: Sensation is intact. Motor: Motor function is intact. Psychiatric: Attention and Perception: Attention and perception normal. Mood and Affect: Mood normal. Speech: Speech normal. Behavior: Behavior normal. Thought Content: Thought content normal. Judgment: Judgment normal. Data Reviewed: No new labs ASSESSMENT/PLAN: 1. MANNY (generalized anxiety disorder) - ICD9: 300.02, ICD10: F41.1 (primary diagnosis) - Worsening symptoms - Continue Counseling - Start Citalopram - Start Lorazepam as needed for anxiety/panic - CITALOPRAM 20 MG TABLET - LORAZEPAM 1 MG TABLET 2. Mixed obsessional thoughts and acts - ICD9: 300.3, ICD10: F42.2 3. Screening for thyroid disorder - ICD9: V77.0, ICD10: Z13.29 - TSH BLD 4. Screening for hyperlipidemia - ICD9: V77.91, ICD10: Z13.220 - CBC + DIFF - COMP METABOLIC PANEL - LIPID PANEL BASIC - URINALYSIS, WITH MICROSCOPIC Return in about 6 weeks (around 02/27/2021) for medication follow up. Daniel Sanchez DO Attestation: Scribe Statement: Beni Mitchell am scribing for, and in the presence of, Daniel Sanchez DO January 16, 2021 8:42 AM. Physician Statement: I, Daniel Sanchez DO, personally performed the services described in the documentation, as scribed by Norma Hernandez in my presence, and it is both accurate and complete January 16, 2021 8:56 AM. documented in this encounter[facility]* Diagnosis MANNY (generalized anxiety disorder)- Primary Generalized anxiety disorder Mixed obsessional thoughts and acts Screening for thyroid disorder Screening for hyperlipidemia Screening for lipoid disorders documented in this encounter [facility]* Diagnosis Bleeding in early - Primary Unspecified hemorrhage in early , unspecified as to episode of care documented in this encounter [facility]* Diagnosis Obesity in - Primary Obesity complicating , childbirth, or the puerperium, unspecified as to episode of care or not applicable MANNY (generalized anxiety disorder) Generalized anxiety disorder Current with history of spontaneous during prior High-risk in first trimester documented in [facility] encounter [facility]* Diagnosis Encounter for (NT) nuchal translucency scan- Primary Other specified screening documented in this encounter [facility]* Diagnosis Encounter for (NT) nuchal translucency scan- Primary Other specified screening 11 weeks gestation of state, incidental Obesity in Obesity complicating , childbirth, or the puerperium, unspecified as to episode of care or not applicable documented in this encounter [facility]* Diagnosis Multigravida in first trimester- Primary [facility] Diagnosis Rectal bleeding- Primary Hemorrhage of rectum and anus [facility]* Diagnosis Abnormal genetic test in - Primary Abnormal findings on screening documented in this encounter [facility]* Diagnosis Obesity in - Primary Obesity complicating , childbirth, or the puerperium, unspecified as to episode of care or not applicable Supervision of high risk in second trimester Unspecified high-risk 15 weeks gestation of state, incidental documented in this encounter [facility]* Diagnosis Encounter for anatomic survey- Primary Abnormal maternal serum screening test Abnormal findings on screening 17 weeks gestation of state, incidental Obesity complicating , second trimester documented in this encounter [facility]* Diagnosis Obesity in - Primary Obesity complicating , childbirth, or the puerperium, unspecified as to episode of care or not applicable 19 weeks gestation of state, incidental documented in this encounter [facility]* Diagnosis Encounter for follow-up ultrasound of anatomy- Primary 21 weeks gestation of state, incidental [facility] Diagnosis Obesity in - Primary Obesity complicating , childbirth, or the puerperium, unspecified as to episode of care or not applicable 27 weeks gestation of state, incidental Need for vaccination Need for prophylactic vaccination and inoculation against unspecified single disease [facility]* Diagnosis Abnormal glucose complicating - Primary Abnormal maternal glucose tolerance, complicating , childbirth, or the puerperium, unspecified as to episode of care documented in this encounter [facility]* Diagnosis Obesity in - Primary Obesity complicating , childbirth, or the puerperium, unspecified as to episode of care or not applicable Anemia during in third trimester 29 weeks gestation of state, incidental documented in this encounter [facility]* Diagnosis 32 weeks gestation of - Primary state, incidental [facility]* Diagnosis Obesity in - Primary Obesity complicating , childbirth, or the puerperium, unspecified as to episode of care or not applicable 32 weeks gestation of state, incidental [facility]* Diagnosis 33 weeks gestation of - Primary state, incidental Anemia during in third trimester Obesity complicating , third trimester Supervision of high risk in third trimester Unspecified high-risk documented in this encounter [facility]* Diagnosis Gestational hypertension without significant proteinuria in third trimester- Primary Transient hypertension of , antepartum Obesity in , antepartum Obesity complicating , childbirth, or the puerperium, antepartum condition or complication 34 weeks gestation of state, incidental [facility]* Diagnosis Non-reactive NST (non-stress test)- Primary Abnormal findings on screening Gestational hypertension without significant proteinuria in third trimester Transient hypertension of , antepartum Obesity in Obesity complicating , childbirth, or the puerperium, unspecified as to episode of care or not applicable 35 weeks gestation of state, incidental [facility]* Diagnosis Gestational hypertension without significant proteinuria in third trimester Transient hypertension of , antepartum documented in this encounter [facility]* Diagnosis Onset Date Resolution Status 35 weeks gestation of acute Headache in acute Preeclampsia acute [facility] Work Phone: [employer] note* Diagnosis Onset Date Resolution Status 35 weeks gestation of acute Headache in acute Preeclampsia acute 35 weeks gestation of acute Delivery by section acute Encounter for induction of labor acute Failed induction of labor ac [place] Obesity acute Preeclampsia acute Preeclampsia, severe acute Psychiatric disorder acute [facility] Work Phone: evaluation note* Diagnosis care and examination of lactating mother- Primary documented in this encounter [facility]* Diagnosis care and examination- Primary Routine follow-up documented in this encounter [facility]* Diagnosis Vaginal itching- Primary Pruritus of genital organs Allergic contact dermatitis, unspecified trigger documented in this encounter [facility]* Diagnosis Vaginal itching- Primary Pruritus of genital organs documented in this encounter [facility]* Diagnosis Positive test- Primary examination or test, positive result documented in this encounter [facility]* Diagnosis Spotting in - Primary Spotting complicating , unspecified as to episode of care or not applicable documented in this encounter [facility]* Diagnosis Screening for cervical cancer- Primary Screening for malignant neoplasm of the cervix Encounter for supervision of normal first in first trimester Supervision of normal first Screen for STD (sexually transmitted disease) Screening examination for venereal disease Supervision of high risk in first trimester Unspecified high-risk Supervision of other high risk pregnancies, first trimester Obesity in Obesity complicating , childbirth, or the puerperium, unspecified as to episode of care or not applicable History of section Other postprocedural status History of gestational hypertension Hx of preeclampsia, prior , currently with other poor obstetric history Telogen effluvium MANNY (generalized anxiety disorder) Generalized anxiety disorder History of anxiety Personal history of other mental disorder documented in this encounter [facility]* Diagnosis Supervision of other high risk pregnancies, first trimester- Primary Encounter for screening of mother Unspecified screening documented in this encounter [facility]* Diagnosis Supervision of high risk in second trimester- Primary Unspecified high-risk 12 weeks gestation of state, incidental Obesity in Obesity complicating , childbirth, or the puerperium, unspecified as to episode of care or not applicable Hx of preeclampsia, prior , currently with other poor obstetric history History of section Other postprocedural status History of gestational hypertension MANNY (generalized anxiety disorder) Generalized anxiety disorder Supervision of other high risk pregnancies, first trimester documented in this encounter [facility]* Diagnosis Obesity in - Primary Obesity complicating , childbirth, or the puerperium, unspecified as to episode of care or not applicable Supervision of high risk in first trimester Unspecified high-risk screening for malformation using ultrasonics Encounter for routine screening for malformation using ultrasonics documented [facility] this encounter [facility]* Diagnosis History of section- Primary Other postprocedural status Supervision of other high risk pregnancies, first trimester Severe obesity due to excess calories affecting , antepartum ([facility]) BMI 40.0-44.9, adult ([facility]) Body Mass Index 40.0-44.9, adult [facility] Diagnosis Supervision of high risk in second trimester- Primary Unspecified high-risk 15 weeks gestation of state, incidental History of section Other postprocedural status Obesity affecting in second trimester, unspecified obesity type Hx of preeclampsia, prior , currently with other poor obstetric history History of gestational hypertension documented in this encounter [facility]* Diagnosis Encounter for screening for malformation using ultrasound- Primary 15 weeks gestation of state, incidental Obesity affecting in second trimester, unspecified obesity type documented in this encounter [facility]* Diagnosis Supervision of high risk in second trimester- Primary Unspecified high-risk 20 weeks gestation of state, incidental Obesity affecting in second trimester, unspecified obesity type Hx of preeclampsia, prior , currently with other poor obstetric history History of section Other postprocedural status History of gestational hypertension MANNY (generalized anxiety disorder) Generalized anxiety disorder documented in this encounter [facility]* Diagnosis Encounter for anatomic survey- Primary 20 weeks gestation of state, incidental Obesity affecting in second trimester, unspecified obesity type documented [facility] this encounter [facility]* Diagnosis Supervision of high risk in second trimester (HCC)- Primary Unspecified high-risk Obesity affecting in second trimester, unspecified obesity type (HCC) 23 weeks gestation of (HCC) state, incidental Screening for diabetes mellitus Malaise and fatigue Other malaise and fatigue * Assessment & Plan Note - Isael Gandara MD - 07/25/2024 8:49 AM EDT Associated Problem(s): Supervision of high risk in second trimester Orders: GESTATIONAL GLUCOSE SCREEN, 1-HOUR, 50 GRAM, NON-FASTING; Future SYPHILIS TREPONEMAL W/REFLEX; Future ANEMIA REFLEX PANEL; Future POLYSOMNOGRAM (PSG); Future documented in this encounter [facility] note* Diagnosis Supervision of high risk in second trimester (HCC)- Primary Unspecified high-risk Obesity affecting in second trimester, unspecified obesity type (HCC) 23 weeks gestation of ([facility]) state, incidental Screening for diabetes mellitus Malaise and fatigue Other malaise and fatigue Obesity in ([facility])- Primary Obesity complicating , childbirth, or the puerperium, unspecified as to episode of care or not applicable Malaise and fatigue Other malaise and fatigue documented in this encounter [facility] note* Diagnosis Supervision of high risk in second trimester (HCC)- Primary Unspecified high-risk Obesity affecting in second trimester, unspecified obesity type (HCC) 23 weeks gestation of ([facility]) state, incidental Screening for diabetes mellitus Malaise and fatigue Other malaise and fatigue Snoring- Primary Other dyspnea and respiratory abnormality Non-restorative sleep Other sleep disturbances Obesity, morbid, BMI 40.0-49.9 ([facility]) Morbid obesity Excessive daytime sleepiness documented in this encounter [facility] note* Diagnosis Supervision of high risk in second trimester (HCC)- Primary Unspecified high-risk Obesity affecting in second trimester, unspecified obesity type (HCC) 23 weeks gestation of ([facility]) state, incidental Screening for diabetes mellitus Malaise and fatigue Other malaise and fatigue Supervision of high risk in second trimester (HCC)- Primary Unspecified high-risk Obesity affecting in second trimester, unspecified obesity type (HCC) 27 weeks gestation of ([facility]) state, incidental Hx of preeclampsia, prior , currently (HCC) with other poor obstetric history History of section Other postprocedural status Need for vaccination Need for prophylactic vaccination and inoculation against unspecified single disease Anemia during in second trimester (HCC) Supervision of high risk in third trimester ([facility])- Primary Unspecified high-risk Obesity in (HCC) Obesity complicating , childbirth, or the puerperium, unspecified as to episode of care or not applicable Hx of preeclampsia, prior , currently (HCC) with other poor obstetric history History of section Other postprocedural status Anemia during in second trimester (HCC) 29 weeks gestation of (HCC) state, incidental * Assessment & Plan Note - Sherry Bearden MD - 09/06/2024 8:26 AM EDT Associated Problem(s): Supervision of high risk in second trimester (HCC) * Assessment & Plan Note - Sherry Bearden MD - 09/06/2024 8:26 AM EDT Associated Problem(s): Obesity in (HCC) Continue growth us Q4 weeks NSts starting 32 weeks * Assessment & Plan Note - Sherry Bearden MD - 09/06/2024 8:26 AM EDT Associated Problem(s): Hx of preeclampsia, prior , currently ([facility]) Continue ASA * Assessment & Plan Note - Sherry Bearden MD - 09/06/2024 8:26 AM EDT Associated Problem(s): History of section Repeat cs scheduled on 11/10 with RR [facility]* Diagnosis Supervision of high risk in second trimester ([facility])- Primary Unspecified high-risk Obesity affecting in second trimester, unspecified obesity type ([facility]) 23 weeks gestation of ([facility]) state, incidental Screening for diabetes mellitus Malaise and fatigue Other malaise and fatigue Supervision of high risk in second trimester ([facility])- Primary Unspecified high-risk Obesity affecting in second trimester, unspecified obesity type ([facility]) 27 weeks gestation of ([facility]) state, incidental Hx of preeclampsia, prior , currently ([facility]) with other poor obstetric history History of section Other postprocedural status Need for vaccination Need for prophylactic vaccination and inoculation against unspecified single disease Anemia during in second trimester ([facility]) Supervision of high risk in third trimester ([facility])- Primary Unspecified high-risk Obesity in ([facility]) Obesity complicating , childbirth, or the puerperium, unspecified as to episode of care or not applicable Hx of preeclampsia, prior , currently ([facility]) with other poor obstetric history History of section Other postprocedural status Anemia during in second trimester ([facility]) 29 weeks gestation of ([facility]) state, incidental Anemia during in third trimester ([facility])- Primary [facility] Diagnosis Supervision of high risk in second trimester ([facility])- Primary Unspecified high-risk Obesity affecting in second trimester, unspecified obesity type ([facility]) 23 weeks gestation of ([facility]) state, incidental Screening for diabetes mellitus Malaise and fatigue Other malaise and fatigue Supervision of high risk in second trimester ([facility])- Primary Unspecified high-risk Obesity affecting in second trimester, unspecified obesity type ([facility]) 27 weeks gestation of ([facility]) state, incidental Hx of preeclampsia, prior , currently ([facility]) with other poor obstetric history History of section Other postprocedural status Need for vaccination Need for prophylactic vaccination and inoculation against unspecified single disease Anemia during in second trimester ([facility]) Supervision of high risk in third trimester ([facility])- Primary Unspecified high-risk Obesity in ([facility]) Obesity complicating , childbirth, or the puerperium, unspecified as to episode of care or not applicable Hx of preeclampsia, prior , currently ([facility]) with other poor obstetric history History of section Other postprocedural status Anemia during in second trimester ([facility]) 29 weeks gestation of ([facility]) state, incidental Supervision of high risk in third trimester ([facility])- Primary Unspecified high-risk Obesity in ([facility]) Obesity complicating , childbirth, or the puerperium, unspecified as to episode of care or not applicable Hx of preeclampsia, prior , currently ([facility]) with other poor obstetric history Breech presentation with problem, single or unspecified fetus ([facility]) Antepartum anemia complicating in third trimester ([facility]) * Assessment & Plan Note - Isael Gandara MD - 09/21/2024 8:59 AM EDT Associated Problem(s): Obesity in ([facility]) grwoth scan today Orders: NON-STRESS TEST; Standing * Assessment & Plan Note - Isael Gandara MD - 09/21/2024 8:59 AM EDT Associated Problem(s): Hx of preeclampsia, prior , currently ([facility]) no signs/symptoms of preeclampsai, monitoring BP at home, cont. to follow closely Orders: NON-STRESS TEST; Standing * Assessment & Plan Note - Isael Gandara MD - 09/21/2024 8:59 AM EDT Associated Problem(s): Breech presentation with problem ([facility]) repeat US in 4 weeks * Assessment & Plan Note - Isael Gandara MD - 09/21/2024 8:59 AM EDT Associated Problem(s): Antepartum anemia complicating in third trimester ([facility]) cont. fe and recheck CBC in 2 weeks [facility] Diagnosis Supervision of high risk in second trimester ([facility])- Primary Unspecified high-risk Obesity affecting in second trimester, unspecified obesity type ([facility]) 23 weeks gestation of ([facility]) state, incidental Screening for diabetes mellitus Malaise and fatigue Other malaise and fatigue Supervision of high risk in second trimester ([facility])- Primary Unspecified high-risk Obesity affecting in second trimester, unspecified obesity type ([facility]) 27 weeks gestation of ([facility]) state, incidental Hx of preeclampsia, prior , currently ([facility]) with other poor obstetric history History of section Other postprocedural status Need for vaccination Need for prophylactic vaccination and inoculation against unspecified single disease Anemia during in second trimester ([facility]) Supervision of high risk in third trimester ([facility])- Primary Unspecified high-risk Obesity in ([facility]) Obesity complicating , childbirth, or the puerperium, unspecified as to episode of care or not applicable Hx of preeclampsia, prior , currently ([facility]) with other poor obstetric history History of section Other postprocedural status Anemia during in second trimester ([facility]) 29 weeks gestation of ([facility]) state, incidental Encounter for ultrasound to check growth ([facility])- Primary Encounter for routine screening for malformation using ultrasonics 32 weeks gestation of ([facility]) state, incidental Obesity affecting in second trimester, unspecified obesity type ([facility]) Supervision of high risk in third trimester ([facility])- Primary Unspecified high-risk Obesity in ([facility]) Obesity complicating , childbirth, or the puerperium, unspecified as to episode of care or not applicable Hx of preeclampsia, prior , currently ([facility]) with other poor obstetric history Breech presentation with problem, single or unspecified fetus ([facility]) Antepartum anemia complicating in third trimester ([facility]) documented in this encounter [facility]* Diagnosis Supervision of high risk in second trimester ([facility])- Primary Unspecified high-risk Obesity affecting in second trimester, unspecified obesity type ([facility]) 23 weeks gestation of ([facility]) state, incidental Screening for diabetes mellitus Malaise and fatigue Other malaise and fatigue Supervision of high risk in second trimester ([facility])- Primary Unspecified high-risk Obesity affecting in second trimester, unspecified obesity type ([facility]) 27 weeks gestation of ([facility]) state, incidental Hx of preeclampsia, prior , currently ([facility]) with other poor obstetric history History of section Other postprocedural status Need for vaccination Need for prophylactic vaccination and inoculation against unspecified single disease Anemia during in second trimester ([facility]) Supervision of high risk in third trimester ([facility])- Primary Unspecified high-risk Obesity in ([facility]) Obesity complicating , childbirth, or the puerperium, unspecified as to episode of care or not applicable Hx of preeclampsia, prior , currently ([facility]) with other poor obstetric history History of section Other postprocedural status Anemia during in second trimester ([facility]) 29 weeks gestation of ([facility]) state, incidental Supervision of high risk in third trimester ([facility])- Primary Unspecified high-risk Obesity in ([facility]) Obesity complicating , childbirth, or the puerperium, unspecified as to episode of care or not applicable Hx of preeclampsia, prior , currently ([facility]) with other poor obstetric history Breech presentation with problem, single or unspecified fetus ([facility]) Antepartum anemia complicating in third trimester ([facility]) 33 weeks gestation of ([facility])- Primary state, incidental Supervision of high risk in third trimester ([facility]) Unspecified high-risk Obesity in ([facility]) Obesity complicating , childbirth, or the puerperium, unspecified as to episode of care or not applicable Hx of preeclampsia, prior , currently ([facility]) with other poor obstetric history [facility]* Diagnosis Supervision of high risk in second trimester ([facility])- Primary Unspecified high-risk Obesity affecting in second trimester, unspecified obesity type ([facility]) 23 weeks gestation of ([facility]) state, incidental Screening for diabetes mellitus Malaise and fatigue Other malaise and fatigue Supervision of high risk in second trimester ([facility])- Primary Unspecified high-risk Obesity affecting in second trimester, unspecified obesity type ([facility]) 27 weeks gestation of ([facility]) state, incidental Hx of preeclampsia, prior , currently ([facility]) with other poor obstetric history History of section Other postprocedural status Need for vaccination Need for prophylactic vaccination and inoculation against unspecified single disease Anemia during in second trimester ([facility]) Supervision of high risk in third trimester ([facility])- Primary Unspecified high-risk Obesity in ([facility]) Obesity complicating , childbirth, or the puerperium, unspecified as to episode of care or not applicable Hx of preeclampsia, prior , currently ([facility]) with other poor obstetric history History of section Other postprocedural status Anemia during in second trimester ([facility]) 29 weeks gestation of ([facility]) state, incidental Supervision of high risk in third trimester ([facility])- Primary Unspecified high-risk Obesity in ([facility]) Obesity complicating , childbirth, or the puerperium, unspecified as to episode of care or not applicable Hx of preeclampsia, prior , currently ([facility]) with other poor obstetric history Breech presentation with problem, single or unspecified fetus ([facility]) Antepartum anemia complicating in third trimester ([facility]) Supervision of high risk in third trimester ([facility])- Primary Unspecified high-risk Hx of preeclampsia, prior , currently ([facility]) with other poor obstetric history Obesity in ([facility]) Obesity complicating , childbirth, or the puerperium, unspecified as to episode of care or not applicable Antepartum anemia complicating in third trimester ([facility]) History of section Other postprocedural status 34 weeks gestation of ([facility]) state, incidental * Assessment & Plan Note - Sherry Bearden MD - 10/05/2024 3:36 PM EDT Associated Problem(s): Hx of preeclampsia, prior , currently ([facility]) Continue ASA Orders: URINE OB DIP B/O * Assessment & Plan Note - Sherry Bearden MD - 10/05/2024 3:36 PM EDT Associated Problem(s): Obesity in ([facility]) Growth us and NSTs Orders: URINE OB DIP B/O * Assessment & Plan Note - Sherry Bearden MD - 10/05/2024 3:36 PM EDT Associated Problem(s): Antepartum anemia complicating in third trimester ([facility]) Labs today- still indicated anemia- pt is taking PO iron. Will do referral for iv iron. Orders: URINE OB DIP B/O IRON AND TIBC; Future FERRITIN; Future BLOOD MANAGEMENT REFERRAL * Assessment & Plan Note - Sherry Bearden MD - 10/05/2024 3:36 PM EDT Associated Problem(s): History of section Scheduled for repeat cs Orders: URINE OB DIP B/O [facility] Diagnosis Supervision of high risk in second trimester ([facility])- Primary Unspecified high-risk Obesity affecting in second trimester, unspecified obesity type ([facility]) 23 weeks gestation of ([facility]) state, incidental Screening for diabetes mellitus Malaise and fatigue Other malaise and fatigue Supervision of high risk in second trimester ([facility])- Primary Unspecified high-risk Obesity affecting in second trimester, unspecified obesity type ([facility]) 27 weeks gestation of ([facility]) state, incidental Hx of preeclampsia, prior , currently ([facility]) with other poor obstetric history History of section Other postprocedural status Need for vaccination Need for prophylactic vaccination and inoculation against unspecified single disease Anemia during in second trimester ([facility]) Supervision of high risk in third trimester ([facility])- Primary Unspecified high-risk Obesity in ([facility]) Obesity complicating , childbirth, or the puerperium, unspecified as to episode of care or not applicable Hx of preeclampsia, prior , currently ([facility]) with other poor obstetric history History of section Other postprocedural status Anemia during in second trimester ([facility]) 29 weeks gestation of ([facility]) state, incidental Supervision of high risk in third trimester ([facility])- Primary Unspecified high-risk Obesity in ([facility]) Obesity complicating , childbirth, or the puerperium, unspecified as to episode of care or not applicable Hx of preeclampsia, prior , currently ([facility]) with other poor obstetric history Breech presentation with problem, single or unspecified fetus ([facility]) Antepartum anemia complicating in third trimester ([facility]) Supervision of high risk in third trimester ([facility])- Primary Unspecified high-risk Hx of preeclampsia, prior , currently ([facility]) with other poor obstetric history Obesity in ([facility]) Obesity complicating , childbirth, or the puerperium, unspecified as to episode of care or not applicable Antepartum anemia complicating in third trimester ([facility]) History of section Other postprocedural status 34 weeks gestation of ([facility]) state, incidental Anemia during in third trimester ([facility])- Primary [facility] Supervision of high risk in second trimester ([facility])- Primary Unspecified high-risk Obesity affecting in second trimester, unspecified obesity type ([facility]) 23 weeks gestation of ([facility]) state, incidental Screening for diabetes mellitus Malaise and fatigue Other malaise and fatigue Supervision of high risk in second trimester ([facility])- Primary Unspecified high-risk Obesity affecting in second trimester, unspecified obesity type ([facility]) 27 weeks gestation of ([facility]) state, incidental Hx of preeclampsia, prior , currently ([facility]) with other poor obstetric history History of section Other postprocedural status Need for vaccination Need for prophylactic vaccination and inoculation against unspecified single disease Anemia during in second trimester ([facility]) Supervision of high risk in third trimester ([facility])- Primary Unspecified high-risk Obesity in ([facility]) Obesity complicating , childbirth, or the puerperium, unspecified as to episode of care or not applicable Hx of preeclampsia, prior , currently ([facility]) with other poor obstetric history History of section Other postprocedural status Anemia during in second trimester ([facility]) 29 weeks gestation of ([facility]) state, incidental Supervision of high risk in third trimester ([facility])- Primary Unspecified high-risk Obesity in ([facility]) Obesity complicating , childbirth, or the puerperium, unspecified as to episode of care or not applicable Hx of preeclampsia, prior , currently ([facility]) with other poor obstetric history Breech presentation with problem, single or unspecified fetus ([facility]) Antepartum anemia complicating in third trimester ([facility]) Supervision of high risk in third trimester ([facility])- Primary Unspecified high-risk Hx of preeclampsia, prior , currently ([facility]) with other poor obstetric history Obesity in ([facility]) Obesity complicating , childbirth, or the puerperium, unspecified as to episode of care or not applicable Antepartum anemia complicating in third trimester ([facility]) History of section Other postprocedural status 34 weeks gestation of ([facility]) state, incidental Maternal iron deficiency anemia complicating , third trimester ([facility])- Primary [facility] Diagnosis Supervision of high risk in second trimester ([facility])- Primary Unspecified high-risk Obesity affecting in second trimester, unspecified obesity type ([facility]) 23 weeks gestation of ([facility]) state, incidental Screening for diabetes mellitus Malaise and fatigue Other malaise and fatigue Supervision of high risk in second trimester ([facility])- Primary Unspecified high-risk Obesity affecting in second trimester, unspecified obesity type ([facility]) 27 weeks gestation of ([facility]) state, incidental Hx of preeclampsia, prior , currently ([facility]) with other poor obstetric history History of section Other postprocedural status Need for vaccination Need for prophylactic vaccination and inoculation against unspecified single disease Anemia during in second trimester ([facility]) Supervision of high risk in third trimester ([facility])- Primary Unspecified high-risk Obesity in ([facility]) Obesity complicating , childbirth, or the puerperium, unspecified as to episode of care or not applicable Hx of preeclampsia, prior , currently ([facility]) with other poor obstetric history History of section Other postprocedural status Anemia during in second trimester ([facility]) 29 weeks gestation of ([facility]) state, incidental Supervision of high risk in third trimester ([facility])- Primary Unspecified high-risk Obesity in ([facility]) Obesity complicating , childbirth, or the puerperium, unspecified as to episode of care or not applicable Hx of preeclampsia, prior , currently ([facility]) with other poor obstetric history Breech presentation with problem, single or unspecified fetus ([facility]) Antepartum anemia complicating in third trimester ([facility]) Supervision of high risk in third trimester ([facility])- Primary Unspecified high-risk Hx of preeclampsia, prior , currently ([facility]) with other poor obstetric history Obesity in ([facility]) Obesity complicating , childbirth, or the puerperium, unspecified as to episode of care or not applicable Antepartum anemia complicating in third trimester ([facility]) History of section Other postprocedural status 34 weeks gestation of ([facility]) state, incidental Maternal iron deficiency anemia complicating , third trimester ([facility])- Primary [facility] Supervision of high risk in second trimester ([facility])- Primary Unspecified high-risk Obesity affecting in second trimester, unspecified obesity type ([facility]) 23 weeks gestation of ([facility]) state, incidental Screening for diabetes mellitus Malaise and fatigue Other malaise and fatigue Supervision of high risk in second trimester ([facility])- Primary Unspecified high-risk Obesity affecting in second trimester, unspecified obesity type ([facility]) 27 weeks gestation of ([facility]) state, incidental Hx of preeclampsia, prior , currently ([facility]) with other poor obstetric history History of section Other postprocedural status Need for vaccination Need for prophylactic vaccination and inoculation against unspecified single disease Anemia during in second trimester ([facility]) Supervision of high risk in third trimester ([facility])- Primary Unspecified high-risk Obesity in ([facility]) Obesity complicating , childbirth, or the puerperium, unspecified as to episode of care or not applicable Hx of preeclampsia, prior , currently ([facility]) with other poor obstetric history History of section Other postprocedural status Anemia during in second trimester ([facility]) 29 weeks gestation of ([facility]) state, incidental Supervision of high risk in third trimester ([facility])- Primary Unspecified high-risk Obesity in ([facility]) Obesity complicating , childbirth, or the puerperium, unspecified as to episode of care or not applicable Hx of preeclampsia, prior , currently ([facility]) with other poor obstetric history Breech presentation with problem, single or unspecified fetus ([facility]) Antepartum anemia complicating in third trimester ([facility]) Supervision of high risk in third trimester ([facility])- Primary Unspecified high-risk Hx of preeclampsia, prior , currently ([facility]) with other poor obstetric history Obesity in ([facility]) Obesity complicating , childbirth, or the puerperium, unspecified as to episode of care or not applicable Antepartum anemia complicating in third trimester ([facility]) History of section Other postprocedural status 34 weeks gestation of ([facility]) state, incidental Supervision of high risk in third trimester ([facility])- Primary Unspecified high-risk Hx of preeclampsia, prior , currently ([facility]) with other poor obstetric history Obesity in ([facility]) Obesity complicating , childbirth, or the puerperium, unspecified as to episode of care or not applicable Antepartum anemia complicating in third trimester ([facility]) 34 weeks gestation of ([facility]) state, incidental [facility] Supervision of high risk in second trimester ([facility])- Primary Unspecified high-risk Obesity affecting in second trimester, unspecified obesity type ([facility]) 23 weeks gestation of ([facility]) state, incidental Screening for diabetes mellitus Malaise and fatigue Other malaise and fatigue Supervision of high risk in second trimester ([facility])- Primary Unspecified high-risk Obesity affecting in second trimester, unspecified obesity type ([facility]) 27 weeks gestation of ([facility]) state, incidental Hx of preeclampsia, prior , currently ([facility]) with other poor obstetric history History of section Other postprocedural status Need for vaccination Need for prophylactic vaccination and inoculation against unspecified single disease Anemia during in second trimester ([facility]) Supervision of high risk in third trimester ([facility])- Primary Unspecified high-risk Obesity in ([facility]) Obesity complicating , childbirth, or the puerperium, unspecified as to episode of care or not applicable Hx of preeclampsia, prior , currently ([facility]) with other poor obstetric history History of section Other postprocedural status Anemia during in second trimester ([facility]) 29 weeks gestation of ([facility]) state, incidental Supervision of high risk in third trimester ([facility])- Primary Unspecified high-risk Obesity in ([facility]) Obesity complicating , childbirth, or the puerperium, unspecified as to episode of care or not applicable Hx of preeclampsia, prior , currently ([facility]) with other poor obstetric history Breech presentation with problem, single or unspecified fetus ([facility]) Antepartum anemia complicating in third trimester ([facility]) Supervision of high risk in third trimester ([facility])- Primary Unspecified high-risk Hx of preeclampsia, prior , currently ([facility]) with other poor obstetric history Obesity in ([facility]) Obesity complicating , childbirth, or the puerperium, unspecified as to episode of care or not applicable Antepartum anemia complicating in third trimester ([facility]) History of section Other postprocedural status 34 weeks gestation of ([facility]) state, incidental Supervision of high risk in third trimester ([facility])- Primary Unspecified high-risk Obesity in ([facility]) Obesity complicating , childbirth, or the puerperium, unspecified as to episode of care or not applicable 35 weeks gestation of ([facility]) state, incidental [facility] Supervision of high risk in second trimester ([facility])- Primary Unspecified high-risk Obesity affecting in second trimester, unspecified obesity type ([facility]) 23 weeks gestation of ([facility]) state, incidental Screening for diabetes mellitus Malaise and fatigue Other malaise and fatigue Supervision of high risk in second trimester ([facility])- Primary Unspecified high-risk Obesity affecting in second trimester, unspecified obesity type ([facility]) 27 weeks gestation of ([facility]) state, incidental Hx of preeclampsia, prior , currently ([facility]) with other poor obstetric history History of section Other postprocedural status Need for vaccination Need for prophylactic vaccination and inoculation against unspecified single disease Anemia during in second trimester ([facility]) Supervision of high risk in third trimester ([facility])- Primary Unspecified high-risk Obesity in ([facility]) Obesity complicating , childbirth, or the puerperium, unspecified as to episode of care or not applicable Hx of preeclampsia, prior , currently ([facility]) with other poor obstetric history History of section Other postprocedural status Anemia during in second trimester ([facility]) 29 weeks gestation of ([facility]) state, incidental Supervision of high risk in third trimester ([facility])- Primary Unspecified high-risk Obesity in ([facility]) Obesity complicating , childbirth, or the puerperium, unspecified as to episode of care or not applicable Hx of preeclampsia, prior , currently ([facility]) with other poor obstetric history Breech presentation with problem, single or unspecified fetus ([facility]) Antepartum anemia complicating in third trimester ([facility]) Supervision of high risk in third trimester ([facility])- Primary Unspecified high-risk Hx of preeclampsia, prior , currently ([facility]) with other poor obstetric history Obesity in ([facility]) Obesity complicating , childbirth, or the puerperium, unspecified as to episode of care or not applicable Antepartum anemia complicating in third trimester ([facility]) History of section Other postprocedural status 34 weeks gestation of ([facility]) state, incidental Maternal iron deficiency anemia complicating , third trimester ([facility])- Primary [facility] Supervision of high risk in second trimester ([facility])- Primary Unspecified high-risk Obesity affecting in second trimester, unspecified obesity type ([facility]) 23 weeks gestation of ([facility]) state, incidental Screening for diabetes mellitus Malaise and fatigue Other malaise and fatigue Supervision of high risk in second trimester ([facility])- Primary Unspecified high-risk Obesity affecting in second trimester, unspecified obesity type ([facility]) 27 weeks gestation of ([facility]) state, incidental Hx of preeclampsia, prior , currently ([facility]) with other poor obstetric history History of section Other postprocedural status Need for vaccination Need for prophylactic vaccination and inoculation against unspecified single disease Anemia during in second trimester ([facility]) Supervision of high risk in third trimester ([facility])- Primary Unspecified high-risk Obesity in ([facility]) Obesity complicating , childbirth, or the puerperium, unspecified as to episode of care or not applicable Hx of preeclampsia, prior , currently ([facility]) with other poor obstetric history History of section Other postprocedural status Anemia during in second trimester ([facility]) 29 weeks gestation of ([facility]) state, incidental Supervision of high risk in third trimester ([facility])- Primary Unspecified high-risk Obesity in ([facility]) Obesity complicating , childbirth, or the puerperium, unspecified as to episode of care or not applicable Hx of preeclampsia, prior , currently ([facility]) with other poor obstetric history Breech presentation with problem, single or unspecified fetus ([facility]) Antepartum anemia complicating in third trimester ([facility]) Supervision of high risk in third trimester ([facility])- Primary Unspecified high-risk Hx of preeclampsia, prior , currently ([facility]) with other poor obstetric history Obesity in ([facility]) Obesity complicating , childbirth, or the puerperium, unspecified as to episode of care or not applicable Antepartum anemia complicating in third trimester ([facility]) History of section Other postprocedural status 34 weeks gestation of ([facility]) state, incidental 35 weeks gestation of ([facility])- Primary state, incidental Supervision of high risk in third trimester ([facility]) Unspecified high-risk Obesity in ([facility]) Obesity complicating , childbirth, or the puerperium, unspecified as to episode of care or not applicable Decreased movements in third trimester, single or unspecified fetus ([facility]) Supervision of high risk in third trimester ([facility])- Primary Unspecified high-risk Obesity in ([facility]) Obesity complicating , childbirth, or the puerperium, unspecified as to episode of care or not applicable Hx of preeclampsia, prior , currently ([facility]) with other poor obstetric history History of section Other postprocedural status 36 weeks gestation of ([facility]) state, incidental Anemia during in third trimester ([facility]) [facility] Supervision of high risk in second trimester ([facility])- Primary Unspecified high-risk Obesity affecting in second trimester, unspecified obesity type ([facility]) 23 weeks gestation of ([facility]) state, incidental Screening for diabetes mellitus Malaise and fatigue Other malaise and fatigue Supervision of high risk in second trimester ([facility])- Primary Unspecified high-risk Obesity affecting in second trimester, unspecified obesity type ([facility]) 27 weeks gestation of ([facility]) state, incidental Hx of preeclampsia, prior , currently ([facility]) with other poor obstetric history History of section Other postprocedural status Need for vaccination Need for prophylactic vaccination and inoculation against unspecified single disease Anemia during in second trimester ([facility]) Supervision of high risk in third trimester ([facility])- Primary Unspecified high-risk Obesity in ([facility]) Obesity complicating , childbirth, or the puerperium, unspecified as to episode of care or not applicable Hx of preeclampsia, prior , currently ([facility]) with other poor obstetric history History of section Other postprocedural status Anemia during in second trimester ([facility]) 29 weeks gestation of ([facility]) state, incidental Supervision of high risk in third trimester ([facility])- Primary Unspecified high-risk Obesity in ([facility]) Obesity complicating , childbirth, or the puerperium, unspecified as to episode of care or not applicable Hx of preeclampsia, prior , currently ([facility]) with other poor obstetric history Breech presentation with problem, single or unspecified fetus ([facility]) Antepartum anemia complicating in third trimester ([facility]) Supervision of high risk in third trimester ([facility])- Primary Unspecified high-risk Hx of preeclampsia, prior , currently ([facility]) with other poor obstetric history Obesity in ([facility]) Obesity complicating , childbirth, or the puerperium, unspecified as to episode of care or not applicable Antepartum anemia complicating in third trimester ([facility]) History of section Other postprocedural status 34 weeks gestation of ([facility]) state, incidental Encounter for ultrasound to check growth ([facility])- Primary Encounter for routine screening for malformation using ultrasonics 36 weeks gestation of ([facility]) state, incidental Obesity affecting in second trimester, unspecified obesity type ([facility]) Supervision of high risk in third trimester ([facility])- Primary Unspecified high-risk Obesity in ([facility]) Obesity complicating , childbirth, or the puerperium, unspecified as to episode of care or not applicable Hx of preeclampsia, prior , currently ([facility]) with other poor obstetric history History of section Other postprocedural status 36 weeks gestation of ([facility]) state, incidental Anemia during in third trimester ([facility]) [facility] Diagnosis Supervision of high risk in second trimester ([facility])- Primary Unspecified high-risk Obesity affecting in second trimester, unspecified obesity type ([facility]) 23 weeks gestation of ([facility]) state, incidental Screening for diabetes mellitus Malaise and fatigue Other malaise and fatigue Supervision of high risk in second trimester ([facility])- Primary Unspecified high-risk Obesity affecting in second trimester, unspecified obesity type ([facility]) 27 weeks gestation of ([facility]) state, incidental Hx of preeclampsia, prior , currently ([facility]) with other poor obstetric history History of section Other postprocedural status Need for vaccination Need for prophylactic vaccination and inoculation against unspecified single disease Anemia during in second trimester ([facility]) Supervision of high risk in third trimester ([facility])- Primary Unspecified high-risk Obesity in ([facility]) Obesity complicating , childbirth, or the puerperium, unspecified as to episode of care or not applicable Hx of preeclampsia, prior , currently ([facility]) with other poor obstetric history History of section Other postprocedural status Anemia during in second trimester ([facility]) 29 weeks gestation of ([facility]) state, incidental Supervision of high risk in third trimester ([facility])- Primary Unspecified high-risk Obesity in ([facility]) Obesity complicating , childbirth, or the puerperium, unspecified as to episode of care or not applicable Hx of preeclampsia, prior , currently ([facility]) with other poor obstetric history Breech presentation with problem, single or unspecified fetus ([facility]) Antepartum anemia complicating in third trimester ([facility]) Supervision of high risk in third trimester ([facility])- Primary Unspecified high-risk Hx of preeclampsia, prior , currently ([facility]) with other poor obstetric history Obesity in ([facility]) Obesity complicating , childbirth, or the puerperium, unspecified as to episode of care or not applicable Antepartum anemia complicating in third trimester ([facility]) History of section Other postprocedural status 34 weeks gestation of ([facility]) state, incidental Supervision of high risk in third trimester ([facility])- Primary Unspecified high-risk Obesity in ([facility]) Obesity complicating , childbirth, or the puerperium, unspecified as to episode of care or not applicable Hx of preeclampsia, prior , currently ([facility]) with other poor obstetric history History of section Other postprocedural status 36 weeks gestation of ([facility]) state, incidental Anemia during in third trimester ([facility]) * Assessment & Plan Note - Isael Gandara MD - 10/20/2024 3:54 PM EDT Associated Problem(s): Obesity in ([facility]) Orders: ROUTINE, GROUP B STREPTOCOCCUS BY PCR URINE OB DIP B/O * Assessment & Plan Note - Isael Gandara MD - 10/20/2024 3:54 PM EDT Associated Problem(s): Hx of preeclampsia, prior , currently ([facility]) no signs/symptomst of preeclampsia today Orders: ROUTINE, GROUP B STREPTOCOCCUS BY PCR URINE OB DIP B/O * Assessment & Plan Note - Isael Gandara MD - 10/20/2024 3:54 PM EDT Associated Problem(s): History of section plans repeat Orders: ROUTINE, GROUP B STREPTOCOCCUS BY PCR URINE OB DIP B/O [facility] Diagnosis Supervision of high risk in second trimester ([facility])- Primary Unspecified high-risk Obesity affecting in second trimester, unspecified obesity type ([facility]) 23 weeks gestation of ([facility]) state, incidental Screening for diabetes mellitus Malaise and fatigue Other malaise and fatigue Supervision of high risk in second trimester ([facility])- Primary Unspecified high-risk Obesity affecting in second trimester, unspecified obesity type ([facility]) 27 weeks gestation of ([facility]) state, incidental Hx of preeclampsia, prior , currently ([facility]) with other poor obstetric history History of section Other postprocedural status Need for vaccination Need for prophylactic vaccination and inoculation against unspecified single disease Anemia during in second trimester ([facility]) Supervision of high risk in third trimester ([facility])- Primary Unspecified high-risk Obesity in ([facility]) Obesity complicating , childbirth, or the puerperium, unspecified as to episode of care or not applicable Hx of preeclampsia, prior , currently ([facility]) with other poor obstetric history History of section Other postprocedural status Anemia during in second trimester ([facility]) 29 weeks gestation of ([facility]) state, incidental Supervision of high risk in third trimester ([facility])- Primary Unspecified high-risk Obesity in ([facility]) Obesity complicating , childbirth, or the puerperium, unspecified as to episode of care or not applicable Hx of preeclampsia, prior , currently ([facility]) with other poor obstetric history Breech presentation with problem, single or unspecified fetus ([facility]) Antepartum anemia complicating in third trimester ([facility]) Supervision of high risk in third trimester ([facility])- Primary Unspecified high-risk Hx of preeclampsia, prior , currently ([facility]) with other poor obstetric history Obesity in ([facility]) Obesity complicating , childbirth, or the puerperium, unspecified as to episode of care or not applicable Antepartum anemia complicating in third trimester ([facility]) History of section Other postprocedural status 34 weeks gestation of ([facility]) state, incidental Supervision of high risk in third trimester ([facility])- Primary Unspecified high-risk Obesity in ([facility]) Obesity complicating , childbirth, or the puerperium, unspecified as to episode of care or not applicable Hx of preeclampsia, prior , currently ([facility]) with other poor obstetric history History of section Other postprocedural status 36 weeks gestation of ([facility]) state, incidental Anemia during in third trimester ([facility]) Maternal iron deficiency anemia complicating , third trimester ([facility])- Primary [facility] Diagnosis Supervision of high risk in second trimester ([facility])- Primary Unspecified high-risk Obesity affecting in second trimester, unspecified obesity type ([facility]) 23 weeks gestation of ([facility]) state, incidental Screening for diabetes mellitus Malaise and fatigue Other malaise and fatigue Supervision of high risk in second trimester ([facility])- Primary Unspecified high-risk Obesity affecting in second trimester, unspecified obesity type ([facility]) 27 weeks gestation of ([facility]) state, incidental Hx of preeclampsia, prior , currently ([facility]) with other poor obstetric history History of section Other postprocedural status Need for vaccination Need for prophylactic vaccination and inoculation against unspecified single disease Anemia during in second trimester ([facility]) Supervision of high risk in third trimester ([facility])- Primary Unspecified high-risk Obesity in ([facility]) Obesity complicating , childbirth, or the puerperium, unspecified as to episode of care or not applicable Hx of preeclampsia, prior , currently ([facility]) with other poor obstetric history History of section Other postprocedural status Anemia during in second trimester ([facility]) 29 weeks gestation of ([facility]) state, incidental Supervision of high risk in third trimester ([facility])- Primary Unspecified high-risk Obesity in ([facility]) Obesity complicating , childbirth, or the puerperium, unspecified as to episode of care or not applicable Hx of preeclampsia, prior , currently ([facility]) with other poor obstetric history Breech presentation with problem, single or unspecified fetus ([facility]) Antepartum anemia complicating in third trimester ([facility]) Supervision of high risk in third trimester ([facility])- Primary Unspecified high-risk Hx of preeclampsia, prior , currently ([facility]) with other poor obstetric history Obesity in ([facility]) Obesity complicating , childbirth, or the puerperium, unspecified as to episode of care or not applicable Antepartum anemia complicating in third trimester ([facility]) History of section Other postprocedural status 34 weeks gestation of ([facility]) state, incidental Supervision of high risk in third trimester ([facility])- Primary Unspecified high-risk Obesity in ([facility]) Obesity complicating , childbirth, or the puerperium, unspecified as to episode of care or not applicable Hx of preeclampsia, prior , currently ([facility]) with other poor obstetric history History of section Other postprocedural status 36 weeks gestation of ([facility]) state, incidental Anemia during in third trimester ([facility]) Maternal iron deficiency anemia complicating , third trimester ([facility])- Primary [facility] Supervision of high risk in second trimester ([facility])- Primary Unspecified high-risk Obesity affecting in second trimester, unspecified obesity type ([facility]) 23 weeks gestation of ([facility]) state, incidental Screening for diabetes mellitus Malaise and fatigue Other malaise and fatigue Supervision of high risk in second trimester ([facility])- Primary Unspecified high-risk Obesity affecting in second trimester, unspecified obesity type ([facility]) 27 weeks gestation of ([facility]) state, incidental Hx of preeclampsia, prior , currently ([facility]) with other poor obstetric history History of section Other postprocedural status Need for vaccination Need for prophylactic vaccination and inoculation against unspecified single disease Anemia during in second trimester ([facility]) Supervision of high risk in third trimester ([facility])- Primary Unspecified high-risk Obesity in ([facility]) Obesity complicating , childbirth, or the puerperium, unspecified as to episode of care or not applicable Hx of preeclampsia, prior , currently ([facility]) with other poor obstetric history History of section Other postprocedural status Anemia during in second trimester ([facility]) 29 weeks gestation of ([facility]) state, incidental Supervision of high risk in third trimester ([facility])- Primary Unspecified high-risk Obesity in ([facility]) Obesity complicating , childbirth, or the puerperium, unspecified as to episode of care or not applicable Hx of preeclampsia, prior , currently ([facility]) with other poor obstetric history Breech presentation with problem, single or unspecified fetus ([facility]) Antepartum anemia complicating in third trimester ([facility]) Supervision of high risk in third trimester ([facility])- Primary Unspecified high-risk Hx of preeclampsia, prior , currently ([facility]) with other poor obstetric history Obesity in ([facility]) Obesity complicating , childbirth, or the puerperium, unspecified as to episode of care or not applicable Antepartum anemia complicating in third trimester ([facility]) History of section Other postprocedural status 34 weeks gestation of ([facility]) state, incidental Supervision of high risk in third trimester ([facility])- Primary Unspecified high-risk Obesity in ([facility]) Obesity complicating , childbirth, or the puerperium, unspecified as to episode of care or not applicable Hx of preeclampsia, prior , currently ([facility]) with other poor obstetric history History of section Other postprocedural status 36 weeks gestation of ([facility]) state, incidental Anemia during in third trimester ([facility]) Supervision of high risk in third trimester ([facility])- Primary Unspecified high-risk Obesity in ([facility]) Obesity complicating , childbirth, or the puerperium, unspecified as to episode of care or not applicable Hx of preeclampsia, prior , currently ([facility]) with other poor obstetric history History of section Other postprocedural status Anemia during in third trimester ([facility]) 37 weeks gestation of ([facility]) state, incidental [facility] Supervision of high risk in second trimester ([facility])- Primary Unspecified high-risk Obesity affecting in second trimester, unspecified obesity type ([facility]) 23 weeks gestation of ([facility]) state, incidental Screening for diabetes mellitus Malaise and fatigue Other malaise and fatigue Supervision of high risk in second trimester ([facility])- Primary Unspecified high-risk Obesity affecting in second trimester, unspecified obesity type ([facility]) 27 weeks gestation of ([facility]) state, incidental Hx of preeclampsia, prior , currently ([facility]) with other poor obstetric history History of section Other postprocedural status Need for vaccination Need for prophylactic vaccination and inoculation against unspecified single disease Anemia during in second trimester ([facility]) Supervision of high risk in third trimester ([facility])- Primary Unspecified high-risk Obesity in ([facility]) Obesity complicating , childbirth, or the puerperium, unspecified as to episode of care or not applicable Hx of preeclampsia, prior , currently ([facility]) with other poor obstetric history History of section Other postprocedural status Anemia during in second trimester ([facility]) 29 weeks gestation of ([facility]) state, incidental Supervision of high risk in third trimester ([facility])- Primary Unspecified high-risk Obesity in ([facility]) Obesity complicating , childbirth, or the puerperium, unspecified as to episode of care or not applicable Hx of preeclampsia, prior , currently ([facility]) with other poor obstetric history Breech presentation with problem, single or unspecified fetus ([facility]) Antepartum anemia complicating in third trimester ([facility]) Supervision of high risk in third trimester ([facility])- Primary Unspecified high-risk Hx of preeclampsia, prior , currently ([facility]) with other poor obstetric history Obesity in ([facility]) Obesity complicating , childbirth, or the puerperium, unspecified as to episode of care or not applicable Antepartum anemia complicating in third trimester ([facility]) History of section Other postprocedural status 34 weeks gestation of ([facility]) state, incidental Supervision of high risk in third trimester ([facility])- Primary Unspecified high-risk Obesity in ([facility]) Obesity complicating , childbirth, or the puerperium, unspecified as to episode of care or not applicable Hx of preeclampsia, prior , currently ([facility]) with other poor obstetric history History of section Other postprocedural status 36 weeks gestation of ([facility]) state, incidental Anemia during in third trimester ([facility]) Maternal iron deficiency anemia complicating , third trimester ([facility])- Primary documented [facility] Diagnosis Supervision of high risk in second trimester ([facility])- Primary Unspecified high-risk Obesity affecting in second trimester, unspecified obesity type ([facility]) 23 weeks gestation of ([facility]) state, incidental Screening for diabetes mellitus Malaise and fatigue Other malaise and fatigue Supervision of high risk in second trimester ([facility])- Primary Unspecified high-risk Obesity affecting in second trimester, unspecified obesity type ([facility]) 27 weeks gestation of ([facility]) state, incidental Hx of preeclampsia, prior , currently ([facility]) with other poor obstetric history History of section Other postprocedural status Need for vaccination Need for prophylactic vaccination and inoculation against unspecified single disease Anemia during in second trimester ([facility]) Supervision of high risk in third trimester ([facility])- Primary Unspecified high-risk Obesity in ([facility]) Obesity complicating , childbirth, or the puerperium, unspecified as to episode of care or not applicable Hx of preeclampsia, prior , currently ([facility]) with other poor obstetric history History of section Other postprocedural status Anemia during in second trimester ([facility]) 29 weeks gestation of ([facility]) state, incidental Supervision of high risk in third trimester ([facility])- Primary Unspecified high-risk Obesity in ([facility]) Obesity complicating , childbirth, or the puerperium, unspecified as to episode of care or not applicable Hx of preeclampsia, prior , currently ([facility]) with other poor obstetric history Breech presentation with problem, single or unspecified fetus ([facility]) Antepartum anemia complicating in third trimester ([facility]) Supervision of high risk in third trimester ([facility])- Primary Unspecified high-risk Hx of preeclampsia, prior , currently ([facility]) with other poor obstetric history Obesity in ([facility]) Obesity complicating , childbirth, or the puerperium, unspecified as to episode of care or not applicable Antepartum anemia complicating in third trimester ([facility]) History of section Other postprocedural status 34 weeks gestation of ([facility]) state, incidental Supervision of high risk in third trimester ([facility])- Primary Unspecified high-risk Obesity in ([facility]) Obesity complicating , childbirth, or the puerperium, unspecified as to episode of care or not applicable Hx of preeclampsia, prior , currently ([facility]) with other poor obstetric history History of section Other postprocedural status 36 weeks gestation of ([facility]) state, incidental Anemia during in third trimester ([facility]) Supervision of high risk in third trimester ([facility])- Primary Unspecified high-risk Obesity in ([facility]) Obesity complicating , childbirth, or the puerperium, unspecified as to episode of care or not applicable Hx of preeclampsia, prior , currently ([facility]) with other poor obstetric history History of section Other postprocedural status Anemia during in third trimester ([facility]) 38 weeks gestation of ([facility]) state, incidental * Assessment & Plan Note - Isael Gandara MD - 11/03/2024 10:40 AM EDT Associated Problem(s): Obesity in ([facility]) Orders: URINE OB DIP B/O * Assessment & Plan Note - Isael Gandara MD - 11/03/2024 10:40 AM EDT Associated Problem(s): Hx of preeclampsia, prior , currently ([facility]) Orders: URINE OB DIP B/O * Assessment & Plan Note - Isael Gandara MD - 11/03/2024 10:40 AM EDT Associated Problem(s): History of section Orders: URINE OB DIP B/O documented in this encounter [facility] Author Jose Neil [facility] Note Date/Time September 12, 2024 6:25p [facility] Medical Records Department [address] [place] [address] OB Triage Physician Note 09/12/24 1818 MR#: [id number] Acct: [id number] Name: SUN CARRERO Rep #:[id number] : 1990 34 From: Jose Neil DO PCP: Care Physician,No Primary Status :REG CLI Y Location: [address] HPI - General General Date of Admission: 09/12/24 Date of Service: 09/12/24 Chief Complaint: vaginal bleeding HPI Narrative SUN CARRERO, is a 34 F who presents with bright red vaginal bleeding after using the restroom. She feels the bleeding has improved since getting to L&D. She describes it as similar to a light period. No abdominal pain or ctx. No lof.No recent falls, trauma, or intercourse. Good FM. [facility] Medical History (Updated 09/12/24 @ 18:[address] Jose Neil, DO) Psychiatric disorder Pre-eclampsia Home Medications ?Medication ?Instructions ?Recorded ?Last Taken ?Type ferrous sulfate 143 mg PO DAILY anemia 05/0209/11/24 20:00 History vitamn-iron carb-folic 1 cap PO DAILY pregnan vy 05/02/22 09/11/24 20:00 History acid-docusate 95 mg-1 mg-50 mg capsule acetaminophen 500 mg tablet 1,000 mg (2 x 500 mg) PO Q 6 #0 tabs 05/09/22 Unknown Rx Allergy/AdvReac Type Severity Reaction Status Date / Time No Known Allergies Allergy Verified 09/12/24 17:01 Social History Smoking Status: Never smoker History Elective abortions Hx Para 0 Spontaneous abortions Hx # Term Pregnancies Ectopic pregnancies Hx # Pregnancies Multiple births # of living children Physical Exam Const alert and no apparent distress General Appearance: comfortable Resp normal respiratory effort GI soft to palpation and non-tender GI Narrative: Obese Narrative: Speculum exam: Cervix closed and long with minimal white discharge. No bleeding or old blood noted in the vagina. External exam shows a 1 cm open superficial laceration/cut inside the left labia minora that is actively bleeding. No other skin changes noted. No swelling, erythema, or signs of infection NST FHR Rate Baby A Baseline: 140 Variability:: Moderate Accelerations:: 15 x 15 Decelerations:: None NST Reactive:: Yes FHR Category:: Category I Uterine Activity:: no ctx's Assessment & Plan (1) 30 weeks gestation of : (2) Skin tear: PLAN: Patient presented with vaginal bleeding. Bedside TAUS shows subjectively normal fluid and a normal placenta with active fetus. Hgb stable from recent office visit. Taking oral iron. There was no vaginal bleeding or old blood in vagina on exam. There was a skin tear present inside the left labia minora that was bleeding. The tear looked to be mechanical in nature. No evidence of infection, PTL or abruption. Patient worried about seeing continued bleeding at home. Tear superficial and suture not indicated. Discussed r/b/a silver nitrate application and patient desires to proceed. Silver nitrate applied followed by pressure, and no further bleeding noted. Discussed vulvar care and hygeine measures. Discussed pelvic rest for 1 week. Has growth US and OB visit next week. (3) Obesity affecting : 09/12/241826 <Electronically signed by Jose Neil DO> Date _ Jose Neil DO Cosigner Signature (if applicable): Date CC: Dr. Jose Neil DO; No Primary Care Physician ~ Signed [facility] Work Phone: Hospital Discharge instructionsAdditional Instructions Make appointment for a blood pressure reading in the office on Thursday, October 31. Bring BP monitor from home to compare readings. See Pre-eclampsia handout for signs and symptoms that require physician notification.[facility] Work Phone: Reason for referral (narrative)* Diagnostic Procedure Only (Routine) - Pending Review Specialty Diagnoses / Procedures Referred By Kingsley zeng Referred To Contact [facility] Diagnoses Abnormal genetic test in Procedures OBSTETRIC ULTRASOUND WHI US PREG UTERUS AFTER 1ST [place] [address] [place] [address] [facility] [address] [place] [address] Referral ID Status Reason Start Date Expiration Date Visits Requested Visits Authorized [id number] Pending Review Auto-Generat ed Referral 12/12/2021 12/12/2022 1 1 [facility] for referral (narrative)* Diagnostic Procedure Only (Routine) - Pending Review Specialty Diagnoses / Procedures Referred By Contac t Referred To Contact [facility] Diagnoses 27 weeks gestation of Obesity in Procedures OBSTETRIC ULTRASOUND WHI US PREG UTERUS AFTER 1ST TRIMEST GESTATION Sherry Bearden MD [address] [place] [address] [address] Referral ID Status Reason Start Date Expiration Date Visits Requested Visits Authorized [id number] Pending Review Auto-Generat ed Referral 2 03/07/2023 4 1 [facility] for referral (narrative)* Outpatient Procedure (Routine) - Pending Review Specialty Diagnoses / Procedures Referred By Contac t Referred To Contact [facility] Diagnoses 32 weeks gestation of Procedures NON-STRESS TEST NON-STRESS TEST Nadiya Anders APRN.CNM [address] [place] [address] [facility] [employer] [place] [address] Referral ID Status Reason Start Date Expiration Date Visits Requested Visits Authorized [id number] Pending Review Auto-Generat ed Referral 2 04/09/2023 1 1 [facility] for referral (narrative)* Diagnostic Procedure Only (Routine) - Closed Specialty Diagnoses / Procedures Referred By Contac t Referred To Contact [facility] Diagnoses Gestational hypertension without significant proteinuria in third trimester Procedures BIOPHYSICAL PROFILE US WHI BIOPHYSICAL PROFILE NON-STRESS TESTING Nadiya Anders APRN.CNM [address] [place] [address] [facility] [address] [place] [address] Referral ID Status Reason Start Date Expiration Date V isits Requested Visits Authorized [id number] Closed Auto-Generate d Referral 04/29/2022 04/29/2023 10 1 [facility] for referral (narrative)* Diagnostic Procedure Only (Routine) - Pending Review Specialty Diagnoses / Procedures Referred By Contac t Referred To Contact [facility] Diagnoses Supervision of high risk in first trimester Procedures NUCHAL TRANSLUCENCY WHI US NUCHAL TRANSLUCENCY 1ST GESTATION Nadiya Anders APRN.CNM [address] [place] [address] [address] Referral ID Status Reason Start Date Expiration Date Visits Requested Visits Authorized [id number] Pending Review Auto-Generat ed Referral 04/06/2025 1 1 [facility] for referral (narrative)* Diagnostic Procedure Only (Routine) - New Request Specialty Diagnoses / Procedures Referred By Contac t Referred To Contact [facility] Diagnoses History of section Supervision of other high risk pregnancies, first trimester Severe obesity due to excess calories affecting , antepartum ([facility]) BMI 40.0-44.9, adult ([facility]) Procedures OBSTETRIC ULTRASOUND WHI US PREG UTERUS AFTER 1ST TRIMEST GESTATION Isael Gandara MD [address] [place] [address] [facility] [address] [place] [address] Referral ID Status Reason Start Date Expiration Date Visits Requested Visits Authorized [id number] New Request Auto-Generat ed Referral 05/12/2024 05/12/2025 6 1 [facility] for referral (narrative)No reason for referral information availableWSelect Medical [facility] Work Phone: [facility] Narrative* Diagnostic Procedure Only (Routine) - Closed Specialty Diagnoses / Procedures Referred By Contac t Referred To Contact [facility] Diagnoses History of section Supervision of other high risk pregnancies, first trimester Severe obesity due to excess calories affecting , antepartum ([facility]) BMI 40.0-44.9, adult ([facility]) Procedures OBSTETRIC ULTRASOUND WHI US PREG UTERUS AFTER 1ST TRIMEST GESTATION Isael Gandara MD [address] [place] [address] [facility] [address] [place] [address] Referral ID Status Reason Start Date Expiration Date V isits Requested Visits Authorized [id number] Closed Auto-Generate d Referral 05/12/2024 05/12/2025 6 1 [facility] for visit Narrative* [place] Prior Authorization (Routine) - Authorized Specialty Diagnoses / Procedures Referred By Kingsley zeng Referred To Contact Diagnoses Maternal iron deficiency anemia complicating , third trimester ([facility]) Procedures IRON SUCROSE INJECTION PER 1 MG Kathy Urena PA-C [address] [place] [address] Phone: tel: fax: Hematology/Oncology [address] [place] [address] Phone: tel: fax: Referral ID Status Reason Start Date Expiration Date V isits Requested Visits Authorized [id number] Authorized 10/12/2024 04/10/2025 4 4 [facility] Summary Purpose Family History No Family History Records FoundNo Family History Records FoundNo Family History Records Found Advance Directives Advance Directive Response Recorded Date/ Time Living Will No May 03 6:13pm Power of Human Services Manager No May 03 023 6:13pm Health Concerns Problem Noted Date OB Reminders 10/21/2021 Problem Noted Date OB Reminders 10/21/2021 Problem Noted Date OB Reminders 10/21/2021 Problem Noted Date OB Reminders 10/21/2021 Problem Noted Date OB Reminders 10/21/2021 Problem Noted Date OB Reminders 10/21/2021 Problem Noted Date OB Reminders 10/21/2021 Problem Noted Date OB Reminders 10/21/2021 Problem Noted Date OB Reminders 10/21/2021 Problem Noted Date OB Reminders 10/21/2021 Problem Noted Date OB Reminders 10/21/2021 Problem Noted Date OB Reminders 10/21/2021 Problem Noted Date OB Reminders 10/21/2021 Problem Noted Date OB Reminders 10/21/2021 Problem Noted Date OB Reminders 10/21/2021 Problem Noted Date OB Reminders 10/21/2021 Problem Noted Date OB Reminders 10/21/2021 Reason for Referral Specialty Diagnoses / Procedures Referred By Kingsley zeng Referred To Contact General Surgery Diagnoses Rectal bleeding Procedures CONSULT TO GENERAL SURGERY OFFICE/OUTPATIENT [facility] MDM 60-74 MINUTES Pierce Salazar MD [address] [place] [address] Referral ID Status Reason Start Date Expiration Date Visits Requested Visits Authorized [id number] Authorized PCP Requested Referral 12/10/2021 12/10/2022 1 1 Chief Complaint and Reason for Visit Chief Complaint R/O PRE E Reason for Visit 35 weeks gestation o f Headache in Preeclampsia Chief Complaint R/O PRE E PRIMARY C SECTION Reason for Visit 35 weeks gestation o f Headache in Preeclampsia 35 weeks gestation of Delivery by section Encounter for induction of labor Failed induction of labor Obesity Preeclampsia Preeclampsia, severe Psychiatric disorder Chief Complaint Admit Date BLEEDING September 12, 2024 4:45p m Reason for Visit Admit Date 30 weeks gestation of August 4:45pm Obesity affecting September 12 4:45pm Skin tear September 12, 2024 4:45p m Chief Complaint Admit Date BLEEDING September 12, 2024 4:45p m RULE OUT PRE-E October 29, 2024 11:05 am Reason for Visit Admit Date 30 weeks gestation of August 4:45pm Obesity affecting September 12 4:45pm Skin tear September 12, 2024 4:45p m 37 weeks gestation of October 11:05am Headache October 29, 2024 11:05 am History of pre-eclampsia October 29, 2024 11:05am Additional Source Comments Source Comments (unrecognize d section and content) In the event this informatio n is protected by the Federal Confidentiality of Alcohol and Drug Abuse Patient Records regulations: The Federal rules restrict any use of the information to criminally investigate or prosecute any alcohol or drug abuse patient.[facility] the event this information is protected by the Federal Confidentiality of Alcohol and Drug Abuse Patient Records regulations: The Federal rules restrict any use of the information to criminally investigate or prosecute any alcohol or drug abuse patient.[facility] Center[facility] the event this information is protected by the Federal Confidentiality of Alcohol and Drug Abuse Patient Records regulations: The Federal rules restrict any use of the information to criminally investigate or prosecute any alcohol or drug abuse patient.[facility] Center[facility] the event this information is protected by the Federal Confidentiality of Alcohol and Drug Abuse Patient Records regulations: The Federal rules restrict any use of the information to criminally investigate or prosecute any alcohol or drug abuse patient.[facility] Center[facility] the event this information is protected by the Federal Confidentiality of Alcohol and Drug Abuse Patient Records regulations: The Federal rules restrict any use of the information to criminally investigate or prosecute any alcohol or drug abuse patient.[facility] Center[facility] the event this information is protected by the Federal Confidentiality of Alcohol and Drug Abuse Patient Records regulations: The Federal rules restrict any use of the information to criminally investigate or prosecute any alcohol or drug abuse patient.[facility] Center[facility] the event this information is protected by the Federal Confidentiality of Alcohol and Drug Abuse Patient Records regulations: The Federal rules restrict any use of the information to criminally investigate or prosecute any alcohol or drug abuse patient.[facility] Center[facility] the event this information is protected by the Federal Confidentiality of Alcohol and Drug Abuse Patient Records regulations: The Federal rules restrict any use of the information to criminally investigate or prosecute any alcohol or drug abuse patient.[facility] Center[facility] the event this information is protected by the Federal Confidentiality of Alcohol and Drug Abuse Patient Records regulations: The Federal rules restrict any use of the information to criminally investigate or prosecute any alcohol or drug abuse patient.[facility] Center[facility] the event this information is protected by the Federal Confidentiality of Alcohol and Drug Abuse Patient Records regulations: The Federal rules restrict any use of the information to criminally investigate or prosecute any alcohol or drug abuse patient.[facility] Center[facility] the event this information is protected by the Federal Confidentiality of Alcohol and Drug Abuse Patient Records regulations: The Federal rules restrict any use of the information to criminally investigate or prosecute any alcohol or drug abuse patient.[facility] Center[facility] the event this information is protected by the Federal Confidentiality of Alcohol and Drug Abuse Patient Records regulations: The Federal rules restrict any use of the information to criminally investigate or prosecute any alcohol or drug abuse patient.[facility] CenterIn the event this information is protected by the Federal Confidentiality of Alcohol and Drug Abuse Patient Records regulations: The Federal rules restrict any use of the information to criminally investigate or prosecute any alcohol or drug abuse patient.[facility] CenterIn the event this information is protected by the Federal Confidentiality of Alcohol and Drug Abuse Patient Records regulations: The Federal rules restrict any use of the information to criminally investigate or prosecute any alcohol or drug abuse patient.[facility] CenterIn the event this information is protected by the Federal Confidentiality of Alcohol and Drug Abuse Patient Records regulations: The Federal rules restrict any use of the information to criminally investigate or prosecute any alcohol or drug abuse patient.[facility] CenterIn the event this information is protected by the Federal Confidentiality of Alcohol and Drug Abuse Patient Records regulations: The Federal rules restrict any use of the information to criminally investigate or prosecute any alcohol or drug abuse patient.[facility] CenterIn the event this information is protected by the Federal Confidentiality of Alcohol and Drug Abuse Patient Records regulations: The Federal rules restrict any use of the information to criminally investigate or prosecute any alcohol or drug abuse patient.[facility] CenterIn the event this information is protected by the Federal Confidentiality of Alcohol and Drug Abuse Patient Records regulations: The Federal rules restrict any use of the information to criminally investigate or prosecute any alcohol or drug abuse patient.[facility] CenterIn the event this information is protected by the Federal Confidentiality of Alcohol and Drug Abuse Patient Records regulations: The Federal rules restrict any use of the information to criminally investigate or prosecute any alcohol or drug abuse patient.[facility] CenterIn the event this information is protected by the Federal Confidentiality of Alcohol and Drug Abuse Patient Records regulations: The Federal rules restrict any use of the information to criminally investigate or prosecute any alcohol or drug abuse patient.[facility] CenterIn the event this information is protected by the Federal Confidentiality of Alcohol and Drug Abuse Patient Records regulations: The Federal rules restrict any use of the information to criminally investigate or prosecute any alcohol or drug abuse patient.[facility] CenterIn the event this information is protected by the Federal Confidentiality of Alcohol and Drug Abuse Patient Records regulations: The Federal rules restrict any use of the information to criminally investigate or prosecute any alcohol or drug abuse patient.[facility] CenterIn the event this information is protected by the Federal Confidentiality of Alcohol and Drug Abuse Patient Records regulations: The Federal rules restrict any use of the information to criminally investigate or prosecute any alcohol or drug abuse patient.[facility] CenterIn the event this information is protected by the Federal Confidentiality of Alcohol and Drug Abuse Patient Records regulations: The Federal rules restrict any use of the information to criminally investigate or prosecute any alcohol or drug abuse patient.[facility] CenterIn the event this information is protected by the Federal Confidentiality of Alcohol and Drug Abuse Patient Records regulations: The Federal rules restrict any use of the information to criminally investigate or prosecute any alcohol or drug abuse patient.[facility] CenterIn the event this information is protected by the Federal Confidentiality of Alcohol and Drug Abuse Patient Records regulations: The Federal rules restrict any use of the information to criminally investigate or prosecute any alcohol or drug abuse patient.[facility] CenterIn the event this information is protected by the Federal Confidentiality of Alcohol and Drug Abuse Patient Records regulations: The Federal rules restrict any use of the information to criminally investigate or prosecute any alcohol or drug abuse patient.[facility] CenterIn the event this information is protected by the Federal Confidentiality of Alcohol and Drug Abuse Patient Records regulations: The Federal rules restrict any use of the information to criminally investigate or prosecute any alcohol or drug abuse patient.[facility] CenterIn the event this information is protected by the Federal Confidentiality of Alcohol and Drug Abuse Patient Records regulations: The Federal rules restrict any use of the information to criminally investigate or prosecute any alcohol or drug abuse patient.[facility] CenterIn the event this information is protected by the Federal Confidentiality of Alcohol and Drug Abuse Patient Records regulations: The Federal rules restrict any use of the information to criminally investigate or prosecute any alcohol or drug abuse patient.[facility] CenterIn the event this information is protected by the Federal Confidentiality of Alcohol and Drug Abuse Patient Records regulations: The Federal rules restrict any use of the information to criminally investigate or prosecute any alcohol or drug abuse patient.[facility] CenterIn the event this information is protected by the Federal Confidentiality of Alcohol and Drug Abuse Patient Records regulations: The Federal rules restrict any use of the information to criminally investigate or prosecute any alcohol or drug abuse patient.[facility] CenterIn the event this information is protected by the Federal Confidentiality of Alcohol and Drug Abuse Patient Records regulations: The Federal rules restrict any use of the information to criminally investigate or prosecute any alcohol or drug abuse patient.[facility] CenterIn the event this information is protected by the Federal Confidentiality of Alcohol and Drug Abuse Patient Records regulations: The Federal rules restrict any use of the information to criminally investigate or prosecute any alcohol or drug abuse patient.[facility] CenterIn the event this information is protected by the Federal Confidentiality of Alcohol and Drug Abuse Patient Records regulations: The Federal rules restrict any use of the information to criminally investigate or prosecute any alcohol or drug abuse patient.[facility] CenterIn the event this information is protected by the Federal Confidentiality of Alcohol and Drug Abuse Patient Records regulations: The Federal rules restrict any use of the information to criminally investigate or prosecute any alcohol or drug abuse patient.[facility] CenterIn the event this information is protected by the Federal Confidentiality of Alcohol and Drug Abuse Patient Records regulations: The Federal rules restrict any use of the information to criminally investigate or prosecute any alcohol or drug abuse patient.[facility] CenterIn the event this information is protected by the Federal Confidentiality of Alcohol and Drug Abuse Patient Records regulations: The Federal rules restrict any use of the information to criminally investigate or prosecute any alcohol or drug abuse patient.[facility] CenterIn the event this information is protected by the Federal Confidentiality of Alcohol and Drug Abuse Patient Records regulations: The Federal rules restrict any use of the information to criminally investigate or prosecute any alcohol or drug abuse patient.[facility] CenterIn the event this information is protected by the Federal Confidentiality of Alcohol and Drug Abuse Patient Records regulations: The Federal rules restrict any use of the information to criminally investigate or prosecute any alcohol or drug abuse patient.[facility] CenterIn the event this information is protected by the Federal Confidentiality of Alcohol and Drug Abuse Patient Records regulations: The Federal rules restrict any use of the information to criminally investigate or prosecute any alcohol or drug abuse patient.[facility] CenterIn the event this information is protected by the Federal Confidentiality of Alcohol and Drug Abuse Patient Records regulations: The Federal rules restrict any use of the information to criminally investigate or prosecute any alcohol or drug abuse patient.[facility] CenterIn the event this information is protected by the Federal Confidentiality of Alcohol and Drug Abuse Patient Records regulations: The Federal rules restrict any use of the information to criminally investigate or prosecute any alcohol or drug abuse patient.[facility] the event this information is protected by the Federal Confidentiality of Alcohol and Drug Abuse Patient Records regulations: The Federal rules restrict any use of the information to criminally investigate or prosecute any alcohol or drug abuse patient.[facility] CenterIn the event this information is protected by the Federal Confidentiality of Alcohol and Drug Abuse Patient Records regulations: The Federal rules restrict any use of the information to criminally investigate or prosecute any alcohol or drug abuse patient.[facility] CenterIn the event this information is protected by the Federal Confidentiality of Alcohol and Drug Abuse Patient Records regulations: The Federal rules restrict any use of the information to criminally investigate or prosecute any alcohol or drug abuse patient.[facility]In the event this information is protected by the Federal Confidentiality of Alcohol and Drug Abuse Patient Records regulations: The Federal rules restrict any use of the information to criminally investigate or prosecute any alcohol or drug abuse patient.[facility] CenterIn the event this information is protected by the Federal Confidentiality of Alcohol and Drug Abuse Patient Records regulations: The Federal rules restrict any use of the information to criminally investigate or prosecute any alcohol or drug abuse patient.[facility] CenterIn the event this information is protected by the Federal Confidentiality of Alcohol and Drug Abuse Patient Records regulations: The Federal rules restrict any use of the information to criminally investigate or prosecute any alcohol or drug abuse patient.[facility] CenterIn the event this information is protected by the Federal Confidentiality of Alcohol and Drug Abuse Patient Records regulations: The Federal rules restrict any use of the information to criminally investigate or prosecute any alcohol or drug abuse patient.[facility] CenterIn the event this information is protected by the Federal Confidentiality of Alcohol and Drug Abuse Patient Records regulations: The Federal rules restrict any use of the information to criminally investigate or prosecute any alcohol or drug abuse patient.[facility] CenterIn the event this information is protected by the Federal Confidentiality of Alcohol and Drug Abuse Patient Records regulations: The Federal rules restrict any use of the information to criminally investigate or prosecute any alcohol or drug abuse patient.[facility] CenterIn the event this information is protected by the Federal Confidentiality of Alcohol and Drug Abuse Patient Records regulations: The Federal rules restrict any use of the information to criminally investigate or prosecute any alcohol or drug abuse patient.[facility] CenterIn the event this information is protected by the Federal Confidentiality of Alcohol and Drug Abuse Patient Records regulations: The Federal rules restrict any use of the information to criminally investigate or prosecute any alcohol or drug abuse patient.[facility] CenterIn the event this information is protected by the Federal Confidentiality of Alcohol and Drug Abuse Patient Records regulations: The Federal rules restrict any use of the information to criminally investigate or prosecute any alcohol or drug abuse patient.[facility] CenterIn the event this information is protected by the Federal Confidentiality of Alcohol and Drug Abuse Patient Records regulations: The Federal rules restrict any use of the information to criminally investigate or prosecute any alcohol or drug abuse patient.[facility] CenterIn the event this information is protected by the Federal Confidentiality of Alcohol and Drug Abuse Patient Records regulations: The Federal rules restrict any use of the information to criminally investigate or prosecute any alcohol or drug abuse patient.[facility] CenterIn the event this information is protected by the Federal Confidentiality of Alcohol and Drug Abuse Patient Records regulations: The Federal rules restrict any use of the information to criminally investigate or prosecute any alcohol or drug abuse patient.[facility] CenterIn the event this information is protected by the Federal Confidentiality of Alcohol and Drug Abuse Patient Records regulations: The Federal rules restrict any use of the information to criminally investigate or prosecute any alcohol or drug abuse patient.[facility] CenterIn the event this information is protected by the Federal Confidentiality of Alcohol and Drug Abuse Patient Records regulations: The Federal rules restrict any use of the information to criminally investigate or prosecute any alcohol or drug abuse patient.[facility] CenterIn the event this information is protected by the Federal Confidentiality of Alcohol and Drug Abuse Patient Records regulations: The Federal rules restrict any use of the information to criminally investigate or prosecute any alcohol or drug abuse patient.[facility] CenterIn the event this information is protected by the Federal Confidentiality of Alcohol and Drug Abuse Patient Records regulations: The Federal rules restrict any use of the information to criminally investigate or prosecute any alcohol or drug abuse patient.[facility] CenterIn the event this information is protected by the Federal Confidentiality of Alcohol and Drug Abuse Patient Records regulations: The Federal rules restrict any use of the information to criminally investigate or prosecute any alcohol or drug abuse patient.[facility] CenterIn the event this information is protected by the Federal Confidentiality of Alcohol and Drug Abuse Patient Records regulations: The Federal rules restrict any use of the information to criminally investigate or prosecute any alcohol or drug abuse patient.[facility]In the event this information is protected by the Federal Confidentiality of Alcohol and Drug Abuse Patient Records regulations: The Federal rules restrict any use of the information to criminally investigate or prosecute any alcohol or drug abuse patient.[facility] CenterIn the event this information is protected by the Federal Confidentiality of Alcohol and Drug Abuse Patient Records regulations: The Federal rules restrict any use of the information to criminally investigate or prosecute any alcohol or drug abuse patient.[facility] CenterIn the event this information is protected by the Federal Confidentiality of Alcohol and Drug Abuse Patient Records regulations: The Federal rules restrict any use of the information to criminally investigate or prosecute any alcohol or drug abuse patient.[facility] CenterIn the event this information is protected by the Federal Confidentiality of Alcohol and Drug Abuse Patient Records regulations: The Federal rules restrict any use of the information to criminally investigate or prosecute any alcohol or drug abuse patient.[facility] CenterIn the event this information is protected by the Federal Confidentiality of Alcohol and Drug Abuse Patient Records regulations: The Federal rules restrict any use of the information to criminally investigate or prosecute any alcohol or drug abuse patient.[facility] CenterIn the event this information is protected by the Federal Confidentiality of Alcohol and Drug Abuse Patient Records regulations: The Federal rules restrict any use of the information to criminally investigate or prosecute any alcohol or drug abuse patient.[facility]In the event this information is protected by the Federal Confidentiality of Alcohol and Drug Abuse Patient Records regulations: The Federal rules restrict any use of the information to criminally investigate or prosecute any alcohol or drug abuse patient.[facility] CenterIn the event this information is protected by the Federal Confidentiality of Alcohol and Drug Abuse Patient Records regulations: The Federal rules restrict any use of the information to criminally investigate or prosecute any alcohol or drug abuse patient.[facility] CenterIn the event this information is protected by the Federal Confidentiality of Alcohol and Drug Abuse Patient Records regulations: The Federal rules restrict any use of the information to criminally investigate or prosecute any alcohol or drug abuse patient.[facility] CenterIn the event this information is protected by the Federal Confidentiality of Alcohol and Drug Abuse Patient Records regulations: The Federal rules restrict any use of the information to criminally investigate or prosecute any alcohol or drug abuse patient.[facility] CenterIn the event this information is protected by the Federal Confidentiality of Alcohol and Drug Abuse Patient Records regulations: The Federal rules restrict any use of the information to criminally investigate or prosecute any alcohol or drug abuse patient.[facility] CenterIn the event this information is protected by the Federal Confidentiality of Alcohol and Drug Abuse Patient Records regulations: The Federal rules restrict any use of the information to criminally investigate or prosecute any alcohol or drug abuse patient.[facility] CenterIn the event this information is protected by the Federal Confidentiality of Alcohol and Drug Abuse Patient Records regulations: The Federal rules restrict any use of the information to criminally investigate or prosecute any alcohol or drug abuse patient.[facility] CenterIn the event this information is protected by the Federal Confidentiality of Alcohol and Drug Abuse Patient Records regulations: The Federal rules restrict any use of the information to criminally investigate or prosecute any alcohol or drug abuse patient.[facility] CenterIn the event this information is protected by the Federal Confidentiality of Alcohol and Drug Abuse Patient Records regulations: The Federal rules restrict any use of the information to criminally investigate or prosecute any alcohol or drug abuse patient.[facility] CenterIn the event this information is protected by the Federal Confidentiality of Alcohol and Drug Abuse Patient Records regulations: The Federal rules restrict any use of the information to criminally investigate or prosecute any alcohol or drug abuse patient.[facility] CenterIn the event this information is protected by the Federal Confidentiality of Alcohol and Drug Abuse Patient Records regulations: The Federal rules restrict any use of the information to criminally investigate or prosecute any alcohol or drug abuse patient.[facility]In the event this information is protected by the Federal Confidentiality of Alcohol and Drug Abuse Patient Records regulations: The Federal rules restrict any use of the information to criminally investigate or prosecute any alcohol or drug abuse patient.[facility] CenterIn the event this information is protected by the Federal Confidentiality of Alcohol and Drug Abuse Patient Records regulations: The Federal rules restrict any use of the information to criminally investigate or prosecute any alcohol or drug abuse patient.[facility] CenterIn the event this information is protected by the Federal Confidentiality of Alcohol and Drug Abuse Patient Records regulations: The Federal rules restrict any use of the information to criminally investigate or prosecute any alcohol or drug abuse patient.[facility] CenterIn the event this information is protected by the Federal Confidentiality of Alcohol and Drug Abuse Patient Records regulations: The Federal rules restrict any use of the information to criminally investigate or prosecute any alcohol or drug abuse patient.[facility] CenterIn the event this information is protected by the Federal Confidentiality of Alcohol and Drug Abuse Patient Records regulations: The Federal rules restrict any use of the information to criminally investigate or prosecute any alcohol or drug abuse patient.[facility] Reason for Visit (unrecogniz ed section and content) Reason Comments New Patient Follow Up after seeing dayanarai suggested blood work Reason Comments Question (OB Question) Reason Onset Date Comments Care 10/30/2021 Reason Comments Orders Reason Comments US Specialty Diagnoses / Procedures Referred By Contac t Referred To Contact [facility] Diagnoses Obesity in Supervision of high risk in first trimester Procedures NUCHAL TRANSLUCENCY WHI US NUCHAL TRANSLUCENCY 1ST GESTATION Sherry Bearden MD [address] [place] [address] [facility] [address] [place] [address] Referral ID Status Reason Start Date Expiration Date V isits Requested Visits Authorized [id number] Closed Auto-Generate d Referral 10/21/2021 10/21/2022 1 1 Reason Comments Nonreportable NIPT Reason Comments QNS NIPT Reason Comments Appointment Reason Onset Date Comments Care 12/16/2021 Specialty Diagnoses / Procedures Referred By Contac t Referred To Contact [facility] Diagnoses Abnormal genetic test in Procedures OBSTETRIC ULTRASOUND WHI US PREG UTERUS AFTER 1ST TRIMEST / [place] [address] [place] [address] [facility] [address] [place] [address] Referral ID Status Reason Start Date Expiration Date V isits Requested Visits Authorized [id number] Closed Auto-Generate d Referral 12/12/2021 12/12/2022 1 1 Reason Onset Date Comments Care 01/09/2022 Specialty Diagnoses / Procedures Referred By Contac t Referred To Contact [facility] Diagnoses Obesity in Supervision of high risk in first trimester Procedures OBSTETRIC ULTRASOUND WHI US PREG UTERUS AFTER 1ST TRIMEST GESTATION Sherry Bearden MD [address] [place] [address] [address] Referral ID Status Reason Start Date Expiration Date V isits Requested Visits Authorized [id number] Closed Auto-Generate d Referral 10/21/2021 10/21/2022 1 1 Reason Onset Date Comments Care 03/07/2022 Reason Comments Results Reason Onset Date Comments Care 03/24/2022 Reason Onset Date Comments Care 04/09/2022 Specialty Diagnoses / Procedures Referred By Contac t Referred To Contact [facility] Diagnoses 27 weeks gestation of Obesity in Procedures OBSTETRIC ULTRASOUND WHI US PREG UTERUS AFTER 1ST TRIMEST GESTATION Sherry Bearden MD [address] [place] [address] [address] Referral ID Status Reason Start Date Expiration Date V isits Requested Visits Authorized [id number] Closed Auto-Generate d Referral 03/07/2022 03/07/2023 4 1 Reason Onset Date Comments Care 04/17/2022 Reason Onset Date Comments Care 04/23/2022 Specialty Diagnoses / Procedures Referred By Contac t Referred To Contact [facility] Diagnoses Gestational hypertension without significant proteinuria in third trimester Procedures BIOPHYSICAL PROFILE US WHI BIOPHYSICAL PROFILE NON-STRESS TESTING Nadiya Anders APRN.JUNE [address] [place] [address] [facility] [address] [place] [address] Referral ID Status Reason Start Date Expiration Date V isits Requested Visits Authorized [id number] Closed Auto-Generate d Referral 04/29/2022 04/29/2023 10 1 Reason Comments Care Reason Comments OB-Headache Reason Comments breast pump Reason Comments Medication Problem Reason Comments Vaginal Problem Itching that has las bessy for 3 months with no relief after monistat and diflucan Reason Comments Follow Up Reason Comments Initial OB Visit Reason Onset Date Comments Care 05/06/2024 Specialty Diagnoses / Procedures Referred By Contac t Referred To Contact [facility] Diagnoses Supervision of high risk in first trimester Procedures NUCHAL TRANSLUCENCY WHI US NUCHAL TRANSLUCENCY 1ST GESTATION US NUCHAL TRANSLUCENCY EA ADDL GESTATION Nadiya Anders APRN.CN [address] [place] [address] [facility] [address] [place] [id number] Referral ID Status Reason Start Date Expiration Date Visits Requested Visits Authorized [id number] Authorized Auto-Generat ed Referral Patient Cleared - Admin/Chairm an/Director advise to proceed or did not respond 05/05/2024 04/26/2025 99 99 Reason Onset Date Comments Care 05/30/2024 Reason Onset Date Comments Care 07/01/2024 Specialty Diagnoses / Procedures Referred By Contac t Referred To Contact [facility] Diagnoses History of section Supervision of other high risk pregnancies, first trimester Severe obesity due to excess calories affecting , antepartum (HCC) BMI 40.0-44.9, adult (HCC) Procedures OBSTETRIC ULTRASOUND WHI US PREG UTERUS AFTER 1ST TRIMEST GESTATION Isael Gandara MD [address] [place] [address] Phone: tel: fax: [facility] [address] [place] [phone] Referral ID Status Reason Start Date Expiration Date V isits Requested Visits Authorized [id number] Closed Auto-Generate d Referral 05/12/2024 05/12/2025 6 1 Reason Comments Breast Pump Reason Comments New Patient Reason Onset Date Comments Care 09/06/2024 Reason Comments OB-Bleeding Reason Onset Date Comments Care 09/21/2024 Specialty Diagnoses / Procedures Referred By Kingsley t Referred To Contact [facility] Diagnoses History of section Supervision of other high risk pregnancies, first trimester ([facility]) Severe obesity due to excess calories affecting , antepartum ([facility]) BMI 40.0-44.9, adult ([facility]) Procedures OBSTETRIC ULTRASOUND WHI US PREG UTERUS AFTER 1ST TRIMEST GESTATION Isael Gandara MD [address] [place] [address] Phone: tel: fax: [address] [phone] Reason Onset Date Comments Care 09/28/2024 Specialty Diagnoses / Procedures Referred By Kingsley zeng Referred To Contact [facility] Diagnoses Supervision of high risk in third trimester ([facility]) Obesity in ([facility]) Hx of preeclampsia, prior , currently ([facility]) History of section Procedures NON-STRESS TEST NON-STRESS TEST Isael Gandara MD [address] [place] [address] Phone: tel: fax: [address] [phone] Referral ID Status Reason Start Date Expiration Date V isits Requested Visits Authorized [id number] Closed Auto-Generate d Referral 09/21/2024 09/21/2025 19 1 Reason Onset Date Comments Care 10/05/2024 Reason Comments Blood Management Reason Onset Date Comments Care 10/11/2024 Reason Onset Date Comments Care 10/14/2024 Reason Comments Non-Chemotherapy Treatment Specialty Diagnoses / Procedures Referred By Kingsley zeng Referred To Contact Diagnoses Maternal iron deficiency anemia complicating , third trimester ([facility]) Procedures IRON SUCROSE INJECTION PER 1 MG Kathy Urena PA-C [address] [place] [address] Phone: tel: fax: Hematology/Oncology [address] [place] [address] Phone: tel: fax: Referral ID Status Reason Start Date Expiration Date V isits Requested Visits Authorized [id number] Authorized 10/12/2024 04/10/2025 4 4 Reason Onset Date Comments Care 10/18/2024 Reason Onset Date Comments Care 10/20/2024 Reason Onset Date Comments Care 10/26/2024 Reason Onset Date Comments Care 11/03/2024 INFORMATION SOURCE (unrecogn ized section and content) DATE CREATED AUTHOR 02/08/2021 [facility] DATE CREATED AUTHOR AUTHOR'S ORGANIZ ATION 11/07/2024 [facility] DATE CREATED AUTHOR AUTHOR'S ORGANIZ ATION 11/09/[address] [facility] Care Teams (unrecognized sec tion and content) [employer] Area Supervisor Relationship Specialty Start Date End Date Daniel Sanchez, [address] [address] PCP - General Family Practice 01/16/21 [employer] Area Supervisor Relationship Specialty Start Date End Date Daniel Sanchez Brad, [address] [address] PCP - General Family Practice 01/16/21 [employer] Area Supervisor Relationship Specialty Start Date End Date DanielDaniel salinas [address] [place] [address] PCP - General Family Practice 01/16/21 [employer] Area Supervisor Relationship Specialty Start Date End Date DanielDaniel salinas Brad DO [address] [place] [address] PCP - General Family Practice 01/16/21 [employer] Area Supervisor Relationship Specialty Start Date End Date Daniel Farrell Brad DO [address] [place] [address] PCP - General Family Practice 01/16/21 [employer] Area Supervisor Relationship Specialty Start Date End Date Daniel Sanchez, DO [address] [place] [address] PCP - General Family Practice 01/16/21 [employer] Area Supervisor Relationship Specialty Start Date End Date Daniel Sanchez, DO [address] [place] [address] PCP - General Family Practice 01/16/21 [employer] Area Supervisor Relationship Specialty Start Date End Date Daniel Sanchez, DO [address] [place] [address] PCP - General Family Practice 01/16/21 [employer] Area Supervisor Relationship Specialty Start Date End Date Daniel Sanchez, DO [address] [place] [address] PCP - General Family Practice 01/16/21 [employer] Area Supervisor Relationship Specialty Start Date End Date Daniel Sanchez, DO [address] [place] [address] PCP - General Family Practice 01/16/21 [employer] Area Supervisor Relationship Specialty Start Date End Date Daniel Sanchez, DO [address] [place] [address] PCP - General Family Medicine 01/16/21 [employer] Area Supervisor Relationship Specialty Start Date End Date Daniel Sanchez, DO [address] [place] [address] PCP - General Family Medicine 01/16/21 [employer] Area Supervisor Relationship Specialty Start Date End Date Daniel Sanchez, DO [address] [place] [address] PCP - General Family Medicine 01/16/21 [employer] Area Supervisor Relationship Specialty Start Date End Date Daniel Sanchez, DO [address] [place] [address] PCP - General Family Medicine 01/16/21 [employer] Area Supervisor Relationship Specialty Start Date End Date Daniel Sanchez [address] [address] PCP - General Family Medicine 01/16/21 [employer] Area Supervisor Relationship Specialty Start Date End Date Daniel Sanchez, [address] [address] PCP - General Family Medicine 01/16/21 [employer] Area Supervisor Relationship Specialty Start Date End Date Daniel Sanchez [address] [address] PCP - General Family Medicine 01/16/21 [employer] Area Supervisor Relationship Specialty Start Date End Date Daniel Sanchez, [address] [address] PCP - General Family Medicine 01/16/21 [employer] Area Supervisor Relationship Specialty Start Date End Date Daniel Sanchez, [address] [address] PCP - General Family Medicine 01/16/21 [employer] Area Supervisor Relationship Specialty Start Date End Date Daniel Sanchez, [address] [address] PCP - General Family Medicine 01/16/21 [employer] Area Supervisor Relationship Specialty Start Date End Date Daniel Sanchez, [address] [address] PCP - General Family Medicine 01/16/21 [employer] Area Supervisor Relationship Specialty Start Date End Date Daniel Sanchez [address] [address] PCP - General Family Medicine 01/16/21 [employer] Area Supervisor Relationship Specialty Start Date End Date Daniel Sanchez DO [address] [place] [address] PCP - General Family Medicine 01/16/21 [employer] Area Supervisor Relationship Specialty Start Date End Date Daniel Sanchez DO [address] [place] [address] PCP - General Family Medicine 01/16/21 [employer] Area Supervisor Relationship Specialty Start Date End Date Daniel Sanchez DO [address] [place] [address] PCP - General Family Medicine 01/16/21 [employer] Area Supervisor Relationship Specialty Start Date End Date Daniel Sanchez DO [address] [place] [address] PCP - General Family Medicine 01/16/21 [employer] Area Supervisor Relationship Specialty Start Date End Date Daniel Sanchez DO [address] [place] [address] PCP - General Family Medicine 01/16/21 [employer] Area Supervisor Relationship Specialty Start Date End Date Daniel Sanchez DO [address] [place] [address] PCP - General Family Medicine 01/16/21 [employer] Area Supervisor Relationship Specialty Start Date End Date Daniel Sanchez DO [address] [place] [address] PCP - General Family Medicine 01/16/21 [employer] Area Supervisor Relationship Specialty Start Date End Date Daniel Sanchez DO [address] [place] [address] PCP - General Family Medicine 01/16/21 [employer] Area Supervisor Relationship Specialty Start Date End Date Daniel Sanchez DO [address] [place] [address] PCP - General Family Medicine 01/16/21 [employer] Area Supervisor Relationship Specialty Start Date End Date Daniel Sanchez DO [address] [place] [address] PCP - General Family Medicine 01/16/21 [employer] Area Supervisor Relationship Specialty Start Date End Date Daniel Sanchez DO [address] [place] [address] PCP - General Family Medicine 01/16/21 [employer] Area Supervisor Relationship Specialty Start Date End Date Daniel Sanchez DO [address] [place] [address] PCP - General Family Medicine 01/16/21 [employer] Area Supervisor Relationship Specialty Start Date End Date Daniel Sanchez DO [address] [place] [address] PCP - General Family Medicine 01/16/21 [employer] Area Supervisor Relationship Specialty Start Date End Date Daniel Sanchez DO [address] [place] [address] PCP - General Family Medicine 01/16/21 [employer] Area Supervisor Relationship Specialty Start Date End Date Daniel Sanchez DO [address] [place] [address] PCP - General Family Medicine 01/16/21 [employer] Area Supervisor Relationship Specialty Start Date End Date Daniel Sanchez DO [address] [place] [address] PCP - General Family Medicine 01/16/21 [employer] Area Supervisor Relationship Specialty Start Date End Date Daniel Sanchez DO [address] [place] [address] PCP - General Family Medicine 01/16/21 [employer] Area Supervisor Relationship Specialty Start Date End Date Daniel Sanchez DO [address] [place] [address] PCP - General Family Medicine 01/16/21 [employer] Area Supervisor Relationship Specialty Start Date End Date Daniel Sanchez DO [address] [place] [address] PCP - General Family Medicine 01/16/21 [employer] Area Supervisor Relationship Specialty Start Date End Date Daniel Sanchez DO [address] [place] [address] PCP - General Family Medicine 01/16/21 [employer] Area Supervisor Relationship Specialty Start Date End Date Daniel Sanchez DO [address] [place] [address] PCP - General Family Medicine 01/16/21 [employer] Area Supervisor Relationship Specialty Start Date End Date Daniel Sanchez DO [address] [place] [address] PCP - General Family Medicine 01/16/21 [employer] Area Supervisor Relationship Specialty Start Date End Date Daniel Sanchez DO [address] [place] [address] PCP - General Family Medicine 01/16/21 Team Status: Active Member Role Status Dates No Primary Care Physician Primary Care Provider Active Team Status: Inactive Member Role Status Dates No Primary Care Physician Primary Care Provider Active Start: September 12, 2024 End: September 12, 2024 Dr. Jose Niel , Attending Provider Active Start: September 12, 2024 End: September 12, 2024 Dr. Jose Neil , DO Referring Provider Active Start: September 12, 2024 End: September 12, 2024 [employer] Area Supervisor Relationship Specialty Start Date End Date Daniel Sanchez DO [address] [place] [address] PCP - General Family Medicine 01/16/21 [employer] Area Supervisor Relationship Specialty Start Date End Date Daniel Sanchez DO [address] [place] [address] PCP - General Family Medicine 01/16/21 [employer] Area Supervisor Relationship Specialty Start Date End Date Daniel Sanchez DO [address] [place] [address] PCP - General Family Medicine 01/16/21 [employer] Area Supervisor Relationship Specialty Start Date End Date Daniel Sanchez DO [address] [place] [address] PCP - General Family Medicine 01/16/21 [employer] Area Supervisor Relationship Specialty Start Date End Date Daniel Sanchez DO [address] [place] [address] PCP - General Family Medicine 01/16/21 [employer] Area Supervisor Relationship Specialty Start Date End Date Daniel Sanchez DO [address] [place] [address] PCP - General Family Medicine 01/16/21 [employer] Area Supervisor Relationship Specialty Start Date End Date Daniel Sanchez DO [address] [place] [address] PCP - General Family Medicine 01/16/21 [employer] Area Supervisor Relationship Specialty Start Date End Date Daniel Sanchez DO [address] [place] [address] PCP - General Family Medicine 01/16/21 [employer] Area Supervisor Relationship Specialty Start Date End Date Daniel Sanchez DO [address] [place] [address] PCP - General Family Medicine 01/16/21 [employer] Area Supervisor Relationship Specialty Start Date End Date Daniel Sanchez DO [address] [place] [address] PCP - General Family Medicine 01/16/21 [employer] Area Supervisor Relationship Specialty Start Date End Date Daniel Sanchez DO [address] [place] [address] PCP - General Family Medicine 01/16/21 [employer] Area Supervisor Relationship Specialty Start Date End Date Daniel Sanchez DO [address] [place] [address] PCP - General Family Medicine 01/16/21 [employer] Area Supervisor Relationship Specialty Start Date End Date Daniel Sanchez DO [address] [place] [address] PCP - General Family Medicine 01/16/21 [employer] Area Supervisor Relationship Specialty Start Date End Date Daniel Sanchez DO [address] [place] [address] PCP - General Family Medicine 01/16/21 [employer] Area Supervisor Relationship Specialty Start Date End Date Daniel Sanchez DO [address] [place] [address] PCP - General Family Medicine 01/16/21 [employer] Area Supervisor Relationship Specialty Start Date End Date Daniel Sanchez DO [address] [place] [address] PCP - General Family Medicine 01/16/21 [employer] Area Supervisor Relationship Specialty Start Date End Date Daniel Sanchez DO [address] [place] [address] PCP - General Family Medicine 01/16/21 [employer] Area Supervisor Relationship Specialty Start Date End Date Daniel Sanchez DO [address] [place] [address] PCP - General Family Medicine 01/16/21 Team Status: Active Member Role/Relationship Status Dates No Primary Care Physician Primary Care Provider Active Team Status: Inactive Member Role/Relationship Status Dates No Primary Care Physician Primary Care Provider Active Start: September 12, 2024 End: September 12, 2024 Dr. Jose Neil DO Attending Provider Active Start: September 12, 2024 End: September 12, 2024 Dr. Jose Neil DO Referring Provider Active Start: September 12, 2024 End: September 12, 2024 Team Status: Inactive Member Role/Relationship Status Dates No Primary Care Physician Primary Care Provider Active Start: October 29, 2024 End: October 29, 2024 Dr. Jose Neil DO Attending Provider Active Start: October 29, 2024 End: October 29, 2024 Dr. Jose Neil DO Referring Provider Active Start: October 29, 2024 End: October 29, 2024 [employer] Area Supervisor Relationship Specialty Start Date End Date Daniel Sanchez DO [address] [place] [address] PCP - General Family Medicine 01/16/21 [employer] Area Supervisor Relationship Specialty Start Date End Date Daniel Sanchez DO [address] [place] [address] PCP - General Family Medicine 01/16/21 [employer] Area Supervisor Relationship Specialty Start Date End Date Daniel Sanchez DO [address] [place] [address] PCP - General Family Medicine 01/16/21 Goals (unrecognized section and content) Goals may be documented in a n alternate sectionGoals may be documented in an alternate sectionGoals may be documented in an alternate section FOR RECORDS PERTAINING TO PATIENTS WHO ARE OR HAVE BEEN ENROLLED IN A CHEMICAL DEPENDENCY/SUBSTANCEABUSE PROGRAM, SOME INFORMATION MAY BE OMITTED. This clinical summary was aggregated from multiple sources. Caution should be exercised in using it in the provision of clinical care. This summary normalizes information from multiple sources, and as a consequence, information in this document may materially change the coding, format and clinical context of patient data. In addition, data may be omitted in some cases. CLINICAL DECISIONS SHOULD BE BASED ON THE PRIMARY CLINICAL RECORDS. [facility]. provides no warranty or guarantee of the accuracy or completeness of information in this document.
[2024-11-11] VITALS (7 sets, daily range): BP systolic 112–117; BP diastolic 65–74; PULSE 55–84; RESP 16–18; TEMP 35.8–36.1; O2SAT 96–99
[2024-11-11] MEDS: 0.9% Saline Lock 10 ML Syringe IV ×2 (02:16→08:25)
[2024-11-11] MEDS: Ketorolac 30 MG/ML Syringe IV ×2 (02:17→08:24)
[2024-11-11 06:42] LABS: Hematocrit 30.6 % (37-47); Hemoglobin 10.1 g/dL (12.0-15.0); Mean Corp Hgb Conc 33.0 g/dL (32-36); Mean Corpuscular Volume 90.0 fL (81-99); Mean Platelet Vol. 10.9 fl (6.2-12.0); Platelet Count 142 K/mm3 (150-450); RBC Distribution Width CV 15.9 % (11.6-14.6); RBC Distribution Width SD 52.1 fl (35.1-43.9); Red Blood Count 3.40 M/mm3 (4.2-5.4); White Blood Count 10.3 K/mm3 (4.4-11.0)
[2024-11-11] MEDS: Senna/Docusate Sodium 1 Tablet PO (08:25)
--- NOTE | 2024-11-11 08:27 | PN.OBGYN_ITS ---
Subjective Subjective Doing well. Ambulating and voiding without difficulty. Mild lochia. Breast feeding. Objective Data Objective Data Vital Signs: Vital Signs Temp Pulse Resp BP Pulse Ox O2 Del Method 96.5 F L 60 16 114/71 96 Room Air 11/11/24 04:03 11/11/24 04:03 11/11/24 04:03 11/11/24 04:03 11/11/24 04:03 11/11/24 04:03 Oxygen Delivery Method Room Air Weight: 107 kg Body Mass Index (BMI) 44.5 Intake & Output: Intake and Output for Last 24 Hours 11/09/24 11/10/24 11/11/24 23:59 23:59 23:59 Intake Total 1497.5 / 1497.5 Output Total 1200 / 1200 500 / 500 Balance 297.5 / 297.5 -500 / -500 Lab / Micro Data 11/11/24 06:33 Labs: Laboratory Results - last 24 hr 11/10/24 10:05: WBC 9.7, RBC 3.50 L, Hgb 10.3 L, Hct 31.1 L, MCV 88.9, MCH 29.4, MCHC 33.1, RDW Std Deviation 50.4 H, RDW Coeff of Aniket 15.6 H, Plt Count 175, MPV 11.0, Immature Gran % (Auto) 0.600, Neut % (Auto) 76.9 H, Lymph % (Auto) 17.3 L, [place] % (Auto) 4.1, Eos % (Auto) 0.8, Baso % (Auto) 0.3, Absolute Neuts (auto) 7.5, Absolute Lymphs (auto) 1.68, Nucleated RBC % 0, Syphilis Total Ab Nonreactive, Blood Type O POSITIVE, Antibody Screen NEGATIVE 11/11/24 06:33: WBC 10.3, RBC 3.40 L, Hgb 10.1 L, Hct 30.6 L, MCV 90.0, MCH 29.7, MCHC 33.0, RDW Std Deviation 52.1 H, RDW Coeff of Aniket 15.9 H, Plt Count 142 L, MPV 10.9 ROS Constitutional Constitutional: Denies headache(s) Cardiovascular Cardiovascular: Denies chest pain or dyspnea Gastrointestinal Gastrointestinal: Denies nausea or vomiting Genitourinary Genitourinary: Denies dysuria Physical Exam Const alert, oriented x3 and no apparent distress General Appearance: cooperative and comfortable Eyes PERRL and EOMs intact bilaterally Resp normal respiratory effort GI soft to palpation and non-tender GI Narrative: soft, moderate distention, fundus firm, appropriately tender. Abdominal bandage clean dry and intact Uterus Palpation: uterus fundus firm ( below umbilicus) Extremity normal to inspection and full ROM Neuro oriented x3 and CN's II-XII intact bilaterally Psych mental status grossly normal Assessment & Plan (1) Previous delivery affecting : (2) 39 weeks gestation of : (3) Maternal obesity syndrome in third trimester: PLAN: Plan Routine care. Plan discharge tomorrow
--- NOTE | 2024-11-11 13:43 | CASEMGMT ---
Social Work Assessment Labor and Delivery Unit Patient Address: [address] [place] [address] Phone number: [phone] Date of Referral: 11/10/2024 Time of Referral:?[id number] Referred By: Dr. Janie Bales MD Date of Intervention: 11/11/2024 Time of Intervention:?1330 Reason for Referral:? history of anxiety and OCD History obtained from: medical records, mother of baby (MOB) Household composition: MANDEEP reports that currently residing in her home is herself, father of baby (FOB), their 2.5 year old son, Idris, and baby to be added to home when ready for discharge. MOB states that housing is safe and secure. Patient's parent/guardian status:?MANDEEP reports that FOB is Sergey Hendrickson who was involved at . MOB and FOB have reportedly been together for 18 years and are just without the papers. MOB and FOB are both the parents of Idris as well. Medical History: MANDEEP is a 34 year old female who is 2, para 1 - now 2 following labor and delivery of . MANDEEP received routine care during with [facility]. MANDEEP presented to hospital for an elective at 39 weeks gestation on 11/10/2024. baby girl, Jimena Georges, was born weighing 7 lbs, 16 oz with apgars of 9 and 9 at one and five minutes of life respectively. MANDEEP is breast feeding baby and baby will be followed by [facility]. Educational Status:?MANDEEP reports having a Bachelor's degree in [employer], though has recently been laid off and is not working anywhere. MANDEEP states that she does plan to get a job in the future, but states having no timeline. Financial Status: MOB is currently unemployed. FOB currently works at [employer] with a focus on the [facility]. FOB expresses being able to maintain the home financially without concern. Supplies: MOB and FOB have obtained all necessary baby supplies, including: car seat, safe sleep space, clothes, diapers, and wipes. Childcare/Caregiver(s):? MOB and FOB report not needing childcare at this time due to MOB being unemployed at this time. MOB states that FOB's mother and MOB's aunt will be childcare helpers. Transportation:?? 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 Programs/Agencies Involved: MANDEEP currently receives unemployment through [employer]. CHERRY reports having to use [employer] with their son due to their son not talking as early as their son probably should have been; FOB clarified that their son got tubes in his ears and then their son's talking improved. Children Services/Legal Issues:?MOB and FOB denied any legal issues and/or children's services past or current issues. Behavioral Health Issues: ??Mental Health History:?MOB states having OCD and SID diagnoses. MOB states these diagnoses spiked in 2020 and stated not being on medication since early 2021. MOB states not feeling as if SID or OCD are running my life at this time.? Substance Use History:?MOB denied any current or historical substance use history.? Family History:?MOB denies any family history of substance use or mental health for MOB or FOB's families.?? Drug Screens: MOB and baby were not screened at due to no concerns of substance use. Family/Social Stressors:? MOB and FOB denied any specific concerns and/or stressors for them at this time. Support Systems: MOB and FOB report that their entire families are large supports for them. Depression/Shaken Baby/Safe Sleeping: SW educated MOB and FOB on signs and symptoms of baby blues and mood and anxiety disorders to be mindful of during this period. MOB states that she did not experience any of these symptoms following her last delivery. MOB expressed understanding of what to be mindful of during this period. MOB states having people to talk to if she were to struggle with her mental health during this time. SW educated MOB and FOB on shaken baby prevention and ABCs of safe sleep. MOB and FOB expressed understanding. ASSESSMENT:? MOB and baby admitted following labor and delivery. MANDEEP has mental health history, but reports it to be minor and manageable at this time. This is MOB and CHERRY's second child, including 2.5 year old at home, Idris. MOB has linkage to [employer] due to receiving unemployment. FOB was observed holding baby Shakira appropriately during the entire assessment time and MOB/FOB were talkative and open with SW during completion of assessment. MOB and FOB were receptive to resources provided and discussed. Safe Plan of Care for infant related to substance use:? N/A PLAN:?No other services requested or indicated. MOB and baby to be discharged when medically ready. Parents were provided literature regarding: signs and symptoms of baby blues and mood and anxiety disorders, [employer], shaken baby prevention, ABCs of safe sleep and a list of county resources that are available for them should any needs present themselves. Maria Teresa Nieves, SUPERVISOR WET END, MARBLE MECHANIC HELPER
[2024-11-12 02:14] VITALS: BP 117/80; PULSE 70; RESP 16; TEMP 36.4; O2SAT 97
--- NOTE | 2024-11-12 07:59 | PCM.PN.OB ---
Subjective Subjective Doing well. Ambulating and voiding without difficulty. Mild lochia. Breast feeding. Objective Data Objective Data Vital Signs: Vital Signs Temp Pulse Resp BP Pulse Ox O2 Del Method 97.6 F L 70 16 117/80 97 Room Air 11/12/24 02:14 11/12/24 02:14 11/12/24 02:14 11/12/24 02:14 11/12/24 02:14 11/12/24 02:14 Oxygen Delivery Method Room Air Weight: 107 kg Body Mass Index (BMI) 44.5 Intake & Output: Intake and Output for Last 24 Hours 11/10/24 11/11/24 11/12/24 23:59 23:59 23:59 Intake Total 1497.5 / 1497.5 Output Total 1200 / 1200 500 / 500 Balance 297.5 / 297.5 -500 / -500 Lab / Micro Data 11/11/24 06:33 ROS Constitutional Constitutional: Denies headache(s) Cardiovascular Cardiovascular: Denies chest pain or dyspnea Gastrointestinal Gastrointestinal: Denies nausea or vomiting Genitourinary Genitourinary: Denies dysuria Physical Exam Const alert, oriented x3 and no apparent distress General Appearance: cooperative and comfortable Eyes PERRL and EOMs intact bilaterally Resp normal respiratory effort GI soft to palpation and non-tender GI Narrative: soft, moderate distention, fundus firm, appropriately tender. Abdominal bandage clean dry and intact Uterus Palpation: uterus fundus firm ( below umbilicus) Extremity normal to inspection and full ROM Neuro oriented x3 and CN's II-XII intact bilaterally Psych mental status grossly normal Assessment & Plan (1) S/P : (2) Previous delivery affecting : PLAN: Plan D/c home
--- NOTE | 2024-11-12 08:00 | PCM.DC.SUM ---
Providers Date of Admission: 11/10/24 Date of Discharge: 11/12/24 Primary Care Physician: No Primary Care Phys Reason For Visit: REPEAT Diagnosis Discharge Diagnosis (1) S/P : Status: Acute Code(s): Z98.891 - History of uterine scar from previous surgery (2) Previous delivery affecting : Status: Acute Code(s): O34.219 - Maternal care for unspecified type scar from previous delivery Plan D/c home Medications at Discharge Home Medications vitamn-iron carb-folic acid-docusate 95 mg-1 mg-50 mg capsule 1 cap PO DAILY pregnanvy 05/02/22 acetaminophen 500 mg tablet 1,000 mg (2 x 500 mg) PO Q6 PRN fever or pain #60 tabs 11/12/24 ibuprofen 600 mg tablet 600 mg PO Q6H PRN fever or pain #60 tabs 11/12/24 sennosides 8.6 mg-docusate sodium 50 mg tablet (Stimulant Laxative Plus) 1 - 2 tab PO DAILY #30 tabs 11/12/24 Hospital Course Operations section Procedures None Summary of Care Provided Minutes Spent on Discharge: 20 Hospital Course: Scheduled repeat . Uncomplicated Physical Exam Const alert General Appearance: cooperative GI GI Narrative: soft, moderate distention, fundus firm, appropriately tender. Abdominal bandage clean dry and intact Weight / BMI Weight Weight: 107 kg Body Mass Index (BMI) 44.5 ABG / Lab / Microbiology Data 11/11/24 06:33 D/C Instructions May resume sexual activity in: 4-6 weeks Lifting Restrictions: 20 pounds Additional Activity Instructions: Nothing in the vagina for 4-6 weeks. You may return to work/school in 6 weeks. Call your doctor if your incision/area has: Continuous Slow Oozing, Sudden Increased Bleeding, Increased Pain/ Swelling, Increased Redness and Foul Smelling Discharge Call your doctor if you observe: Fever of 101 or Higher and Using more than 1 pad per hour (for 2 hours) Suture Line Care: Avoid Pulling/Pushing and Avoid Pinching/Bending Cleanse incision/area with: Keep Dressing Clean & Dry DC O2, CPAP, BIPAP Needs Home O2 Discharge instructions: No Please Follow Up With: Janie Bales MD When: Call to make an appointment for an incision check in 1-2 [phone]. You will need a post check in 6 weeks. Meaningful Use Info Meaningful Use Meaningful Use Diagnoses (Choose all that apply): None applicable Discharge Plan Admission Admit Date/Time: 11/10/24 09:32 Primary Reason for Your Visit: Attending Provider: Janie Bales Primary Care Provider: Carly Physician,Betzaida Primary Discharge Orders/Prescriptions Prescriptions: New acetaminophen 500 mg Tablet 1,000 mg PO Q6 PRN (Reason: fever or pain) Qty: 60 0RF ibuprofen 600 mg Tablet 600 mg PO Q6H PRN (Reason: fever or pain) Qty: 60 0RF sennosides-docusate sodium [Stimulant Laxative Plus] 8.6-50 mg Tablet 1 - 2 tab PO DAILY Qty: 30 0RF Continued prenat vit-iron [id number]-BR-nrymxpxm 95-1-50 mg Capsule 1 cap PO DAILY Discontinued aspirin [Adult Aspirin Regimen] 81 mg tablet,delayed release (DR/EC) 162 mg PO DAILY Referrals / Follow Up: Care Physician,No Primary [Primary Care Provider] - Disposition Disposition (needs filled in before D/C Order can be placed): Home, Self Care
[2024-11-12 08:25] VITALS: BP 139/84; PULSE 65; RESP 16; TEMP 26.2; O2SAT 97
[2024-11-12] MEDS: Senna/Docusate Sodium 1 Tablet PO ×2 (09:17)
== END 2024-11-12 10:30 | disposition home or self-care (01) | DRG 788 ==
PROVIDERS: Admitting Provider Obstetrics & Gynecology; Visit Provider Obstetrics & Gynecology
PROC: 10D00Z1 Extraction of Products of Conception, Low, Open Approach (ICD-10-PCS; CPT 59514; principal; 2024-11-10 12:00)
DX: O34.219 Maternal care for unspecified type scar from previous cesarean delivery (principal); E66.9 Obesity, unspecified; D64.9 Anemia, unspecified; O99.214 Obesity complicating childbirth; O99.02 Anemia complicating childbirth; Z3A.39 39 weeks gestation of pregnancy; Z37.0 Single live birth; Z79.82 Long term (current) use of aspirin; Z79.899 Other long term (current) drug therapy
CPT/HCPCS: 59025; 59050; 85025; 85027; 86780; 86850; 86900; 86901; 99221; A4216; G0378; J2405